=== PATIENT | male | born 1935 | race Caucasian/White ===

== ENCOUNTER 2020-12-16 14:50 | Outpatient (REF) | payer MEDICARE, SELFPAY ==
[2020-12-16 15:32] LABS: Anion Gap 13 (12-20); Blood Urea Nitrogen 32 mg/dL (9-16); Calcium 9.3 mg/dL (8.4-10.2); Carbon Dioxide 26 mmol/L (22-29); Chloride 103 mmol/L (96-108); Estimated Glomerular Filt Rate 48; Glucose Random 99 mg/dL (60-115); Potassium 5.1 mmol/L (3.3-5.1); Sodium 137 mmol/L (135-145)
== END 2020-12-16 14:51 | disposition home or self-care (01) ==
LOC: HO.LNP 14:50
PROVIDERS: Visit Provider Internal Medicine
DX: I50.20 Unspecified systolic (congestive) heart failure (principal)
CPT/HCPCS: 80048

== ENCOUNTER 2022-03-02 15:46 | Inpatient (IN) | payer MEDICARE, SELFPAY ==
--- NOTE | ~2022-03-02 | CT_ITS ---
EXAMINATION: CT ABDOMEN AND PELVIS WITHOUT CONTRAST CLINICAL INFORMATION: Previous psoas hematoma COMPARISON: Chest CT 03/02/2022. TECHNIQUE: Multidetector volumetric imaging was performed from the lung bases through the pubic symphysis. Sagittal and coronal reformatted images were obtained on the technologist workstation. This CT examination was performed using dose optimization techniques as appropriate, variously including the following: *Automated exposure control *Adjustment of mA and/or kV according to patient size (this includes techniques or standardized protocols for targeted exams where dose is matched to indication/reason for exam; i.e. extremities or head) *Use of iterative reconstruction technique FINDINGS: The lack of intravenous contrast limits evaluation of the solid visceral organs including the liver, spleen, pancreas, and kidneys. LUNG BASES: Small to moderate right pleural effusion is decreased from prior study. Trace left pleural effusion is similar perhaps slightly increased. Cardiomegaly. Trace pericardial fluid. Partially imaged pacer wires. Bibasilar atelectasis. Dense three-vessel coronary artery calcifications. LIVER, GALLBLADDER, AND BILIARY TREE: Subtly nodular hepatic contour suggests cirrhosis. No focal liver lesion seen. Gallbladder collapsed. No biliary ductal dilatation. PANCREAS: As fluid and fat stranding surrounding the pancreas most notable in the region of the pancreatic head. Acute interstitial pancreatitis can give this appearance. SPLEEN: Splenomegaly measuring 18.3 cm anterior to posterior by 14.2 cm craniocaudal. ADRENAL GLANDS: Normal; no adrenal mass. KIDNEYS AND URETERS: Atrophic kidneys bilaterally. No calculi or hydronephrosis. GASTROINTESTINAL TRACT: Stomach and small bowel are nondilated. Normal appendix. Scattered colonic diverticulosis. No evidence of colitis or diverticulitis. There is fluid and fat stranding surrounding the mid to distal duodenum. ABDOMINAL WALL: Small fat-containing umbilical hernia. Right greater than left bilateral fat-containing inguinal hernias. LYMPH NODES: Normal caliber abdominal aorta. Numerous prominent to mildly enlarged intraperitoneal lymph nodes are present. Left external iliac lymph node measures 2.9 x 1.7 cm. Left greater than right inguinal lymph nodes are present as well. 5 x 6.3 cm transaxial by 10 cm craniocaudal fluid collection in the right psoas musculature. This is simple fluid density, perhaps chronic hematoma. VASCULAR: Normal caliber abdominal aorta. Varices. BLADDER: Bladder is collapsed with a Ayoub catheter in place. PELVIC VISCERA: 6 x 6.2 cm prostatomegaly. OSSEOUS STRUCTURES: No acute or suspicious osseous abnormalities. Small volume ascites with fluid along both paracolic gutters and in the central mesentery. Anasarca. CT/CT abdomen pelvis wo IV con IMPRESSION: 5 x 6.3 x 10 cm craniocaudal simple fluid density collection in the right psoas muscle. This could represent a chronic hematoma. Small to moderate right pleural effusion is decreased from the prior chest CT 03/02/2022. Trace left pleural effusion is similar perhaps slightly increased. There is fluid and fat stranding adjacent the pancreas and duodenum. Pancreatitis can give this appearance. Duodenitis considered less likely. Nodular hepatic contour consistent with cirrhosis. Splenomegaly, varices, and anasarca consistent with portal hypertension. Nonspecific lymphadenopathy, possibly reactive.
--- NOTE | ~2022-03-02 | XR_ITS ---
EXAMINATION: XR CHEST CLINICAL INFORMATION: Altered mental status and shortness of breath COMPARISON: None TECHNIQUE: Frontal view upright portable of the chest was obtained. FINDINGS: There is mild cardiac enlargement. The lungs are hypoexpanded. A single lead left chest wall pacemaker is present. There is mild upper zone redistribution and some mild interstitial prominence which may represent congestion and mild interstitial edema. Tiny pleural effusions cannot be excluded. XR/XR chest 1V IMPRESSION: Mild cardiomegaly with question of mild CHF.
--- NOTE | ~2022-03-02 | CT_ITS ---
EXAMINATION: CT HEAD WITHOUT CONTRAST CLINICAL INFORMATION: Altered mental status COMPARISON: None TECHNIQUE: Contiguous axial imaging was performed from the skull base to vertex without intravenous administration of contrast. This CT examination was performed using dose optimization techniques as appropriate, variously including the following: *Automated exposure control *Adjustment of mA and/or kV according to patient size (this includes techniques or standardized protocols for targeted exams where dose is matched to indication/reason for exam; i.e. extremities or head) *Use of iterative reconstruction technique DLP: 625 mGy-cm FINDINGS: Images for this exam are under the accession number [id number] There is no evidence of acute intracranial hemorrhage or territorial infarction. No abnormal mass effect or midline shift is seen. [place] to white matter differentiation is well preserved. No extra-axial fluid collections are identified. No hydrocephalus. Proportional prominence of the ventricles and sulcal spaces is consistent with moderate volume loss. Patchy periventricular and deep white matter hypoattenuation is consistent with mild small vessel ischemic changes. Bilateral gangliocapsular lacunar infarcts. No acute osseous or soft tissue abnormality. The mastoid air cells and visualized portions of the paranasal sinuses are well aerated. CT/CT head/brain wo IV con IMPRESSION: No acute intracranial pathology.
--- NOTE | ~2022-03-02 | CT_ITS ---
EXAMINATION: CT ANGIOGRAM OF THE CHEST WITH AND WITHOUT CONTRAST (CT PULMONARY ANGIOGRAM FOR PE) CLINICAL INFORMATION: Reason for Exam hypoxia, + dimer ro pe COMPARISON: Chest radiograph 03/02/2022 TECHNIQUE: Prior to contrast administration, noncontrast localization images were obtained. Subsequently, multidetector volumetric imaging was performed from the thoracic inlet to below the diaphragms following the administration of 75 mL Omnipaque 350 intravenous contrast. No contrast reaction reported Sagittal, coronal, and MIP oblique sagittal reformatted images were obtained on the CT workstation, uploaded to PACS, and reviewed. This CT examination was performed using dose optimization techniques as appropriate, variously including the following: *Automated exposure control *Adjustment of mA and/or kV according to patient size (this includes techniques or standardized protocols for targeted exams where dose is matched to indication/reason for exam; i.e. extremities or head) *Use of iterative reconstruction technique Total exam dose-length product 625 mGy-cm FINDINGS: QUALITY OF STUDY/CONTRAST BOLUS: The bolus is less than optimal and there is significant motion artifact PULMONARY ARTERIES: No central or lower segmental pulmonary emboli. THORACIC AORTA: No aneurysm or dissection. LUNG: Mild interstitial prominence seen compatible with CHF and interstitial edema. No suspicious lung masses are seen. A calcified left upper lobe granuloma is present. PLEURA: There is a moderate right pleural effusion present which was mostly subpulmonic in appearance on the chest radiograph. No significant left effusion. MEDIASTINUM: The heart is mildly enlarged. No pericardial effusion. Mild coronary calcium is present. No hilar or mediastinal lymphadenopathy. No evidence of septal bowing or right heart strain. Left chest wall pacemaker with tip at the RV apex. CHEST WALL/AXILLA: No axillary or internal mammary lymphadenopathy. OSSEOUS STRUCTURES: Degenerative changes are present throughout the spine. UPPER ABDOMEN: Unremarkable. There is moderate reflux of contrast into the hepatic veins to suggest elevated right heart pressures. CT/CT angio chest PE protocol IMPRESSION: 1. No evidence of pulmonary emboli. 2. Cardiomegaly with interstitial edema and moderate right pleural effusion 3. Reflux into the hepatic veins suggests elevated right-sided heart pressures VTE: negative
--- NOTE | 2022-03-02 15:57 | ECG_ITS ---
Test Reason : weakness Blood Pressure : / mmHG Vent. Rate : 107 BPM Atrial Rate : 076 BPM P-R Int : 000 ms QRS Dur : 126 ms QT Int : 414 ms P-R-T Axes : 000 096 122 degrees QTc Int : 552 ms Poor data quality Atrial fibrillation Right bundle branch block T wave abnormality, consider lateral ischemia Abnormal ECG No previous ECGs available Referred By: Skyler Lindo Electronically Signed By:MELODY CRAWFORD MD
--- NOTE | 2022-03-02 15:58 | ED_ITS ---
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 According to report obtained from EMS symptoms have been going on for 1 day, patient is confused at baseline and only alert to person, was noted to be hypoxic when EMS arrived saturating 80% on room air, was placed on 4 L nasal cannula and O2 sat 95%. Patient does not use home oxygen. Reporting some shortness of breath and malaise. Unable to obtain accurate review of systems as patient is altered. To note patient is noted to be unkempt and arrives with Quarles catheter in place that appears to have dark, cloudy, foul-smelling urine. Related Data Allergies Allergy/AdvReac Type Severity Reaction Status Date / Time Unable to Assess Allergy Unverified 03/02/22 15:56 Review of Systems Review of Systems: Yes Unobtainable due to mental status PMFSH Past Medical History Attestation statement: The following information was validated with the patient. Source: old records reviewed and nursing notes reviewed Social History Social History Advance Directives: No Physical Exam ED Vital Signs: Vital Signs - 24 hr 03/02/22 16:14 03/02/22 17:56 03/02/22 18:54 Temperature 102.6 F H 101.5 F H 99.1 F Pulse Rate 69 60 60 Respiratory Rate 30 H 27 H 20 Blood Pressure 106/47 L 102/48 L 98/52 L Pulse Oximetry 96 96 95 Oxygen Delivery Method Nasal Cannula Nasal Cannula Nasal Cannula Oxygen Flow Rate 4 3 3 BMI result Body Mass Index 30.4 Patient noted to be febrile, tachycardic on my examination however for nursing patient was not noted to be tachycardic. On 4 L of NC --> 95% Appearance: Alert.? Oriented to person.? No acute distress.? Patient appears unkempt, smells like urine. Head: Normocephalic, atraumatic, no step-offs or deformities Eyes: Pupils equal, round and reactive to light.? Neck: Normal inspection.? Neck supple.? CVS: Rapid.? Pu rate normal rhythm likely sinus tachycardia.lses normal.? Respiratory: No respiratory distress.? Breath sounds diminished b/l.? Abdomen: Soft and nontender.? Skin: Skin warm and dry.? Normal skin color.? Normal skin turgor.?Warm skin to the touch : quarles cath in place. Extremities: 3+ b/l non pitting edema.? No calf ttp. Global weakness Neuro: Oriented only to person.? No motor deficit.? No sensory deficit. CN 2-12 intact. Intermittently following commands. Negative romberg Course Reevaluation(s) Reevaluation #1: CBC with normocytic anemia. No leukocytosis. Chemistry with elevated BUN and creatinine slightly higher than his baseline. BNP noted to be 297, no need for diuretics. Troponin noted to be critically elevated 150.9, EKG appears to have a right bundle-branch block however no previous EKGs to compare with, patient not complaining of chest pain or shortness of breath, will obtain a repeat troponin at 07:30, troponin could be elevated secondary to chronic kidney disease. Patient is noted to have a positive D-dimer, CTA ordered. Urine grossly infected will start ceftriaxone IV. Chest x-ray, CTA and CT of the head pending. Time: 17:32 Reevaluation #2: No signs of PE. Cardiomegaly with interstitial edema and moderate right pleural effusion. Reflux and hepatic veins which suggest right-sided heart pressure. VT negative. Head CT with no acute findings. Time: 19:20 Reevaluation #3: Patient will be admitted to the hospital for further intervention and treatment at this time. Comfortable with plan hospitalist accepts admission Time: 19:22 Medications Administered Discontinued Medications Generic Name Dose Route Start Last Admin Trade Name Freq PRN Reason Stop Dose Admin Acetaminophen 650 mg 03/02/22 16:20 03/02/22 16:46 Acetaminophen Supp 650 Mg Supp.Rect MO 03/02/22 16:21 650 mg ONCE ONE Administration Ceftriaxone Sodium 1 gm/ 50 mls @ 100 mls/hr 03/02/22 17:19 03/02/22 18:22 Sodium Chloride IV 03/02/22 17:48 Infused ONCE ONE Infusion Iohexol 100 ml 03/02/22 18:02 03/02/22 18:02 Iohexol 350 Mg/Ml 100 Ml Infus..Btl IV 03/02/22 18:03 75 ml ONCE ONE Administration Medical Decision Making [facility] Narrative Medical decision making narrative: 1615 86 year old male presents with AMS, hypoxia X 1 day, coming from SNF. Poor historian. PE diminished breath sounds bilaterally, global weakness, rapid regular rhythm likely sinus tachycardia. Abdomen soft nontender nondistended. Patient oriented to person however not place time or situation. Intermittently following commands. Difficult to obtain an NIH stroke scale as patient is altered. Plan- basic labs, urine, chest x-ray, head CT, blood cultures, lactic acid Sepsis protocol initiated as patient noted to be febrile, tachycardic. Suspecte d urosepsis. Will rule out other infections such as respiratory infections a, pneumonia, PE, ACS, CHF, electrolyte abnormalities secondary to mouth nutrition. Medical Records Medical records reviewed: Yes I reviewed the patient's medical records. Lab Data Lab results reviewed: Yes I reviewed the patient's lab results. Result diagrams: 03/02/22 16:39 03/02/22 16:39 Labs: Lab Results 03/02/22 03/02/22 03/02/22 Range/Units 16:39 16:39 16:39 WBC 7.7 (4.8-10.8) X10*3/uL RBC 3.94 L (4.60-5.80) X10*6/uL Hgb 11.8 L (14.0-18.0) g/dl Hct 38.6 L (42.0-52.0) % MCV 98.0 (80.0-98.0) fL MCH 29.9 (27.0-33.0) pg MCHC 30.6 L (31.0-36.0) g/dl RDW 15.4 (11.0-16.0) % Plt Count 105 L (160-400) X10*3/uL MPV 12.2 (9.4-12.4) fL Immature Gran % (Auto) 0.4 (0.0-0.4) % Neut % (Auto) 85.7 H (45-73) % Lymph % (Auto) 5.1 L (20-40) % [place] % (Auto) 8.5 (2-11) % Eos % (Auto) 0.0 (0-4) % Baso % (Auto) 0.3 (0-2) % Lymph # (Auto) 0.4 L (1.2-4.9) X10*3/uL [place] # (Auto) 0.7 (0.1-1.2) X10*3/uL Eos # (Auto) 0.0 (0.0-0.4) X10*3/uL Baso # (Auto) 0.0 (0.0-0.2) X10*3/uL Abs Immat Gran (auto) 0.03 (0.00-0.03) X10*3/uL Absolute Neuts (auto) 6.6 (2.0-8.3) x10*3/uL Absolute Nucleated RBC 0.000 (0.0-0.012) X10*3/uL Nucleated RBC % (auto) 0.0 (0.0-0.2) /100WBC D-Dimer High Sensitivty NG/ML Sodium 142 (135-145) mmol/L Potassium 5.1 (3.3-5.1) mmol/L Chloride 105 (96-108) mmol/L Carbon Dioxide 29 (22-29) mmol/L Anion Gap 13 (12-20) BUN 25 H (9-16) mg/dL Creatinine 1.62 H (0.5-1.4) mg/dL Estim Creat Clear Calc 36.4 Estimated GFR 41 Random Glucose 100 (60-115) mg/dL Lactic Acid (0.5-2.0) mmol/L Calcium 8.9 (8.4-10.2) mg/dL Magnesium 2.0 (1.6-2.6) mg/dL Total Bilirubin 1.1 H (0.0-1.0) mg/dL AST 15 (5-37) U/L ALT < 6 (0-40) U/L Alkaline Phosphatase 95 (39-117) U/L Troponin I High Sens 150.9 H* (<3.5-35.0) ng/L B-Natriuretic Peptide (<100) pg/mL Total Protein 7.0 (6.5-8.0) g/dL Albumin 3.6 (3.5-5.0) g/dL Urine Color Urine Appearance Urine pH (5.0-9.0) Ur Specific Startex (1.005-1.025) Urine Protein (Neg-Trace) mg/dL Urine Glucose (UA) (Negative) mg/dL Urine Ketones (Negative) mg/dL Urine Blood (Negative) Urine Nitrite (Negative) Ur Leukocyte Esterase (Negative) Urine RBC (0-2) /HPF Urine WBC (0-5) /HPF Urine WBC Clumps Ur Squamous Epith Cells (0-2) /HPF Urine Bacteria (None Seen) Hyaline Casts (0-2) /LPF Granular Casts COVID-19 (MILEY) (Negative) COVID-19 Clin Com 03/02/22 03/02/22 03/02/22 Range/Units 16:39 16:39 16:39 WBC (4.8-10.8) X10*3/uL RBC (4.60-5.80) X10*6/uL Hgb (14.0-18.0) g/dl Hct (42.0-52.0) % MCV (80.0-98.0) fL MCH (27.0-33.0) pg MCHC (31.0-36.0) g/dl RDW (11.0-16.0) % Plt Count (160-400) X10*3/uL MPV (9.4-12.4) fL Immature Gran % (Auto) (0.0-0.4) % Neut % (Auto) (45-73) % Lymph % (Auto) (20-40) % [place] % (Auto) (2-11) % Eos % (Auto) (0-4) % Baso % (Auto) (0-2) % Lymph # (Auto) (1.2-4.9) X10*3/uL [place] # (Auto) (0.1-1.2) X10*3/uL Eos # (Auto) (0.0-0.4) X10*3/uL Baso # (Auto) (0.0-0.2) X10*3/uL Abs Immat Gran (auto) (0.00-0.03) X10*3/uL Absolute Neuts (auto) (2.0-8.3) x10*3/uL Absolute Nucleated RBC (0.0-0.012) X10*3/uL Nucleated RBC % (auto) (0.0-0.2) /100WBC D-Dimer High Sensitivty NG/ML Sodium (135-145) mmol/L Potassium (3.3-5.1) mmol/L Chloride (96-108) mmol/L Carbon Dioxide (22-29) mmol/L Anion Gap (12-20) BUN (9-16) mg/dL Creatinine (0.5-1.4) mg/dL Estim Creat Clear Calc Estimated GFR Random Glucose (60-115) mg/dL Lactic Acid 1.0 (0.5-2.0) mmol/L Calcium (8.4-10.2) mg/dL Magnesium (1.6-2.6) mg/dL Total Bilirubin (0.0-1.0) mg/dL AST (5-37) U/L ALT (0-40) U/L Alkaline Phosphatase (39-117) U/L Troponin I High Sens (<3.5-35.0) ng/L B-Natriuretic Peptide 297 H (<100) pg/mL Total Protein (6.5-8.0) g/dL Albumin (3.5-5.0) g/dL Urine Color Urine Appearance Urine pH (5.0-9.0) Ur Specific Startex (1.005-1.025) Urine Protein (Neg-Trace) mg/dL Urine Glucose (UA) (Negative) mg/dL Urine Ketones (Negative) mg/dL Urine Blood (Negative) Urine Nitrite (Negative) Ur Leukocyte Esterase (Negative) Urine RBC (0-2) /HPF Urine WBC (0-5) /HPF Urine WBC Clumps Ur Squamous Epith Cells (0-2) /HPF Urine Bacteria (None Seen) Hyaline Casts (0-2) /LPF Granular Casts COVID-19 (MILEY) Negative (Negative) COVID-19 Clin Com See Note 03/02/22 03/02/22 Range/Units 16:42 16:43 WBC (4.8-10.8) X10*3/uL RBC (4.60-5.80) X10*6/uL Hgb (14.0-18.0) g/dl Hct (42.0-52.0) % MCV (80.0-98.0) fL MCH (27.0-33.0) pg MCHC (31.0-36.0) g/dl RDW (11.0-16.0) % Plt Count (160-400) X10*3/uL MPV (9.4-12.4) fL Immature Gran % (Auto) (0.0-0.4) % Neut % (Auto) (45-73) % Lymph % (Auto) (20-40) % [place] % (Auto) (2-11) % Eos % (Auto) (0-4) % Baso % (Auto) (0-2) % Lymph # (Auto) (1.2-4.9) X10*3/uL [place] # (Auto) (0.1-1.2) X10*3/uL Eos # (Auto) (0.0-0.4) X10*3/uL Baso # (Auto) (0.0-0.2) X10*3/uL Abs Immat Gran (auto) (0.00-0.03) X10*3/uL Absolute Neuts (auto) (2.0-8.3) x10*3/uL Absolute Nucleated RBC (0.0-0.012) X10*3/uL Nucleated RBC % (auto) (0.0-0.2) /100WBC D-Dimer High Sensitivty 335 NG/ML Sodium (135-145) mmol/L Potassium (3.3-5.1) mmol/L Chloride (96-108) mmol/L Carbon Dioxide (22-29) mmol/L Anion Gap (12-20) BUN (9-16) mg/dL Creatinine (0.5-1.4) mg/dL Estim Creat Clear Calc Estimated GFR Random Glucose (60-115) mg/dL Lactic Acid (0.5-2.0) mmol/L Calcium (8.4-10.2) mg/dL Magnesium (1.6-2.6) mg/dL Total Bilirubin (0.0-1.0) mg/dL AST (5-37) U/L ALT (0-40) U/L Alkaline Phosphatase (39-117) U/L Troponin I High Sens (<3.5-35.0) ng/L B-Natriuretic Peptide (<100) pg/mL Total Protein (6.5-8.0) g/dL Albumin (3.5-5.0) g/dL Urine Color Dark Yellow Urine Appearance Turbid Urine pH 7.0 (5.0-9.0) Ur Specific Startex 1.020 (1.005-1.025) Urine Protein 300 (3+) H (Neg-Trace) mg/dL Urine Glucose (UA) Negative (Negative) mg/dL Urine Ketones Trace (Negative) mg/dL Urine Blood Large (3+) H (Negative) Urine Nitrite Negative (Negative) Ur Leukocyte Esterase Large (3+) H (Negative) Urine RBC >20 H (0-2) /HPF Urine WBC >50 H (0-5) /HPF Urine WBC Clumps Present Ur Squamous Epith Cells 0-2 (0-2) /HPF Urine Bacteria 4+ (None Seen) Hyaline Casts 3-5 (0-2) /LPF Granular Casts Present COVID-19 (MILEY) (Negative) COVID-19 Clin Com Critical Care Time Critical Care Time Critical Care Time: No Discharge Plan Discharge Clinical Impression: UTI (urinary tract infection), Altered mental status, Pleural effusion, Fever Patient Disposition: Admitted As Inpatient
[2022-03-02 15:59] VITALS: BP 118/60; PULSE 64; O2SAT 95; BMI 30.4
[2022-03-02 16:14] VITALS: BP 106/47; PULSE 69; RESP 30; TEMP 39.2; O2SAT 96
--- NOTE | 2022-03-02 16:20 | PC.NURSE ---
MLP notified of pts current vitals. BP 106/47 MAP 66 HR 69 Rectal temp 102.6F. O2 sat 96% on 4L nc.
--- NOTE | 2022-03-02 16:30 | PC.NURSE ---
Fluids not ordered pending lab results as pt has a hx of CHF per provider.
[2022-03-02] MEDS: Acetaminophen Supp 650 MG SUPP.RECT PR (16:46)
[2022-03-02 16:58] LABS: Appearance Urine Turbid; Color Urine Dark Yellow; Glucose Urine UA Negative (Negative); Leukocyte Esterase Urine Large (3+) (Negative); Nitrite Urine Negative (Negative); UMIC TRIGGER UACC YES; Urine Blood Large (3+) (Negative); Urine Ketones Trace mg/dL (Negative); Urine Protein 300 (3+) mg/dL (Neg-Trace)
[2022-03-02 17:00] LABS: MANUAL DIFF FLAG NO
[2022-03-02 17:01] LABS: Basophils Percent Auto 0.3 % (0-2); Hematocrit 38.6 % (42.0-52.0); Hemoglobin 11.8 g/dl (14.0-18.0); Imm Gran Abs Auto 0.03 X10*3/uL (0.00-0.03); Imm Gran Pct Auto 0.4 % (0.0-0.4); Lymphocytes Absolute Auto 0.4 X10*3/uL (1.2-4.9); Lymphocytes Percent Auto 5.1 % (20-40); Mean Corpuscular HGB Conc 30.6 g/dl (31.0-36.0); Mean Corpuscular Hemoglobin 29.9 pg (27.0-33.0); Mean Platelet Volume 12.2 fL (9.4-12.4); Monocytes Absolute Auto 0.7 X10*3/uL (0.1-1.2); Monocytes Percent Auto 8.5 % (2-11); Neutrophils Absolute Auto 6.6 x10*3/uL (2.0-8.3); Neutrophils Percent Auto 85.7 % (45-73); Platelet Count 105 X10*3/uL (160-400); Red Blood Count 3.94 X10*6/uL (4.60-5.80); Red Cell Distribution Width 15.4 % (11.0-16.0); White Blood Count 7.7 X10*3/uL (4.8-10.8)
--- NOTE | 2022-03-02 17:07 | PC.NURSE ---
iv inserted, labs drawn, covid swab obtained, monitor car operator applied, urine obtained, pt arrived with a chronic quarles cath, pt medicated per order, this nurse noted blood AK when giving tylenol, will notify provider.
[2022-03-02 17:14] LABS: D Dimer High Sensitivity 335 NG/ML
[2022-03-02 17:17] LABS: Bacteria Urine 4+ (None Seen); Granular Casts Urine Present; RBC Urine >20 /HPF (0-2); Squamous Epithelial Cell Urine 0-2 /HPF (0-2); UACC Culture Trigger YES; WBC Clumps Urine Present; WBC Urine >50 /HPF (0-5)
--- NOTE | 2022-03-02 17:21 | ECG_ITS ---
Test Reason : AMS Blood Pressure : / mmHG Vent. Rate : 064 BPM Atrial Rate : 000 BPM P-R Int : 000 ms QRS Dur : 142 ms QT Int : 428 ms P-R-T Axes : 000 111 145 degrees QTc Int : 441 ms Atrial fibrillation with frequent ventricular-paced complexes Right bundle branch block Left posterior fascicular block Bifascicular block T wave abnormality, consider lateral ischemia Abnormal ECG When compared with ECG of 02-MAR-2022 16:28, Electronic ventricular pacemaker is new Referred By: Skyler Lindo Electronically Signed By:MELODY CRAWFORD MD
[2022-03-02 17:24] LABS: B Type Natriuretic Peptide 297 pg/mL (<100)
[2022-03-02 17:25] LABS: Alanine Aminotransferase < 6 U/L (0-40); Albumin Level 3.6 g/dL (3.5-5.0); Alkaline Phosphatase 95 U/L (39-117); Anion Gap 13 (12-20); Aspartate Amino Transferase 15 U/L (5-37); Bilirubin Total 1.1 mg/dL (0.0-1.0); Blood Urea Nitrogen 25 mg/dL (9-16); COVID-19 Test Negative (Negative); Calcium 8.9 mg/dL (8.4-10.2); Carbon Dioxide 29 mmol/L (22-29); Chloride 105 mmol/L (96-108); Creatinine Clr Calc Pharmacy 36.4; Estimated Glomerular Filt Rate 41; Glucose Random 100 mg/dL (60-115); IDNOW Serial# 16C4AD1C; Potassium 5.1 mmol/L (3.3-5.1); Sodium 142 mmol/L (135-145)
[2022-03-02 17:30] LABS: Troponin-I High Sensitivity 150.9 ng/L (<3.5-35.0)
[2022-03-02] MEDS: cefTRIAXone sodium 1 GM in 0.9 % Sodium Chloride 50 ML IV (17:43)
[2022-03-02 17:56] VITALS: BP 102/48; PULSE 60; RESP 27; TEMP 38.6; O2SAT 96
[2022-03-02] MEDS: iohexoL 350 MG/ML 100 ML INFUS..BTL IV (18:02)
--- OUTSIDE RECORDS SUMMARY | 2022-03-02 18:17 | XMS_ITS | Continuity of Care Document ---
:1935 Author Organization [facility] Address [address] [place] [address]- Care Team Providers Name Role Phone Nicola Hager MD Primary Care Physician Encounter [facility] [place] Date(s): 11/06/19 - 12/12/19 [facility] [address] [place] [address]- [facility] Attending Physician: Jeff Marley MD Admitting Physician: Jeff Marley MD Allergies, Adverse Reactions, Alerts No Known Medication Allergies Substance Reaction Severity Status Other Environmental Allergy pollen Acti ve Immunizations Given and Recorded Vaccine Date Status Refusal Reason tetanus-diphtheria toxoids (Td)1 05/08/19 Given influenza virus vaccine, inactivated2 04/07/17 Given influenza virus vaccine, inactivated 06/08/16 Given influenza virus vaccine, inactivated 01/13/15 Given influenza virus vaccine, inactivated 02/11/13 Given influenza virus vaccine, inactivated3 12/09/11 Given influenza virus vaccine, inactivated4 12/28/10 Given influenza virus vaccine, inactivated5 01/04/10 Given pneumococcal 13-valent vaccine6 12/10/14 Given Zoster Vaccine Live 09/02/11 Given Tet/diphth/pertussis, acel (oldterm)7 05/06/09 Given Pneumococcal Vaccine (oldterm)8 05/06/09 Given Influenza Inactive (IM) (oldterm)9 04/22/09 Given 1Result Comment: [facility] [place] 2] [id number] Comment: [04/07/2017] [facility] [id number] 3Admin Note: VIS Admin Note: vis [id number] Note: VIS [id number] Comment: [12/10/2014] vis given to [id number] Note: information paper given and waiver [id number] Note: information paper [id number] Note: H1N1 Medications Advair Diskus 500 mcg-50 mcg inhalation powder 1, puffs, Inhalation, Daily, # 30 each, Refills 5, Tot. Refills 5, Maintenance, 03/23/18 11:47:25 EST, Inhaler, Route to Pharmacy Electronically, [id number], [id number] Start Date: 03/23/18 Status: OrderedAerochamber w/Mask (Large) See Instructions, # 1 each, Refills 0, Tot. Refills 0, Maintenance, use with MDI for asthma flares, 11/12/19 12:31:00 EDT, Supply, 177.8, cm, 11/12/19 10:17:00 EDT, Height Start Date: 11/12/19 Status: Orderedalbuterol CFC free 90 mcg/inh inhalation aerosol 2, puffs, Inhalation, Every 4 hours, PRN, # 1 each, Refills 11, Tot. Refills 11, Maintenance, 04/02/18 11:42:36, Inhaler, Route to Pharmacy Electronically, [id number], [id number] Start Date: 04/02/18 Stop Date: 03/28/19 Status: Orderedaspirin 81 mg oral tablet 1 tablet = 81 mg, By Mouth, Daily, # 30 tablet, 0 Refills, Maintenance, 09/07/16 9:41:59, Tablet Start Date: 09/07/16 Status: Orderedcarvedilol 6.25 mg oral tablet 6.25 mg, 1, tablet, By Mouth, 2 times a day, # 180 tablet, Refills 1, Tot. Refills 1, Maintenance, 10/18/19 14:48:00 EDT, Route to Pharmacy Electronically, [id number], 177.8, cm, 05/08/19 9:20:00 EST, Height Start Date: 10/18/19 Status: OrderedCompression Stockings See Instructions, # 1 pair, Maintenance, surgical, knee length 30-40 mm Hg, 11/18/15 21:24:44, Compound Start Date: 11/18/15 Status: Ordereddocusate sodium 100 mg oral capsule 100 mg, 1, capsule, By Mouth, Daily, PRN, # 30 capsule, Refills 3, Tot. Refills 3, Maintenance, for constipation, 04/16/18 13:14:21 EST, Route to Pharmacy Electronically, [id number], [id number] Start Date: 04/16/18 Stop Date: 08/14/18 Status: OrderedDuoNeb 3 mg-0.5 mg/3 ml inhalation solution 3 mL, Neb, Once, 3ml administered via neb per verbal orders. lot # [id number] exp 07/26, # 3 mL, 0 Refills, Soft Stop, 04/28/17 12:14:31, 3 mL Neb Once,Instr:3ml administered via neb per verbal orders. ; lot # [id number] 07/26 Start Date: 04/28/17 Status: OrderedFreestyle Lite Lancets See Instructions, # 200 each, Refills 5, Tot. Refills 5, Maintenance, qid for Type 2 Diabetes Mellitus ICD10: E11.9, 03/23/18 11:45:26 EST, Compound Start Date: 03/23/18 Stop Date: 04/22/18 Status: OrderedFreestyle Lite Test Strips See Instructions, # 100 each, Refills 11, Tot. Refills 11, Maintenance, qid for Type 2 Diabetes Mellitus ICD10: E11.9, 05/09/19 13:52:00 EST, Compound, 177.8, cm, 05/08/19 9:20:00 EST, Height Start Date: 05/09/19 Stop Date: 05/03/20 Status: Orderedfurosemide 20 mg oral tablet See Instructions, # 30 tablet, Refills 6 Tot. Refills 6, TAKE ONE TABLET BY MOUTH EVERY DAY NEEDED FOR EDEMA, [id number] Start Date: 12/11/18 Status: OrderedGlucophage 1000 mg oral tablet 1 tablet = 1,000 mg, By Mouth, Daily, # 90 tablet, 1 Refills, Maintenance, 08/27/19 8:15:00 EDT, Tablet, [id number], 177.8, cm, 05/08/19 9:20:00 EST, Height Start Date: 08/27/19 Status: OrderedLasix 20 mg oral tablet 20 mg, 1, tablet, By Mouth, Daily, PRN, # 30 tablet, Refills 0, Tot. Refills 0, Maintenance, edema, 11/12/18 14:26:04 EDT, Route to Pharmacy Electronically, [id number], [id number] Start Date: 11/12/18 Stop Date: 12/12/18 Status: Orderedlisinopril 40 mg oral tablet 1 tablet = 40 mg, By Mouth, Daily, # 90 tablet, 1 Refills, Maintenance, 08/27/19 8:03:00 EDT, Tablet, [id number], 177.8, cm, 05/08/19 9:20:00 EST, Height Start Date: 08/27/19 Status: Orderedpravastatin 20 mg oral tablet 20 mg, 1, tablet, By Mouth, Daily, # 90 tablet, Refills 1, Tot. Refills 1, Maintenance, 08/27/19 8:15:00 EDT, Route to Pharmacy Electronically, [id number], 177.8, cm, 05/08/19 9:20:00 EST, Height Start Date: 08/27/19 Status: Orderedsertraline 50 mg oral tablet 1 tablet = 50 mg, By Mouth, Daily, # 90 tablet, 1 Refills, Soft Stop, 11/04/19 14:38:00 EDT, [id number], 177.8, cm, 10/30/19 15:35:00 EDT, Height Start Date: 11/04/19 Status: Orderedtamsulosin 0.4 mg oral capsule 0.4 mg, 1, capsule, By Mouth, Daily, # 90 capsule, Refills 1, Tot. Refills 1, Maintenance, 08/27/19 8:01:00 EDT, Route to Pharmacy Electronically, [id number], 177.8, cm, 05/08/19 9:20:00 EST, Height Start Date: 08/27/19 Status: OrderedXarelto 20 mg oral tablet 1 tablet, By Mouth, Daily in PM, # 90 tablet, 1 Refills, Soft Stop, 08/27/19 8:07:00 EDT, [id number], 177.8, cm, 05/08/19 9:20:00 EST, Height Start Date: 08/27/19 Status: Ordered Problem List Condition Effective Dates Status Health Status Informant MOLST form completed Advanced care 03/31/16 Active planning/counseling discussion(Confirmed)1 BENIGN ESSENTIAL Active HYPERTENSION(Confirmed) BPH (benign prostatic Active hyperplasia)(Confirmed) ATRIAL FIBRILLATION(Confirmed) 08/28/09 Active Chronic heart failure(Confirmed) Active Coronary heart disease(Confirmed) Active Dementia(Confirmed) Active History of pacemaker(Confirmed) Active Mild cognitive impairment with memory Active loss(Confirmed) ASTHMA(Confirmed) Active Morbid obesity(Confirmed) Active Noncompliance with medication Active regimen(Confirmed) Sleep apnea(Confirmed) Active Peripheral vascular disease(Confirmed) Active Prediabetes(Confirmed) Active Pure Hypercholesterolemia(Confirmed) 11/03/10 Active Depression, major, recurrent, Active moderate(Confirmed) Urinary incontinence(Confirmed) 06/07/10 Active 1At Leslee Nelson Social History Social History Type Response Smoking Status Former smoker entered on: 05/03/13 Sex
--- OUTSIDE RECORDS SUMMARY | 2022-03-02 18:17 | XMS_ITS | Continuity of Care Document ---
:1935 Author Organization [facility] Address [address] [place] [address]- Care Team Providers Name Role Phone Oly Card Primary Care Physician Encounter [facility] Date(s): 08/10/20 - 08/19/[address] [address] Discharge Disposition: Discharged to Hospice-Home (routine care Attending Physician: Zulma Westfall MD Admitting Physician: Qiana Lopez DO Referring Physician: Not on Staff, Referring MD Allergies, Adverse Reactions, Alerts No Known Medication Allergies Substance Reaction Severity Status Other Environmental Allergy pollen Acti ve Immunizations Given and Recorded Vaccine Date Status Refusal Reason influenza virus vaccine, inactivated1 01/28/20 Given influenza virus vaccine, inactivated2 04/07/17 Given influenza virus vaccine, inactivated 06/08/16 Given influenza virus vaccine, inactivated 01/13/15 Given influenza virus vaccine, inactivated 02/11/13 Given influenza virus vaccine, inactivated3 12/09/11 Given influenza virus vaccine, inactivated4 12/28/10 Given influenza virus vaccine, inactivated5 01/04/10 Given tetanus-diphtheria toxoids (Td)6 05/08/19 Given pneumococcal 13-valent vaccine7 12/10/14 Given Zoster Vaccine Live 09/02/11 Given Tet/diphth/pertussis, acel (oldterm)8 05/06/09 Given Pneumococcal Vaccine (oldterm)9 05/06/09 Given Influenza Inactive (IM) (oldterm)10 04/22/09 Given 1Result Comment: [facility]-[id number] Comment: [04/07/2017] [facility] [place] [phone] Admin Note: VIS Admin Note: vis [id number] Note: VIS [id number] Comment: [facility] [id number] Comment: [12/10/2014] vis given to awoowwx7Berep Note: information paper given and waiver yixsqj1Eullf Note: information paper [id number] Note: H1N1 Medications Advair Diskus 500 mcg-50 mcg inhalation powder 1, puffs, Inhalation, Daily, # 30 each, Refills 5, Tot. Refills 5, Maintenance, 03/23/18 11:47:25 EST, Inhaler, Route to Pharmacy Electronically, [id number], [facility] Start Date: 03/23/18 Status: Orderedalbuterol CFC free 90 mcg/inh inhalation aerosol 2, puffs, Inhalation, Every 4 hours, PRN, # 1 each, Refills 11, Tot. Refills 11, Maintenance, 04/02/18 11:42:36, Inhaler, Route to Pharmacy Electronically, [id number], [facility] Start Date: 04/02/18 Stop Date: 03/28/19 Status: Orderedaspirin 81 mg oral tablet 1 tablet = 81 mg, By Mouth, Daily, # 30 tablet, 0 Refills, Maintenance, 09/07/16 9:41:59, Tablet Start Date: 09/07/16 Status: Orderedcarvedilol 6.25 mg oral tablet 6.25 mg, 1, tablet, By Mouth, 2 times a day, # 180 tablet, Refills 0, Tot. Refills 0, Maintenance, 04/19/20 8:28:00 EST, Route to Pharmacy Electronically, [facility], 178, cm, 01/23/20 10:29:00 EDT, Height, 134, kg, 12/10/19 13:55:00 ED... Start Date: 04/19/20 Status: Orderedcarvedilol 6.25 mg oral tablet 6.25 mg, Tablet, By Mouth, 08/18/20 21:00:00 EDT Start Date: 08/18/20 Stop Date: 08/18/20 Status: Completedcarvedilol 6.25 mg oral tablet 6.25 mg, Tablet, By Mouth, 08/19/20 9:00:00 EDT Start Date: 08/19/20 Stop Date: 08/19/20 Status: CompletedCBC, BMP CBC, BMP, See Instructions, # 1 Unknown, Refills 0, Tot. Refills 0, Maintenance, In one week (08/26),08/14/20 11:19:00 EDT, Supply Start Date: 08/14/20 Status: Orderedfurosemide 40 mg oral tablet 40 mg, 1, tablet, By Mouth, Daily, # 30 tablet, Refills 2, Tot. Refills 2, Maintenance, 05/10/20 15:33:00 EST, Route to Pharmacy Electronically, [facility], 178, cm, 01/23/20 10:29:00 EDT, Height, 134, kg, 12/10/19 13:55:00 EDT, Dry Weight Start Date: 05/10/20 Stop Date: 08/08/20 Status: OrderedGlucophage 1000 mg oral tablet 1 tablet = 1,000 mg, By Mouth, Daily, # 90 tablet, 1 Refills, Maintenance, 08/27/19 8:15:00 EDT, Tablet, [facility], 177.8, cm, 05/08/19 9:20:00 EST, Height Start Date: 08/27/19 Status: Orderedpravastatin 20 mg oral tablet 20 mg, 1, tablet, By Mouth, Daily, # 90 tablet, Refills 1, Tot. Refills 1, Maintenance, 02/26/20 10:00:00 EST, Route to Pharmacy Electronically, [facility], 178, cm, 01/23/20 10:29:00 EDT, Height, 134, kg, 12/10/19 13:55:00 EDT, Dry Weight Start Date: 02/26/20 Status: OrderedRolling walker Rolling walker, See Instructions, # 1 each, Refills 0, Tot. Refills 0, Maintenance, ICD R26.81 - unstable gait, 08/14/20 11:50:00 EDT, Supply Start Date: 08/14/20 Status: Orderedsertraline 50 mg oral tablet 1.5 tablet = 75 mg, By Mouth, Daily, # 45 tablet, 0 Refills, Maintenance, 08/19/20 9:57:00 EDT, Tablet, [facility] 3, Partial fill upon patient request if the prescription is for a scheduleII opioid drug., 178, cm, 01/23/20 10:29:00 EDT,... Start Date: 08/19/20 Status: Orderedsimethicone 80 mg oral tablet, chewable 80 mg, 1, tablet, Chew, 3 times a day, # 90 tablet, Refills 0, Tot. Refills 0, Acute 09/14/20 10:45:00 EDT, 08/14/20 10:44:00 EDT, Route to Pharmacy Electronically, [facility], [facility] 3, Partial fill upon patient request if the prescription is for... Start Date: 08/14/20 Stop Date: 09/14/20 Status: Orderedtamsulosin 0.4 mg oral capsule 0.4 mg, 1, capsule, By Mouth, Daily, # 90 capsule, Refills 1, Tot. Refills 1, Maintenance, 03/29/20 21:39:00 EST, Route to Pharmacy Electronically, [facility], 178, cm, 01/23/20 10:29:00 EDT, Height, 134, kg, 12/10/19 13:55:00 EDT, Dry... Start Date: 03/29/20 Status: OrderedXarelto 20 mg oral tablet 1 tablet, By Mouth, Daily in PM, # 90 tablet, 1 Refills, Soft Stop, 12/19/19 9:30:00 EDT, [facility], 178, cm, 12/10/19 13:55:00 EDT, Height, 134, kg, 12/10/19 13:55:00 EDT, Dry Weight Start Date: 12/19/19 Status: Ordered Problem List Condition Effective Dates [...] Urinary incontinence(Confirmed) 06/07/10 Active 1At [facility] Results Orders for Microbiology Reports Name Date Blood Culture 08/10/20 Blood Culture #2 08/10/20 Urine Culture 08/10/20 Microbiology Reports TEST:Urine Culture STATUS:Auth (Verified) BODY SITE: SOURCE:URINE COLLECTED DATE/TIME:08/10/20 4:15 PMUrine Culture SPECIMEN DESCRIPTION : URINE CLEAN CATCH/MIDSTREAM SPECIAL REQUESTS : NONE CULTURE : Mixed bacterial cam[place], indicative of urogenital contamination. REPORT STATUS : FINAL 08/11/2020TEST:Blood Culture, Second Order STATUS:Auth (Verified) BODY SITE: SOURCE:Blood COLLECTED DATE/TIME:08/10/20 4:15 PMBlood Culture, Second Order SPECIMEN DESCRIPTION : BLOOD SPECIAL REQUESTS : NONE CULTURE : NO GROWTH 5 DAYS. REPORT STATUS : FINAL 08/15/2020TEST:Blood Culture STATUS:Auth (Verified) BODY SITE: SOURCE:Blood COLLECTED DATE/TIME:08/10/20 3:55 PMBlood Culture SPECIMEN DESCRIPTION : BLOOD R AC SPECIAL REQUESTS : NONE CULTURE : NO GROWTH 5 DAYS. REPORT STATUS : FINAL 1Radiology Reports Exam Date Time Procedure Performing Provider Status 08/10/20 5:11 PM Chest Portable July King; Auth (Camila ified) Notes:(Chest Portable) Reason For Exam: Shortness of BreathRESULT: Chest Portable Chest Portable HX OF PRESENT ILLNESS: BLE edema, diarrhea; Reason: Shortness of Breath; Clinical Question(s): Pleural Effusion / Pleural Effusion COMPARISON: 12/10/2019 FINDINGS: LINES AND TUBES: Single lead left subclavian pacer wire is intact. LUNGS AND PLEURA: The central pulmonary vasculature is prominent and indistinct. No pleural effusion. No pneumothorax. HEART, MEDIASTINUM AND FREYA: Moderate prominence of the cardiac silhouette. Normal mediastinal and hilar contour. BONES AND SOFT TISSUES: No acute abnormality. IMPRESSION: Pulmonary vascular congestion/mild CHF. WSN: [id number] Ordering Physician: Devin Campos Dictated By: Ashok Connell MD Dictated Date/Time: 08/10/20 5:13 pm Reviewed By: Ashok Connell MD Signed By: Ashok Connell MD Signed Date/Time: 08/10/20 5:13 pm Transcribed By: ARTURO Transcribed Date/Time: 08/10/20 5:12 pm Vital Signs Most recent to oldest 1 2 3 [Reference Range]: Oxygen Saturation [94-100 %] 99 % 100 % 91 % (08/19/20 8:13 AM) (08/18/20 7:00 PM) *L* (08/18/20 12:00 P M) Pulse Rate [55-90 bpm] 60 bpm 60 bpm 78 bpm (08/19/20 8:59 AM) (08/19/20 8:13 AM) (08/18/20 8:2 8 PM) Blood Pressure [90-138/55-84 128/67 mm Hg 126/67 mm Hg 138 /72 mm Hg mm Hg] (08/19/20 8:59 AM) (08/19/20 8:13 AM) (08/18/20 8:2 8 PM) Respiratory Rate [16-30 17 br/min 18 br/min 18 br/mi n br/min] (08/19/20 8:13 AM) (08/18/20 7:00 PM) (08/18/20 12: 00 PM) Temperature [96.8-100.4 DegF] 98.1 DegF 97.5 DegF 97 .5 DegF (08/19/20 8:13 AM) (08/18/20 7:00 PM) (08/18/20 12: 00 PM) Liters per Minute 2 L/min 2 L/min 2 L/min (08/17/20 8:56 AM) (08/17/20 4:00 AM) (08/17/20 12: 00 AM) Mode of Delivery (Oxygen) Room air Room air Room a ir (08/19/20 8:13 AM) (08/18/20 7:00 PM) (08/18/20 12: 00 PM) Blood pressure sites Arm, right Arm, right Arm, right (08/19/20 8:13 AM) (08/18/20 8:00 AM) (08/18/20 3:0 0 AM) Temperature Route Oral Oral Axillary (08/19/20 8:13 AM) (08/18/20 7:00 PM) (08/18/20 12: 00 PM) Social History Social History Type Response Smoking Status Former smoker entered on: 05/03/13 Sex
--- OUTSIDE RECORDS SUMMARY | 2022-03-02 18:17 | XMS_ITS | Continuity of Care Document ---
:1935 Author Organization [facility] Address [address] [place] [address]- Care Team Providers Name Role Phone Not on Staff, PCP Primary Care Physician Unavailable Encounter [facility] Date(s): 05/08/20 - 06/07/20 [facility] [address], [place] [address] Attending Physician: Mele Rodriges Admitting Physician: Mele Rodriges Referring Physician: [id number] Allergies, Adverse Reactions, Alerts No Known Medication [...] Inactive (IM) (oldterm)10 04/22/09 Given 1Result Comment: [facility]-[id number] Comment: [04/07/2017] [facility] [phone] Admin Note: VIS Admin Note: vis [id number] Note: VIS [id number] Comment: [facility] [id number] Comment: [12/10/2014] vis given to yvnlgro7Nhbvj Note: information paper given and waiver [id number] Note: information paper [id number] Note: H1N1 Medications Advair Diskus 500 mcg-50 mcg inhalation powder 1, puffs, Inhalation, Daily, # 30 each, Refills 5, Tot. Refills 5, Maintenance, 03/23/18 11:47:25 EST, Inhaler, Route to Pharmacy Electronically, [id number], [facility] Start Date: 03/23/18 Status: OrderedAerochamber [...] 04/02/18 11:42:36, Inhaler, Route to Pharmacy Electronically, [id number], [facility] Start Date: 04/02/18 Stop Date: [...] 04/19/20 8:28:00 EST, Route to Pharmacy Electronically, [facility], 178, cm, 01/23/20 10:29:00 EDT, Height, 134, kg, 12/10/19 13:55:00 ED... Start Date: 04/19/20 Status: OrderedCompression Stockings See Instructions, # 1 pair, Maintenance, surgical, knee length 30-40 mm Hg, 11/18/15 21:24:44, Compound Start Date: 11/18/15 Status: Ordereddocusate sodium 100 mg oral capsule 100 mg, 1, capsule, By Mouth, Daily, PRN, # 30 capsule, Refills 3, Tot. Refills 3, Maintenance, for constipation, 04/16/18 13:14:21 EST, Route to Pharmacy Electronically, [id number], [facility] Start Date: 04/16/18 Stop Date: 08/14/18 Status: OrderedDuoNeb 3 mg-0.5 mg/3 ml inhalation solution 3 mL, Neb, Once, 3ml administered via neb per verbal orders. lot # [id number] 07/26, # 3 mL, 0 Refills, Soft Stop, 04/28/17 12:14:31, 3 mL Neb Once,Instr:3ml administered via neb per verbal orders. ; lot # [id number] 07/26 Start Date: 04/28/17 Status: OrderedFreestyle Lite [...] [facility] Start Date: 12/11/18 Status: Orderedfurosemide 40 mg oral tablet 40 mg, 1, tablet, By Mouth, Daily, # 30 tablet, Refills 2, Tot. Refills 2, Maintenance, 05/10/20 15:33:00 EST, Route to Pharmacy Electronically, [facility], 178, cm, 01/23/20 10:29:00 EDT, Height, 134, kg, 12/10/19 13:55:00 EDT, Dry Weight Start Date: 05/10/20 Stop Date: 08/08/20 Status: OrderedGlucophage 1000 mg oral tablet 1 tablet = 1,000 mg, By Mouth, Daily, # 90 tablet, 1 Refills, Maintenance, 08/27/19 8:15:00 EDT, Tablet, [facility], 177.8, cm, 05/08/19 9:20:00 EST, Height Start Date: 08/27/19 Status: OrderedLasix 20 mg oral tablet 20 mg, 1, tablet, By Mouth, Daily, # 3 tablet, Refills 0, Tot. Refills 0, Maintenance, 01/27/20 9:02:00 EDT, Do Not Route Start Date: 01/27/20 Stop Date: 01/30/20 Status: OrderedLasix 20 mg oral tablet 20 mg, 1, tablet, By Mouth, Daily, PRN, # 30 tablet, Refills 0, Tot. Refills 0, Maintenance, edema, 11/12/18 14:26:04 EDT, Route to Pharmacy Electronically, [id number], [facility] Start Date: 11/12/18 Stop Date: 12/12/18 Status: Orderedlisinopril 40 mg oral tablet 1 tablet = 40 mg, By Mouth, Daily, # 90 tablet, 0 Refills, Maintenance, 01/15/20 16:25:00 EDT, Tablet, [facility], 178, cm, 12/10/19 13:55:00 EDT, Height, 134, kg, 12/10/19 13:55:00 EDT, Dry Weight Start Date: 01/15/20 Status: Orderedpravastatin 20 mg oral tablet 20 mg, 1, tablet, By Mouth, Daily, # 90 tablet, Refills 1, Tot. Refills 1, Maintenance, 02/26/20 10:00:00 EST, Route to Pharmacy Electronically, [facility], 178, cm, 01/23/20 10:29:00 EDT, Height, 134, kg, 12/10/19 13:55:00 EDT, Dry Weight Start Date: 02/26/20 Status: Orderedsertraline 50 mg oral tablet 1 tablet = 50 mg, By Mouth, Daily, # 90 tablet, 1 Refills, Soft Stop, 05/10/20 15:33:00 EST, [facility], 178, cm, 01/23/20 10:29:00 EDT, Height, 134, kg, 12/10/19 13:55:00 EDT, Dry Weight Start Date: 05/10/20 Status: Orderedtamsulosin 0.4 mg oral capsule 0.4 mg, 1, capsule, By Mouth, Daily, # 90 capsule, Refills 1, Tot. Refills 1, Maintenance, 03/29/20 21:39:00 EST, Route to Pharmacy Electronically, [facility], 178, cm, 01/23/20 10:29:00 EDT, Height, 134, kg, 12/10/19 13:55:00 EDT, Dry... Start Date: 03/29/20 Status: OrderedXarelto 20 mg oral tablet 1 tablet, By Mouth, Daily in PM, # 90 tablet, 1 Refills, Soft Stop, 12/19/19 9:30:00 EDT, [facility], 178, cm, 12/10/19 13:55:00 EDT, [...]
--- OUTSIDE RECORDS SUMMARY | 2022-03-02 18:17 | XMS_ITS | Continuity of Care Document ---
:1935 Author Organization [facility] Address [address] [place] [address]- Care Team Providers Name Role Phone Nicola Hager MD Primary Care Physician Encounter [facility] Date(s): 11/04/19 - 12/04/[address] [address]- [facility] Allergies, Adverse Reactions, Alerts No Known Medication [...] Inactive (IM) (oldterm)9 04/22/09 Given 1Result Comment: [facility] [id number] Comment: [04/07/2017] [facility] [id number] 3Admin Note: VIS Admin Note: vis [id number] Note: VIS [id number] Comment: [12/10/2014] vis given to nawpojy1Dculx Note: information paper given and waiver [id number] Note: information paper [id number] Note: H1N1 Medications Advair Diskus 500 mcg-50 mcg inhalation powder 1, puffs, Inhalation, Daily, # 30 each, Refills 5, Tot. Refills 5, Maintenance, 03/23/18 11:47:25 EST, Inhaler, Route to Pharmacy Electronically, [id number], [facility] Start Date: 03/23/18 Status: OrderedAerochamber [...] 04/02/18 11:42:36, Inhaler, Route to Pharmacy Electronically, [id number], [facility] Start Date: 04/02/18 Stop Date: [...] 04/16/18 13:14:21 EST, Route to Pharmacy Electronically, [id number], [facility] Start Date: 04/16/18 Stop Date: 08/14/18 Status: OrderedDuoNeb 3 mg-0.5 mg/3 ml inhalation solution 3 mL, Neb, Once, 3ml administered via neb per verbal orders. lot # [id number] exp 07/26, # 3 mL, 0 Refills, Soft Stop, 04/28/17 12:14:31, 3 mL Neb Once,Instr:3ml administered via neb per verbal orders. ; lot # [id number] 07/26 Start Date: 04/28/17 Status: OrderedFreestyle Lite [...] 11/12/18 14:26:04 EDT, Route to Pharmacy Electronically, [id number], [facility] Start Date: 11/12/18 Stop Date: 12/12/18 Status: Orderedlisinopril 40 mg oral tablet 1 tablet = 40 mg, By Mouth, Daily, # 90 tablet, 1 Refills, Maintenance, 08/27/19 8:03:00 EDT, Tablet, [facility], 177.8, cm, 05/08/19 9:20:00 EST, Height Start Date: 08/27/19 Status: Orderedpravastatin 20 mg oral tablet 20 mg, 1, tablet, By Mouth, Daily, # 90 tablet, Refills 1, Tot. Refills 1, Maintenance, 08/27/19 8:15:00 EDT, Route to Pharmacy Electronically, [facility], 177.8, cm, 05/08/19 9:20:00 EST, Height Start Date: 08/27/19 Status: Orderedsertraline 50 mg oral tablet 1 tablet = 50 mg, By Mouth, Daily, # 90 tablet, 1 Refills, Soft Stop, 11/04/19 14:38:00 EDT, [facility], 177.8, cm, 10/30/19 15:35:00 EDT, Height Start Date: 11/04/19 Status: Orderedtamsulosin 0.4 mg oral capsule 0.4 mg, 1, capsule, By Mouth, Daily, # 90 capsule, Refills 1, Tot. Refills 1, Maintenance, 08/27/19 8:01:00 EDT, Route to Pharmacy Electronically, [facility], 177.8, cm, 05/08/19 9:20:00 EST, [...]
--- OUTSIDE RECORDS SUMMARY | 2022-03-02 18:17 | XMS_ITS | Continuity of Care Document ---
:1935 Author Organization [facility] Address [address] [place] [address]- Care Team Providers Name Role Phone Madan BOYER, Nicola Castillo Primary Care Physician Encounter [facility] [place] Date(s): 12/10/19 - 12/10/[id number] [place] [address] Discharge Disposition: A-D/C Home Attending Physician: Lalita Montalvo MD Admitting Physician: Lalita Montalvo MD Referring Physician: Not on Staff, Referring MD [...] Inactive (IM) (oldterm)9 04/22/09 Given 1Result Comment: [facility] [id number] Comment: [04/07/2017] [facility] [id number] 3Admin Note: VIS Admin Note: vis [id number] Note: VIS [id number] Comment: [12/10/2014] vis given to jvcdbdp9Woxhv Note: information paper given and waiver bsawcq5Fieui Note: information paper gntue6Vsvue Note: H1N1 Medications Advair Diskus 500 mcg-50 mcg inhalation powder 1, puffs, Inhalation, Daily, # 30 each, Refills 5, Tot. Refills 5, Maintenance, 03/23/18 11:47:25 EST, Inhaler, Route to Pharmacy Electronically, [id number], [facility] Start Date: 03/23/18 Status: OrderedAerochamber [...] 04/02/18 11:42:36, Inhaler, Route to Pharmacy Electronically, [id number], [facility] Start Date: 04/02/18 Stop Date: [...] 10/18/19 14:48:00 EDT, Route to Pharmacy Electronically, [facility], 177.8, cm, 05/08/19 9:20:00 EST, [...] 04/16/18 13:14:21 EST, Route to Pharmacy Electronically, [id number], [facility] Start Date: 04/16/18 Stop Date: 08/14/18 Status: OrderedDuoNeb 3 mg-0.5 mg/3 ml inhalation solution 3 mL, Neb, Once, 3ml administered via neb per verbal orders. lot # [id number] 07/26, # 3 mL, 0 Refills, Soft Stop, 04/28/17 12:14:31, 3 mL Neb Once,Instr:3ml administered via neb per verbal orders. ; lot # [id number] 07/26 Start Date: 04/28/17 Status: OrderedFreestyle Lite [...] 11/12/18 14:26:04 EDT, Route to Pharmacy Electronically, [id number], [facility] Start Date: 11/12/18 Stop Date: 12/12/18 Status: Orderedlisinopril 40 mg oral tablet 1 tablet = 40 mg, By Mouth, Daily, # 90 tablet, 1 Refills, Maintenance, 08/27/19 8:03:00 EDT, Tablet, [facility], 177.8, cm, 05/08/19 9:20:00 EST, Height Start Date: 08/27/19 Status: Orderedpravastatin 20 mg oral tablet 20 mg, 1, tablet, By Mouth, Daily, # 90 tablet, Refills 1, Tot. Refills 1, Maintenance, 08/27/19 8:15:00 EDT, Route to Pharmacy Electronically, [facility], 177.8, cm, 05/08/19 9:20:00 EST, Height Start Date: 08/27/19 Status: Orderedsertraline 50 mg oral tablet 1 tablet = 50 mg, By Mouth, Daily, # 90 tablet, 1 Refills, Soft Stop, 11/04/19 14:38:00 EDT, [facility], 177.8, cm, 10/30/19 15:35:00 EDT, Height Start Date: 11/04/19 Status: Orderedtamsulosin 0.4 mg oral capsule 0.4 mg, 1, capsule, By Mouth, Daily, # 90 capsule, Refills 1, Tot. Refills 1, Maintenance, 08/27/19 8:01:00 EDT, Route to Pharmacy Electronically, [facility], 177.8, cm, 05/08/19 9:20:00 [...] incontinence(Confirmed) 06/07/10 Active 1At [facility] Results Radiology Reports Exam Date Time Procedure Performing Provider Status 12/10/19 1:21 PM Chest 2 Views Frontal and Lat Kathleen Hill; Au th (Verified) Notes:(Chest 2 Views Frontal and Lat) Reason For Exam: Wheezing, difficulty breathing with exertion, occasional cough, no fever, lower leg swelling X3-4 monthsRESULT: Chest 2 Views Frontal and Lat Chest 2 Views Frontal and Lat Hx of Present Illness: lower leg swelling per pt has not changed in the last 3-4 months reports increased FIDEL with exerton lower fine rales bilateral lung bases occasional cough no fever; Reason: Wheezing, difficulty breathing with exertion, occasional cough, no fever, lower leg swelling X3-4 months; Clinical Question(s): CHF COMPARISON: 05/08/2019. FINDINGS: LINES AND TUBES: Single lead left subclavian pacer wire is intact. LUNGS AND PLEURA: Low lung volumes with mild basilar atelectasis. Central vascular markings are slightly prominent accentuated by low lung volumes. There is faint interstitial opacity in the lower perihilar lung holliday, cannot exclude very mild pulmonary edema. No pleural effusion. No pneumothorax. HEART, MEDIASTINUM AND FREYA: Mild prominence of the cardiac silhouette. Normal mediastinal and hilar contour. BONES AND SOFT TISSUES: No acute abnormality. IMPRESSION: Cardiac enlargement with faint perihilar interstitial opacity suggestive of pulmonary edema. No consolidation or volume loss. WSN: [id number] Ordering Physician: Lalita Montalvo Dictated By: Ashok Atwood MD Dictated Date/Time: 12/10/19 1:29 pm Reviewed By: Ashok Atwood MD Signed By: Ashok Atwood MD Signed Date/Time: 12/10/19 1:29 pm Transcribed By: ARTURO Transcribed Date/Time: 12/10/19 1:23 pm Vital Signs Most recent to oldest [Reference Range]: 1 2 Height 178 cm 178 cm (12/10/19 1:00 PM) (12/10/19 11:48 AM) Weight 134 kg 134 kg (12/10/19 1:00 PM) (12/10/19 11:48 AM) Oxygen Saturation [94-100 %] 98 % 98 % (12/10/19 1:00 PM) (12/10/19 11:48 AM) Pulse Rate [55-90 bpm] 44 bpm 60 bpm *L* (12/10/19 11:48 AM) (12/10/19 1:00 PM) Body Mass Index [18.5-24.99] 42.29 *>HHI* (12/10/19 1:00 PM) Blood Pressure [90-138/55-84 mm Hg] 171/92 mm Hg 134/ 80 mm Hg *H* (12/10/19 11:48 AM) (12/10/19 1:00 PM) Respiratory Rate [16-30 br/min] 26 br/min (12/10/19 11:48 AM) Temperature [96.8-100.4 DegF] 97.9 DegF (12/10/19 11:48 AM) Mode of Delivery (Oxygen) Room air (12/10/19 11:48 AM) Blood pressure sites Arm, right Arm, right (12/10/19 1:00 PM) (12/10/19 11:48 AM) Temperature Route Oral (12/10/19 11:48 AM) Dry Weight 134 kg 134 kg (12/10/19 1:00 PM) (12/10/19 11:48 AM) Dry Weight Obtained Via Patient/family stated (12/10/19 11:48 AM) Social History Social History Type Response Smoking Status Former smoker entered on: 05/03/13 Sex
--- OUTSIDE RECORDS SUMMARY | 2022-03-02 18:17 | XMS_ITS | Continuity of Care Document ---
:1935 Author Organization [facility] Address [address] [place] [address]- Care Team Providers Name Role Phone Nicola Hager MD Primary Care Physician Encounter [facility] Date(s): 05/08/19 - 05/15/19 [facility] [address] [place] [address]- [facility] Encounter Diagnosis Prediabetes (Discharge Diagnosis) - 05/08/19 ATRIAL FIBRILLATION (Discharge Diagnosis) - 05/08/19 Depression, major, recurrent, moderate (Discharge Diagnosis) - 05/08/19 Morbid obesity (Discharge Diagnosis) - 05/08/19 BENIGN ESSENTIAL HYPERTENSION (Discharge Diagnosis) - 05/08/19 BPH (benign prostatic hyperplasia) (Discharge Diagnosis) - 05/08/19 Chronic heart failure (Discharge Diagnosis) - 05/08/19 History of pacemaker (Discharge Diagnosis) - 05/08/19 Pure Hypercholesterolemia (Discharge Diagnosis) - 05/08/19 Mild cognitive impairment with memory loss (Discharge Diagnosis) - 05/08/19 Peripheral vascular disease (Discharge Diagnosis) - 05/08/19 Sleep apnea (Discharge Diagnosis) - 05/08/19 Dyspnea (Discharge Diagnosis) - 05/08/19 Attending Physician: Nicola Hager MD Allergies, Adverse Reactions, Alerts No Known [...] Inactive (IM) (oldterm)9 04/22/09 Given 1Result Comment: [facility] [id number] Comment: [04/07/2017] [facility] [place] [id number] 3Admin Note: VIS Admin Note: vis [id number] Note: VIS [id number] Comment: [12/10/2014] vis given to [email or web address] Note: information paper given and waiver [id number] Note: information paper [id number] Note: H1N1 Medications Advair Diskus 500 mcg-50 mcg inhalation powder 1, puffs, Inhalation, Daily, # 30 each, Refills 5, Tot. Refills 5, Maintenance, 03/23/18 11:47:25 EST, Inhaler, Route to Pharmacy Electronically, [id number], [id number] Start Date: 03/23/18 Status: Orderedalbuterol CFC free 90 mcg/inh inhalation aerosol 2, puffs, Inhalation, Every 4 hours, PRN, # 1 each, Refills 11, Tot. Refills 11, Maintenance, 04/02/18 11:42:36, Inhaler, Route to Pharmacy Electronically, [id number], [facility] Start Date: 04/02/18 Stop Date: 03/28/19 Status: Orderedaspirin 81 mg oral tablet 1 tablet = 81 mg, By Mouth, Daily, # 30 tablet, 0 Refills, Maintenance, 09/07/16 9:41:59, Tablet Start Date: 09/07/16 Status: Orderedcarvedilol 6.25 mg oral tablet 6.25 mg, 1, tablet, By Mouth, 2 times a day, # 180 tablet, Refills 1, Tot. Refills 1, Maintenance, 04/05/19 16:52:00 EST, Route to Pharmacy Electronically, [id number], 177.8, cm, 02/07/19 9:37:00 EDT, Height Start Date: 04/05/19 Stop Date: 10/02/19 Status: OrderedCompression Stockings See Instructions, # 1 pair, Maintenance, surgical, knee length 30-40 mm Hg, 11/18/15 21:24:44, Compound Start Date: 11/18/15 Status: Ordereddocusate sodium 100 mg oral capsule 100 mg, 1, capsule, By Mouth, Daily, PRN, # 30 capsule, Refills 3, Tot. Refills 3, Maintenance, for constipation, 04/16/18 13:14:21 EST, Route to Pharmacy Electronically, [id number], [facility] Start Date: 04/16/18 Stop Date: 08/14/18 Status: OrderedDuoNeb 3 mg-0.5 mg/3 ml inhalation solution 3 mL, Neb, Once, 3ml administered via neb per verbal orders. lot # [id number] 07/26, # 3 mL, 0 Refills, Soft Stop, 04/28/17 12:14:31, 3 mL Neb Once,Instr:3ml administered via neb per verbal orders. ; lot # [id number] 07/26 Start Date: 04/28/17 Status: OrderedFreestyle Lite [...] EVERY DAY NEEDED FOR EDEMA, [id number] Start Date: 12/11/18 Status: OrderedGlucophage 1000 mg oral tablet 1 tablet = 1,000 mg, By Mouth, Daily, # 90 tablet, 1 Refills, Maintenance, 09/07/18 11:43:49 EDT, Tablet Start Date: 09/07/18 Status: OrderedLasix 20 mg oral tablet 20 mg, 1, tablet, By Mouth, Daily, PRN, # 30 tablet, Refills 0, Tot. Refills 0, Maintenance, edema, 11/12/18 14:26:04 EDT, Route to Pharmacy Electronically, [id number], [id number] Start Date: 11/12/18 Stop Date: 12/12/18 Status: Orderedlisinopril 40 mg oral tablet 1 tablet = 40 mg, By Mouth, Daily, # 90 tablet, 1 Refills, Maintenance, 04/05/19 16:53:00 EST, Tablet, [id number], 177.8, cm, 02/07/19 9:37:00 EDT, Height Start Date: 04/05/19 Status: Orderedpravastatin 20 mg oral tablet 20 mg, 1, tablet, By Mouth, Daily, # 90 tablet, Refills 1, Tot. Refills 1, Maintenance, 03/08/19 10:11:20 EST, Route to Pharmacy Electronically, [id number], [id number] Start Date: 03/08/19 Status: Orderedsertraline 50 mg oral tablet 1 tablet = 50 mg, By Mouth, Daily, # 90 tablet, 1 Refills, Soft Stop, 05/09/19 15:51:00 EST, [facility], 177.8, cm, 05/08/19 9:20:00 EST, Height Start Date: 05/09/19 Status: Orderedtamsulosin 0.4 mg oral capsule 0.4 mg, 1, capsule, By Mouth, Daily, # 90 capsule, Refills 1, Tot. Refills 1, Maintenance, 03/15/19 16:59:50 EST, Route to Pharmacy Electronically, [id number], [facility], 177.8, cm, 02/07/19 9:37:19 EDT, Height Start Date: 03/15/19 Status: OrderedXarelto 20 mg oral tablet 1 tablet, By Mouth, Daily in PM, # 90 tablet, Refills 1 Tot. Refills 1, [id number] Start Date: 03/11/19 Status: Ordered Problem List Condition Effective Dates Status Health Status Informant MOLST form completed Advanced care 03/31/16 Active planning/counseling discussion(Confirmed)1 BENIGN ESSENTIAL Active HYPERTENSION(Confirmed) BPH (benign prostatic Active hyperplasia)(Confirmed) ATRIAL FIBRILLATION(Confirmed) 08/28/09 Active Chronic heart failure(Confirmed) Active Coronary heart disease(Confirmed) Active History of pacemaker(Confirmed) Active Mild cognitive impairment with memory Active loss(Confirmed) ASTHMA(Confirmed) Active Morbid obesity(Confirmed) Active Noncompliance with medication Active regimen(Confirmed) Sleep apnea(Confirmed) Active Peripheral vascular disease(Confirmed) Active Prediabetes(Confirmed) Active Pure Hypercholesterolemia(Confirmed) 11/03/10 Active Depression, major, recurrent, Active moderate(Confirmed) Urinary incontinence(Confirmed) 06/07/10 Active 1At [facility] Diagnosis Diagnosis Type Effective Health Clinical Informant Dates Status Service Prediabetes Discharge 05/08/19 Diagnosis ATRIAL FIBRILLATION Discharge 05/08/19 Diagnosis Depression, major, Discharge 05/08/19 recurrent, moderate Diagnosis Morbid obesity Discharge 05/08/19 Diagnosis BENIGN ESSENTIAL Discharge 05/08/19 HYPERTENSION Diagnosis BPH (benign prostatic Discharge 05/08/19 hyperplasia) Diagnosis Chronic heart failure Discharge 05/08/19 Diagnosis History of pacemaker Discharge 05/08/19 Diagnosis Pure Hypercholesterolemia Discharge 05/08/19 Diagnosis Mild cognitive impairment Discharge 05/08/19 with memory loss Diagnosis Peripheral vascular Discharge 05/08/19 disease Diagnosis Sleep apnea Discharge 05/08/19 Diagnosis Dyspnea Discharge 05/08/19 Diagnosis Vital Signs Most recent to oldest [Reference Range]: 1 2 Height 177.8 cm 177.8 cm (05/08/19 9:20 AM) (05/08/19 9:16 AM) Weight 124 kg (05/08/19 9:20 AM) Oxygen Saturation [94-100 %] 97 % 92 % (05/08/19 9:20 AM) *L* (05/08/19 9:16 AM) Pulse Rate [55-90 bpm] 86 bpm (05/08/19 9:16 AM) Body Mass Index [18.5-24.99] 39.22 *>HHI* (05/08/19 9:20 AM) Blood Pressure [90-138/55-84 mm Hg] 122/74 mm Hg (05/08/19 9:16 AM) Blood pressure sites Arm, right (05/08/19 9:16 AM) Temperature Route Axillary (05/08/19 9:20 AM) Weight Obtained Via Standing scale (05/08/19 9:16 AM) Social History Social History Type Response Smoking Status Former smoker entered on: 05/03/13 Sex
--- OUTSIDE RECORDS SUMMARY | 2022-03-02 18:17 | XMS_ITS | Continuity of Care Document ---
:1935 Author Organization [facility] Address [address] [place] [address]- Care Team Providers Name Role Phone Justin Hinojosa MD Primary Care Physician Encounter [facility] Date(s): 11/22/21 - 11/22/[address] [address]- Discharge Disposition: A-D/C Home Attending Physician: Jose R Galvan MD Admitting Physician: Jose R Galvan MD Referring Physician: Not on Staff, Referring MD Allergies, Adverse Reactions, Alerts Substance Reaction Severity Status vancomycin Active Other Environmental Allergy pollen Acti ve Immunizations Given and Recorded Vaccine Date Status Refusal Reason SARS-CoV-2 (COVID-19) Ad26 vaccine 02/26/21 Recorded influenza virus vaccine, inactivated1 01/28/20 Given influenza [...] Inactive (IM) (oldterm)10 04/22/09 Given 1Result Comment: [facility]-[id number] Comment: [04/07/2017] [facility] [id number] Admin Note: VIS Admin Note: vis [id number] Note: VIS [id number] Comment: [facility] [id number] Comment: [12/10/2014] vis given to [id number] Note: information paper given and waiver [id number] Note: information paper [id number] Note: H1N1 Medications acetaminophen 325 mg oral tablet 650 mg, 2, tablet, By Mouth, Every 6 hours, PRN, Refills 0, Maintenance, as needed for fever/ pain, 03/03/21 16:25:00 EST, Partial fill upon patient request if the prescription is for a schedule II opioid drug. Start Date: 03/03/21 Status: Orderedcarvedilol 3.125 mg oral tablet 3.125 mg, 1, tablet, By Mouth, 2 times a day, Maintenance, 09/20/21 17:48:00 EDT, Partial fill upon patient request if the prescription is for a schedule II opioid drug. Start Date: 09/20/21 Status: OrderedDulcolax 10 mg rectal suppository 1 supp = 10 mg, Rectally, Daily, PRN as needed for constipation, Maintenance, 09/20/21 17:50:00 EDT,Suppository, Partial fill upon patient request if the prescription is for a schedule II opioid drug. Start Date: 09/20/21 Status: Orderedescitalopram 10 mg oral tablet 1 tablet = 10 mg, By Mouth, Daily, Maintenance, 09/20/21 17:31:00 EDT, Tablet, Partial fill upon patient request if the prescription is for a schedule II opioid drug. Start Date: 09/20/21 Status: Orderedfolic acid 1 mg oral tablet 1 mg, 1, tablet, By Mouth, Daily, Maintenance, 09/20/21 17:48:00 EDT, Partial fill upon patient request if the prescription is for a schedule II opioid drug. Start Date: 09/20/21 Status: Orderedmagnesium oxide 400 mg oral tablet 1 tablet = 400 mg, By Mouth, Daily, Maintenance, 09/20/21 17:43:00 EDT, Tablet, Partial fill upon patient request if the prescription is for a schedule II opioid drug. Start Date: 09/20/21 Status: Orderedmiconazole 2% topical cream 1 application, Topically, 2 times a day, Maintenance, 09/20/21 17:36:00 EDT, Cream, Partial fill upon patient request if the prescription is for a schedule II opioid drug. Start Date: 09/20/21 Status: OrderedMilk of Magnesia 8% oral suspension 30 mL = 2.4 Gm, By Mouth, Daily, PRN for constipation, Maintenance, 09/20/21 17:49:00 EDT, Suspension, Partial fill upon patient request if the prescription is for a schedule II opioid drug. Start Date: 09/20/21 Status: OrderedMiraLax oral powder for reconstitution = 17 Gm, By Mouth, Daily, PRN Constipation, dissolve in water before taking, Maintenance, 09/20/21 17:35:00 EDT, REC Powder, Partial fill upon patient request if the prescription is for a schedule II opioid drug. Start Date: 09/20/21 Status: Orderedmirtazapine 7.5 mg oral tablet 1 tablet = 7.5 mg, By Mouth, Daily at bedtime, Maintenance, 09/20/21 17:39:00 EDT, Partial fill uponpatient request if the prescription is for a schedule II opioid drug. Start Date: 09/20/21 Status: OrderedMultivitamin With Minerals 1 tablet, By Mouth, Daily, Maintenance, 09/20/21 17:38:00 EDT, Partial fill upon patient request if the prescription is for a schedule II opioid drug. Start Date: 09/20/21 Status: Orderedpravastatin 10 mg oral tablet 1 tablet = 10 mg, By Mouth, Daily at bedtime, Maintenance, 09/20/21 17:37:00 EDT, Tablet, Partial fill upon patient request if the prescription is for a schedule II opioid drug. Start Date: 09/20/21 Status: Orderedtamsulosin 0.4 mg oral capsule 0.4 mg, 1, capsule, By Mouth, Daily, # 90 capsule, Refills 1, Tot. Refills 1, Maintenance, 03/29/20 21:39:00 EST, Route to Pharmacy Electronically, [id number], 178, cm, 01/23/20 10:29:00 EDT, Height, 134, kg, 12/10/19 13:55:00 EDT, Dry... Start Date: 03/29/20 Status: Orderedthiamine 100 mg oral tablet 100 mg, 1, tablet, By Mouth, Daily, Maintenance, 03/03/21 16:44:00 EST, Partial fill upon patient request if the prescription is for a schedule II opioid drug. Start Date: 03/03/21 Status: Ordered Problem List Condition Effective Dates Status Health Status Informant MOLST form completed Advanced care 03/31/16 Active planning/counseling discussion(Confirmed)1 BENIGN ESSENTIAL Active HYPERTENSION(Confirmed) BPH (benign prostatic Active hyperplasia)(Confirmed) Hematuria(Confirmed) Active ATRIAL FIBRILLATION(Confirmed) 08/28/09 Active Chronic heart failure(Confirmed) Active Coronary heart disease(Confirmed) Active Dementia(Confirmed) Active History of pacemaker(Confirmed) Active Mild cognitive impairment with memory Active loss(Confirmed) ASTHMA(Confirmed) Active Morbid obesity(Confirmed) Active Noncompliance with medication Active regimen(Confirmed) Obese class I(Confirmed) Active Sleep apnea(Confirmed) Active Peripheral vascular disease(Confirmed) Active Prediabetes(Confirmed) Active Pure Hypercholesterolemia(Confirmed) 11/03/10 Active Depression, major, recurrent, Active moderate(Confirmed) Urinary incontinence(Confirmed) 06/07/10 Active 1At [facility] Vital Signs Most recent to oldest [Reference Range]: 1 2 Oxygen Saturation [94-100 %] 99 % 99 % (11/22/21 11:08 PM) (11/22/21 8:02 PM) Pulse Rate [55-90 bpm] 63 bpm 60 bpm (11/22/21 11:08 PM) (11/22/21 8:02 PM) Blood Pressure [90-138/55-84 mm Hg] 137/69 mm Hg 134/ 71 mm Hg (11/22/21 11:08 PM) (11/22/21 8:02 PM) Respiratory Rate [16-30 br/min] 18 br/min 18 br/mi n (11/22/21 11:08 PM) (11/22/21 8:02 PM) Temperature [96.8-100.4 DegF] 97.6 DegF (11/22/21 8:02 PM) Mode of Delivery (Oxygen) Room air Room air (11/22/21 11:08 PM) (11/22/21 8:02 PM) Blood pressure sites Arm, left Arm, left (11/22/21 11:08 PM) (11/22/21 8:02 PM) Temperature Route Oral (11/22/21 8:02 PM) Social History Social History Type Response Smoking Status Former smoker entered on: 05/03/13 Sex
--- OUTSIDE RECORDS SUMMARY | 2022-03-02 18:17 | XMS_ITS | Continuity of Care Document ---
:1935 Author Organization [facility] Address [address] [place] [id number]- Care Team Providers Name Role Phone Oly Card Primary Care Physician Encounter [facility] Date(s): 08/14/20 - 09/13/[address] [address] Attending Physician: Not on Staff, Attending MD Admitting Physician: Not on Staff, Admitting MD Referring Physician: Not on Staff, Referring [...] Inactive (IM) (oldterm)10 04/22/09 Given 1Result Comment: [facility]-[id number] Comment: [04/07/2017] [facility] [phone] Admin Note: VIS Admin Note: vis [id number] Note: VIS [id number] Comment: [facility] [id number] Comment: [12/10/2014] vis given to [email or web address] Note: information paper given and waiver [id number] Note: information paper [id number] Note: H1N1 Medications Advair Diskus 500 mcg-50 mcg inhalation powder 1, puffs, Inhalation, Daily, # 30 each, Refills 5, Tot. Refills 5, Maintenance, 03/23/18 11:47:25 EST, Inhaler, Route to Pharmacy Electronically, [id number], [id number] Start Date: 03/23/18 Status: Orderedalbuterol CFC free 90 mcg/inh inhalation aerosol 2, puffs, Inhalation, Every 4 hours, PRN, # 1 each, Refills 11, Tot. Refills 11, Maintenance, 04/02/18 11:42:36, Inhaler, Route to Pharmacy Electronically, [id number], [id number] Start Date: 04/02/18 Stop Date: [...] EST, Route to Pharmacy Electronically, [facility], 178, cm, 01/23/20 10:29:00 EDT, Height, 134, kg, 12/10/19 13:55:00 ED... Start Date: 04/19/20 Status: OrderedCBC, BMP CBC, BMP, See Instructions, # 1 Unknown, Refills 0, Tot. Refills 0, Maintenance, In one week (08/26),08/14/20 11:19:00 EDT, Supply Start Date: 08/14/20 Status: Orderedfurosemide 40 mg oral tablet 40 mg, 1, tablet, By Mouth, Daily, # 30 tablet, Refills 2, Tot. Refills 2, Maintenance, 05/10/20 15:33:00 EST, Route to Pharmacy Electronically, [facility], 178, cm, 01/23/20 10:29:00 EDT, Height, 134, kg, 12/10/19 13:55:00 EDT, Dry Weight Start Date: 05/10/20 Stop Date: 08/08/20 Status: OrderedGlucophage 1000 mg oral tablet 1 tablet = 1,000 mg, By Mouth, Daily, # 90 tablet, 1 Refills, Maintenance, 08/27/19 8:15:00 EDT, Tablet, [facility], 177.8, cm, 05/08/19 9:20:00 EST, Height Start Date: 08/27/19 Status: Orderedpravastatin 20 mg oral tablet 20 mg, 1, tablet, By Mouth, Daily, # 90 tablet, Refills 1, Tot. Refills 1, Maintenance, 02/26/20 10:00:00 EST, Route to Pharmacy Electronically, [facility], 178, cm, 01/23/20 10:29:00 EDT, Height, 134, kg, 12/10/19 13:55:00 EDT, Dry Weight Start Date: 02/26/20 Status: OrderedAnuel gillette, See Instructions, # 1 each, Refills 0, Tot. Refills 0, Maintenance, ICD R26.81 - unstable gait, 08/14/20 11:50:00 EDT, Supply Start Date: 08/14/20 Status: Orderedsertraline 50 mg oral tablet 1.5 tablet = 75 mg, By Mouth, Daily, # 45 tablet, 0 Refills, Maintenance, 08/19/20 9:57:00 EDT, Tablet, [facility], Partial fill upon patient request if the prescription is for a scheduleII opioid drug., 178, cm, 01/23/20 10:29:00 EDT,... Start Date: 08/19/20 Status: Orderedsimethicone 80 mg oral tablet, chewable 80 mg, 1, tablet, Chew, 3 times a day, # 90 tablet, Refills 0, Tot. Refills 0, Acute 09/14/20 10:45:00 EDT, 08/14/20 10:44:00 EDT, Route to Pharmacy Electronically, [facility], Partial fill upon patient request if the prescription is for... Start Date: 08/14/20 Stop Date: 09/14/20 Status: Orderedtamsulosin 0.4 mg oral capsule 0.4 mg, 1, capsule, By Mouth, Daily, # 90 capsule, Refills 1, Tot. Refills 1, Maintenance, 03/29/20 21:39:00 EST, Route to Pharmacy Electronically, [facility], 178, cm, 01/23/20 10:29:00 EDT, Height, 134, kg, 12/10/19 13:55:00 EDT, Dry... Start Date: 03/29/20 Status: OrderedXarelto 20 mg oral tablet 1 tablet, By Mouth, Daily in PM, # 90 tablet, 1 Refills, Soft Stop, 12/19/19 9:30:00 EDT, [facility], 178, cm, 12/10/19 13:55:00 EDT, [...]
--- OUTSIDE RECORDS SUMMARY | 2022-03-02 18:17 | XMS_ITS | Continuity of Care Document ---
:1935 Author Organization [facility] Address [address] [place] [address]- Care Team Providers Name Role Phone Ashish BOYER, Justin Primary Care Physician Encounter [facility] Date(s): 09/20/21 - 09/23/[address] [address]- Encounter Diagnosis Hematuria (Final) - 09/20/21 Psoas abscess, right (Final) - 09/20/21 Dementia (Final) - 09/20/[address] (Final) - 09/20/21 Discharge Disposition: A-Transfer SNF Attending Physician: Eliza Figueredo MD Admitting Physician: Akira Michael MD Referring Physician: Not on Staff, Referring [...] (oldterm)9 05/06/09 Given Influenza Inactive (IM) (oldterm)10 1/13/10 Given 1Result Comment: [id number] Comment: [04/07/2017] [facility] [phone] Admin Note: VIS Admin Note: vis [id number] Note: VIS [id number] Comment: [facility] [id number] Comment: [12/10/2014] vis given to [id number] Note: information paper given and waiver [id number] Note: information paper [id number] Note: H1N1 Medications acetaminophen 325 mg oral tablet 650 mg, 2, tablet, By Mouth, Every 6 hours, PRN, Refills 0, Maintenance, as needed for fever/ pain, 03/03/21 16:25:00 EST, Partial fill upon patient request if the prescription is for a schedule II opioid drug. Start Date: 03/03/21 Status: OrderedAugmentin 875 mg-125 mg oral tablet 1 tablet, By Mouth, 2 times a day, for 4 days, # 8 tablet, 0 Refills, Acute 09/27/21 14:38:00 EDT, 09/23/21 14:38:00 EDT, Partial fill upon patient request if the prescription is for a schedule II opioid drug. Start Date: 09/23/21 Stop Date: 09/27/21 Status: Orderedcarvedilol 3.125 mg oral tablet 3.125 mg, 1, tablet, By Mouth, 2 times a day, Maintenance, 09/20/21 17:48:00 EDT, Partial fill upon patient request if the prescription is for a schedule II opioid drug. Start Date: 09/20/21 Status: Orderedcarvedilol 3.125 mg oral tablet 3.125 mg, Tablet, By Mouth, 09/23/21 9:00:00 EDT Start Date: 09/23/21 Stop Date: 09/23/21 Status: CompletedDulcolax 10 mg rectal suppository 1 supp = [...] EST, Route to Pharmacy Electronically, [facility], 178, cm, 01/23/20 10:29:00 EDT, [...] Results Orders for Microbiology Reports Name Date Urine Culture (URINE CULTURE) 09/20/21 Microbiology Reports TEST:Urine Culture STATUS:Auth (Verified) BODY SITE: SOURCE:URINE COLLECTED DATE/TIME:09/20/21 2:40 PMUrine Culture SPECIMEN DESCRIPTION : URINE SPECIAL REQUESTS : NONE CULTURE : >100,000 COL/ML KLEBSIELLA OXYTOCA This isolate was identified using Maldi-TOF system These AST results were performed on the Shmoopcan ID and AST system REPORT STATUS : FINAL 09/22/2021 ORGANISM >100,000 COL/ML KLEBSIELLA OXYTOCA This isolate was identified using Maldi-TOF system METHOD MIN. INHIB. CONC. (MCG/ML) AMPICILLIN RESISTANT AMPICILLIN/SULBACTAM INTERMEDIATE AMOXICILLIN/CLAVULAN SUSCEPTIBLE CEFAZOLIN RESISTANT CEFEPIME SUSCEPTIBLE CEFTRIAXONE SUSCEPTIBLE CIPROFLOXACIN RESISTANT ERTAPENEM SUSCEPTIBLE GENTAMICIN SUSCEPTIBLE LEVOFLOXACIN RESISTANT MEROPENEM SUSCEPTIBLE NITROFURANTOIN SUSCEPTIBLE PIPERACILLIN/TAZOBAC SUSCEPTIBLE TRIMETH/SULFAMETHOX RESISTANT TETRACYCLINE RESISTANT Vital Signs Most recent to oldest 1 2 3 [Reference Range]: Height 178 cm 178 cm 178 cm (09/23/21 1:43 PM) (09/23/21 5:20 AM) (09/22/21 8:3 1 PM) Weight 104.8 kg (09/20/21 8:15 PM) Oxygen Saturation [94-100 %] 97 % 98 % 98 % (09/23/21 1:43 PM) (09/23/21 5:20 AM) (09/22/21 8:3 1 PM) Pulse Rate [55-90 bpm] 60 bpm 68 bpm 63 bpm (09/23/21 1:43 PM) (09/23/21 9:59 AM) (09/23/21 5:2 0 AM) Body Mass Index [18.5-24.99] 33.08 *>HHI* (09/20/21 8:15 PM) Blood Pressure [90-138/55-84 mm 102/60 mm Hg 124/63 mm Hg 119/87 mm Hg Hg] (09/23/21 1:43 PM) (09/23/21 9:59 AM) (09/23/21 5:2 0 AM) Respiratory Rate [16-30 br/min] 16 br/min 20 br/min 18 br/min (09/23/21 1:43 PM) (09/23/21 5:20 AM) (09/22/21 8:3 1 PM) Temperature [96.8-100.4 DegF] 98.0 DegF 97.2 DegF 98 .3 DegF (09/23/21 1:43 PM) (09/23/21 5:20 AM) (09/22/21 8:3 1 PM) Mode of Delivery (Oxygen) Room air Room air Room a ir (09/23/21 1:43 PM) (09/23/21 5:20 AM) (09/22/21 8:3 1 PM) Blood pressure sites Arm, right Arm, left Arm, right (09/23/21 1:43 PM) (09/23/21 5:20 AM) (09/22/21 8:3 1 PM) Temperature Route Oral Oral Oral (09/23/21 1:43 PM) (09/23/21 5:20 AM) (09/22/21 8:3 1 PM) Weight Obtained Via Bed scale (09/20/21 8:15 PM) Social History Social History Type Response Smoking Status Former smoker entered on: 05/03/13 Sex
--- OUTSIDE RECORDS SUMMARY | 2022-03-02 18:17 | XMS_ITS | Continuity of Care Document ---
:1935 Author Organization [facility] Address [address] [place] [address]- Care Team Providers Name Role Phone Madan BOYER, Nicola Castillo Primary Care Physician [facility]20 [facility] [address] [place], [place] [address] Allergies, Adverse Reactions, Alerts No Known Medication [...] (IM) (oldterm)10 04/22/09 Given 1Result Comment: [facility]-[id number] Comment: [04/07/2017] [facility] [phone] Admin Note: VIS Admin Note: vis [id number] Note: VIS [id number] Comment: [facility] [id number] Comment: [12/10/2014] vis given to [id number] Note: information paper given and waiver [id number] Note: information paper [id number] Note: H1N1 Medications Advair Diskus 500 mcg-50 mcg inhalation powder 1, puffs, Inhalation, Daily, # 30 each, Refills 5, Tot. Refills 5, Maintenance, 03/23/18 11:47:25 EST, Inhaler, Route to Pharmacy Electronically, [id number], [facility] Start Date: [...] 04/02/18 11:42:36, Inhaler, Route to Pharmacy Electronically, [id number], [facility] Start Date: [...] 04/16/18 13:14:21 EST, Route to Pharmacy Electronically, [id number], [facility] Start Date: 04/16/18 Stop Date: 08/14/18 Status: OrderedDuoNeb 3 mg-0.5 mg/3 ml inhalation solution 3 mL, Neb, Once, 3ml administered via neb per verbal orders. lot # [id number] exp 07/26, # 3 mL, 0 Refills, Soft Stop, 04/28/17 12:14:31, 3 mL Neb Once,Instr:3ml administered via neb per verbal orders. ; lot # [id number] 07/26 Start Date: 04/28/17 Status: OrderedFreestyle Lite [...] 40 mg, 1, tablet, By Mouth, Daily, BMP 1 week, # 30 tablet, Refills 1, Tot. Refills 1, Maintenance, 01/31/20 16:26:00 EDT, Print Requisition, 178, cm, 01/23/20 10:29:00 EDT, Height, 134, kg, 12/10/19 13:55:00 EDT, Dry Weight Start Date: 01/31/20 Stop Date: 03/31/20 Status: OrderedGlucophage 1000 mg oral tablet 1 tablet = 1,000 mg, By Mouth, Daily, # 90 tablet, 1 Refills, Maintenance, 08/27/19 8:15:00 EDT, Tablet, [facility], 177.8, cm, 05/08/19 9:20:00 EST, [...] 11/12/18 14:26:04 EDT, Route to Pharmacy Electronically, [id number], [facility] Start Date: 11/12/18 Stop Date: 12/12/18 Status: Orderedlisinopril 40 mg oral tablet 1 tablet = 40 mg, By Mouth, Daily, # 90 tablet, 0 Refills, Maintenance, 01/15/20 16:25:00 EDT, Tablet, [facility], 178, cm, 12/10/19 13:55:00 EDT, Height, 134, kg, 12/10/19 13:55:00 EDT, Dry Weight Start Date: 01/15/20 Status: Orderedpravastatin 20 mg oral tablet 20 mg, 1, tablet, By Mouth, Daily, # 90 tablet, Refills 1, Tot. Refills 1, Maintenance, 08/27/19 8:15:00 EDT, Route to Pharmacy Electronically, [facility], 177.8, cm, 05/08/19 9:20:00 EST, Height Start Date: 08/27/19 Status: Orderedsertraline 50 mg oral tablet 1 tablet = 50 mg, By Mouth, Daily, # 90 tablet, 1 Refills, Soft Stop, 11/04/19 14:38:00 EDT, [facility], 177.8, cm, 10/30/19 15:35:00 EDT, Height Start Date: 11/04/19 Status: Orderedtamsulosin 0.4 mg oral capsule 0.4 mg, 1, capsule, By Mouth, Daily, # 90 capsule, Refills 1, Tot. Refills 1, Maintenance, 08/27/19 8:01:00 EDT, Route to Pharmacy Electronically, [facility], 177.8, cm, 05/08/19 9:20:00 EST, Height Start Date: 08/27/19 Status: OrderedXarelto 20 mg oral tablet 1 tablet, By Mouth, Daily in PM, # 90 tablet, 1 Refills, Soft Stop, 12/19/19 9:30:00 EDT, [facility], 178, cm, 12/10/19 13:55:00 EDT, [...]
--- OUTSIDE RECORDS SUMMARY | 2022-03-02 18:17 | XMS_ITS | Continuity of Care Document ---
:1935 Author Organization [facility] Address [address] [place] [address]- Care Team Providers Name Role Phone Madan BOYER, Nicola Castillo Primary Care Physician [facility] - [facility]/27/20 [facility] [address] [place], [place] [address] Allergies, Adverse Reactions, Alerts No Known Medication [...] Inactive (IM) (oldterm)10 04/22/09 Given 1Result Comment: [facility]-[id number] Comment: [04/07/2017] [facility] [phone] Admin Note: VIS Admin Note: vis [id number] Note: VIS [id number] Comment: [facility] [id number] Comment: [12/10/2014] vis given to [id number] Note: information paper given and waiver [id number] Note: information paper [id number] Note: H1N1 Medications Advair Diskus 500 mcg-50 mcg inhalation powder 1, puffs, Inhalation, Daily, # 30 each, Refills 5, Tot. Refills 5, Maintenance, 03/23/18 11:47:25 EST, Inhaler, Route to Pharmacy Electronically, [id number], [facility] Start Date: [...] 04/02/18 11:42:36, Inhaler, Route to Pharmacy Electronically, [id number], [facility] Start Date: [...] 04/16/18 13:14:21 EST, Route to Pharmacy Electronically, [id number], [facility] Start Date: 04/16/18 Stop Date: 08/14/18 Status: OrderedDuoNeb 3 mg-0.5 mg/3 ml inhalation solution 3 mL, Neb, Once, 3ml administered via neb per verbal orders. lot # [id number] exp 07/26, # 3 mL, 0 Refills, Soft Stop, 04/28/17 12:14:31, 3 mL Neb Once,Instr:3ml administered via neb per verbal orders. ; lot # [id number] 07/26 Start Date: 04/28/17 Status: OrderedFreestyle Lite [...] Maintenance, 08/27/19 8:15:00 EDT, Tablet, [facility], 177.8, cm, 05/08/19 9:20:00 EST, [...] 11/12/18 14:26:04 EDT, Route to Pharmacy Electronically, [id number], [facility] Start Date: 11/12/18 Stop Date: 12/12/18 Status: Orderedlisinopril 40 mg oral tablet 1 tablet = 40 mg, By Mouth, Daily, # 90 tablet, 0 Refills, Maintenance, 01/15/20 16:25:00 EDT, Tablet, [facility], 178, cm, 12/10/19 13:55:00 EDT, Height, 134, kg, 12/10/19 13:55:00 EDT, Dry Weight Start Date: 01/15/20 Status: Orderedpravastatin 20 mg oral tablet 20 mg, 1, tablet, By Mouth, Daily, # 90 tablet, Refills 1, Tot. Refills 1, Maintenance, 02/26/20 10:00:00 EST, Route to Pharmacy Electronically, [facility], 178, cm, 01/23/20 10:29:00 EDT, Height, 134, kg, 12/10/19 13:55:00 EDT, Dry Weight Start Date: 02/26/20 Status: Orderedsertraline 50 mg oral tablet 1 tablet = 50 mg, By Mouth, Daily, # 90 tablet, 1 Refills, Soft Stop, 11/04/19 14:38:00 EDT, [facility], 177.8, cm, 10/30/19 15:35:00 EDT, Height Start Date: 11/04/19 Status: Orderedtamsulosin 0.4 mg oral capsule 0.4 mg, 1, capsule, By Mouth, Daily, # 90 capsule, Refills 1, Tot. Refills 1, Maintenance, 08/27/19 8:01:00 EDT, Route to Pharmacy Electronically, [facility], 177.8, cm, 05/08/19 9:20:00 EST, Height Start Date: 08/27/19 Status: OrderedXarelto 20 mg oral tablet 1 tablet, By Mouth, Daily in PM, # 90 tablet, 1 Refills, Soft Stop, 12/19/19 9:30:00 EDT, [facility], 178, cm, 12/10/19 13:55:00 EDT, [...]
--- OUTSIDE RECORDS SUMMARY | 2022-03-02 18:17 | XMS_ITS | Continuity of Care Document ---
:1935 Author Organization [facility] Address [address] [place] [address]- Care Team Providers Name Role Phone Nicola Hager MD Primary Care Physician [facility]20 - 02/04/[address] [facility] [address] [place] [address]- [facility] Attending Physician: Not on Staff, Attending MD Referring Physician: Nicola Hager MD Allergies, Adverse Reactions, [...] Inactive (IM) (oldterm)10 04/22/09 Given 1Result Comment: [facility]-[id number] Comment: [04/07/2017] [facility] [phone] Admin Note: VIS Admin Note: vis [id number] Note: VIS [id number] Comment: [facility] [id number] Comment: [12/10/2014] vis given to [id number] Note: information paper given and waiver [id number] Note: information paper [id number] Note: H1N1 Medications Advair Diskus 500 mcg-50 mcg inhalation powder 1, puffs, Inhalation, Daily, # 30 each, Refills 5, Tot. Refills 5, Maintenance, 03/23/18 11:47:25 EST, Inhaler, Route to Pharmacy Electronically, [id number], [facility] Start Date: 03/23/18 Status: OrderedAerochamber [...] 04/02/18 11:42:36, Inhaler, Route to Pharmacy Electronically, [id number], [facility] Start Date: 04/02/18 Stop Date: [...] EDT, Route to Pharmacy Electronically, [facility], 177.8, cm, 05/08/19 9:20:00 EST, [...] 04/16/18 13:14:21 EST, Route to Pharmacy Electronically, [id number], [facility] Start Date: 04/16/18 Stop Date: 08/14/18 Status: OrderedDuoNeb 3 mg-0.5 mg/3 ml inhalation solution 3 mL, Neb, Once, 3ml administered via neb per verbal orders. lot # [id number] 07/26, # 3 mL, 0 Refills, Soft Stop, 04/28/17 12:14:31, 3 mL Neb Once,Instr:3ml administered via neb per verbal orders. ; lot # [id number] 07/26 Start Date: 04/28/17 Status: OrderedFreestyle Lite [...] EVERY DAY NEEDED FOR EDEMA, [facility] Start Date: 12/11/18 Status: Orderedfurosemide [...] Maintenance, 08/27/19 8:15:00 EDT, Tablet, [facility], 177.8, cm, 05/08/19 9:20:00 EST, [...] 11/12/18 14:26:04 EDT, Route to Pharmacy Electronically, [id number], [facility] Start Date: 11/12/18 Stop Date: 12/12/18 Status: Orderedlisinopril 40 mg oral tablet 1 tablet = 40 mg, By Mouth, Daily, # 90 tablet, 0 Refills, Maintenance, 01/15/20 16:25:00 EDT, Tablet, [facility], 178, cm, 12/10/19 13:55:00 EDT, Height, 134, kg, 12/10/19 13:55:00 EDT, Dry Weight Start Date: 01/15/20 Status: Orderedpravastatin 20 mg oral tablet 20 mg, 1, tablet, By Mouth, Daily, # 90 tablet, Refills 1, Tot. Refills 1, Maintenance, 08/27/19 8:15:00 EDT, Route to Pharmacy Electronically, [facility], 177.8, cm, 05/08/19 9:20:00 EST, Height Start Date: 08/27/19 Status: Orderedsertraline 50 mg oral tablet 1 tablet = 50 mg, By Mouth, Daily, # 90 tablet, 1 Refills, Soft Stop, 11/04/19 14:38:00 EDT, [facility], 177.8, cm, 10/30/19 15:35:00 EDT, Height Start Date: 11/04/19 Status: Orderedtamsulosin 0.4 mg oral capsule 0.4 mg, 1, capsule, By Mouth, Daily, # 90 capsule, Refills 1, Tot. Refills 1, Maintenance, 08/27/19 8:01:00 EDT, Route to Pharmacy Electronically, [facility], 177.8, cm, 05/08/19 9:20:00 EST, Height Start Date: 08/27/19 Status: OrderedXarelto 20 mg oral tablet 1 tablet, By Mouth, Daily in PM, # 90 tablet, 1 Refills, Soft Stop, 12/19/19 9:30:00 EDT, [facility], 178, cm, 12/10/19 13:55:00 EDT, [...]
--- OUTSIDE RECORDS SUMMARY | 2022-03-02 18:18 | XMS_ITS | Continuity of Care Document ---
:1935 Author Organization [facility] Address [address] [place] [address]- Care Team Providers Name Role Phone Not on Staff, PCP Primary Care Physician Unavailable [facility] Date[facility]s): 03/[facility]21 - 03/08/[address] [address] Discharge Disposition: A-D/C Home Attending Physician: Mattie Otero MD Admitting Physician: Angel Mccormick MD Referring Physician: Cheyanne Parker MD Allergies, Adverse Reactions, Alerts No Known [...] (oldterm)10 04/22/09 Given 1Result Comment: [facility]-[id number] Comment: [04/07/2017] [facility] [id number] Admin Note: VIS 7/2/124Admin Note: vis [id number] Note: VIS [id number] Comment: [facility] [id number] Comment: [12/10/2014] vis given to [id number] Note: information paper given and waiver [id number] Note: information paper [id number] Note: H1N1 Medications acetaminophen 325 mg oral tablet 650 mg, 2, tablet, By Mouth, Every 4 hours, PRN, Refills 0, Maintenance, as needed for fever/ pain, 03/03/21 16:25:00 EST, Partial fill upon patient request if the prescription is for a schedule II opioid drug. Start Date: 03/03/21 Status: OrderedAdvair Diskus 500 mcg-50 mcg inhalation powder 1, puffs, Inhalation, Daily, # 30 each, Refills 5, Tot. Refills 5, Maintenance, 03/23/18 11:47:25 EST, Inhaler, Route to Pharmacy Electronically, [id number], [facility] Start Date: 03/23/18 Status: Orderedammonium lactate 12% topical cream 1 application, Topically, Daily in AM, Maintenance, 03/03/21 16:27:00 EST, Cream, Partial fill upon patient request if the prescription is for a schedule II opioid drug. Start Date: 03/03/21 Status: Orderedaspirin 81 mg oral tablet 1 tablet = 81 mg, By Mouth, Daily, # 30 tablet, 0 Refills, Maintenance, 09/07/16 9:41:59, Tablet Start Date: 09/07/16 Status: Orderedbisacodyl 10 mg rectal suppository 1 supp = 10 mg, Rectally, Daily, PRN for constipation, Maintenance, 03/03/21 16:28:00 EST, Suppository, Partial fill upon patient request if the prescription is for a schedule II opioid drug. Start Date: 03/03/21 Status: Orderedcarvedilol 6.25 mg oral tablet 6.25 mg, Tablet, By Mouth, 03/08/21 9:00:00 EST Start Date: 03/08/21 Stop Date: 03/08/21 Status: Completedcarvedilol 6.25 mg oral tablet 6.25 mg, 1, tablet, By Mouth, Daily, Maintenance, 03/03/21 16:28:00 EST, Partial fill upon patient request if the prescription is for a schedule II opioid drug. Start Date: 03/03/21 Status: Orderedcarvedilol 6.25 mg oral tablet 6.25 mg, Tablet, By Mouth, 03/07/21 21:00:00 EST Start Date: 03/07/21 Stop Date: 03/07/21 Status: CompletedDakins 0.0125% Topical Solution apply to bilateral legs topically every day for cellulitis, 0 Refills, Maintenance, 03/03/21 16:29:00 EST, Partial fill upon patient request if the prescription is for a schedule II opioid drug. Start Date: 03/03/21 Status: OrderedGlucophage 1000 mg oral tablet 1 tablet = 1,000 mg, By Mouth, Daily, # 90 tablet, 1 Refills, Maintenance, 08/27/19 8:15:00 EDT, Tablet, [facility], 177.8, cm, 05/08/19 9:20:00 EST, Height Start Date: 08/27/19 Status: Orderedipratropium 500 mcg/2.5 mL inhalation solution 500 mcg, 2.5, mL, Neb, Daily, Maintenance, 03/03/21 16:32:00 EST Start Date: 03/03/21 Status: Orderedlactobacillus rhamnosus 1 tablets, By Mouth, Daily, Maintenance, 03/03/21 16:35:00 EST, Partial fill upon patient request ifthe prescription is for a schedule II opioid drug. Start Date: 03/03/21 Status: OrderedMilk of Magnesia 8% oral suspension 30 mL = 2.4 Gm, By Mouth, Daily at bedtime, PRN for constipation, Maintenance, 03/03/21 16:38:00 EST, Suspension, Partial fill upon patient request if the prescription is for a schedule II opioid drug. Start Date: 03/03/21 Status: Orderedpravastatin 20 mg oral tablet 20 mg, 1, tablet, By Mouth, Daily, # 90 tablet, Refills 1, Tot. Refills 1, Maintenance, 02/26/20 10:00:00 EST, Route to Pharmacy Electronically, [facility], 178, cm, 01/23/20 10:29:00 EDT, Height, 134, kg, 12/10/19 13:55:00 EDT, Dry Weight Start Date: 02/26/20 Status: OrderedRolling walker Rolling walker, See Instructions, # 1 each, Refills 0, Tot. Refills 0, Maintenance, ICD R26.81 - unstable gait, 08/14/20 11:50:00 EDT, Supply Start Date: 08/14/20 Status: Orderedsertraline 50 mg oral tablet 1 tablet = 50 mg, By Mouth, Daily, Maintenance, 03/03/21 16:43:00 EST, Tablet, Partial fill upon patient request if the prescription is for a schedule II opioid drug. Start Date: 03/03/21 Status: Orderedtamsulosin 0.4 mg oral capsule 0.4 mg, 1, capsule, By Mouth, Daily, # 90 capsule, Refills 1, Tot. Refills 1, Maintenance, 03/29/20 21:39:00 EST, Route to Pharmacy Electronically, [facility], 178, cm, 01/23/20 10:29:00 EDT, Height, 134, kg, 12/10/19 13:55:00 EDT, Dry... Start Date: 03/29/20 Status: Orderedthiamine 100 mg oral tablet 100 mg, 1, tablet, By Mouth, Daily, Maintenance, 03/03/21 16:44:00 EST, Partial fill upon patient request if the prescription is for a schedule II opioid drug. Start Date: 03/03/21 Status: OrderedVitamed Formula 1 tablets, By Mouth, Daily, Maintenance, 03/03/21 16:42:00 EST, Partial fill upon patient request ifthe prescription is for a schedule II opioid drug. Start Date: 03/03/21 Status: OrderedXarelto 20 mg oral tablet 1 tablet, By Mouth, Daily in PM, # 90 tablet, 1 Refills, Soft Stop, 12/19/19 9:30:00 EDT, [facility], 178, cm, 12/10/19 13:55:00 EDT, [...] moderate(Confirmed) Urinary incontinence(Confirmed) 06/07/10 Active 1At Leslee Deary Results Orders for Microbiology Reports Name Date Urine Culture (URINE CULTURE) 03/03/21 Urine Culture (URINE CULTURE) 03/03/21 Microbiology Reports TEST:Urine Culture STATUS:Auth (Verified) BODY SITE: SOURCE:URINE COLLECTED DATE/TIME:03/03/21 9:45 PMUrine Culture SPECIMEN DESCRIPTION : URINE SPECIAL REQUESTS : NONE CULTURE : NO GROWTH REPORT STATUS : FINAL 03/05/2021TEST:Urine Culture STATUS:Auth (Verified) BODY SITE: SOURCE:URINE COLLECTED DATE/TIME:03/03/21 4:13 PMUrine Culture SPECIMEN DESCRIPTION : URINE SPECIAL REQUESTS : NONE CULTURE : <10,000 COL/ML REPORT STATUS : FINAL 03/05/2021adiology Reports Exam Date Time Procedure Performing Provider Status 03/03/21 3:52 PM Chest Portable Hanna Jara; Auth (Verified) Notes:(Chest Portable) Reason For Exam: Shortness of BreathRESULT: Chest Portable AP upright portable chest dated March 03, 2021 at 1546 hours. Comparison films are from August 10, 2020. HISTORY: Shortness of breath. FINDINGS: The cardiac silhouette is at the upper limits of normal for size and has decreased from the prior study. 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 A single wire extends to overlie the left ventricle. No airspace infiltrate or pleural effusion is identified. There is a convex right thoracic scoliosis with some associated degenerative changes. IMPRESSION: Minimal cardiomegaly which is improved from the prior study. No evidence of acute pulmonary disease. Examination 28483. Thank you for allowing me to participate in the care of this patient. WSN: [id number] Ordering Physician: Gabriel Velázquez Dictated By: Bob Rene MD Dictated Date/Time: 03/03/21 3:54 pm Reviewed By: Bob Rene MD Signed By: Bob Rene MD Signed Date/Time: 03/03/21 3:54 pm Transcribed By: ARTURO Transcribed Date/Time: 03/03/21 3:52 pm Vital Signs Most recent to oldest 1 2 3 [Reference Range]: Height 178 cm 178 cm 178 cm (03/08/21 8:05 AM) (03/07/21 9:49 AM) (03/07/21 8:42 AM) Weight 109.7 kg (03/03/21 9:14 PM) Oxygen Saturation [94-100 %] 100 % 94 % 99 % (03/08/21 8:05 AM) (03/07/21 8:00 PM) (03/07/21 9:49 AM) Pulse Rate [55-90 bpm] 60 bpm 60 bpm 71 bpm (03/08/21 8:46 AM) (03/08/21 8:05 AM) (03/07/21 8:25 PM) Body Mass Index [18.5-24.99] 34.62 *>HHI* (03/03/21 9:14 PM) Blood Pressure [90-138/55-84 131/70 mm Hg 131/70 mm Hg 126 /73 mm Hg mm Hg] (03/08/21 8:46 AM) (03/08/21 8:05 AM) (03/07/21 8:25 PM) Respiratory Rate [16-30 18 br/min 17 br/min 17 br/mi n br/min] (03/08/21 8:05 AM) (03/07/21 8:00 PM) (03/07/21 9:49 AM) Temperature [96.8-100.4 97.5 DegF 97.7 DegF 97.4 Deg F DegF] (03/08/21 8:05 AM) (03/07/21 8:00 PM) (03/07/21 9:49 AM) Liters per Minute 2 L/min 2 L/min 2 L/min (03/05/21 7:00 PM) (03/05/21 8:00 AM) (03/05/21 4:00 AM) Mode of Delivery (Oxygen) Room air Room air Room a ir (03/08/21 8:05 AM) (03/07/21 8:00 PM) (03/07/21 9:49 AM) Blood pressure sites Arm, left Arm, right Arm, right (03/08/21 8:05 AM) (03/07/21 8:00 PM) (03/07/21 9:49 AM) Temperature Route Oral Oral Oral (03/08/21 8:05 AM) (03/07/21 8:00 PM) (03/07/21 9:49 AM) Dry Weight 109.7 kg (03/03/21 9:14 PM) Weight Obtained Via Bed scale (03/03/21 9:14 PM) Dry Weight Obtained Via Bed scale (03/03/21 9:14 PM) Social History Social History Type Response Smoking Status Former smoker entered on: 05/03/13 Sex
--- OUTSIDE RECORDS SUMMARY | 2022-03-02 18:18 | XMS_ITS | Continuity of Care Document ---
:1935 Author Organization [facility] Address [address] [place] [address]- Care Team Providers Name Role Phone Nicola Hager MD Primary Care Physician En[facility] Date(s): 12/10/19 - 01/09/20 [facility] [address] [place] [address] Attending Physician: Mele Rodriges Admitting Physician: AdmMele vickers Referring Physician: Admtr, Mark8 Allergies, Adverse Reactions, Alerts No Known Medication [...] Inactive (IM) (oldterm)9 04/22/09 Given 1Result Comment: [facility] [id number] Comment: [04/07/2017] [facility] [id number] 3Admin Note: VIS Admin Note: vis [id number] Note: VIS [id number] Comment: [12/10/2014] vis given to [id number] Note: information paper given and waiver [id number] Note: information paper [id number] Note: H1N1 Medications Advair Diskus 500 mcg-50 mcg inhalation powder 1, puffs, Inhalation, Daily, # 30 each, Refills 5, Tot. Refills 5, Maintenance, 03/23/18 11:47:25 EST, Inhaler, Route to Pharmacy Electronically, [id number], [facility] Start Date: [...] 04/02/18 11:42:36, Inhaler, Route to Pharmacy Electronically, [id number], [facility] Start Date: [...] 04/16/18 13:14:21 EST, Route to Pharmacy Electronically, [id number], [facility] Start Date: 04/16/18 Stop Date: 08/14/18 Status: OrderedDuoNeb 3 mg-0.5 mg/3 ml inhalation solution 3 mL, Neb, Once, 3ml administered via neb per verbal orders. lot # [id number] 07/26, # 3 mL, 0 Refills, Soft Stop, 04/28/17 12:14:31, 3 mL Neb Once,Instr:3ml administered via neb per verbal orders. ; lot # [id number] 07/26 Start Date: 04/28/17 Status: OrderedFreestyle Lite [...] 11/12/18 14:26:04 EDT, Route to Pharmacy Electronically, [id number], [facility] Start Date: 11/12/18 Stop Date: 12/12/18 Status: Orderedlisinopril 40 mg oral tablet 1 tablet = 40 mg, By Mouth, Daily, # 90 tablet, 1 Refills, Maintenance, 08/27/19 8:03:00 EDT, Tablet, [facility], 177.8, cm, 05/08/19 9:20:00 EST, Height Start Date: 08/27/19 Status: Orderedpravastatin 20 mg oral tablet 20 mg, 1, tablet, By Mouth, Daily, # 90 tablet, Refills 1, Tot. Refills 1, Maintenance, 08/27/19 8:15:00 EDT, Route to Pharmacy Electronically, [id number], 177.8, cm, 05/08/19 9:20:00 EST, [...] 08/27/19 8:01:00 EDT, Route to Pharmacy Electronically, [id number], 177.8, cm, 05/08/19 9:20:00 EST, Height Start Date: 08/27/19 Status: OrderedXarelto 20 mg oral tablet 1 tablet, By Mouth, Daily in PM, # 90 tablet, 1 Refills, Soft Stop, 12/19/19 9:30:00 EDT, [id number], 178, cm, 12/10/19 13:55:00 EDT, [...]
--- OUTSIDE RECORDS SUMMARY | 2022-03-02 18:18 | XMS_ITS | Continuity of Care Document ---
:1935 Author Organization [facility] Address [address] [place] [address]- Care Team Providers Name Role Phone Nicola Hager MD Primary Care Physician [facility]19 [facility] [address] [place] [address]- [facility] Attending Physician: Mele Rodriges Admitting Physician: Mele Rodriges Referring Physician: AdmtrMele Allergies, Adverse Reactions, Alerts No Known Medication [...] (IM) (oldterm)9 04/22/09 Given 1Result Comment: [facility] [id number] Comment: [04/07/2017] [facility] [id number] 3Admin Note: VIS Admin Note: vis [id number] Note: VIS [id number] Comment: [12/10/2014] vis given to [id number] Note: information paper given and waiver [id number] Note: information paper [id number] Note: H1N1 Medications Advair Diskus 500 mcg-50 mcg inhalation powder 1, puffs, Inhalation, Daily, # 30 each, Refills 5, Tot. Refills 5, Maintenance, 03/23/18 11:47:25 EST, Inhaler, Route to Pharmacy Electronically, [id number], [facility] Start Date: [...] 04/02/18 11:42:36, Inhaler, Route to Pharmacy Electronically, [id number], [facility] Start Date: [...] EDT, Route to Pharmacy Electronically, [facility], 177.8, cm, 05/08/19 9:20:00 EST, Height Start Date: 10/18/19 Status: OrderedCompression Stockings See Instructions, # 1 pair, Maintenance, surgical, knee length 30-40 mm Hg, 08/10/16 21:24:44, Compound Start Date: 11/18/15 Status: Ordereddocusate sodium 100 mg oral capsule 100 mg, 1, capsule, By Mouth, Daily, PRN, # 30 capsule, Refills 3, Tot. Refills 3, Maintenance, for constipation, 04/16/18 13:14:21 EST, Route to Pharmacy Electronically, [id number], [facility] Start Date: 04/16/18 Stop Date: 08/14/18 Status: OrderedDuoNeb 3 mg-0.5 mg/3 ml inhalation solution 3 mL, Neb, Once, 3ml administered via neb per verbal orders. lot # [id number] exp 07/26, # 3 mL, 0 Refills, Soft Stop, 04/28/17 12:14:31, 3 mL Neb Once,Instr:3ml administered via neb per verbal orders. ; lot # [id number] 07/26 Start Date: 04/28/17 Status: OrderedFreestyle Lite [...] 11/12/18 14:26:04 EDT, Route to Pharmacy Electronically, [id number], [facility] Start Date: 11/12/18 Stop Date: 12/12/18 Status: Orderedlisinopril 40 mg oral tablet 1 tablet = 40 mg, By Mouth, Daily, # 90 tablet, 1 Refills, Maintenance, 08/27/19 8:03:00 EDT, Tablet, [facility], 177.8, cm, 05/08/19 9:20:00 EST, Height Start Date: 08/27/19 Status: Orderedpravastatin 20 mg oral tablet 20 mg, 1, tablet, By Mouth, Daily, # 90 tablet, Refills 1, Tot. Refills 1, Maintenance, 08/27/19 8:15:00 EDT, Route to Pharmacy Electronically, [facility], 177.8, cm, 05/08/19 9:20:00 EST, [...] 08/27/19 8:01:00 EDT, Route to Pharmacy Electronically, [facility], 177.8, cm, 05/08/19 9:20:00 EST, [...] Most recent to oldest [Reference Range]: 1 Height 180.00 cm (09/19/12 8:11 AM) Weight 135 kg (09/19/12 8:11 AM) Body Mass Index [18.50-24.99] 41.67 *>HHI* (09/19/12 8:11 AM) Social History Social History Type Response Smoking Status Former smoker entered on: 05/03/13 Sex
--- OUTSIDE RECORDS SUMMARY | 2022-03-02 18:18 | XMS_ITS | Continuity of Care Document ---
:1935 Author Organization [facility] Address [address] [place] [address]- Care Team Providers Name Role Phone Madan BOYER, Nicola Castillo Primary Care Physician [facility]20 - [facility]12/20 [facility] [address] [place], [place] [address] Allergies, Adverse Reactions, Alerts No Known Medication [...] (IM) (oldterm)10 04/22/09 Given 1Result Comment: [facility]-[id number] Comment: [04/07/2017] [facility] [id number] Admin Note: VIS Admin Note: vis [id number] Note: VIS [id number] Comment: [facility] [id number] Comment: [12/10/2014] vis given to [id number] Note: information paper given and waiver [id number] Note: information paper [id number] Note: H1N1 Medications Advair Diskus 500 mcg-50 mcg inhalation powder 1, puffs, Inhalation, Daily, # 30 each, Refills 5, Tot. Refills 5, Maintenance, 03/23/18 11:47:25 EST, Inhaler, Route to Pharmacy Electronically, [id number], [facility] Start Date: [...] 04/02/18 11:42:36, Inhaler, Route to Pharmacy Electronically, [id number], [facility] Start Date: [...] 04/16/18 13:14:21 EST, Route to Pharmacy Electronically, [id number], [facility] Start Date: 04/16/18 Stop Date: 08/14/18 Status: OrderedDuoNeb 3 mg-0.5 mg/3 ml inhalation solution 3 mL, Neb, Once, 3ml administered via neb per verbal orders. lot # [id number] exp 07/26, # 3 mL, 0 Refills, Soft Stop, 04/28/17 12:14:31, 3 mL Neb Once,Instr:3ml administered via neb per verbal orders. ; lot # [id number] 07/26 Start Date: 04/28/17 Status: OrderedFreestyle Lite [...] Maintenance, 08/27/19 8:15:00 EDT, Tablet, [facility], 177.8, cm, 05/08/19 9:20:00 EST, [...] 11/12/18 14:26:04 EDT, Route to Pharmacy Electronically, [id number], [facility] Start Date: 11/12/18 Stop Date: 12/12/18 Status: Orderedlisinopril 40 mg oral tablet 1 tablet = 40 mg, By Mouth, Daily, # 90 tablet, 0 Refills, Maintenance, 01/15/20 16:25:00 EDT, Tablet, [facility], 178, cm, 12/10/19 13:55:00 EDT, Height, 134, kg, 12/10/19 13:55:00 EDT, Dry Weight Start Date: 01/15/20 Status: Orderedpravastatin 20 mg oral tablet 20 mg, 1, tablet, By Mouth, Daily, # 90 tablet, Refills 1, Tot. Refills 1, Maintenance, 02/26/20 10:00:00 EST, Route to Pharmacy Electronically, [facility], 178, cm, 01/23/20 10:29:00 EDT, Height, 134, kg, 12/10/19 13:55:00 EDT, Dry Weight Start Date: 02/26/20 Status: Orderedsertraline 50 mg oral tablet 1 tablet = 50 mg, By Mouth, Daily, # 90 tablet, 1 Refills, Soft Stop, 11/04/19 14:38:00 EDT, [facility], 177.8, cm, 10/30/19 15:35:00 EDT, Height Start Date: 11/04/19 Status: Orderedtamsulosin 0.4 mg oral capsule 0.4 mg, 1, capsule, By Mouth, Daily, # 90 capsule, Refills 1, Tot. Refills 1, Maintenance, 03/29/20 21:39:00 EST, Route to Pharmacy Electronically, [facility], 178, cm, 01/23/20 10:29:00 EDT, Height, 134, kg, 12/10/19 13:55:00 EDT, Dry... Start Date: 03/29/20 Status: OrderedXarelto 20 mg oral tablet 1 tablet, By Mouth, Daily in PM, # 90 tablet, 1 Refills, Soft Stop, 12/19/19 9:30:00 EDT, [facility], 178, cm, 12/10/19 13:55:00 EDT, [...]
--- OUTSIDE RECORDS SUMMARY | 2022-03-02 18:18 | XMS_ITS | Continuity of Care Document ---
:1935 Author Organization [facility] Address [address] [place] [address]- Care Team Providers Name Role Phone Madan BOYER, Nicola Castillo Primary Care Physician [facility]): 02[facility]20 - 03/27/20 [facility] [address] [place], [place] [address] Allergies, Adverse Reactions, Alerts No [...] Inactive (IM) (oldterm)10 04/22/09 Given 1Result Comment: [facility]-[id number] Comment: [04/07/2017] [facility] [phone] Admin Note: VIS Admin Note: vis [id number] Note: VIS [id number] Comment: [facility] [id number] Comment: [12/10/2014] vis given to [id number] Note: information paper given and waiver glercz7Cbywu Note: information paper [id number] Note: H1N1 Medications Advair Diskus 500 mcg-50 mcg inhalation powder 1, puffs, Inhalation, Daily, # 30 each, Refills 5, Tot. Refills 5, Maintenance, 03/23/18 11:47:25 EST, Inhaler, Route to Pharmacy Electronically, [id number], [facility] Start Date: [...] 04/02/18 11:42:36, Inhaler, Route to Pharmacy Electronically, [id number], [facility] Start Date: [...] 04/16/18 13:14:21 EST, Route to Pharmacy Electronically, [id number], [facility] Start Date: 04/16/18 Stop Date: 08/14/18 Status: OrderedDuoNeb 3 mg-0.5 mg/3 ml inhalation solution 3 mL, Neb, Once, 3ml administered via neb per verbal orders. lot # [id number] exp 07/26, # 3 mL, 0 Refills, Soft Stop, 04/28/17 12:14:31, 3 mL Neb Once,Instr:3ml administered via neb per verbal orders. ; lot # [id number] 07/26 Start Date: 04/28/17 Status: OrderedFreestyle Lite [...] Maintenance, 08/27/19 8:15:00 EDT, Tablet, [facility], 177.8, cm, 05/08/19 9:20:00 EST, [...] 11/12/18 14:26:04 EDT, Route to Pharmacy Electronically, [id number], [facility] Start Date: 11/12/18 Stop Date: 12/12/18 Status: Orderedlisinopril 40 mg oral tablet 1 tablet = 40 mg, By Mouth, Daily, # 90 tablet, 0 Refills, Maintenance, 01/15/20 16:25:00 EDT, Tablet, [facility], 178, cm, 12/10/19 13:55:00 EDT, Height, 134, kg, 12/10/19 13:55:00 EDT, Dry Weight Start Date: 01/15/20 Status: Orderedpravastatin 20 mg oral tablet 20 mg, 1, tablet, By Mouth, Daily, # 90 tablet, Refills 1, Tot. Refills 1, Maintenance, 02/26/20 10:00:00 EST, Route to Pharmacy Electronically, [facility], 178, cm, 01/23/20 10:29:00 EDT, Height, 134, kg, 12/10/19 13:55:00 EDT, Dry Weight Start Date: 02/26/20 Status: Orderedsertraline 50 mg oral tablet 1 tablet = 50 mg, By Mouth, Daily, # 90 tablet, 1 Refills, Soft Stop, 11/04/19 14:38:00 EDT, [facility], 177.8, cm, 10/30/19 15:35:00 EDT, Height Start Date: 11/04/19 Status: Orderedtamsulosin 0.4 mg oral capsule 0.4 mg, 1, capsule, By Mouth, Daily, # 90 capsule, Refills 1, Tot. Refills 1, Maintenance, 08/27/19 8:01:00 EDT, Route to Pharmacy Electronically, [facility], 177.8, cm, 05/08/19 9:20:00 EST, Height Start Date: 08/27/19 Status: OrderedXarelto 20 mg oral tablet 1 tablet, By Mouth, Daily in PM, # 90 tablet, 1 Refills, Soft Stop, 12/19/19 9:30:00 EDT, [facility], 178, cm, 12/10/19 13:55:00 EDT, [...]
--- OUTSIDE RECORDS SUMMARY | 2022-03-02 18:18 | XMS_ITS | Continuity of Care Document ---
:1935 Author Organization [facility] Address [address] [place] [address]- Care Team Providers Name Role Phone Madan BOYER, Nicola Castillo Primary Care Physician [facility]19 - 01/17/20 [facility] [address] [place] [address]- [facility] Allergies, Adverse Reactions, Alerts No [...] Inactive (IM) (oldterm)9 04/22/09 Given 1Result Comment: [facility] [id number] Comment: [04/07/2017] [facility] [id number] 3Admin Note: VIS Admin Note: vis [id number] Note: VIS [id number] Comment: [12/10/2014] vis given to alatjjo3Bvmqm Note: information paper given and waiver [id number] Note: information paper [id number] Note: H1N1 Medications Advair Diskus 500 mcg-50 mcg inhalation powder 1, puffs, Inhalation, Daily, # 30 each, Refills 5, Tot. Refills 5, Maintenance, 03/23/18 11:47:25 EST, Inhaler, Route to Pharmacy Electronically, [id number], [facility] Start Date: 03/23/18 Status: OrderedAerochamber [...] 04/02/18 11:42:36, Inhaler, Route to Pharmacy Electronically, [id number], [facility] Start Date: [...] EDT, Route to Pharmacy Electronically, [facility], 177.8, cm, 05/08/19 9:20:00 [...] 04/16/18 13:14:21 EST, Route to Pharmacy Electronically, [id number], [facility] Start Date: 04/16/18 Stop Date: 08/14/18 Status: OrderedDuoNeb 3 mg-0.5 mg/3 ml inhalation solution 3 mL, Neb, Once, 3ml administered via neb per verbal orders. lot # [id number] exp 07/26, # 3 mL, 0 Refills, Soft Stop, 04/28/17 12:14:31, 3 mL Neb Once,Instr:3ml administered via neb per verbal orders. ; lot # [id number] 07/26 Start Date: 04/28/17 Status: OrderedFreestyle Lite [...] 11/12/18 14:26:04 EDT, Route to Pharmacy Electronically, [id number], [facility] Start Date: 11/12/18 Stop Date: 12/12/18 Status: Orderedlisinopril 40 mg oral tablet 1 tablet = 40 mg, By Mouth, Daily, # 90 tablet, 0 Refills, Maintenance, 01/15/20 16:25:00 EDT, Tablet, [facility], 178, cm, 12/10/19 13:55:00 EDT, Height, 134, kg, 12/10/19 13:55:00 EDT, Dry Weight Start Date: 01/15/20 Status: Orderedpravastatin 20 mg oral tablet 20 mg, 1, tablet, By Mouth, Daily, # 90 tablet, Refills 1, Tot. Refills 1, Maintenance, 08/27/19 8:15:00 EDT, Route to Pharmacy Electronically, [facility], 177.8, cm, 05/08/19 9:20:00 [...] 08/27/19 8:01:00 EDT, Route to Pharmacy Electronically, [facility], 177.8, cm, 05/08/19 9:20:00 [...]
--- OUTSIDE RECORDS SUMMARY | 2022-03-02 18:18 | XMS_ITS | Continuity of Care Document ---
:1935 Author Organization [facility] Address [address] [place] [address]- Care Team Providers Name Role Phone Nicola Hager MD Primary Care Physician Encounter [facility] Date(s): 01/23/20 - 01/30/20 [facility] [address] [place] [address]- [facility] Encounter Diagnosis Muscular deconditioning (Discharge Diagnosis) - 01/23/20 Morbid obesity (Discharge Diagnosis) - 01/23/20 Chronic heart failure (Discharge Diagnosis) - 01/23/20 Attending Physician: Nicola Hager MD Allergies, Adverse [...] Inactive (IM) (oldterm)10 04/22/09 Given 1Result Comment: [facility]-[id number] Comment: [04/07/2017] [facility] [id number] Admin Note: VIS Admin Note: vis [id number] Note: VIS [id number] Comment: [facility] [id number] Comment: [12/10/2014] vis given to [id number] Note: information paper given and waiver [id number] Note: information paper [id number] Note: H1N1 Medications Advair Diskus 500 mcg-50 mcg inhalation powder 1, puffs, Inhalation, Daily, # 30 each, Refills 5, Tot. Refills 5, Maintenance, 03/23/18 11:47:25 EST, Inhaler, Route to Pharmacy Electronically, [id number], [facility] Start Date: [...] 04/02/18 11:42:36, Inhaler, Route to Pharmacy Electronically, [id number], [facility] Start Date: [...] 04/16/18 13:14:21 EST, Route to Pharmacy Electronically, [id number], [facility] Start Date: 04/16/18 Stop Date: 08/14/18 Status: OrderedDuoNeb 3 mg-0.5 mg/3 ml inhalation solution 3 mL, Neb, Once, 3ml administered via neb per verbal orders. lot # [id number] 07/26, # 3 mL, 0 Refills, Soft Stop, 04/28/17 12:14:31, 3 mL Neb Once,Instr:3ml administered via neb per verbal orders. ; lot # [id number] 07/26 Start Date: 04/28/17 Status: OrderedFreestyle Lite [...] NEEDED FOR EDEMA, [facility] Start Date: 12/11/18 Status: OrderedGlucophage 1000 mg oral tablet 1 tablet = 1,000 mg, By Mouth, Daily, # 90 tablet, 1 Refills, Maintenance, 08/27/19 8:15:00 EDT, Tablet, [facility], 177.8, cm, 05/08/19 9:20:00 EST, [...] 11/12/18 14:26:04 EDT, Route to Pharmacy Electronically, [id number], [facility] Start Date: 11/12/18 Stop Date: 12/12/18 Status: Orderedlisinopril 40 mg oral tablet 1 tablet = 40 mg, By Mouth, Daily, # 90 tablet, 0 Refills, Maintenance, 01/15/20 16:25:00 EDT, Tablet, [facility], 178, cm, 12/10/19 13:55:00 EDT, Height, 134, kg, 12/10/19 13:55:00 EDT, Dry Weight Start Date: 01/15/20 Status: Orderedpravastatin 20 mg oral tablet 20 mg, 1, tablet, By Mouth, Daily, # 90 tablet, Refills 1, Tot. Refills 1, Maintenance, 08/27/19 8:15:00 EDT, Route to Pharmacy Electronically, [facility], 177.8, cm, 05/08/19 9:20:00 EST, [...] 08/27/19 8:01:00 EDT, Route to Pharmacy Electronically, [facility], 177.8, cm, 05/08/19 9:20:00 EST, Height Start Date: 08/27/19 Status: OrderedXarelto 20 mg oral tablet 1 tablet, By Mouth, Daily in PM, # 90 tablet, 1 Refills, Soft Stop, 12/19/19 9:30:00 EDT, [facility], 178, cm, 12/10/19 13:55:00 EDT, [...] 1At [facility] Diagnosis Diagnosis Type Effective Dates Health Clinical Infor mant Status Service Muscular Discharge 01/23/20 deconditioning Diagnosis Morbid obesity Discharge 01/23/20 Diagnosis Chronic heart Discharge 01/23/20 failure Diagnosis Vital Signs Most recent to oldest [Reference Range]: 1 Height 178 cm (01/23/20 10:29 AM) Weight 135 kg (01/23/20 10:29 AM) Pulse Rate [55-90 bpm] 60 bpm (01/23/20 10:29 AM) Body Mass Index [18.5-24.99] 42.61 *>HHI* (01/23/20 10:29 AM) Blood Pressure [90-138/55-84 mm Hg] 155/83 mm Hg *H* (01/23/20 10:29 AM) Blood pressure sites Arm, left (01/23/20 10:29 AM) Weight Obtained Via Patient/family stated (01/23/20 10:29 AM) Social History Social History Type Response Smoking Status Former smoker entered on: 05/03/13 Sex
--- OUTSIDE RECORDS SUMMARY | 2022-03-02 18:18 | XMS_ITS | Continuity of Care Document ---
:1935 Author Organization [facility] Address [address] [place] [address]- Care Team Providers Name Role Phone Nicola Hager MD Primary Care Physician Encounter [facility] Date(s): 10/18/19 - 11/17/19 [facility] [address] [place] [address]- [facility] Allergies, Adverse Reactions, Alerts No Known Medication [...] Inactive (IM) (oldterm)9 04/22/09 Given 1Result Comment: [facility] [id number] Comment: [04/07/2017] [facility] [id number] 3Admin Note: VIS Admin Note: vis [id number] Note: VIS VYMCQ7Zmhlfz Comment: [12/10/2014] vis given to [id number] Note: information paper given and waiver [id number] Note: information paper [id number] Note: H1N1 Medications Advair Diskus 500 mcg-50 mcg inhalation powder 1, puffs, Inhalation, Daily, # 30 each, Refills 5, Tot. Refills 5, Maintenance, 03/23/18 11:47:25 EST, Inhaler, Route to Pharmacy Electronically, [id number], [facility] Start Date: 03/23/18 Status: OrderedAerochamber [...] 04/02/18 11:42:36, Inhaler, Route to Pharmacy Electronically, [id number], [facility] Start Date: 04/02/18 Stop Date: [...] 10/18/19 14:48:00 EDT, Route to Pharmacy Electronically, [facility], 177.8, cm, 05/08/19 9:20:00 EST, [...] 04/16/18 13:14:21 EST, Route to Pharmacy Electronically, [id number], [facility] Start Date: 04/16/18 Stop Date: 08/14/18 Status: OrderedDuoNeb 3 mg-0.5 mg/3 ml inhalation solution 3 mL, Neb, Once, 3ml administered via neb per verbal orders. lot # [id number] exp 07/26, # 3 mL, 0 Refills, Soft Stop, 04/28/17 12:14:31, 3 mL Neb Once,Instr:3ml administered via neb per verbal orders. ; lot # [id number] 07/26 Start Date: 04/28/17 Status: OrderedFreestyle Lite [...] 11/12/18 14:26:04 EDT, Route to Pharmacy Electronically, [id number], [facility] Start Date: 11/12/18 Stop Date: 12/12/18 Status: Orderedlisinopril 40 mg oral tablet 1 tablet = 40 mg, By Mouth, Daily, # 90 tablet, 1 Refills, Maintenance, 08/27/19 8:03:00 EDT, Tablet, [facility], 177.8, cm, 05/08/19 9:20:00 EST, Height Start Date: 08/27/19 Status: Orderedpravastatin 20 mg oral tablet 20 mg, 1, tablet, By Mouth, Daily, # 90 tablet, Refills 1, Tot. Refills 1, Maintenance, 08/27/19 8:15:00 EDT, Route to Pharmacy Electronically, [facility], 177.8, cm, 05/08/19 9:20:00 EST, Height Start Date: 08/27/19 Status: Orderedsertraline 50 mg oral tablet 1 tablet = 50 mg, By Mouth, Daily, # 90 tablet, 1 Refills, Soft Stop, 11/04/19 14:38:00 EDT, [facility], 177.8, cm, 10/30/19 15:35:00 EDT, Height Start Date: 11/04/19 Status: Orderedtamsulosin 0.4 mg oral capsule 0.4 mg, 1, capsule, By Mouth, Daily, # 90 capsule, Refills 1, Tot. Refills 1, Maintenance, 08/27/19 8:01:00 EDT, Route to Pharmacy Electronically, [facility], 177.8, cm, 05/08/19 9:20:00 EST, Height Start Date: 08/27/19 Status: OrderedXarelto 20 mg oral tablet 1 tablet, By Mouth, Daily in PM, # 90 tablet, 1 Refills, Soft Stop, 08/27/19 8:07:00 EDT, [facility], 177.8, cm, 05/08/19 9:20:00 [...]
--- OUTSIDE RECORDS SUMMARY | 2022-03-02 18:18 | XMS_ITS | Continuity of Care Document ---
:1935 Author Organization [facility] Address [address] [place] [address]- Care Team Providers Name Role Phone Nicola Hager MD Primary Care Physician Encounter [facility] Date(s): 11/12/19 - 11/19/19 [facility] [address] [place] [address]- [facility] Encounter Diagnosis Peripheral vascular disease (Discharge Diagnosis) - 11/12/19 Morbid obesity (Discharge Diagnosis) - 11/12/19 ATRIAL FIBRILLATION (Discharge Diagnosis) - 11/12/19 BENIGN ESSENTIAL HYPERTENSION (Discharge Diagnosis) - 11/12/19 ASTHMA (Discharge Diagnosis) - 11/12/19 Prediabetes (Discharge Diagnosis) - 11/12/19 Sleep apnea (Discharge Diagnosis) - 11/12/19 Dementia (Discharge Diagnosis) - 11/12/19 Leg wound, right (Discharge Diagnosis) - 11/12/19 Attending Physician: Nicola Hager MD Allergies, Adverse [...] Inactive (IM) (oldterm)9 04/22/09 Given 1Result Comment: [facility] [id number] Comment: [04/07/2017] [facility] [id number] 3Admin Note: VIS Admin Note: vis [id number] Note: VIS [id number] Comment: [12/10/2014] vis given to [id number] Note: information paper given and waiver [id number] Note: information paper [id number] Note: H1N1 Medications Advair Diskus 500 mcg-50 mcg inhalation powder 1, puffs, Inhalation, Daily, # 30 each, Refills 5, Tot. Refills 5, Maintenance, 03/23/18 11:47:25 EST, Inhaler, Route to Pharmacy Electronically, [id number], [id number] Start Date: [...] 04/02/18 11:42:36, Inhaler, Route to Pharmacy Electronically, [id number], [id number] Start Date: [...] EDT, Route to Pharmacy Electronically, [id number], 177.8, cm, 05/08/19 9:20:00 EST, [...] 04/16/18 13:14:21 EST, Route to Pharmacy Electronically, [id number], [id number] Start Date: 04/16/18 Stop Date: 08/14/18 Status: OrderedDuoNeb 3 mg-0.5 mg/3 ml inhalation solution 3 mL, Neb, Once, 3ml administered via neb per verbal orders. lot # [id number] 07/26, # 3 mL, 0 Refills, Soft Stop, 04/28/17 12:14:31, 3 mL Neb Once,Instr:3ml administered via neb per verbal orders. ; lot # [id number] 07/26 Start Date: 04/28/17 Status: OrderedFreestyle Lite [...] BY MOUTH EVERY DAY NEEDED FOR EDEMA, [id number] Start Date: 12/11/18 Status: OrderedGlucophage 1000 mg oral tablet 1 tablet = 1,000 mg, By Mouth, Daily, # 90 tablet, 1 Refills, Maintenance, 08/27/19 8:15:00 EDT, Tablet, [id number], 177.8, cm, 05/08/19 9:20:00 EST, Height Start Date: 08/27/19 Status: OrderedLasix 20 mg oral tablet 20 mg, 1, tablet, By Mouth, Daily, PRN, # 30 tablet, Refills 0, Tot. Refills 0, Maintenance, edema, 11/12/18 14:26:04 EDT, Route to Pharmacy Electronically, [id number], [id number] Start Date: 11/12/18 Stop Date: 12/12/18 Status: Orderedlisinopril 40 mg oral tablet 1 tablet = 40 mg, By Mouth, Daily, # 90 tablet, 1 Refills, Maintenance, 08/27/19 8:03:00 EDT, Tablet, [id number], 177.8, cm, 05/08/19 9:20:00 EST, Height Start Date: 08/27/19 Status: Orderedpravastatin 20 mg oral tablet 20 mg, 1, tablet, By Mouth, Daily, # 90 tablet, Refills 1, Tot. Refills 1, Maintenance, 08/27/19 8:15:00 EDT, Route to Pharmacy Electronically, [id number], 177.8, cm, 05/08/19 9:20:00 EST, Height Start Date: 08/27/19 Status: Orderedsertraline 50 mg oral tablet 1 tablet = 50 mg, By Mouth, Daily, # 90 tablet, 1 Refills, Soft Stop, 11/04/19 14:38:00 EDT, [id number], 177.8, cm, 10/30/19 15:35:00 EDT, Height Start Date: 11/04/19 Status: Orderedtamsulosin 0.4 mg oral capsule 0.4 mg, 1, capsule, By Mouth, Daily, # 90 capsule, Refills 1, Tot. Refills 1, Maintenance, 08/27/19 8:01:00 EDT, Route to Pharmacy Electronically, [id number], 177.8, cm, 05/08/19 9:20:00 EST, Height Start Date: 08/27/19 Status: OrderedXarelto 20 mg oral tablet 1 tablet, By Mouth, Daily in PM, # 90 tablet, 1 Refills, Soft Stop, 08/27/19 8:07:00 EDT, [id number], 177.8, cm, 05/08/19 9:20:00 EST, [...] Dates Health Clinical Infor mant Status Service Morbid obesity Discharge 11/12/19 Diagnosis Peripheral vascular Discharge 11/12/19 disease Diagnosis ATRIAL FIBRILLATION Discharge 11/12/19 Diagnosis BENIGN ESSENTIAL Discharge 11/12/19 HYPERTENSION Diagnosis ASTHMA Discharge 11/12/19 Diagnosis Prediabetes Discharge 11/12/19 Diagnosis Sleep apnea Discharge 11/12/19 Diagnosis Dementia Discharge 11/12/19 Diagnosis Leg wound, right Discharge 11/12/19 Diagnosis Vital Signs Most recent to oldest [Reference Range]: 1 Height 177.8 cm (11/12/19 10:17 AM) Pulse Rate [55-90 bpm] 60 bpm (11/12/19 10:17 AM) Blood Pressure [90-138/55-84 mm Hg] 134/75 mm Hg (11/12/19 10:17 AM) Social History Social History Type Response Smoking Status Former smoker entered on: 05/03/13 Sex
[2022-03-02 18:54] VITALS: BP 98/52; PULSE 60; RESP 20; TEMP 37.3; O2SAT 95
[2022-03-02] MEDS: 0.9 % Sodium Chloride 500 ML IV (19:33)
--- NOTE | 2022-03-02 19:35 | PHA.MEDREC ---
Pharmacy Consult ? Medication Reconciliation Pharmacy has completed the medication reconciliation.
[2022-03-02 20:25] LABS: Troponin-I High Sensitivity 188.8 ng/L (<3.5-35.0)
[2022-03-02 20:37] VITALS: BP 105/53; PULSE 60; RESP 22; TEMP 36.6; O2SAT 96
[2022-03-02 21:49] VITALS: BP 112/53; PULSE 60; RESP 18; TEMP 36.7; O2SAT 98
--- NOTE | 2022-03-02 22:55 | PM.IMHP ---
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 Patient currently completely lab done did, response to painful stimuli but otherwise unable to provide history. History is obtained from EMR and ED PA. According to the report obtained from EMS, the symptoms have been going on for 1 day, patient baseline is confused and only alert to person. AMS reported hypoxia of 80% on room air. He was placed on 4 L nasal cannula with O2 improving to 95%. Currently patient is 99% on 4 L of oxygen. Unable to review of system. On arrival his vitals are significant for temp of 102.6 degrees, respiratory rate of 30, blood pressure 106/47, 96% on 4 L of oxygen Labs are significant for WBC count 7.7, hemoglobin of 11.8, medical 38.6, creatinine of 1.6 to with a previous 1 of 1.41 in December of 2020, cyst troponin of 150 increased to 188, BNP of 297, UA positive for leukocyte Estrace chest CTA shows no evidence of PE, cardiomegaly with interstitial edema and moderate right pleural effusion, Head CT negative Review of Systems Review of Systems: Yes Unobtainable due to mental condition and Unobtainable due to mental status [facility] Medical History (Updated 03/03/22 @ 06:04 by George Valle MD) Anxiety BPH (benign prostatic hyperplasia) CAD (coronary artery disease) CHF (congestive heart failure) CKD (chronic kidney disease) COPD (chronic obstructive pulmonary disease) Hypertension Major depression Obstructive uropathy Pertinent family history: Unable to obtain Surgical History (Updated 03/03/22 @ 05:54 by George Valle MD) S/P placement of cardiac pacemaker Social History Household Members: Caregiver Housing: [facility] Unable to assess alcohol history related to: Unknown Patient Tobacco Use Status: Tobacco use Unknown Use of substances other than those prescribed or required for medical reasons: Unknown Have you been hit, kicked, punched, or otherwise hurt by someone within the past year? If so, by whom?: No Do you feel safe in your current relationship?: No Is there a partner from a previous relationship who is making you feel unsafe now?: No Are you made to feel afraid or neglected: No Advance Directives: No Do you have thoughts of harming others: None Do you have a plan to hurt others: No Plan Recently lost weight without trying: No Eating poorly because of decreased appetite: No Nutrition Risks: No Nutritional Risk Poor oral hygiene: No Meds Allergies Allergy/AdvReac Type Severity Reaction Status Date / Time Unable to Assess Allergy Unverified 03/02/22 15:56 Active Medications: Current Medications Pharmacy Consult (Consult Rx Perform Med Rec) 1 each MISCELLANE ONCE PRN PRN Reason: Consult order Home Medications Medication Instructions Recorded Confirmed Last Taken Type carvedilol 3.125 mg tablet 1 tab PO BID 03/02/22 03/02/22 Unknown History escitalopram oxalate 10 mg tablet 1 tab PO DAILY 03/02/22 03/02/22 Unknown History folic acid 1 mg tablet 1 tab PO DAILY 03/02/22 03/02/22 Unknown History furosemide 20 mg tablet 1 tab PO DAILY 03/02/22 03/02/22 Unknown History magnesium oxide 400 mg PO BID 03/02/22 03/02/22 Unknown History multivitamin 1 tab PO DAILY 03/02/22 03/02/22 Unknown History ondansetron HCl 4 mg tablet 1 tab PO Q8H PRN Nausea 03/02/22 03/02/22 Unknown History polyethylene glycol 3350 17 gram 17 g PO DAILY PRN Constipation 03/02/22 03/02/22 Unknown History oral powder packet pravastatin 10 mg tablet 1 tab PO BEDTIME 03/02/22 03/02/22 Unknown History tamsulosin 0.4 mg capsule 1 cap PO BEDTIME 03/02/22 03/02/22 Unknown History thiamine HCl (vitamin B1) 100 mg 100 mg PO DAILY 03/02/22 03/02/22 Unknown History tablet Physical Exam Vital Signs and Narrative: Vital Signs: Last Vital Signs Temp 98.1 F 03/02/22 21:49 Pulse 60 03/02/22 21:49 Resp 18 03/02/22 21:49 BP 112/53 L 03/02/22 21:49 Pulse Ox 98 03/02/22 21:49 O2 Del Method 03/02/22 21:49 O2 Flow Rate 3 03/02/22 21:49 BMI result Body Mass Index 30.4 Const: Other: Obtunded, arousable to painful stimuli General: no acute distress Eyes: General: appearance normal, both eyes and all related structures Resp: Effort & Inspection: normal respiratory effort Cardio: Rate: regular rate Rhythm: regular rhythm GI: Palpation (GI): Soft to palpation Auscultation: normal bowel sounds Skin: General skin exam: no rashes or lesions noted Neuro: Cognition (Neuro): normal cognition Extrem: General: Yes normal to inspection and Yes no pedal edema Results Labs CBC and Chem 7: 03/02/22 16:39 03/02/22 16:39 Labs: Laboratory Results - last 24 hr 03/02/22 03/02/22 03/02/22 16:39 16:39 16:39 MCV 98.0 MCH 29.9 MCHC 30.6 L RDW 15.4 Plt Count 105 L MPV 12.2 Immature Gran % (Auto) 0.4 Neut % (Auto) 85.7 H Lymph % (Auto) 5.1 L [place] % (Auto) 8.5 Eos % (Auto) 0.0 Baso % (Auto) 0.3 Lymph # (Auto) 0.4 L [place] # (Auto) 0.7 Eos # (Auto) 0.0 Baso # (Auto) 0.0 Abs Immat Gran (auto) 0.03 Absolute Neuts (auto) 6.6 Absolute Nucleated RBC 0.000 Nucleated RBC % (auto) 0.0 D-Dimer High Sensitivty Anion Gap 13 Estim Creat Clear Calc 36.4 Estimated GFR 41 Random Glucose 100 Lactic Acid Calcium 8.9 Magnesium 2.0 Total Bilirubin 1.1 H AST 15 ALT < 6 Alkaline Phosphatase 95 Troponin I High Sens 150.9 H* B-Natriuretic Peptide Total Protein 7.0 Albumin 3.6 Urine Color Urine Appearance Urine pH Ur Specific [place] Urine Protein Urine Glucose (UA) Urine Ketones Urine Blood Urine Nitrite Ur Leukocyte Esterase Urine RBC Urine WBC Urine WBC Clumps Ur Squamous Epith Cells Urine Bacteria Hyaline Casts Granular Casts COVID-19 ([facility]LEY) COVID-19 Clin Com 03/02/22 03/02/22 03/02/22 16:39 16:39 16:39 MCV MCH MCHC RDW Plt Count MPV Immature Gran % (Auto) Neut % (Auto) Lymph % (Auto) [place] % (Auto) Eos % (Auto) Baso % (Auto) Lymph # (Auto) [place] # (Auto) Eos # (Auto) Baso # (Auto) Abs Immat Gran (auto) Absolute Neuts (auto) Absolute Nucleated RBC Nucleated RBC % (auto) D-Dimer High Sensitivty Anion Gap Estim Creat Clear Calc Estimated GFR Random Glucose Lactic Acid 1.0 Calcium Magnesium Total Bilirubin AST ALT Alkaline Phosphatase Troponin I High Sens B-Natriuretic Peptide 297 H Total Protein Albumin Urine Color Urine Appearance Urine pH Ur Specific [place] Urine Protein Urine Glucose (UA) Urine Ketones Urine Blood Urine Nitrite Ur Leukocyte Esterase Urine RBC Urine WBC Urine WBC Clumps Ur Squamous Epith Cells Urine Bacteria Hyaline Casts Granular Casts COVID-19 ([facility]LEY) Negative COVID-19 Clin Com See Note 03/02/22 03/02/22 03/02/22 16:42 16:43 19:59 MCV MCH MCHC RDW Plt Count MPV Immature Gran % (Auto) Neut % (Auto) Lymph % (Auto) [place] % (Auto) Eos % (Auto) Baso % (Auto) Lymph # (Auto) [place] # (Auto) Eos # (Auto) Baso # (Auto) Abs Immat Gran (auto) Absolute Neuts (auto) Absolute Nucleated RBC Nucleated RBC % (auto) D-Dimer High Sensitivty 335 Anion Gap Estim Creat Clear Calc Estimated GFR Random Glucose Lactic Acid Calcium Magnesium Total Bilirubin AST ALT Alkaline Phosphatase Troponin I High Sens 188.8 H* B-Natriuretic Peptide Total Protein Albumin Urine Color Dark Yellow Urine Appearance Turbid Urine pH 7.0 Ur Specific [place] 1.020 Urine Protein 300 (3+) H Urine Glucose (UA) Negative Urine Ketones Trace Urine Blood Large (3+) H Urine Nitrite Negative Ur Leukocyte Esterase Large (3+) H Urine RBC >20 H Urine WBC >50 H Urine WBC Clumps Present Ur Squamous Epith Cells 0-2 Urine Bacteria 4+ Hyaline Casts 3-5 Granular Casts Present COVID-19 ([facility]LEY) COVID-19 Clin Com Imaging Radiologist's Impressions: Impressions Chest X-Ray 03/02/22 17:20 IMPRESSION: Mild cardiomegaly with question of mild CHF. Chest CTA 03/02/22 17:35 IMPRESSION: 1. No evidence of pulmonary emboli. 2. Cardiomegaly with interstitial edema and moderate right pleural effusion 3. Reflux into the hepatic veins suggests elevated right-sided heart pressures VTE: negative Head CT 03/02/22 17:35 IMPRESSION: No acute intracranial pathology. Assessment and Plan (1) Encephalopathy: Status: Acute (2) Acute respiratory failure with hypoxia: Status: Acute (3) Acute exacerbation of CHF (congestive heart failure): Qualifiers: Heart failure type: unspecified Qualified Code(s): I50.9 - Heart failure, unspecified Status: Acute (4) UTI (urinary tract infection): Qualifiers: Urinary tract infection type: acute cystitis Hematuria presence: without hematuria Qualified Code(s): N30.00 - Acute cystitis without hematuria Status: Acute (5) Pleural effusion: Status: Acute (6) Fever: Qualifiers: Fever type: due to other condition Qualified Code(s): R50.81 - Fever presenting with conditions classified elsewhere Status: Acute Plan 86-year-old male with past medical history as mentioned above presents from long term with altered mental status and hypoxia # encephalopathy - likely toxic metabolic encephalopathy secondary to hypoxia, as well as acute infection - patient on oxygen for hypoxic respiratory failure as well as IV antibiotics - baseline mentation confused, oriented to self - monitor mentation # acute hypoxic respiratory failure - likely secondaryTo CHF exacerbation - unable to assess for COPD exacerbation as patient is obtunded - will obtain ABG - continue O2 as necessary, as titrating oxygen supplement for an O2 level of 88-94 % given his underlying COPD # acute CHF exacerbation - has evidence of pleural effusion, pulmonary edema, as well as BNP elevation - her Lasix at baseline - will treat with Lasix IV - will obtain echocardiogram, strict I&O, daily weight, low-sodium diet - cardiology consulted # acute UTI - positive UA - febrile - will treat with IV antibiotics - follow cultures # febrile -secondary to acute infection as above - no leukocytosis, lactic acid normal - Tylenol p.r.n. # hypertension - BP initially soft on admission, but now normotensive - will resume carvedilol # CKD stage 3b - appears to be at baseline - follow BMP # BPH - continue tamsulosin DVT prophylaxis: Heparin subQ Given patient's requirement for IV antibiotics, as well as oxygen, as well as encephalopathy patient required minimum 2 night inpatient hospital stay for further management and monitoring Quality Stroke Does the patient have a stroke diagnosis?: No VTE Prior VTE?: No VTE Risk Level:: Medical - moderate - high VTE Device Contraindication: Treatment Not Indicated VTE Drug Contraindication: N/A - Med Ordered
[2022-03-02] MEDS: Heparin Sodium,Porcine 5,000 UNIT/ML VIAL 5000 UNIT SUBCUT (23:52)
[2022-03-03] VITALS (12 sets, daily range): BP systolic 115–134; BP diastolic 59–83; PULSE 60–101; RESP 16–20; TEMP 36–36.9; O2SAT 86–100; BMI 41.0
[2022-03-03 05:50] LABS: MANUAL DIFF FLAG NO
[2022-03-03 05:58] LABS: Basophils Percent Auto 0.5 % (0-2); Eosinophils Percent Auto 0.2 % (0-4); Hematocrit 35.4 % (42.0-52.0); Hemoglobin 10.5 g/dl (14.0-18.0); Imm Gran Abs Auto 0.02 X10*3/uL (0.00-0.03); Imm Gran Pct Auto 0.5 % (0.0-0.4); Lymphocytes Absolute Auto 0.6 X10*3/uL (1.2-4.9); Lymphocytes Percent Auto 15.3 % (20-40); Mean Corpuscular HGB Conc 29.7 g/dl (31.0-36.0); Mean Corpuscular Hemoglobin 29.8 pg (27.0-33.0); Mean Corpuscular Volume 100.6 fL (80.0-98.0); Mean Platelet Volume 12.2 fL (9.4-12.4); Monocytes Absolute Auto 0.6 X10*3/uL (0.1-1.2); Monocytes Percent Auto 14.4 % (2-11); Neutrophils Absolute Auto 2.9 x10*3/uL (2.0-8.3); Neutrophils Percent Auto 69.1 % (45-73); Red Blood Count 3.52 X10*6/uL (4.60-5.80); Red Cell Distribution Width 15.7 % (11.0-16.0); White Blood Count 4.2 X10*3/uL (4.8-10.8)
[2022-03-03 06:00] LABS: Platelet Count 78 X10*3/uL (160-400)
[2022-03-03 06:15] LABS: Anion Gap 14 (12-20); Blood Urea Nitrogen 26 mg/dL (9-16); Calcium 8.2 mg/dL (8.4-10.2); Carbon Dioxide 25 mmol/L (22-29); Chloride 109 mmol/L (96-108); Creatinine Clr Calc Pharmacy 49.8; Estimated Glomerular Filt Rate 49; Glucose Random 76 mg/dL (60-115); Potassium 4.8 mmol/L (3.3-5.1); Sodium 143 mmol/L (135-145)
[2022-03-03 06:50] LABS: ABG Base Excess 7.3 mmol/L; ABG HCO3 35 mmol/L (22-26); ABG pCO2 65 mmHg (32-45); ABG pH 7.33 (7.35-7.45); ABG pO2 82 mmHg (83-108)
--- NOTE | 2022-03-03 07:11 | PC.NURSE ---
Critical ABG results was received from RT, critical results relayed to Dr. Valle at 1990.
[2022-03-03] MEDS: Albuterol Sulfate (0.083%) 2.5 MG/3 ML VIAL.NEB INHALE ×4 (08:34→18:45)
[2022-03-03] MEDS: Furosemide 40 MG/4 ML VIAL IVPUSH ×2 (09:42→17:49)
--- NOTE | 2022-03-03 09:44 | MHC.CM.PN ---
PT HERE FROM [facility], MESSAGE SENT VIA [employer] TO DETERMINE IF PT IS LTC OR STR, AND REQUEST A HCP. AWAITING RESPONSE
[2022-03-03] MEDS: Heparin Sodium,Porcine 5,000 UNIT/ML VIAL 5000 UNIT SUBCUT ×2 (09:56→22:27)
--- NOTE | 2022-03-03 12:36 | HO.PM.IMPN ---
Subjective Subjective Date of Service: 03/03/22 Review of Systems Follow up CHF doing ok, still sob laying in bed Physical Exam Vital Signs: Vital Signs: Last Vital Signs Temp 97.2 F 03/03/22 11:19 Pulse 60 03/03/22 11:19 Resp 16 03/03/22 11:19 BP 132/70 03/03/22 11:19 Pulse Ox 95 03/03/22 07:13 O2 Del Method 03/03/22 07:13 O2 Flow Rate 1 03/03/22 07:13 BMI result Body Mass Index 41.0 Appearing in no acute distress lung sounds are clear to auscultation heart regular rate rhythm, clear S1, S2 positive bowel sounds, abdomen is soft, nontender neuro patient is alert x3, no focal deficits Objective Data Active Medications Acetaminophen (Acetaminophen 325 Mg Tablet) 650 mg PO Q6H PRN PRN Reason: Pain, Mild (Pain Scale 1-3) Albuterol Sulfate (Albuterol Sulfate (0.083%) 2.5 Mg/3 Ml Vial.Neb) 2.5 mg INHALE RQ4H WHILE AWAKE [facility] Last Admin: 03/03/22 11:16 Dose: 2.5 mg Documented By: PRUDENCE Albuterol Sulfate (Albuterol Sulfate (0.083%) 2.5 Mg/3 Ml Vial.Neb) 2.5 mg INHALE Q4H PRN PRN Reason: sob Last Admin: 03/03/22 08:34 Dose: 2.5 mg Documented By: PRUDENCE Furosemide (Furosemide 40 Mg/4 Ml Vial) 40 mg IVPUSH BID@0900,1800 [facility]; Protocol Last Admin: 03/03/22 09:42 Dose: 40 mg Documented By: DEBBIE Heparin Sodium (Porcine) (Heparin Sodium,Porcine 5,000 Unit/Ml Vial) 5,000 unit SUBCUT Q12H [facility] Last Admin: 03/03/22 09:56 Dose: 5,000 unit Documented By: DEBBIE Ceftriaxone Sodium 1 gm/ (Sodium Chloride) 50 mls @ 100 mls/hr IV Q24H [facility] Ondansetron HCl (Ondansetron Hcl 4 Mg/2 Ml Vial) 4 mg IVPUSH Q8H PRN PRN Reason: Nausea and Vomiting Pharmacy Consult (Consult Rx Perform Med Rec) 1 each MISCELLANE ONCE PRN PRN Reason: Consult order Labs CBC & Chem 7: 03/03/22 05:11 03/03/22 05:11 Labs: Laboratory Results - last 24 hr 03/02/22 03/02/22 03/02/22 16:39 16:39 16:39 MCV 98.0 MCH 29.9 MCHC 30.6 L RDW 15.4 Plt Count 105 L MPV 12.2 Immature Gran % (Auto) 0.4 Neut % (Auto) 85.7 H Lymph % (Auto) 5.1 L [place] % (Auto) 8.5 Eos % (Auto) 0.0 Baso % (Auto) 0.3 Lymph # (Auto) 0.4 L [place] # (Auto) 0.7 Eos # (Auto) 0.0 Baso # (Auto) 0.0 Abs Immat Gran (auto) 0.03 Absolute Neuts (auto) 6.6 Absolute Nucleated RBC 0.000 Nucleated RBC % (auto) 0.0 D-Dimer High Sensitivty O2 Saturation ABG pH at Pt Temp ABG pCO2 at Pt Temp ABG pO2 at Pt Temp ABG HCO3 ABG Base Excess (Actual) Anion Gap 13 Estim Creat Clear Calc 36.4 Estimated GFR 41 Random Glucose 100 Lactic Acid Calcium 8.9 Magnesium 2.0 Total Bilirubin 1.1 H AST 15 ALT < 6 Alkaline Phosphatase 95 Troponin I High Sens 150.9 H* B-Natriuretic Peptide Total Protein 7.0 Albumin 3.6 Urine Color Urine Appearance Urine pH Ur Specific Malcolm Urine Protein Urine Glucose (UA) Urine Ketones Urine Blood Urine Nitrite Ur Leukocyte Esterase Urine RBC Urine WBC Urine WBC Clumps Ur Squamous Epith Cells Urine Bacteria Hyaline Casts Granular Casts COVID-19 (MILEY) COVID-19 Clin Com 03/02/22 03/02/22 03/02/22 16:39 16:39 16:39 MCV MCH MCHC RDW Plt Count MPV Immature Gran % (Auto) Neut % (Auto) Lymph % (Auto) [place] % (Auto) Eos % (Auto) Baso % (Auto) Lymph # (Auto) [place] # (Auto) Eos # (Auto) Baso # (Auto) Abs Immat Gran (auto) Absolute Neuts (auto) Absolute Nucleated RBC Nucleated RBC % (auto) D-Dimer High Sensitivty O2 Saturation ABG pH at Pt Temp ABG pCO2 at Pt Temp ABG pO2 at Pt Temp ABG HCO3 ABG Base Excess (Actual) Anion Gap Estim Creat Clear Calc Estimated GFR Random Glucose Lactic Acid 1.0 Calcium Magnesium Total Bilirubin AST ALT Alkaline Phosphatase Troponin I High Sens B-Natriuretic Peptide 297 H Total Protein Albumin Urine Color Urine Appearance Urine pH Ur Specific Malcolm Urine Protein Urine Glucose (UA) Urine Ketones Urine Blood Urine Nitrite Ur Leukocyte Esterase Urine RBC Urine WBC Urine WBC Clumps Ur Squamous Epith Cells Urine Bacteria Hyaline Casts Granular Casts COVID-19 (MILEY) Negative COVID-19 Clin Com See Note 03/02/22 03/02/22 03/02/22 16:42 16:43 19:59 MCV MCH MCHC RDW Plt Count MPV Immature Gran % (Auto) Neut % (Auto) Lymph % (Auto) [place] % (Auto) Eos % (Auto) Baso % (Auto) Lymph # (Auto) [place] # (Auto) Eos # (Auto) Baso # (Auto) Abs Immat Gran (auto) Absolute Neuts (auto) Absolute Nucleated RBC Nucleated RBC % (auto) D-Dimer High Sensitivty 335 O2 Saturation ABG pH at Pt Temp ABG pCO2 at Pt Temp ABG pO2 at Pt Temp ABG HCO3 ABG Base Excess (Actual) Anion Gap Estim Creat Clear Calc Estimated GFR Random Glucose Lactic Acid Calcium Magnesium Total Bilirubin AST ALT Alkaline Phosphatase Troponin I High Sens 188.8 H* B-Natriuretic Peptide Total Protein Albumin Urine Color Dark Yellow Urine Appearance Turbid Urine pH 7.0 Ur Specific Malcolm 1.020 Urine Protein 300 (3+) H Urine Glucose (UA) Negative Urine Ketones Trace Urine Blood Large (3+) H Urine Nitrite Negative Ur Leukocyte Esterase Large (3+) H Urine RBC >20 H Urine WBC >50 H Urine WBC Clumps Present Ur Squamous Epith Cells 0-2 Urine Bacteria 4+ Hyaline Casts 3-5 Granular Casts Present COVID-19 (MILEY) COVID-19 Clin Com 03/03/22 03/03/22 03/03/22 05:11 05:11 06:39 MCV 100.6 H MCH 29.8 MCHC 29.7 L RDW 15.7 Plt Count 78 L D MPV 12.2 Immature Gran % (Auto) 0.5 H Neut % (Auto) 69.1 Lymph % (Auto) 15.3 L [place] % (Auto) 14.4 H Eos % (Auto) 0.2 Baso % (Auto) 0.5 Lymph # (Auto) 0.6 L [place] # (Auto) 0.6 Eos # (Auto) 0.0 Baso # (Auto) 0.0 Abs Immat Gran (auto) 0.02 Absolute Neuts (auto) 2.9 Absolute Nucleated RBC 0.000 Nucleated RBC % (auto) 0.0 D-Dimer High Sensitivty O2 Saturation 94.0 ABG pH at Pt Temp 7.33 L ABG pCO2 at Pt Temp 65 H* ABG pO2 at Pt Temp 82 L ABG HCO3 35 H ABG Base Excess (Actual) 7.3 Anion Gap 14 Estim Creat Clear Calc 49.8 Estimated GFR 49 Random Glucose 76 Lactic Acid Calcium 8.2 L D Magnesium Total Bilirubin AST ALT Alkaline Phosphatase Troponin I High Sens B-Natriuretic Peptide Total Protein Albumin Urine Color Urine Appearance Urine pH Ur Specific Malcolm Urine Protein Urine Glucose (UA) Urine Ketones Urine Blood Urine Nitrite Ur Leukocyte Esterase Urine RBC Urine WBC Urine WBC Clumps Ur Squamous Epith Cells Urine Bacteria Hyaline Casts Granular Casts COVID-19 (MILEY) COVID-19 Clin Com Microbiology Microbiology Results: Microbiology 03/02/22 18:24 Urine Culture - Preliminary Urine clean catch - Urine lindsey top Culture too young to evaluate. Assessment and Plan (1) CHF (congestive heart failure): Status: Acute Plan 86-year-old male with past medical history as mentioned above presents from shelter with altered mental status and hypoxia Encephalopathy likely toxic metabolic encephalopathy secondary to hypoxia, as well as acute infection patient on oxygen for hypoxic respiratory failure as well as IV antibiotics baseline mentation confused, oriented to self monitor mentation Acute hypoxic respiratory failure likely secondary to CHF exacerbation still with rales ABG 7.33/65/82/35 treated with bipap with good effect continue O2 as necessary, O2 level of 88-94 % given his underlying COPD monitor intake and output closely Acute CHF exacerbation has evidence of pleural effusion, pulmonary edema, as well as BNP elevation Lasix IV BID echo pending cardiology consult Elevated troponin 150.9/188.8 secondary to CHF EKG afib Acute UTI positive UA febrile Rocephin follow cultures Hypertension BP initially soft on admission, but now normotensive will resume carvedilol CKD stage 3b appears to be at baseline follow BMP BPH continue tamsulosin DVT prophylaxis:? Heparin subQ Attending Dr. Dunn continued hospitalization for tx of CHF requiring IV diuretics Quality Stroke Does the patient have a stroke diagnosis?: No VTE Prior VTE?: No VTE Risk Level:: Medical - moderate - high VTE Device Contraindication: Treatment Not Indicated VTE Drug Contraindication: N/A - Med Ordered
--- NOTE | 2022-03-03 14:07 | MHC.CM.PN ---
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
[2022-03-03 15:02] LABS: ABG Refer to POC result
[2022-03-03] MEDS: cefTRIAXone sodium 1 GM in 0.9 % Sodium Chloride 50 ML IV (17:58)
[2022-03-03] MEDS: Acetaminophen 325 MG TABLET 650 MG PO (21:07)
[2022-03-04] VITALS (8 sets, daily range): BP systolic 120–144; BP diastolic 64–74; PULSE 60–81; RESP 17–20; TEMP 36.1–36.4; O2SAT 92–98
[2022-03-04 06:12] LABS: B Type Natriuretic Peptide 106 pg/mL (<100)
[2022-03-04 06:13] LABS: Anion Gap 14 (12-20); Blood Urea Nitrogen 30 mg/dL (9-16); Calcium 8.4 mg/dL (8.4-10.2); Carbon Dioxide 26 mmol/L (22-29); Chloride 105 mmol/L (96-108); Creatinine Clr Calc Pharmacy 42.7; Estimated Glomerular Filt Rate 41; Glucose Random 99 mg/dL (60-115); Potassium 4.2 mmol/L (3.3-5.1); Sodium 141 mmol/L (135-145)
--- NOTE | 2022-03-04 07:00 | CA_ITS ---
Transthoracic Echocardiogram Patient (Last, First, Middle): Asad Boogie, Gender: Male Date of : 1935 Age: 86 Procedure Date: 03/04/2022 Procedure Type: Transthoracic Echocardiogram Location: S3E Height: 172.72 cm Weight: 122.02 kg BSA: 2.32 m2 Heart Rate: bpm BP: 121 / 64 mmHg Kitchen Runner: SB Referring MD: George Valle MD Symptoms: chf Study Quality: Adequate w contrast ECG Rhythm: Atrial Fibrillation Conclusions: - The left ventricular systolic function is low normal. The visually estimated ejection fraction is between 50-55%. - Possible apical akinesis but not well visualized. - There is moderately decreased right ventricular systolic function. - Severe biatrial enlargement. - There is moderate calcification of the aortic valve. - There is mild mitral annular calcification. - Mild pulmonary hypertension is present. Findings Procedure Information Contrast agent, definity, is being given per protocol without apparent complications. Left Ventricle Normal left ventricular cavity size. There is normal left ventricular wall thickness. The left ventricular systolic function is low normal. The visually estimated ejection fraction is between 50-55%. Regional wall motion abnormalities can not be excluded due to suboptimal endocardial definition. There is paradoxical septal motion consistent with a right ventricular pacemaker. Diastolic function is indeterminate on the basis of available data. Possible apical akinesis but not well visualized. Right Ventricle Moderately increased right ventricular cavity size. There is moderately decreased right ventricular systolic function. There is a pacemaker wire seen in the right ventricle. Atria Severe biatrial enlargement. Aortic Valve There is moderate calcification of the aortic valve. There is no aortic valve stenosis. There is no aortic valve regurgitation. Mitral Valve There is mild mitral annular calcification. There is no mitral valve regurgitation. There is no mitral valve stenosis. Pulmonic Valve The pulmonic valve is likely normal. Tricuspid Valve There is mild tricuspid valve regurgitation. Mild pulmonary hypertension is present. Great Vessels The asc aorta is normal in size. Venous The inferior vena cava was not well visualized. Pericardium/Pleural There is no evidence of pericardial effusion. Prior Study Comparison No prior study available for comparison. Measurements 2D Linear Measurements IVSd: 1.05 0.6-0.9/0.6-1.0 cm LVIDd: 5.02 3.9-5.3/4.2-5.9 cm LVIDd Index: 2.16 2.4-3.2/2.2-3.1 cm/m2 LVIDs: 3.91 2.0-3.6 cm LVPWd: 0.76 0.7-1.1 cm LA Diam: 5.10 2.7-3.8/3.0-4.0 cm LAIDs Index: 2.20 1.5-2.3 cm/m2 LV Mass: 200.37 67-162/88-224 g LV Mass Index: 86.37 43-95/49-115 g/m2 LVOT Diam: 2.40 3.0+(-)1.3 cm 2D Systolic Function EF 4C: 54.10 >55% EF 2C: 64.70 >55% EF BiP: 60.80 >55% Mitral Valve MV Pk E: 0.89 E'Lateral: 11.60 E/E' Lat: 7.60 Aortic Valve AoV Pk Alek: 1.55 AoV Mn Alek: 1.18 AoV VTI: 0.34 AoV Pk Grad: 10.00 Aov Mn Grad: 6.00 YOSVANY Cont.VTI: 2.01 LVOT LVOT Pk Alek: 0.59 LVOT Mn Alek: 0.47 LVOT VTI: 0.15 LVOT Pk Grad: 1.00 LVOT Mn Grad: 1.00 LVOT Diam: 2.40 LVOT Area: 4.52 Diastolic Function MV Pk E: 0.89 E' Laterial: 11.60 E/E' Lat: 7.60 Right Ventricle TAPSE (mm): 11.30 TVS' Alek: 7.00 Tricuspid Valve TR Pk Alek: 3.11 TR Pk Grad: 39.00 RA Press: 3.00 RVSP: 42.00 Great Vessels Aorta Sinus of Valsalva: 3.30 2.0-3.5 cm Ao Asc: 3.90 2.1-3.4 cm Pulmonary Valve PV Pk Alek: 0.96 Peak PV Grad: 4.00 Updated in Other Vendor System with Status of Final Deandre Rod MD electronically signed on 03/05/2022 12:09:46 PM with status of Final
[2022-03-04] MEDS: Albuterol Sulfate (0.083%) 2.5 MG/3 ML VIAL.NEB INHALE ×3 (08:05→18:43)
[2022-03-04] MEDS: Escitalopram Oxalate 10 MG TABLET PO (08:57)
--- NOTE | 2022-03-04 11:19 | PM.CNCAR ---
History of Present Illness History of Present Illness Date of Service: 03/04/22 Chief complaint: CHF, UTI Narrative: This is a cardiology consultation regarding possible congestive heart failure. Patient listed to have multiple medical comorbidities including COPD, CHF, CKD, diabetes, anxiety and depression pacemaker among others. It seems that when he came in patient was not really responding to anything not able to give much history. Apparently patient is confused and alert only to person. He was also hypoxic. Subsequently had testing had shown evidence of interstitial edema and pleural effusion. Then treated as congestive heart failure. Patient states he feels fine. He states he does not really have any symptoms like chest pain or shortness of breath or anything else. When I questioned him about cardiac issues, he states he does not have any cardiac problems. However, CAD/CHF pacemaker mentioned in history. Hence not clear if patient is reliable at all. Review of Systems Review of Systems: Yes all other systems are reviewed and are negative Constitutional: Constitutional: Reports as per HPI Eyes: Eyes: Reports as per HPI ENT: Reports as per HPI Cardiovascular: Cardiovascular: Reports as per HPI, Denies acrocyanosis, Denies cool extremities, Denies chest pain, Denies leg edema, Denies lightheadedness, Denies palpitations and Denies dyspnea Respiratory: Respiratory: Reports as per HPI, Reports no additional respiratory complaints and Denies dyspnea Gastrointestinal: Gastrointestinal: Reports as per HPI and Reports no additional gastrointestinal complaints Genitourinary: Genitourinary: Reports no additional male genitourinary complaints and Reports as per HPI Musculoskeletal: Musculoskeletal: Reports no additional musculoskeletal complaints and Reports as per HPI Integumentary/Breasts: Skin/Breast: Reports system reviewed and no additional complaints, except as docu Neurologic: Reports system reviewed and no additional complaints, except as documented and Reports as per HPI Psychiatric: Psychiatric: Reports no additional psychiatric complaints and Reports as per HPI Endocrine: Endocrine: Reports no additional endocrine complaints, Reports as per HPI and Denies palpitations Hematologic/Lymphatic: Hematologic/Lymphatic: Reports no additional hematologic/lymphatic complaints and Reports as per HPI Allergic/Immunologic: Allergic/Immunologic: Reports no additional allergic/immunologic complaints and Reports as per HPI [facility] Past Medical History Medical History (Updated 03/04/22 @ 11:29 by Deandre Rod MD) Anxiety BPH (benign prostatic hyperplasia) CAD (coronary artery disease) CHF (congestive heart failure) CKD (chronic kidney disease) COPD (chronic obstructive pulmonary disease) Hypertension Major depression Obstructive uropathy Family History Family History (Updated 03/04/22 @ 11:21 by Deandre Rod MD) Father Melanoma Mother Heart disease Surgical History Surgical History (Updated 03/03/22 @ 05:54 by George Valle MD) S/P placement of cardiac pacemaker Social History Social History Household Members: Caregiver Housing: Half-Way Unable to assess alcohol history related to: Unknown Patient Tobacco Use Status: Tobacco use Unknown Use of substances other than those prescribed or required for medical reasons: Unknown Currently Displaying Signs/Symptoms of Drug Intoxication Withdrawal: No Have you been hit, kicked, punched, or otherwise hurt by someone within the past year? If so, by whom?: No Do you feel safe in your current relationship?: No Is there a partner from a previous relationship who is making you feel unsafe now?: No Are you made to feel afraid or neglected: No Advance Directives: No Do you have thoughts of harming others: None Do you have a plan to hurt others: No Plan Recently lost weight without trying: No Eating poorly because of decreased appetite: No Nutrition Risks: No Nutritional Risk Poor oral hygiene: No service: No Current occupational status: retired [employer] Allergies Allergy/AdvReac Type Severity Reaction Status Date / Time Unable to Assess Allergy Unverified 03/02/22 15:56 Active Medications: Current Medications Acetaminophen (Acetaminophen 325 Mg Tablet) 650 mg PO Q6H PRN PRN Reason: Pain, Mild (Pain Scale 1-3) Last Admin: 03/03/22 21:07 Dose: 650 mg Albuterol Sulfate (Albuterol Sulfate (0.083%) 2.5 Mg/3 Ml Vial.Neb) 2.5 mg INHALE RQ4H WHILE AWAKE [facility] Last Admin: 03/04/22 08:05 Dose: 2.5 mg Albuterol Sulfate (Albuterol Sulfate (0.083%) 2.5 Mg/3 Ml Vial.Neb) 2.5 mg INHALE Q4H PRN PRN Reason: sob Last Admin: 03/03/22 08:34 Dose: 2.5 mg Escitalopram Oxalate (Escitalopram Oxalate 10 Mg Tablet) 10 mg PO DAILY [facility] Last Admin: 03/04/22 08:57 Dose: 10 mg Furosemide (Furosemide 40 Mg/4 Ml Vial) 40 mg IVPUSH BID@0900,1800 [facility]; Protocol Last Admin: 03/03/22 17:49 Dose: 40 mg Heparin Sodium (Porcine) (Heparin Sodium,Porcine 5,000 Unit/Ml Vial) 5,000 unit SUBCUT Q12H [facility] Last Admin: 03/03/22 22:27 Dose: 5,000 unit Ceftriaxone Sodium 1 gm/ (Sodium Chloride) 50 mls @ 100 mls/hr IV Q24H [facility] Last Infusion: 03/03/22 18:28 Dose: Infused Nystatin (Nystatin Powder 15 Gm Bottle) 1 appl TOPICAL BID [facility]; Protocol Ondansetron HCl (Ondansetron Hcl 4 Mg/2 Ml Vial) 4 mg IVPUSH Q8H PRN PRN Reason: Nausea and Vomiting Pharmacy Consult (Consult Rx Perform Med Rec) 1 each MISCELLANE ONCE PRN PRN Reason: Consult order Pravastatin Sodium (Pravastatin Sodium 10 Mg Tablet) 10 mg PO BEDTIME [facility] Tamsulosin HCl (Tamsulosin Hcl 0.4 Mg Capsule) 0.4 mg PO BEDTIME [facility] Home Medications Medication Instructions Recorded Confirmed Last Taken Type carvedilol 3.125 mg tablet 1 tab PO BID 03/02/22 03/02/22 Unknown History escitalopram oxalate 10 mg tablet 1 tab PO DAILY 03/02/22 03/02/22 Unknown History folic acid 1 mg tablet 1 tab PO DAILY 03/02/22 03/02/22 Unknown History furosemide 20 mg tablet 1 tab PO DAILY 03/02/22 03/02/22 Unknown History magnesium oxide 400 mg PO BID 03/02/22 03/02/22 Unknown History multivitamin 1 tab PO DAILY 03/02/22 03/02/22 Unknown History ondansetron HCl 4 mg tablet 1 tab PO Q8H PRN Nausea 03/02/22 03/02/22 Unknown History polyethylene glycol 3350 17 gram 17 g PO DAILY PRN Constipation 03/02/22 03/02/22 Unknown History oral powder packet pravastatin 10 mg tablet 1 tab PO BEDTIME 03/02/22 03/02/22 Unknown History tamsulosin 0.4 mg capsule 1 cap PO BEDTIME 03/02/22 03/02/22 Unknown History thiamine HCl (vitamin B1) 100 mg 100 mg PO DAILY 03/02/22 03/02/22 Unknown History tablet Physical Exam Vital Signs: Vital Signs: Last Vital Signs Temp 97.5 F 03/04/22 07:42 Pulse 81 03/04/22 08:07 Resp 18 03/04/22 08:07 BP 131/67 03/04/22 07:42 Pulse Ox 98 03/04/22 07:42 O2 Del Method 03/04/22 07:42 O2 Flow Rate 2.0 03/04/22 07:42 BMI result Body Mass Index 41.0 Const: General: comfortable and no acute distress Orientation/consciousness: patient oriented x3 HEENT: Other: Unremarkable Head: Yes normal to inspection Neck: Neck: Yes normal visual inspection Chest: Chest palpation & inspection: normal inspection of the chest Resp: Other: Few inspiratory crackles bilaterally. Cardio: Palpation: normal PMI Heart sounds: S1 normal heart sound present, S2 normal heart sound present, no gallops, no murmurs and no rubs GI: Palpation (GI): Soft to palpation Back/Spine/Pelvis: Other: unremarkable Skin: General skin exam: no rashes or lesions noted Neuro: General: patient oriented x3 Extrem: Other: 2+ edema, chronic changes in both lower extremities General: Yes normal to inspection Psych: Mental Status: mental status grossly normal Objective Labs and Meds Result diagrams: 03/03/22 05:11 03/04/22 05:00 Lab results: Laboratory Results - last 24 hr 03/04/22 03/04/22 05:00 05:00 Sodium 141 Potassium 4.2 Chloride 105 Carbon Dioxide 26 Anion Gap 14 BUN 30 H Creatinine 1.61 H Estim Creat Clear Calc 42.7 Estimated GFR 41 Random Glucose 99 Calcium 8.4 B-Natriuretic Peptide 106 H ECG Interpretation: EKG with baseline artifact. Underlying atrial fibrillation right bundle-branch block and nonspecific ST-T changes. One hundred seven/Min. Assessment and Plan (1) Acute exacerbation of CHF (congestive heart failure): Qualifiers: Heart failure type: unspecified Qualified Code(s): I50.9 - Heart failure, unspecified Status: Acute CT chest findings suggestive of congestive heart failure. Empiric IV diuretics. Obtain echocardiogram. (2) Atrial fibrillation: Status: Acute Unclear if this is a chronic issue acute issue. Not mentioned in admission documentation. Will need to find out from retirement. (3) Acute respiratory failure with hypoxia: Status: Acute Possibly some combination of COPD/CHF. From cardiac, empiric diuretics. (4) Elevated troponin: Status: Acute Probably related to demand. However, at his age, he likely has underlying coronary disease as well. Likely not a candidate for any further workup at this time. (5) Encephalopathy: Status: Acute Could be from underlying medical issues but we do not have a baseline. However, today's he seems to be answering questions. Plan Discussed with Laura Guidry. Procedures Date of Service Date of Service: 03/04/22
--- NOTE | 2022-03-04 11:42 | P.PNIM_ITS ---
Subjective Subjective Date of Service: 03/04/22 Interval History: seen and examined this morning follow up for CHF vague historian, denies chest pain, SOB Review of Systems Review of Systems: Yes all other systems are reviewed and are negative Constitutional Constitutional: Denies chills and Denies fever(s) Cardiovascular Cardiovascular: Denies chest pain, Denies palpitations and Denies dyspnea Respiratory Respiratory: Denies cough and Denies dyspnea Gastrointestinal Gastrointestinal: Denies abdominal pain Endocrine Endocrine: Denies palpitations Physical Exam Vital Signs: Vital Signs: Last Vital Signs Temp 97.5 F 03/04/22 07:42 Pulse 64 03/04/22 11:36 Resp 18 03/04/22 11:36 BP 131/67 03/04/22 07:42 Pulse Ox 98 03/04/22 07:42 O2 Del Method 03/04/22 07:42 O2 Flow Rate 2.0 03/04/22 07:42 BMI result Body Mass Index 41.0 Const: General: cooperative, comfortable, no acute distress, awake and Physically active Nutritional Appearance: obese Resp: Other: left basilar crackles, otherwise clear Effort & Inspection: normal respiratory effort and able to speak in complete sentences Cardio: Rate: regular rate Heart sounds: S1 normal heart sound present and S2 normal heart sound present GI: Palpation (GI): Soft to palpation and nontender Neuro: Other: grossly nonfocal Extrem: Other: moving all 4 extremities chronic skin changes b/l lower extremities Objective Data Active Medications Acetaminophen (Acetaminophen 325 Mg Tablet) 650 mg PO Q6H PRN PRN Reason: Pain, Mild (Pain Scale 1-3) Last Admin: 03/03/22 21:07 Dose: 650 mg Documented By: RC Albuterol Sulfate (Albuterol Sulfate (0.083%) 2.5 Mg/3 Ml Vial.Neb) 2.5 mg INHALE RQ4H WHILE AWAKE [facility] Last Admin: 03/04/22 11:34 Dose: 2.5 mg Documented By: PRUDENCE Albuterol Sulfate (Albuterol Sulfate (0.083%) 2.5 Mg/3 Ml Vial.Neb) 2.5 mg INHALE Q4H PRN PRN Reason: sob Last Admin: 03/03/22 08:34 Dose: 2.5 mg Documented By: PRUDENCE Escitalopram Oxalate (Escitalopram Oxalate 10 Mg Tablet) 10 mg PO DAILY [facility] Last Admin: 03/04/22 08:57 Dose: 10 mg Documented By: INES Furosemide (Furosemide 40 Mg/4 Ml Vial) 20 mg IVPUSH BID@0900,1800 [facility]; Protocol Heparin Sodium (Porcine) (Heparin Sodium,Porcine 5,000 Unit/Ml Vial) 5,000 unit SUBCUT Q12H [facility] Last Admin: 03/03/22 22:27 Dose: 5,000 unit Documented By: RC Ceftriaxone Sodium 1 gm/ (Sodium Chloride) 50 mls @ 100 mls/hr IV Q24H [facility] Last Infusion: 03/03/22 18:28 Dose: 0 mls/hr Documented By: DEBBIE Nystatin (Nystatin Powder 15 Gm Bottle) 1 appl TOPICAL BID [facility]; Protocol Ondansetron HCl (Ondansetron Hcl 4 Mg/2 Ml Vial) 4 mg IVPUSH Q8H PRN PRN Reason: Nausea and Vomiting Pharmacy Consult (Consult Rx Perform Med Rec) 1 each MISCELLANE ONCE PRN PRN Reason: Consult order Pravastatin Sodium (Pravastatin Sodium 10 Mg Tablet) 10 mg PO BEDTIME [facility] Tamsulosin HCl (Tamsulosin Hcl 0.4 Mg Capsule) 0.4 mg PO BEDTIME [facility] Labs CBC & Chem 7: 03/03/22 05:11 03/04/22 05:00 Labs: Laboratory Results - last 24 hr 03/04/22 03/04/22 05:00 05:00 Anion Gap 14 Estim Creat Clear Calc 42.7 Estimated GFR 41 Random Glucose 99 Calcium 8.4 B-Natriuretic Peptide 106 H Microbiology Microbiology Results: Microbiology 03/02/22 18:24 Urine Culture - Final Urine clean catch - Urine lindsey top 03/02/22 16:39 Blood Culture - Preliminary Blood - Venous No growth after 24 hours. 03/02/22 16:39 Blood Culture - Preliminary Blood - Venous No growth after 24 hours. Assessment and Plan (1) Atrial fibrillation: Status: Acute (2) Acute respiratory failure with hypoxia: Status: Acute (3) Acute exacerbation of CHF (congestive heart failure): Status: Acute Plan 86-year-old male with past medical history as mentioned above presents from senior care with altered mental status and hypoxia Encephalopathy. seems to be at baseline likely toxic metabolic encephalopathy secondary to hypoxia, as well as acute infection patient on oxygen for hypoxic respiratory failure as well as IV antibiotics baseline mentation confused, oriented to self monitor mentation Acute hypoxic respiratory failure likely secondary to CHF exacerbation ABG 7.33/65/82/35 treated with bipap with good effect continue O2 as necessary, O2 level of 88-94 % given his underlying COPD monitor intake and output closely Acute CHF exacerbation BNP trending down Lasix IV BID, dose decreased for increasing SCr echo pending cardiology following Atrial fibrillation, unclear chronicity seen on EKG, pt doesn't know if he has h/o afib HR controlled will like rajat AC Elevated troponin 150.9/188.8 likely r/t demand, but can't rule out underlying CAD. no further workup at this time per cardiology Acute UTI positive UA, urine culture growing >100,000 CFU mixed [place] given fever on admission will complete course of abx continue IV Rocephin Blood cultures negative x 24 hours Hypertension BP initially soft on admission, but now normotensive will resume carvedilol CKD3 creatinine up to 1.6 today, similar on admission follow BMP BPH continue tamsulosin Thrombocytopenia likely chronic follow CBC DVT prophylaxis:? Heparin subQ Attending Dr. Dunn continued hospitalization for tx of CHF requiring IV diuretics Quality Stroke Does the patient have a stroke diagnosis?: No VTE Prior VTE?: No VTE Risk Level:: Medical - moderate - high VTE Device Contraindication: Treatment Not Indicated VTE Drug Contraindication: N/A - Med Ordered
[2022-03-04] MEDS: Heparin Sodium,Porcine 5,000 UNIT/ML VIAL 5000 UNIT SUBCUT ×2 (11:48→22:35)
--- NOTE | 2022-03-04 13:12 | MHC.CM.PN ---
PER MD ROUNDS, NOT MEDICALLY CLEARED FOR DC (IV DIURETICS)CM TO CONTINUE TO FOLLOW, PLAN TO RETURN TO [facility].
--- NOTE | 2022-03-04 13:22 | P.CDIC_ITS ---
CDI Concurrent Query Documentation Clarification: PHYSICIAN'S DOCUMENTATION REQUEST Date of Query: 03/04/22 1322 Patient Name: Asad Boogie Admit Date: 03/02/22 Dear Doctor, A review of the medical record indicates additional documentation may be needed. Please review below and update the documentation accordingly. Clinical Indicators: Is there a diagnosis that correlates with the findings below: Risk Factors/Clinical Indicators/Treatments POA/RESOLVED/TREAT/RULE OUT Per provider note on 03/03: still with rales ABG 7.33/65/82/35 treated with bipap with good effect continue O2 as necessary,? O2 level of 88-94% given his underlying COPD Per cardiology consult on 03/04: Acute RF with hypoxia Possibly some combination of COPD/CHF Other indicators: -Patient requiring supplemental O2 -Vitals: RR on 03/02: 30 -Patient receiving nebulizer treatments Clarify which of the following accurately represents the patient's respiratory status: * COPD exacerbation * Other (please specify) * Unable to determine Use of terms such as suspected, likely, concern for, or probable (associated with a specific diagnosis that is being evaluated, monitored, or treated as if it exists) are acceptable and can be coded in the inpatient setting, when documented at the time of discharge. Thank you, Diana Riddle MS, RN, CCRN Extension: [phone] Please use your independent medical judgment in providing your response. THIS QUERY IS PART OF THE PERMANENT MEDICAL RECORD Provider Response: Other Other Diagnosis: no acute copd exacerbation
[2022-03-04] MEDS: Nystatin Powder 15 GM BOTTLE 1 APPL TOPICAL ×2 (14:19→22:35)
[2022-03-04] MEDS: cefTRIAXone sodium 1 GM in 0.9 % Sodium Chloride 50 ML IV (17:06)
[2022-03-04] MEDS: carvediloL 3.125 MG TABLET PO (20:38)
[2022-03-04] MEDS: Pravastatin Sodium 10 MG TABLET PO (20:38)
[2022-03-04] MEDS: Tamsulosin HCL 0.4 MG CAPSULE PO (20:39)
[2022-03-05] VITALS (11 sets, daily range): BP systolic 112–138; BP diastolic 54–73; PULSE 58–75; RESP 16–20; TEMP 36.1–36.4; O2SAT 86–99
[2022-03-05 06:27] LABS: Anion Gap 14 (12-20); Blood Urea Nitrogen 27 mg/dL (9-16); Calcium 8.5 mg/dL (8.4-10.2); Carbon Dioxide 29 mmol/L (22-29); Chloride 103 mmol/L (96-108); Creatinine Clr Calc Pharmacy 49.1; Estimated Glomerular Filt Rate 48; Glucose Random 104 mg/dL (60-115); Potassium 4.6 mmol/L (3.3-5.1); Sodium 141 mmol/L (135-145)
[2022-03-05 06:29] LABS: Hematocrit 34.3 % (42.0-52.0); Hemoglobin 10.3 g/dl (14.0-18.0); Mean Corpuscular Hemoglobin 29.8 pg (27.0-33.0); Mean Corpuscular Volume 99.1 fL (80.0-98.0); Mean Platelet Volume 12.8 fL (9.4-12.4); Red Blood Count 3.46 X10*6/uL (4.60-5.80); Red Cell Distribution Width 15.2 % (11.0-16.0); White Blood Count 4.5 X10*3/uL (4.8-10.8)
[2022-03-05 06:30] LABS: Platelet Count 86 X10*3/uL (160-400)
[2022-03-05] MEDS: Albuterol Sulfate (0.083%) 2.5 MG/3 ML VIAL.NEB INHALE ×4 (07:34→19:18)
[2022-03-05] MEDS: carvediloL 3.125 MG TABLET PO ×2 (09:26→20:12)
[2022-03-05] MEDS: Escitalopram Oxalate 10 MG TABLET PO (09:26)
[2022-03-05] MEDS: Nystatin Powder 15 GM BOTTLE 1 APPL TOPICAL ×2 (09:34→20:18)
--- NOTE | 2022-03-05 10:31 | HO.PM.IMPN ---
Subjective Subjective Date of Service: 03/05/22 Interval History: seen and examined this morning follow up for CHF vague historian, denies chest pain, SOB Review of Systems Review of Systems: Yes all other systems are reviewed and are negative Constitutional Constitutional: Denies chills and Denies fever(s) Cardiovascular Cardiovascular: Denies chest pain, Denies palpitations and Denies dyspnea Respiratory Respiratory: Denies cough and Denies dyspnea Gastrointestinal Gastrointestinal: Denies abdominal pain Endocrine Endocrine: Denies palpitations Physical Exam Vital Signs: Vital Signs: Last Vital Signs Temp 97.1 F 03/05/22 07:43 Pulse 60 03/05/22 07:43 Resp 16 03/05/22 07:43 BP 119/73 03/05/22 07:43 Pulse Ox 98 03/05/22 07:43 O2 Del Method 03/05/22 07:43 O2 Flow Rate 2.0 03/05/22 07:43 BMI result Body Mass Index 41.0 Appearing in no acute distress neck is supple no lymphadenopathy, no JVD noted lung sounds are clear to auscultation heart regular rate rhythm, clear S1, S2 positive bowel sounds, abdomen is soft, nontender neuro patient is alert x3, no focal deficits Objective Data Active Medications Acetaminophen (Acetaminophen 325 Mg Tablet) 650 mg PO Q6H PRN PRN Reason: Pain, Mild (Pain Scale 1-3) Last Admin: 03/03/22 21:07 Dose: 650 mg Documented By: RC Albuterol Sulfate (Albuterol Sulfate (0.083%) 2.5 Mg/3 Ml Vial.Neb) 2.5 mg INHALE RQ4H WHILE AWAKE [facility] Last Admin: 03/05/22 07:34 Dose: 2.5 mg Documented By: PRUDENCE Albuterol Sulfate (Albuterol Sulfate (0.083%) 2.5 Mg/3 Ml Vial.Neb) 2.5 mg INHALE Q4H PRN PRN Reason: sob Last Admin: 03/03/22 08:34 Dose: 2.5 mg Documented By: PRUDENCE Carvedilol (Carvedilol 3.125 Mg Tablet) 3.125 mg PO BID [facility]; Protocol Last Admin: 03/05/22 09:26 Dose: 3.125 mg Documented By: ULICES Escitalopram Oxalate (Escitalopram Oxalate 10 Mg Tablet) 10 mg PO DAILY [facility] Last Admin: 03/05/22 09:26 Dose: 10 mg Documented By: ULICES Furosemide (Furosemide 40 Mg/4 Ml Vial) 20 mg IVPUSH BID@0900,1800 [facility]; Protocol Heparin Sodium (Porcine) (Heparin Sodium,Porcine 5,000 Unit/Ml Vial) 5,000 unit SUBCUT Q12H [facility] Last Admin: 03/04/22 22:35 Dose: 5,000 unit Documented By: RACHEL Ceftriaxone Sodium 1 gm/ (Sodium Chloride) 50 mls @ 100 mls/hr IV Q24H [facility] Last Infusion: 03/04/22 17:46 Dose: 0 mls/hr Documented By: INES Nystatin (Nystatin Powder 15 Gm Bottle) 1 appl TOPICAL BID [facility]; Protocol Last Admin: 03/05/22 09:34 Dose: 1 appl Documented By: ULICES Ondansetron HCl (Ondansetron Hcl 4 Mg/2 Ml Vial) 4 mg IVPUSH Q8H PRN PRN Reason: Nausea and Vomiting Pharmacy Consult (Consult Rx Perform Med Rec) 1 each MISCELLANE ONCE PRN PRN Reason: Consult order Pravastatin Sodium (Pravastatin Sodium 10 Mg Tablet) 10 mg PO BEDTIME [facility] Last Admin: 03/04/22 20:38 Dose: 10 mg Documented By: RACHEL Tamsulosin HCl (Tamsulosin Hcl 0.4 Mg Capsule) 0.4 mg PO BEDTIME [facility] Last Admin: 03/04/22 20:39 Dose: 0.4 mg Documented By: RACHEL Labs CBC & Chem 7: 03/05/22 05:27 03/05/22 05:27 Labs: Laboratory Results - last 24 hr 03/05/22 03/05/22 05:27 05:27 MCV 99.1 H MCH 29.8 MCHC 30.0 L RDW 15.2 Plt Count 86 L MPV 12.8 H Absolute Nucleated RBC 0.000 Nucleated RBC % (auto) 0.0 Anion Gap 14 Estim Creat Clear Calc 49.1 Estimated GFR 48 Random Glucose 104 Calcium 8.5 Microbiology Microbiology Results: Microbiology 03/02/22 16:39 Blood Culture - Preliminary Blood - Venous No growth after 48 hours. 03/02/22 16:39 Blood Culture - Preliminary Blood - Venous No growth after 48 hours. 03/02/22 18:24 Urine Culture - Final Urine clean catch - Urine lindsey top Assessment and Plan (1) Atrial fibrillation: Status: Acute (2) Acute respiratory failure with hypoxia: Status: Acute (3) Acute exacerbation of CHF (congestive heart failure): Status: Acute Plan 86-year-old male with past medical history as mentioned above presents from residential with altered mental status and hypoxia Encephalopathy. seems to be at baseline likely toxic metabolic encephalopathy secondary to hypoxia, as well as acute infection patient on oxygen for hypoxic respiratory failure as well as IV antibiotics baseline mentation confused, oriented to self monitor mentation Acute hypoxic respiratory failure likely secondary to CHF exacerbation ABG 7.33/65/82/35 treated with bipap with good effect continue O2 as necessary, O2 level of 88-94 % given his underlying COPD Acute CHF exacerbation BNP trending down Lasix IV BID, dose decreased for increasing SCr echo pending cardiology following Atrial fibrillation, unclear chronicity seen on EKG, pt doesn't know if he has h/o afib HR controlled will like rajat AC Elevated troponin 150.9/188.8 likely r/t demand, but can't rule out underlying CAD. no further workup at this time per cardiology Acute UTI positive UA, urine culture growing >100,000 CFU mixed [place] given fever on admission will complete course of abx continue IV Rocephin Blood cultures negative x 24 hours Hypertension BP initially soft on admission, but now normotensive will resume carvedilol CKD3 creatinine up to 1.6 today, similar on admission follow BMP BPH continue tamsulosin Thrombocytopenia likely chronic follow CBC DVT prophylaxis:? Heparin subQ Attending Dr. Dunn DISPO PT eval pending continued hospitalization for tx of CHF requiring IV diuretics Quality Stroke Does the patient have a stroke diagnosis?: No VTE Prior VTE?: No VTE Risk Level:: Medical - moderate - high VTE Device Contraindication: Treatment Not Indicated VTE Drug Contraindication: N/A - Med Ordered
[2022-03-05] MEDS: Heparin Sodium,Porcine 5,000 UNIT/ML VIAL 5000 UNIT SUBCUT ×2 (11:35→22:41)
[2022-03-05] MEDS: cefTRIAXone sodium 1 GM in 0.9 % Sodium Chloride 50 ML IV (17:42)
[2022-03-05] MEDS: Tamsulosin HCL 0.4 MG CAPSULE PO (20:12)
[2022-03-05] MEDS: Pravastatin Sodium 10 MG TABLET PO (20:12)
[2022-03-06] VITALS (11 sets, daily range): BP systolic 125–164; BP diastolic 62–74; PULSE 59–66; RESP 16–20; TEMP 36.1–36.3; O2SAT 92–99
[2022-03-06] MEDS: carvediloL 3.125 MG TABLET PO ×2 (07:35→19:26)
[2022-03-06] MEDS: Escitalopram Oxalate 10 MG TABLET PO (07:35)
[2022-03-06] MEDS: Nystatin Powder 15 GM BOTTLE 1 APPL TOPICAL ×2 (07:44→20:01)
[2022-03-06] MEDS: Albuterol Sulfate (0.083%) 2.5 MG/3 ML VIAL.NEB INHALE ×4 (08:14→19:22)
--- NOTE | 2022-03-06 10:37 | HO.PM.IMPN ---
Subjective Subjective Date of Service: 03/07/22 Interval History: follow up for CHF vague historian, denies chest pain, SOB Review of Systems Review of Systems: Yes all other systems are reviewed and are negative Constitutional Constitutional: Denies chills and Denies fever(s) Cardiovascular Cardiovascular: Denies chest pain, Denies palpitations and Denies dyspnea Respiratory Respiratory: Denies cough and Denies dyspnea Gastrointestinal Gastrointestinal: Denies abdominal pain Endocrine Endocrine: Denies palpitations Physical Exam Vital Signs: Vital Signs: Last Vital Signs Temp 97.2 F 03/06/22 07:21 Pulse 66 03/06/22 08:14 Resp 20 03/06/22 08:14 BP 126/65 03/06/22 07:21 Pulse Ox 98 03/06/22 07:21 O2 Del Method 03/06/22 07:21 O2 Flow Rate 2 03/06/22 03:03 BMI result Body Mass Index 41.0 Appearing in no acute distress lung sounds are clear to auscultation heart regular rate rhythm, clear S1, S2 positive bowel sounds, abdomen is soft, nontender neuro patient is alert x3, no focal deficits Objective Data Active Medications Acetaminophen (Acetaminophen 325 Mg Tablet) 650 mg PO Q6H PRN PRN Reason: Pain, Mild (Pain Scale 1-3) Last Admin: 03/03/22 21:07 Dose: 650 mg Documented By: RC Albuterol Sulfate (Albuterol Sulfate (0.083%) 2.5 Mg/3 Ml Vial.Neb) 2.5 mg INHALE RQ4H WHILE AWAKE [facility] Last Admin: 03/06/22 08:14 Dose: 2.5 mg Documented By: PRUDENCE Albuterol Sulfate (Albuterol Sulfate (0.083%) 2.5 Mg/3 Ml Vial.Neb) 2.5 mg INHALE Q4H PRN PRN Reason: sob Last Admin: 03/03/22 08:34 Dose: 2.5 mg Documented By: PRUDENCE Carvedilol (Carvedilol 3.125 Mg Tablet) 3.125 mg PO BID [facility]; Protocol Last Admin: 03/06/22 07:35 Dose: 3.125 mg Documented By: VINITA Escitalopram Oxalate (Escitalopram Oxalate 10 Mg Tablet) 10 mg PO DAILY [facility] Last Admin: 03/06/22 07:35 Dose: 10 mg Documented By: VINITA Furosemide (Furosemide 40 Mg/4 Ml Vial) 20 mg IVPUSH BID@0900,1800 [facility]; Protocol Heparin Sodium (Porcine) (Heparin Sodium,Porcine 5,000 Unit/Ml Vial) 5,000 unit SUBCUT Q12H [facility] Last Admin: 03/05/22 22:41 Dose: 5,000 unit Documented By: RACHEL Ceftriaxone Sodium 1 gm/ (Sodium Chloride) 50 mls @ 100 mls/hr IV Q24H [facility] Last Infusion: 03/05/22 18:20 Dose: 0 mls/hr Documented By: VINITA Nystatin (Nystatin Powder 15 Gm Bottle) 1 appl TOPICAL BID [facility]; Protocol Last Admin: 03/06/22 07:44 Dose: 1 appl Documented By: VINITA Ondansetron HCl (Ondansetron Hcl 4 Mg/2 Ml Vial) 4 mg IVPUSH Q8H PRN PRN Reason: Nausea and Vomiting Pharmacy Consult (Consult Rx Perform Med Rec) 1 each MISCELLANE ONCE PRN PRN Reason: Consult order Pravastatin Sodium (Pravastatin Sodium 10 Mg Tablet) 10 mg PO BEDTIME [facility] Last Admin: 03/05/22 20:12 Dose: 10 mg Documented By: RACHEL Tamsulosin HCl (Tamsulosin Hcl 0.4 Mg Capsule) 0.4 mg PO BEDTIME [facility] Last Admin: 03/05/22 20:12 Dose: 0.4 mg Documented By: RACHEL Labs CBC & Chem 7: 03/05/22 05:27 03/05/22 05:27 Assessment and Plan (1) Atrial fibrillation: Status: Acute (2) Acute respiratory failure with hypoxia: Status: Acute (3) Acute exacerbation of CHF (congestive heart failure): Status: Acute Plan 86-year-old male with past medical history as mentioned above presents from senior care with altered mental status and hypoxia Encephalopathy. seems to be at baseline likely toxic metabolic encephalopathy secondary to hypoxia, as well as acute infection patient on oxygen for hypoxic respiratory failure as well as IV antibiotics baseline mentation confused, oriented to self monitor mentation Acute hypoxic respiratory failure likely secondary to CHF exacerbation ABG 7.33/65/82/35 treated with bipap with good effect continue O2 as necessary, O2 level of 88-94 % given his underlying COPD Acute heart failure with preserved ejection fraction BNP trending down Lasix transitioned to oral echo EF 50-55% with possible apical akinesis, severe biatrial enlargement and mild pulmonary hypertension cardiology following Atrial fibrillation, unclear chronicity seen on EKG, pt doesn't know if he has h/o afib HR controlled Discussed with cardiology, 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 no further workup at this time per cardiology Acute UTI positive UA, urine culture growing >100,000 CFU mixed [place] given fever on admission will complete course of abx continue IV Rocephin Blood cultures negative x 24 hours Hypertension BP initially soft on admission, but now normotensive will resume carvedilol CKD3 creatinine up to 1.6 today, similar on admission follow BMP BPH continue tamsulosin Thrombocytopenia likely chronic follow CBC DVT prophylaxis:? Heparin subQ Attending Dr. Dunn DISPO Plan for dc back to LTC with PT continued hospitalization for tx of CHF requiring IV diuretics Quality Stroke Does the patient have a stroke diagnosis?: No VTE Prior VTE?: No VTE Risk Level:: Medical - moderate - high VTE Device Contraindication: Treatment Not Indicated VTE Drug Contraindication: N/A - Med Ordered
--- NOTE | 2022-03-06 10:54 | PM.PNCARD ---
Subjective Subjective Date of Service: 03/06/22 Interval history: He states he feels okay. No clear complaints from cardiac. Review of Systems Review of Systems Yes all other systems are reviewed and are negative Constitutional: Reports as per HPI Eyes: Reports as per HPI Reports as per HPI Cardiovascular: Reports as per HPI, Denies acrocyanosis, Denies cool extremities, Denies chest pain, Denies leg edema, Denies lightheadedness, Denies palpitations and Denies dyspnea Respiratory: Reports as per HPI, Reports no additional respiratory complaints and Denies dyspnea Gastrointestinal: Reports as per HPI and Reports no additional gastrointestinal complaints Genitourinary: Reports no additional male genitourinary complaints and Reports as per HPI Musculoskeletal: Reports no additional musculoskeletal complaints and Reports as per HPI Skin/Breast: Reports system reviewed and no additional complaints, except as docu Reports system reviewed and no additional complaints, except as documented and Reports as per HPI Psychiatric: Reports no additional psychiatric complaints and Reports as per HPI Endocrine: Reports no additional endocrine complaints, Reports as per HPI and Denies palpitations Hematologic/Lymphatic: Reports no additional hematologic/lymphatic complaints and Reports as per HPI Allergic/Immunologic: Reports no additional allergic/immunologic complaints and Reports as per HPI Physical Exam Vital Signs: Last Vital Signs Temp 97.2 F 03/06/22 07:21 Pulse 66 03/06/22 08:14 Resp 20 03/06/22 08:14 BP 126/65 03/06/22 07:21 Pulse Ox 98 03/06/22 07:21 O2 Del Method 03/06/22 07:21 O2 Flow Rate 2 03/06/22 03:03 BMI result Body Mass Index 41.0 Const General: comfortable and no acute distress Orientation/consciousness: patient oriented x3 HEENT Other: Unremarkable Head: Yes normal to inspection Neck Neck: Yes normal visual inspection Chest Chest palpation & inspection: normal inspection of the chest Resp Other: Few inspiratory crackles bilaterally. Cardio Palpation: normal PMI Heart sounds: S1 normal heart sound present, S2 normal heart sound present, no gallops, no murmurs and no rubs GI Palpation (GI): Soft to palpation Back/Spine/Pelvis Other: unremarkable Skin General skin exam: no rashes or lesions noted Neuro General: patient oriented x3 Extrem Other: 1+ edema, chronic changes in both lower extremities General: Yes normal to inspection Psych Mental Status: mental status grossly normal Objective Labs and Meds Result diagrams: 03/05/22 05:27 03/05/22 05:27 Imaging Radiologist's impression: Impressions Abdomen/Pelvis CT 03/05/22 12:49 IMPRESSION: 5 x 6.3 x 10 cm craniocaudal simple fluid density collection in the right psoas muscle. This could represent a chronic hematoma. Small to moderate right pleural effusion is decreased from the prior chest CT 03/02/2022. Trace left pleural effusion is similar perhaps slightly increased. There is fluid and fat stranding adjacent the pancreas and duodenum. Pancreatitis can give this appearance. Duodenitis considered less likely. Nodular hepatic contour consistent with cirrhosis. Splenomegaly, varices, and anasarca consistent with portal hypertension. Nonspecific lymphadenopathy, possibly reactive. Progress Note: A&P Assessment and plan (1) Acute exacerbation of CHF (congestive heart failure): Status: Acute Assessment and Plan: CT chest findings suggestive of congestive heart failure. Was on IV diuretics. Can change to p.o.. (2) Atrial fibrillation: Status: Acute Assessment and Plan: This seems to be a chronic issue. Mentioned in care home documentation. It appears that he was on anticoagulation but then after developing psoas muscle hematoma it was stopped a few months back. Not clear if this is really a true contraindication or not. Otherwise, there is also mention of cirrhosis, splenomegaly and varices and portal hypertension on abdominal CT. It still reflects the large psoas hematoma. It seems he may not be a suitable anticoagulation candidate. (3) Acute respiratory failure with hypoxia: Status: Acute Assessment and Plan: Possibly some combination of COPD/CHF. From cardiac, empiric diuretics. (4) Elevated troponin: Status: Acute Assessment and Plan: Probably related to demand. However, at his age, he likely has underlying coronary disease as well. Based on age, mental status, comorbidities, not suitable for any workup. Plan Discussed with Verna Shirley. Time Spent With Patient Time: Total time spent is greater than 50% in coordination of care (as documented) at patient's floor/unit and/or counseling patient: 35 minutes. Progress Note: Quality Stroke Does the patient have a stroke diagnosis?: No Procedures Date of Service Date of Service: 03/06/22
[2022-03-06] MEDS: Heparin Sodium,Porcine 5,000 UNIT/ML VIAL 5000 UNIT SUBCUT (11:03)
[2022-03-06] MEDS: Tamsulosin HCL 0.4 MG CAPSULE PO (19:26)
[2022-03-06] MEDS: Pravastatin Sodium 10 MG TABLET PO (19:26)
[2022-03-06] MEDS: cefTRIAXone sodium 1 GM in 0.9 % Sodium Chloride 50 ML IV (19:58)
[2022-03-07] MEDS: Heparin Sodium,Porcine 5,000 UNIT/ML VIAL 5000 UNIT SUBCUT ×2 (00:34→10:29)
[2022-03-07 02:56] VITALS: BP 129/65; PULSE 60; RESP 18; TEMP 36.6; O2SAT 93
[2022-03-07] MEDS: Albuterol Sulfate (0.083%) 2.5 MG/3 ML VIAL.NEB INHALE ×2 (07:55→11:35)
[2022-03-07 07:56] VITALS: PULSE 60; RESP 18; O2SAT 94
[2022-03-07 07:58] VITALS: BP 131/82; PULSE 62; RESP 18; TEMP 36.1; O2SAT 92
[2022-03-07] MEDS: Nystatin Powder 15 GM BOTTLE 1 APPL TOPICAL (08:19)
[2022-03-07] MEDS: Furosemide 40 MG TABLET PO (08:19)
[2022-03-07] MEDS: carvediloL 3.125 MG TABLET PO (08:19)
[2022-03-07] MEDS: Escitalopram Oxalate 10 MG TABLET PO (08:19)
[2022-03-07 08:20] VITALS: TEMP 36.3
[2022-03-07 10:58] LABS: COVID-19 Test Negative (Negative); IDNOW Serial# 16C4AD1C
[2022-03-07 11:33] VITALS: PULSE 62; RESP 18; O2SAT 93
--- NOTE | 2022-03-07 13:06 | PM.DS ---
DS: Providers Provider Date of Service: 03/07/22 Date of admission: 03/02/22 22:53 Primary care physician: Unknown Physician Consults: 03/04/22 07:33 Consult to Cardiology Routine Consulting Provider: Deandre Rod Reason for consultation: chf, ?new afib, elevated trop Has provider been notified: No Attending physician on discharge: Santosh Arshad Discharging clinician: Verna Shirley DS: Diagnosis Discharge Diagnosis (1) Atrial fibrillation: Status: Acute (2) Acute respiratory failure with hypoxia: Status: Acute (3) Acute exacerbation of CHF (congestive heart failure): Status: Acute DS: Summary Hospital Course Hospital Course: History and physical as per admitting provider 86-year-old male past medical history of COPD, CHF, CKD, obstructive uropathy, diabetes, depression, anxiety, 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 Patient currently completely lab done did, response to painful stimuli but otherwise unable to provide history.? History is obtained from EMR and ED PA.? According to the report obtained from EMS, the symptoms have been going on for 1 day, patient baseline is confused and only alert to person.? AMS reported hypoxia of 80% on room air.? He was placed on 4 L nasal cannula with O2 improving to 95%.? Currently patient is 99% on 4 L of oxygen. Unable to review of system. On arrival his vitals are significant for temp of 102.6 degrees, respiratory rate of 30, blood pressure 106/47, 96% on 4 L of oxygen Labs are significant for WBC count 7.7, hemoglobin of 11.8, medical 38.6, creatinine of 1.6 to with a previous 1 of 1.41 in December of 2020, cyst troponin of 150 increased to 188, BNP of 297, UA positive for leukocyte Estrace chest CTA shows no evidence of PE, cardiomegaly with interstitial edema and moderate right pleural effusion, Head CT negative . Encephalopathy. seems to be at baseline likely toxic metabolic encephalopathy secondary to hypoxia, as well as acute infection patient on oxygen for hypoxic respiratory failure as well as IV antibiotics baseline mentation confused, oriented to self Acute hypoxic respiratory failure likely secondary to CHF exacerbation ABG 7.33/65/82/35 treated with bipap with good effect O2 level of 88-94 % ok given his underlying COPD Acute heart failure with preserved ejection fraction BNP trended down Lasix transitioned to oral echo EF? 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 no further workup at this time per cardiology Acute UTI positive UA, urine culture growing >100,000 CFU mixed [place] given fever on admission will complete course of abx treated with IV Rocephin, completed therapy Negative blood cultures Hypertension BP initially soft on admission normotensive resume carvedilol CKD3 creatinine up to 1.6 today, similar on admission follow BMP BPH continue tamsulosin Thrombocytopenia likely chronic Time Spent with Patient Time attestation: Total time spent providing and/or coordinating discharge services: Discharge coordination time: Greater than 30 minutes Quality: Safe Use of Opioids Does Pt have an Active Cancer Diagnosis on the Problem List?: No Quality: Stroke Does the patient have a stroke diagnosis?: No Physical Exam Vital Signs: Vital Signs: Last Vital Signs Temp 97.4 F 03/07/22 08:20 Pulse 62 03/07/22 11:33 Resp 18 03/07/22 11:33 BP 131/82 03/07/22 07:58 Pulse Ox 92 03/07/22 07:58 O2 Del Method 03/07/22 07:58 O2 Flow Rate 2 03/06/22 20:00 BMI result Body Mass Index 41.0 Appearing in no acute distress head is normocephalic atraumatic eyes pupils are PERRLA sclera is anicteric mouth throat mucous membranes are intact and moist neck is supple no lymphadenopathy, no JVD noted lung sounds are clear to auscultation heart regular rate rhythm, clear S1, S2 positive bowel sounds, abdomen is soft, nontender neuro patient is alert x3, no focal deficits DS: Data Data Completed and Pending Labs on day of discharge: Laboratory Results - last 24 hr 03/07/22 10:30 COVID-19 ([facility]) Negative COVID-19 Clin Com See Note Preliminary micro results at discharge 03/02/22 16:39 Blood Culture - Preliminary Blood - Venous No growth after 48 hours. 03/02/22 16:39 Blood Culture - Preliminary Blood - Venous No growth after 48 hours. Discharge Plan Discharge Anticipated Discharge Date/Time: 03/07/22 12:37 Patient Disposition: Xfer LTC Discharge Diagnosis: Encephalopathy Acute hypoxic respiratory failure Acute heart failure with preserved ejection fraction Atrial fibrillation Referrals: [facility] [Outside] - 1 Day (return to [facility] for LTC) Discharge Medications: Continued multivitamin Tablet 1 tab PO DAILY polyethylene glycol 3350 17 gram Powder In Packet 17 g PO DAILY PRN (Reason: Constipation) ondansetron HCl 4 mg tablet 1 tab PO Q8H PRN (Reason: Nausea) thiamine HCl (vitamin B1) 100 mg Tablet 100 mg PO DAILY carvedilol 3.125 mg tablet 1 tab PO BID pravastatin 10 mg tablet 1 tab PO BEDTIME tamsulosin 0.4 mg capsule 1 cap PO BEDTIME folic acid 1 mg tablet 1 tab PO DAILY furosemide 20 mg tablet 1 tab PO DAILY escitalopram oxalate 10 mg tablet 1 tab PO DAILY magnesium oxide 400 mg magnesium Tablet 400 mg PO BID Discharge Orders: Discharge Order (Routine); Ordered 03/07/22 Ordered By: Verna Shriley Diet: Advance to usual diet Activity on Discharge: As tolerated Stand Alone Forms: Patient Portal Discharge page Care Plan Goals: complete resolution of symptoms Health Concerns: Encephalopathy Acute hypoxic respiratory failure Acute heart failure with preserved ejection fraction Atrial fibrillation Plan of Treatment: Follow-up with primary care provider as needed Take all medications as prescribed Assessment: see discharge summary
--- NOTE | 2022-03-07 13:08 | MHC.CM.PN ---
Addendum entered by Desi Dean 03/07/22 13:48: REACHED [facility] AND INFORMED HIM OF TRANSFER BACK TO [facility]. Addendum entered by Desi Daen 03/07/22 13:26: UNABLE TO REACH [facility] TO INFORM OF TRANSFER, WILL CONTINUE TO TRY. Original Note: DP: PT MEDICALLY CLEARED FOR DC BACK TO LTC AT [facility]. RN AWARE. DBV UPDATED. PT BOOKED FOR 12:30 PM VIA BLS TRANSPORT WITH [facility].
== END 2022-03-07 13:00 | DRG 291 ==
LOC: HO.ED 18:21 → HO.EDOVER 22:57 → HO.S3 23:23
PROVIDERS: Physician Assistant; Physician Assistant Medical; Admitting Provider Internal Medicine; Emergency Provider Student in an Organized Health Care Education/Training Program; Visit Provider Nurse Practitioner Acute Care
DX: I13.0 Hypertensive heart and chronic kidney disease with heart failure and stage 1 through stage 4 chronic kidney disease, or unspecified chronic kidney disease (principal); G92.8 Other toxic encephalopathy; I50.31 Acute diastolic (congestive) heart failure; N13.8 Other obstructive and reflux uropathy; N39.0 Urinary tract infection, site not specified; I24.8 Other forms of acute ischemic heart disease; I48.20 Chronic atrial fibrillation, unspecified; D63.1 Anemia in chronic kidney disease; D64.9 Anemia, unspecified; J44.9 Chronic obstructive pulmonary disease, unspecified; I25.10 Atherosclerotic heart disease of native coronary artery without angina pectoris; I45.10 Unspecified right bundle-branch block; I27.20 Pulmonary hypertension, unspecified; M79.81 Nontraumatic hematoma of soft tissue; D69.6 Thrombocytopenia, unspecified; N18.32 Chronic kidney disease, stage 3b; N40.1 Benign prostatic hyperplasia with lower urinary tract symptoms; F32.9 Major depressive disorder, single episode, unspecified; Z20.822 Contact with and (suspected) exposure to COVID-19; Z95.0 Presence of cardiac pacemaker; Z79.899 Other long term (current) drug therapy
CPT/HCPCS: 36415; 36600; 70450; 71045; 71275; 74176; 80048; 80053; 81001; 81003; 82803; 83605; 83735; 83880; 84484; 85025; 85027; 85379; 87040; 87086; 87635; 93005; 93306; 94640; 97162; 99285; J0696; J1940; Q9957; Q9967

== ENCOUNTER 2022-03-30 09:56 | Emergency (ER) | payer MEDICARE, SELFPAY ==
[2022-03-30 10:26] VITALS: BP 113/58; BP 148/72; PULSE 60; PULSE 64; RESP 20; TEMP 36.8; O2SAT 94; BMI 38.8
--- NOTE | 2022-03-30 10:32 | PC.NURSE ---
pt alert answering questions-hx dementia, vss, pt denies pain at this time, + penile/scrotal edema, ble wounds dressings intact, pt awaitng provider, will continue to monitor
--- NOTE | 2022-03-30 10:34 | ED_ITS ---
HPI - Male Genitourinary General Chief complaint: Urogenital-Male Stated complaint: From SNF, F/C issue per EMS Time Seen by Provider: 03/30/22 10:34 Source: patient, EMS and RN notes reviewed Mode of arrival: EMS Limitations: no limitations History of Present Illness HPI Narrative: 86 yo male with history of COPD, CHF, CKD III, BPH w/ obstructive uropathy with chronic Quarles, DM, depression/anxiety, HTN, afib not on anticoagulation due to chronic psoas hematoma and liver cirrhosis, hx UTI presents [facility] the ER from [facility] for evaluation after he pulled his Quarles catheter out twice. He developed significant penile edema with inability to replace the catheter so he was sent to the ER for urology evaluation. Patient reports that he did not pull the catheter out, that he when he was using the bathroom he accidentally stepped on the bag and when he stood up the catheter was pulled out. He had bleeding and afterward and was slightly painful. He states he has been able to urinate 2 times since the catheter has been removed. MD Complaint: genital injury Duration: progressively worsening Location: penis Severity: moderate Quality: aching Relieving factors: other (ice) Exacerbating factors: palpation Context: trauma and indwelling catheter Associated symptoms: Reports denies other symptoms Related Data Home Medications Medication Instructions Recorded Confirmed carvedilol 3.125 mg tablet 1 tab PO BID 03/02/22 03/02/22 escitalopram oxalate 10 mg tablet 1 tab PO DAILY 03/02/22 03/02/22 folic acid 1 mg tablet 1 tab PO DAILY 03/02/22 03/02/22 furosemide 20 mg tablet 1 tab PO DAILY 03/02/22 03/02/22 magnesium oxide 400 mg PO BID 03/02/22 03/02/22 multivitamin 1 tab PO DAILY 03/02/22 03/02/22 ondansetron HCl 4 mg tablet 1 tab PO Q8H PRN Nausea 03/02/22 03/02/22 polyethylene glycol 3350 17 gram 17 g PO DAILY PRN Constipation 03/02/22 03/02/22 oral powder packet pravastatin 10 mg tablet 1 tab PO BEDTIME 03/02/22 03/02/22 tamsulosin 0.4 mg capsule 1 cap PO BEDTIME 03/02/22 03/02/22 thiamine HCl (vitamin B1) 100 mg 100 mg PO DAILY 03/02/22 03/02/22 tablet Previous Rx's Medication Instructions Recorded cefdinir 300 mg capsule 300 mg PO Q12H #20 caps 03/30/22 Allergies Allergy/AdvReac Type Severity Reaction Status Date / Time No Known Allergies Allergy Verified 03/30/22 10:25 Review of Systems Review of Systems: Constitutional: No Fever, No Chills Cardiovascular: No Chest Pain, No SOB Respiratory: No Cough, No Sputum Gastrointestinal: No Nausea, No Vomiting, No Diarrhea, No abdominal Pain, No Hematochezia, No Melena Genitourinary: No Dysuria, No Urinary Frequency, + Hematuria, +Penile swelling, +scrotal swelling, No penile discharge Musculoskeletal: No joint pain, No Myalgias Skin: No Skin Lesions, No rash Neuro: No Weakness, No Numbness, No Dizziness, No Headache Heme/Lymph: No Bruising, No Lymphadenopathy PMFSH Past Medical History Medical History (Updated 03/30/22 @ 12:53 by MARGA Tinoco) Anxiety Atrial fibrillation BPH (benign prostatic hyperplasia) CAD (coronary artery disease) CHF (congestive heart failure) CKD (chronic kidney disease) COPD (chronic obstructive pulmonary disease) Dementia Diabetes Hypertension Major depression Obstructive uropathy Surgical History S/P placement of cardiac pacemaker Family History Family History (Updated 03/04/22 @ 11:21 by Deandre Rod MD) Father Melanoma Mother Heart disease Social History Social History Household Members: Caregiver Housing: [facility] Unable to assess alcohol history related to: Unknown Alcohol intake: never Patient Tobacco Use Status: Tobacco use Unknown Smoked in Last 30 Days: No Use of substances other than those prescribed or required for medical reasons: No Advance Directives: Yes Advance Directives on File: Yes Advance Directives Date on File: 03/08/22 service: No Current occupational status: retired Physical Exam Vital Signs: Vital Signs: Last Vital Signs Temp 98.2 F 03/30/22 11:32 Pulse 66 03/30/22 11:32 Resp 18 03/30/22 11:32 BP 113/57 L 03/30/22 11:32 Pulse Ox 93 03/30/22 11:32 O2 Del Method 03/30/22 11:32 BMI result Body Mass Index 38.8 Appearance: Alert. Oriented X3. No acute distress. Eyes: Pupils equal, round and reactive to light. ENT: Pharynx normal. Neck: Normal inspection. Neck supple. CVS: Normal heart rate and rhythm. Pulses normal. Respiratory: No respiratory distress. Breath sounds normal. Abdomen: Obese, Soft and nontender. +BS x4 : significant penile swelling, unable to visuable meatus, scant amount of roseanne red blood expressed. +bilateral scrotal swelling, nontender testicles. Skin: Skin warm and dry. Normal skin color. Normal skin turgor. No rashes. Extremities: No lower extremity edema. Neuro: awake and alert, oriented, nonfocal, normal speech and cognition Course Course Course Narrative: 86 yo male with chronic Quarles 2/2 BPH presenting with penile swelling after pulling out his Quarles x2 with balloon intact. Unable to pass catheter, Urology has been consulted. Reevaluation(s) Reevaluation #1: urology successfully placed Quarles. urine appeared infected so culture was sent. will start on 3rd gen cephalosporin given chronic quarles. stable for d/c back to [facility]. Consultations Consultation #1: Dr. Shah Urology Medical Decision Making Lab Data Labs: Lab Results 03/30/22 Range/Units 12:39 Urine Color Dark Yellow Urine Appearance Turbid Urine pH 5.5 (5.0-9.0) Ur Specific [place] 1.015 (1.005-1.025) Urine Protein 30 (1+) H (Neg-Trace) mg/dL Urine Glucose (UA) Negative (Negative) mg/dL Urine Ketones Negative (Negative) mg/dL Urine Blood Moderate (2+) H (Negative) Urine Nitrite Positive H (Negative) Ur Leukocyte Esterase Large (3+) H (Negative) Urine RBC 0-2 (0-2) /HPF Urine WBC >50 H (0-5) /HPF Ur Squamous Epith Cells 0-2 (0-2) /HPF Urine Bacteria 4+ (None Seen) Hyaline Casts 0-2 (0-2) /LPF Discharge Plan Discharge Clinical Impression: Urinary tract infection, Penile trauma Patient Disposition: Xfer SNF Transfer Details: [facility] Instructions: Catheter-associated Urinary Tract Infection (ED) Additional Instructions: The urology specialist placed a new catheter in your bladder. DO NOT PULL IT OUT Take the prescribed antibiotic as directed, complete the entire course and do not miss any doses. Recommend following up with your primary care doctor and urologist. If you develop new or worsening symptoms call 911 or come back to the ER for fur ther evaluation. Prescriptions: New cefdinir 300 mg capsule 300 mg PO Q12H Qty: 20 0RF No Action multivitamin Tablet 1 tab PO DAILY polyethylene glycol 3350 17 gram Powder In Packet 17 g PO DAILY PRN (Reason: Constipation) ondansetron HCl 4 mg tablet 1 tab PO Q8H PRN (Reason: Nausea) thiamine HCl (vitamin B1) 100 mg Tablet 100 mg PO DAILY carvedilol 3.125 mg tablet 1 tab PO BID pravastatin 10 mg tablet 1 tab PO BEDTIME tamsulosin 0.4 mg capsule 1 cap PO BEDTIME folic acid 1 mg tablet 1 tab PO DAILY furosemide 20 mg tablet 1 tab PO DAILY escitalopram oxalate 10 mg tablet 1 tab PO DAILY magnesium oxide 400 mg magnesium Tablet 400 mg PO BID Referrals: [facility] [Provider Group]
--- NOTE | 2022-03-30 11:10 | PC.NURSE ---
urologist to come see patient at noon
[2022-03-30 11:32] VITALS: BP 113/57; PULSE 66; RESP 18; TEMP 36.8; O2SAT 93
--- NOTE | 2022-03-30 12:41 | PC.NURSE ---
dr brown and midlevel came to evaluate patient and placed cath, they requested a urine sample to be obtained as it was cloudy looking upon placement, this nurse told ed provider and collected urine as requested.
[2022-03-30 12:47] LABS: Appearance Urine Turbid; Color Urine Dark Yellow; Glucose Urine UA Negative (Negative); Leukocyte Esterase Urine Large (3+) (Negative); Nitrite Urine Positive (Negative); PH 5.5 (5.0-9.0); Specific Gravity - Urine 1.015 (1.005-1.025); UMIC TRIGGER UACC YES; Urine Blood Moderate (2+) (Negative); Urine Ketones Negative (Negative); Urine Protein 30 (1+) mg/dL (Neg-Trace)
[2022-03-30 12:58] LABS: Bacteria Urine 4+ (None Seen); Hyaline Casts Urine 0-2 /LPF (0-2); RBC Urine 0-2 /HPF (0-2); Squamous Epithelial Cell Urine 0-2 /HPF (0-2); UACC Culture Trigger YES; WBC Urine >50 /HPF (0-5)
--- NOTE | 2022-03-30 13:19 | P.CNUR_ITS ---
History of Present Illness Consult details Consult date: 03/30/22 Reason for consult: other (difficult quarles insertion; patient with a history of retention and chronic Quarles) Narrative: Asad is a 86 yo male with history of COPD, CHF, CKD III, BPH w/ obstructive uropathy with chronic Quarles, DM, depression/anxiety, HTN, afib not on anticoagulation due to chronic psoas hematoma and liver cirrhosis, hx UTI presents to the ER from [facility] for evaluation after he pulled his Quarles catheter out twice.? He developed significant penile edema with inability to replace the catheter so he was sent to the ER for urology evaluation.? Patient reports that he did not pull the catheter out, that he when he was using the bathroom he accidentally stepped on the bag and when he stood up the catheter was pulled out.? He had bleeding and afterward and was slightly painful.? He states he has been able to urinate 2 times since the catheter has been removed. Urolgoy consult was placed due to edematous penis and scrotum with difficult insertion of quarles. Sixteen [place] Quarles catheter placed at bedside utilizing clean technique an Uro box. Upon insertion urine was noted to be cloudy likely UTI at time of insertion. Will obtain urine culture. Patient denies fever, chills, and or flank pain. Patient reports that he had been doing okay until his Quarles accidentally got pulled out while he was trying to use the bathroom. Review of Systems Constitutional: Constitutional: Reports as per HPI Eyes: Eyes: Reports no additional eye complaints ENT: Reports system reviewed and no additional complaints, except as documented Cardiovascular: Cardiovascular: Reports no additional cardiovascular complaints Respiratory: Respiratory: Reports no additional respiratory complaints Gastrointestinal: Gastrointestinal: Reports no additional gastrointestinal complaints Genitourinary: Genitourinary: Reports no additional male genitourinary complaints Musculoskeletal: Musculoskeletal: Reports no additional musculoskeletal complaints [facility] Past Medical History Medical History (Updated 03/30/22 @ 13:41 by JENNIFER Worley) Anxiety Atrial fibrillation BPH (benign prostatic hyperplasia) CAD (coronary artery disease) CHF (congestive heart failure) CKD (chronic kidney disease) COPD (chronic obstructive pulmonary disease) Dementia Diabetes Hypertension Major depression Obstructive uropathy Retention of urine Family History Family History Father Melanoma Mother Heart disease Surgical History Surgical History S/P placement of cardiac pacemaker Social History Social History Household Members: Caregiver Housing: [facility] Unable to assess alcohol history related to: Unknown Alcohol intake: never Patient Tobacco Use Status: Tobacco use Unknown Smoked in Last 30 Days: No Use of substances other than those prescribed or required for medical reasons: No Advance Directives: Yes Advance Directives on File: Yes Advance Directives Date on File: 03/08/22 service: No Current occupational status: retired [employer] Allergies Allergy/AdvReac Type Severity Reaction Status Date / Time No Known Allergies Allergy Verified 03/30/22 13:36 Home Medications Medication Instructions Recorded Confirmed Last Taken Type carvedilol 3.125 mg tablet 1 tab PO BID 03/02/22 03/02/22 Unknown History escitalopram oxalate 10 mg tablet 1 tab PO DAILY 03/02/22 03/02/22 Unknown History folic acid 1 mg tablet 1 tab PO DAILY 03/02/22 03/02/22 Unknown History furosemide 20 mg tablet 1 tab PO DAILY 03/02/22 03/02/22 Unknown History magnesium oxide 400 mg PO BID 03/02/22 03/02/22 Unknown History multivitamin 1 tab PO DAILY 03/02/22 03/02/22 Unknown History ondansetron HCl 4 mg tablet 1 tab PO Q8H PRN Nausea 03/02/22 03/02/22 Unknown History polyethylene glycol 3350 17 gram 17 g PO DAILY PRN Constipation 03/02/22 03/02/22 Unknown History oral powder packet pravastatin 10 mg tablet 1 tab PO BEDTIME 03/02/22 03/02/22 Unknown History tamsulosin 0.4 mg capsule 1 cap PO BEDTIME 03/02/22 03/02/22 Unknown History thiamine HCl (vitamin B1) 100 mg 100 mg PO DAILY 03/02/22 03/02/22 Unknown History tablet Physical Exam Vital Signs: Vital Signs: Last Vital Signs Temp 98.2 F 03/30/22 11:32 Pulse 66 03/30/22 11:32 Resp 18 03/30/22 11:32 BP 113/57 L 03/30/22 11:32 Pulse Ox 93 03/30/22 11:32 O2 Del Method 03/30/22 11:32 BMI result Body Mass Index 38.8 Const: General: cooperative, comfortable, no acute distress, well developed, alert and awake Nutritional Appearance: overweight Orientation/consciousness: patient oriented x3 HEENT: Head: Yes normal to inspection, Yes normocephalic and Yes atraumatic Eyes: General: appearance normal, both eyes and all related structures Neck: Neck: Yes normal visual inspection and Yes trachea midline Chest: Chest palpation & inspection: normal inspection of the chest Resp: Effort & Inspection: normal respiratory effort and able to speak in complete sentences GI: Inspection: Yes Abdominal panniculus present : General: Yes no CVA tenderness Penis: uncircumcised, edematous and Localized penile swelling present Scrotum: edematous and scrotal swelling Back/Spine/Pelvis: Back: no CVA tenderness Skin: Other: irritation to bilateral groins Neuro: General: patient oriented x3 Psych: Mental Status: mental status grossly normal Speech and movement: Normal speech and movement present and Clear speech present Affect: normal affect Attitude: cooperative Thought process: Normal thought process present Thought content: Normal thought content present Insight: Fair insight present (Psych) Judgement: Fair judgement present (Psych) Results Labs Labs: Abnormal lab results 03/30/22 Range/Units 12:39 Urine Protein 30 (1+) H (Neg-Trace) mg/dL Urine Blood Moderate (2+) H (Negative) Urine Nitrite Positive H (Negative) Ur Leukocyte Esterase Large (3+) H (Negative) Urine WBC >50 H (0-5) /HPF Urine 03/30/22 Range/Units 12:39 Urine Color Dark Yellow Urine Appearance Turbid Urine pH 5.5 (5.0-9.0) Ur Specific [place] 1.015 (1.005-1.025) Urine Protein 30 (1+) H (Neg-Trace) mg/dL Urine Glucose (UA) Negative (Negative) mg/dL All other labs normal. Assessment and Plan (1) Retention of urine: Status: Acute (2) Penile trauma: Status: Acute Time Spent With Patient Time: Total time managing care of this patient today ____ minutes. Procedures Date of Service Date of Service: 03/30/22 Catheter Insertion (Urinary) Date of insertion: 03/30/22 Time of insertion: 12:30 Replacement of catheter present on admission: Yes (however not present ) Reason for placing: Other (patient with chronic quarles related to BPH and urinary retention ) Estimated amount of urine (mLs): 400 Antiseptic solution prep: Povidone-Iodine Catheter type/location: Urethral Size ([place]): 16 Catheter balloon size (mL): 10 Results: successfully catheterized-immediate flow Procedure performed: without complications Comment: Difficult Quarles insertion placed at bedside 16 [place] see HPI
--- NOTE | 2022-03-30 14:24 | PC.NURSE ---
report was given to [facility]
[2022-03-30 14:28] VITALS: BP 131/71; PULSE 60; RESP 20; TEMP 36.4; O2SAT 93
[2022-03-30 16:00] VITALS: BP 117/55; PULSE 71; RESP 16; TEMP 36.3; O2SAT 97
== END 2022-03-30 16:55 | disposition skilled nursing facility (03) ==
PROVIDERS: Physician Assistant; Emergency Provider Student in an Organized Health Care Education/Training Program
DX: T83.511A Infection and inflammatory reaction due to indwelling urethral catheter, initial encounter (principal); N39.0 Urinary tract infection, site not specified; B96.89 Other specified bacterial agents as the cause of diseases classified elsewhere; Y73.8 Miscellaneous gastroenterology and urology devices associated with adverse incidents, not elsewhere classified; Y92.091 Bathroom in other non-institutional residence as the place of occurrence of the external cause; S39.94XA Unspecified injury of external genitals, initial encounter; X58.XXXA Exposure to other specified factors, initial encounter; R33.9 Retention of urine, unspecified; Z46.6 Encounter for fitting and adjustment of urinary device; E11.22 Type 2 diabetes mellitus with diabetic chronic kidney disease; I13.0 Hypertensive heart and chronic kidney disease with heart failure and stage 1 through stage 4 chronic kidney disease, or unspecified chronic kidney disease; N18.30 Chronic kidney disease, stage 3 unspecified; I50.9 Heart failure, unspecified; N40.0 Benign prostatic hyperplasia without lower urinary tract symptoms; I48.91 Unspecified atrial fibrillation; Z79.02 Long term (current) use of antithrombotics/antiplatelets; Z79.899 Other long term (current) drug therapy
CPT/HCPCS: 51702; 51798; 81001; 87086; 87088; 87186; 99283; 99284

== ENCOUNTER 2022-04-02 14:33 | Inpatient (IN) | payer MEDICARE, SELFPAY ==
[2022-04-02 14:42] VITALS: BP 130/70; BP 138/64; PULSE 66; PULSE 80; RESP 20; TEMP 37.1; O2SAT 94; BMI 43.0
[2022-04-02 15:05] VITALS: BP 124/46; PULSE 62; RESP 18; TEMP 36.8; O2SAT 92
--- NOTE | 2022-04-02 15:14 | ED.MALEGU ---
HPI - Male Genitourinary General Chief complaint: Urogenital-Male Stated complaint: SWOLLEN SCROTUM,HEMATURIA Time Seen by Provider: 04/02/22 15:13 Source: patient and EMS Mode of arrival: EMS Limitations: no limitations History of Present Illness HPI Narrative: Patient is an 86 year old assigned male at with a history of COPD, CHF, CKD III, BPH w/ obstructive uropathy + chronic Quarles catheter, DM, depression, anxiety, HTN, afib not on anticoagulation due to chronic psoas hematoma + liver cirrhosis, and current UTI presenting to the emergency department today for evaluation of blood in his catheter and scrotal swelling. Patient states that 3 days ago he was here and had his catheter replaced. Patient states that he is continuing to have pain and bleeding into his catheter bag. Patient states that he knows his swelling would get better if he could prop his scrotum up but no one at [facility] is helping with that and he does not want to go back there. Patient denies any dizziness, lightheadedness, abdominal pain, nausea, vomiting, fever, chills, blurry vision, double vision, loss of vision, chest pain, difficulty breathing, shortness of breath, back pain, night sweats, syncope or a near syncopal episode, recent trauma or falls, bowel incontinence, bowel retention, bladder retention, or any other complaints at this time. MD Complaint: testicle swelling Onset (ago): day(s) Location: penis, right testicle and left testicle Severity: mild Severity scale (1-10): 4 Relieving factors: none Exacerbating factors: none Associated symptoms: Reports denies other symptoms Related Data Home Medications Medication Instructions Recorded Confirmed carvedilol 3.125 mg tablet 1 tab PO BID 03/02/22 03/02/22 escitalopram oxalate 10 mg tablet 1 tab PO DAILY 03/02/22 03/02/22 folic acid 1 mg tablet 1 tab PO DAILY 03/02/22 03/02/22 furosemide 20 mg tablet 1 tab PO DAILY 03/02/22 03/02/22 magnesium oxide 400 mg PO BID 03/02/22 03/02/22 multivitamin 1 tab PO DAILY 03/02/22 03/02/22 ondansetron HCl 4 mg tablet 1 tab PO Q8H PRN Nausea 03/02/22 03/02/22 polyethylene glycol 3350 17 gram 17 g PO DAILY PRN Constipation 03/02/22 03/02/22 oral powder packet pravastatin 10 mg tablet 1 tab PO BEDTIME 03/02/22 03/02/22 tamsulosin 0.4 mg capsule 1 cap PO BEDTIME 03/02/22 03/02/22 thiamine HCl (vitamin B1) 100 mg 100 mg PO DAILY 03/02/22 03/02/22 tablet Previous Rx's Medication Instructions Recorded cefdinir 300 mg capsule 300 mg PO Q12H #20 caps 03/30/22 Allergies Allergy/AdvReac Type Severity Reaction Status Date / Time No Known Allergies Allergy Verified 03/30/22 13:36 Review of Systems Constitutional: Constitutional: Reports no additional constitutional complaints, Denies chills, Denies fever(s) and Denies night sweats Eyes: Eyes: Reports no additional eye complaints, Denies blurry vision, Denies change in vision, Denies diplopia, Denies eye discharge, Denies loss of vision and Denies eye pain ENT: Denies dizziness Cardiovascular: Cardiovascular: Reports no additional cardiovascular complaints, Denies chest pain, Denies lightheadedness, Denies Loss of Consciousness and Denies dyspnea Respiratory: Respiratory: Reports no additional respiratory complaints and Denies dyspnea Gastrointestinal: Gastrointestinal: Reports no additional gastrointestinal complaints, Denies abdominal pain, Denies melena, Denies hematochezia, Denies change in bowel habits and Denies change in stool character Genitourinary: Genitourinary: Reports no additional male genitourinary complaints, Reports hematuria and Reports scrotal swelling Musculoskeletal: Musculoskeletal: Reports no additional musculoskeletal complaints, Denies numbness and Denies tingling Neurologic: Denies dizziness, Denies loss of vision, Denies numbness and Denies tingling Psychiatric: Psychiatric: Reports no additional psychiatric complaints Endocrine: Endocrine: Reports no additional endocrine complaints Hematologic/Lymphatic: Hematologic/Lymphatic: Reports no additional hematologic/lymphatic complaints Allergic/Immunologic: Allergic/Immunologic: Reports no additional allergic/immunologic complaints PMFSH Past Medical History Attestation statement: The following information was validated with the patient. Source: old records reviewed, nursing notes reviewed and other (SNF records reviewed) Medical History Anxiety Atrial fibrillation BPH (benign prostatic hyperplasia) CAD (coronary artery disease) CHF (congestive heart failure) CKD (chronic kidney disease) COPD (chronic obstructive pulmonary disease) Dementia Diabetes Hypertension Major depression Obstructive uropathy Retention of urine Surgical History S/P placement of cardiac pacemaker Family History Family History Father Melanoma Mother Heart disease Social History Social History Household Members: Caregiver Housing: Snf Unable to assess alcohol history related to: Unknown Alcohol intake: never Patient Tobacco Use Status: Tobacco use Unknown Advance Directives: Yes Advance Directives on File: Yes Advance Directives Date on File: 03/08/22 service: No Current occupational status: retired Physical Exam Vital Signs: Vital Signs: Last Vital Signs Temp 98.3 F 04/02/22 15:05 Pulse 62 04/02/22 15:05 Resp 18 04/02/22 15:05 BP 124/46 L 04/02/22 15:05 Pulse Ox 92 04/02/22 15:05 O2 Del Method 04/02/22 15:05 BMI result Body Mass Index 43.0 Const: General: cooperative, no acute distress, alert and awake Nutritional Appearance: well nourished Orientation/consciousness: patient oriented x3 Limitations: no limitations HEENT: Head: Yes normal to inspection and Yes atraumatic Ears: hearing grossly normal bilaterally and external ears normal General nose exam: Normal external nose present, no nasal discharge noted and no epistaxis Face and sinus: Yes normal facial exam, No abrasion and No laceration Mouth: Normal oral and palatal mucosa present, no drooling and no muffled voice Eyes: General: appearance normal, both eyes and all related structures Periorbital: periorbital findings normal Eyelids: Yes eyelids normal Conjunctivae: conjunctivae normal Pupils: Equal, round and reactive pupils present EOM: EOMs intact bilaterally Neck: Neck: Yes normal visual inspection, Yes full ROM and Yes no lymphadenopathy Chest: Chest palpation & inspection: normal inspection of the chest Resp: Effort & Inspection: normal respiratory effort and able to speak in complete sentences Auscultation: clear to auscultation bilaterally Cardio: Rate: regular rate Rhythm: regular rhythm GI: Inspection: Yes normal to inspection : Other: Neuro: General: patient oriented x3 and moves all extremities Cranial nerves: Yes Equal, round and reactive pupils present Cognition (Neuro): normal cognition Motor exam (neuro): 5/5 motor strength present throughout Sensory Exam: Normal double simultaneous stimulation for sensation Coordination: [id number] test normal Extrem: General: Yes normal to inspection, Yes full ROM and Yes capillary refill normal Psych: Appearance: grossly normal Mental Status: mental status grossly normal Affect: normal affect Attitude: cooperative Thought process: Normal thought process present Thought content: Normal thought content present Insight: Good insight present (Psych) Medical Decision Making Medical Decision Making MDM Narrative: Patient is an 86 year old assigned male at with a history of COPD, CHF, CKD III, BPH w/ obstructive uropathy + chronic Quarles catheter, DM, depression, anxiety, HTN, afib not on anticoagulation due to chronic psoas hematoma + liver cirrhosis, and current UTI presenting to the emergency department today with continued scrotal / penile swelling and blood in his quarles catheter. Patient's physical exam showed blood in his quarles catheter and scrotal swelling. Patient's quarles catheter was flushed until clear, no clots dislodged. I spoke to the urologist who placed the catheter in this patient 3 days ago and he stated the patient should continue on the antibiotics previously given, elevate the scrotum, and follow up out patient. When discussing this with the patient, he adamantly stated he did not want to go back to [facility] and he'd rather stay here for the potential of being placed elsewhere. Patient placed in physician observation. Diet, medications, PT eval, and case management eval ordered. Differential Diagnosis Differential Diagnoses: The differential diagnosis associated with the presentation includes dependent scrotal edema, blood in quarles catheter Consult Healthcare Provider Management of the patient was discussed with: Insurance Claims Specialist (spoke to the urologist who recommended discharge with continued antibiotic use, out patient follow up, and elevation of the scrotum) Independent Historian Clinical information obtained from an independent historian. History obtained from or confirmed by: EMS External Record Review External record reviewed: Other (SNF records) Discharge Plan Discharge Clinical Impression: Chronic indwelling Quarles catheter Patient Disposition: Still a Patient Instructions: Quarles Catheter Placement and Care (ED) Additional Instructions: DO NOT REMOVE THE CATHETER. CONTINUE ABX PRESCRIBED. Follow up with your primary care provider. Return to the emergency department immediately if your symptoms worsen or if you develop any dizziness, shortness of breath, difficulty breathing, chest pain, blurry vision, loss of vision, nausea, vomiting, abdominal pain, fever, chills, back pain, or any other complaints. Prescriptions: No Action multivitamin Tablet 1 tab PO DAILY polyethylene glycol 3350 17 gram Powder In Packet 17 g PO DAILY PRN (Reason: Constipation) ondansetron HCl 4 mg tablet 1 tab PO Q8H PRN (Reason: Nausea) thiamine HCl (vitamin B1) 100 mg Tablet 100 mg PO DAILY carvedilol 3.125 mg tablet 1 tab PO BID pravastatin 10 mg tablet 1 tab PO BEDTIME tamsulosin 0.4 mg capsule 1 cap PO BEDTIME folic acid 1 mg tablet 1 tab PO DAILY furosemide 20 mg tablet 1 tab PO DAILY escitalopram oxalate 10 mg tablet 1 tab PO DAILY magnesium oxide 400 mg magnesium Tablet 400 mg PO BID cefdinir 300 mg capsule 300 mg PO Q12H Qty: 20 0RF Ref[place]: [facility] [place]] (Call to establish and follow up with a primary care provider. If you already have a primary care provider, please follow up with them. ) [facility] [place] Group] (Call to establish and follow up with a primary care provider. If you already have a primary care provider, please follow up with them. ) [facility] [place] Group] (Call to establish and follow up with a primary care provider. If you already have a primary care provider, please follow up with them. ) [facility] [Provider Group] (Follow up with urology.) Print Language: Malawian
--- NOTE | 2022-04-02 15:48 | PC.NURSE ---
bladder was irrigated with approx 50cc of urine, could not pull back and no clots seen. once cath was irrigated the blood in the tubing was clear.
[2022-04-02 17:11] LABS: COVID-19 Test Negative (Negative); IDNOW Serial# 55D5AD1C
--- NOTE | 2022-04-02 17:26 | PHA.MEDREC ---
Pharmacy Consult ? Medication Reconciliation Pharmacy has completed the medication reconciliation. Contacted [facility] ([phone]) to have them fax medication list because it was not passed off from ambulance when patient arrived. Med rec completed off of facility list.
[2022-04-02] MEDS: carvediloL 3.125 MG TABLET PO (21:23)
[2022-04-02] MEDS: Tamsulosin HCL 0.4 MG CAPSULE PO (21:23)
[2022-04-02] MEDS: Pravastatin Sodium 10 MG TABLET PO (21:24)
[2022-04-02] MEDS: Magnesium Oxide 400 MG TABLET PO (21:24)
--- NOTE | 2022-04-02 21:32 | PC.NURSE ---
Pt aox3. Breaths are even and unlabored. O2 sat 88% RA. Pt placed on 3L nc with o2 improvement to 95%. Pt in no apparent distress and resting comfortably. Quarles catheter in place and draining. 600cc of dark red urine emptied from quarles collection bag. Bilateral leg edema noted with pedal pulses.
[2022-04-03] VITALS (7 sets, daily range): BP systolic 121–134; BP diastolic 46–73; PULSE 61–85; RESP 14–30; TEMP 36.5–37.3; O2SAT 94–98
--- NOTE | 2022-04-03 00:49 | MHC.EDTECH ---
pt transferred into hospital bed. resting comfortably at this time.
--- NOTE | 2022-04-03 02:32 | PC.NURSE ---
Pt medicated with Tylenol as pt reports pain 12/18. O2 sat 96% with 2L NC. 200cc of red bloody urine noted on urine collection bag. Ayoub cath draining appropriately. No apparent distress noted
--- NOTE | 2022-04-03 05:34 | PC.NURSE ---
Pt is resting at the bedside in no apparent distress. Breaths are even and unlabored with equal chest rises. Pt is on 3L nc. Red colored urine noted in urine collection bag. Ayoub cath continues to drain properly with no issues or concerns.
[2022-04-03] MEDS: Folic Acid 1 MG TABLET PO (08:56)
[2022-04-03] MEDS: Thiamine HCL 100 MG TABLET PO (08:56)
[2022-04-03] MEDS: Multivitamin TABLET 1 TAB PO (08:56)
[2022-04-03] MEDS: carvediloL 3.125 MG TABLET PO ×2 (08:57→20:15)
[2022-04-03] MEDS: Magnesium Oxide 400 MG TABLET PO ×2 (08:57→20:15)
[2022-04-03] MEDS: Escitalopram Oxalate 10 MG TABLET PO (08:57)
--- NOTE | 2022-04-03 10:31 | MHC.CM.ED ---
Received case management consult overnight stating patient doesn't want to return to [facility]. 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 T/W left a voicemail for patient's son/HCP, Mario to call CM to discuss patient returning to [facility]. Return referral made in [facility]. Continue to monitor for d/c needs.
--- NOTE | 2022-04-03 12:19 | PC.NURSE ---
SCROTUM AND PENIS REMAIN SWOLLEN, FLYNN CATH STILL PATENT, CATH BAG EMPTIED OF 500ML DARK URINE. BILATERAL LE WOUNDS REDRESSED WITH ABD PAD FOR DRAINAGE
--- NOTE | 2022-04-03 16:44 | ECG_ITS ---
Test Reason : GENERAL MEDICAL Blood Pressure : / mmHG Vent. Rate : 070 BPM Atrial Rate : 000 BPM P-R Int : 000 ms QRS Dur : 142 ms QT Int : 404 ms P-R-T Axes : 000 062 060 degrees QTc Int : 436 ms Atrial fibrillation with occasional ventricular-paced complexes and with premature ventricular or aberrantly conducted complexes Right bundle branch block Precordial T wave inversions present Abnormal ECG When compared with ECG of 02-MAR-2022 17:40, Vent. rate has increased BY 6 BPM Referred By: Dana Morton Electronically Signed By:Rock Palmer
[2022-04-03 18:58] LABS: Alanine Aminotransferase 7 U/L (0-40); Albumin Level 3.4 g/dL (3.5-5.0); Alkaline Phosphatase 112 U/L (39-117); Anion Gap 11 (12-20); Aspartate Amino Transferase 15 U/L (5-37); Bilirubin Total 0.7 mg/dL (0.0-1.0); Blood Urea Nitrogen 31 mg/dL (9-16); Calcium 8.9 mg/dL (8.4-10.2); Carbon Dioxide 31 mmol/L (22-29); Chloride 104 mmol/L (96-108); Creatinine Clr Calc Pharmacy 48.4; Estimated Glomerular Filt Rate 43; Glucose Random 152 mg/dL (60-115); Sodium 141 mmol/L (135-145); Total Protein 6.7 g/dL (6.5-8.0)
[2022-04-03 19:03] LABS: B Type Natriuretic Peptide 357 pg/mL (<100)
[2022-04-03 19:04] LABS: Troponin-I High Sensitivity 7.2 ng/L (<3.5-35.0)
[2022-04-03 19:07] LABS: Eosinophils Absolute Auto 0.1 X10*3/uL (0.0-0.4); Mean Corpuscular Volume 97.6 fL (80.0-98.0); PLT CLUMP 1; SCAN SMEAR FLAG 1
[2022-04-03 19:09] LABS: Basophils Percent Auto 0.2 % (0-2); Imm Gran Abs Auto 0.08 X10*3/uL (0.00-0.03); Imm Gran Pct Auto 0.6 % (0.0-0.4); Lymphocytes Absolute Auto 1.2 X10*3/uL (1.2-4.9); Lymphocytes Percent Auto 9.1 % (20-40); Mean Corpuscular HGB Conc 30.6 g/dl (31.0-36.0); Mean Corpuscular Hemoglobin 29.8 pg (27.0-33.0); Mean Platelet Volume 11.3 fL (9.4-12.4); Monocytes Percent Auto 7.6 % (2-11); Neutrophils Absolute Auto 10.3 x10*3/uL (2.0-8.3); Neutrophils Percent Auto 81.5 % (45-73); Red Blood Count 3.69 X10*6/uL (4.60-5.80); Red Cell Distribution Width 15.2 % (11.0-16.0)
[2022-04-03 19:22] LABS: MANUAL DIFF FLAG NO; Platelet Count 129 X10*3/uL (160-400); White Blood Count 12.6 X10*3/uL (4.8-10.8)
[2022-04-03] MEDS: Pravastatin Sodium 10 MG TABLET PO (20:15)
[2022-04-03] MEDS: Tamsulosin HCL 0.4 MG CAPSULE PO (20:15)
[2022-04-03 22:06] LABS: Influenza A PCR NEGATIVE (Negative); Influenza B PCR NEGATIVE (Negative); Resp Syncy Virus RNA Qual PCR NEGATIVE (Negative); SARS COV2 PCR INHOUSE NEGATIVE (Negative)
--- NOTE | 2022-04-03 22:35 | PM.IMHP ---
History of Present Illness Date of Service: 04/03/22 Chief Complaint: cough, hypoxia This is an 86-year-old male with past medical history of COPD, CHF, CKD stage 3, BPH with obstructive uropathy and chronic Ayoub catheter, diabetes, depression, anxiety, hypertension, AFib not on anticoagulation due to chronic psoas hematoma, liver cirrhosis and currently being treated for UTI presented to the hospital on 1224 for evaluation of blood in the catheter and scrotal swelling. Patient was boarding in the ED under physician observation for placement as he did not want to go back to [facility] where he currently resides but while boarding in the ED he was noted to have increased shortness of breath, increased oxygen requirement from his baseline, as well as lower extremity edema. On my evaluation patient is very hard of hearing, difficult to get much history from him, but reports that he has chronic cough that has worsened, he is complaining of shortness of breath on exertion, reports sputum production. Denies any chest pain, no abdominal pain nausea or vomiting, no diarrhea constipation, has chronic Ayoub catheter in. Reports that his legs always look like this Vitals from 04/03 show respiratory rate of 30 otherwise stable Labs are significant for WBC count of 12.6, hemoglobin of 11, medical 36.00, creatinine of 0.55 with a baseline of 1.4, BUN of 31, BNP of 357 Chest x-ray shows trace right pleural effusion Review of Systems Review of Systems: Yes all other systems are reviewed and are negative [facility] Medical History Anxiety Atrial fibrillation BPH (benign prostatic hyperplasia) CAD (coronary artery disease) CHF (congestive heart failure) CKD (chronic kidney disease) COPD (chronic obstructive pulmonary disease) Dementia Diabetes Hypertension Major depression Obstructive uropathy Retention of urine Family History Father Melanoma Mother Heart disease Surgical History S/P placement of cardiac pacemaker Social History Household Members: Caregiver Housing: [facility] Unable to assess alcohol history related to: Unknown Alcohol intake: unknown Patient Tobacco Use Status: Tobacco use Unknown Smoked in Last 30 Days: No Advance Directives: Yes Advance Directives on File: Yes Advance Directives Date on File: 03/08/22 service: No Current occupational status: retired Meds Allergies Allergy/AdvReac Type Severity Reaction Status Date / Time No Known Allergies Allergy Verified 03/30/22 13:36 Active Medications: Current Medications Acetaminophen (Acetaminophen 325 Mg Tablet) 650 mg PO Q6H PRN PRN Reason: Pain, Mild (Pain Scale 1-3) Albuterol/Ipratropium (Albuterol/Iprat 2.5/0.5mg 3 Ml Ampul.Neb) 3 ml INHALE Q4H PRN PRN Reason: Shortness of Breath/Wheezing Albuterol/Ipratropium (Albuterol/Iprat 2.5/0.5mg 3 Ml Ampul.Neb) 3 ml INHALE RQ4H WHILE AWAKE EVELINA Bisacodyl (Bisacodyl 10 Mg Supp.Rect) 10 mg [place] DAILY PRN PRN Reason: Constipation Carvedilol (Carvedilol 3.125 Mg Tablet) 3.125 mg PO BID [facility]; Protocol Last Admin: 04/03/22 20:15 Dose: 3.125 mg Cefuroxime Axetil (Cefuroxime Axetil 250 Mg Tablet) 250 mg PO Q12H [facility]EL[facility] Last Admin: 04/03/22 20:15 Dose: 250 mg Docusate Sodium (Docusate Sodium 100 Mg Capsule) 100 mg PO DAILY PRN PRN Reason: Constipation Escitalopram Oxalate (Escitalopram Oxalate 10 Mg Tablet) 10 mg PO DAILY [facility] Last Admin: 04/03/22 08:57 Dose: 10 mg Folic Acid (Folic Acid 1 Mg Tablet) 1 mg PO DAILY [facility] Last Admin: 04/03/22 08:56 Dose: 1 mg Furosemide (Furosemide 40 Mg/4 Ml Vial) 40 mg IVPUSH DAILY [facility]; Protocol Heparin Sodium (Porcine) (Heparin Sodium,Porcine 5,000 Unit/Ml Vial) 5,000 unit SUBCUT Q12H [facility] Magnesium Hydroxide (Milk Of Magnesia 30 Ml Oral.Susp) 30 ml PO DAILY PRN PRN Reason: Constipation Last Admin: 04/03/22 14:56 Dose: 30 ml Magnesium Oxide (Magnesium Oxide 400 Mg Tablet) 400 mg PO BID [facility] Last Admin: 04/03/22 20:15 Dose: 400 mg Methylprednisolone Sodium Succinate (Methylprednisolone Sod Succ 40 Mg/Ml Vial) 40 mg IVPUSH Q12H [facility] Multivitamins/Vitamin C (Multivitamin Tablet) 1 tab PO DAILY [facility] Last Admin: 04/03/22 08:56 Dose: 1 tab Ondansetron HCl (Ondansetron Hcl 4 Mg/2 Ml Vial) 4 mg IVPUSH Q8H PRN PRN Reason: Nausea and Vomiting Pharmacy Consult (Consult Rx Perform Med Rec) 1 each MISCELLANE ONCE PRN PRN Reason: patient is PT / CM Polyethylene Glycol (Polyethylene Glycol 3350 17 Gm Powd.Pack) 17 gm PO DAILY PRN PRN Reason: Constipation Pravastatin Sodium (Pravastatin Sodium 10 Mg Tablet) 10 mg PO BEDTIME [facility] Last Admin: 04/03/22 20:15 Dose: 10 mg Sodium Biphosphate/Sodium Phosphate (Sodium Phosphate,[place]-Dibasic 133 Ml Enema) 133 ml [place] DAILY PRN PRN Reason: Constipation Sodium Chloride (0.9 % Sodium Chloride Flush 3 Ml Syringe) 3 ml IVFLUSH QSHIFT [facility] Tamsulosin HCl (Tamsulosin Hcl 0.4 Mg Capsule) 0.4 mg PO BEDTIME [facility] Last Admin: 04/03/22 20:15 Dose: 0.4 mg Thiamine HCl (Thiamine Hcl 100 Mg Tablet) 100 mg PO DAILY [facility] Last Admin: 04/03/22 08:56 Dose: 100 mg Home Medications Medication Instructions Recorded Confirmed Last Taken Type carvedilol 3.125 mg tablet 3.125 mg PO BID 03/02/22 04/02/22 04/02/22 History escitalopram oxalate 10 mg tablet 10 mg PO DAILY 03/02/22 04/02/22 04/02/22 History folic acid 1 mg tablet 1 mg PO DAILY 03/02/22 04/02/22 04/02/22 History magnesium oxide 400 mg PO BID 03/02/22 04/02/22 04/02/22 History multivitamin 1 tab PO DAILY 03/02/22 04/02/22 04/02/22 History polyethylene glycol 3350 17 gram 17 g PO DAILY PRN Constipation 03/02/22 04/02/22 Unknown History oral powder packet pravastatin 10 mg tablet 10 mg PO BEDTIME 03/02/22 04/02/22 04/01/22 History tamsulosin 0.4 mg capsule 0.4 mg PO BEDTIME 03/02/22 04/02/22 04/01/22 History thiamine HCl (vitamin B1) 100 mg 100 mg PO DAILY 03/02/22 04/02/22 04/02/22 History tablet acetaminophen 325 mg tablet 650 mg PO Q6H PRN Fever Or Pain 04/02/22 04/02/22 Unknown History bisacodyl 10 mg rectal suppository 10 mg HI DAILY PRN Constipation 04/02/22 04/02/22 Unknown History furosemide 20 mg tablet (Lasix) 20 mg PO DAILY 04/02/22 04/02/22 04/02/22 History magnesium hydroxide 400 mg/5 mL 30 ml PO DAILY PRN Constipation 04/02/22 04/02/22 Unknown History oral suspension (Milk of Magnesia) sodium phosphates 19 gram-7 118 ml HI DAILY PRN Constipation 04/02/22 04/02/22 Unknown History gram/118 mL enema (Fleet Enema) Physical Exam Vital Signs and Narrative: Vital Signs: Last Vital Signs Temp 99.1 F 04/03/22 21:45 Pulse 68 04/03/22 21:45 Resp 28 H 04/03/22 21:45 BP 121/46 L 04/03/22 21:45 Pulse Ox 96 04/03/22 21:45 O2 Del Method 04/03/22 21:45 O2 Flow Rate 4 04/03/22 21:45 BMI result Body Mass Index 43.0 Const: Other: Patient is very hard of hearing but directable, answers questions appropriately General: cooperative and no acute distress Orientation/consciousness: patient oriented x3 Eyes: General: appearance normal, both eyes and all related structures Resp: Other: Diminished breath sounds bilaterally Effort & Inspection: normal respiratory effort Cardio: Rate: regular rate Rhythm: regular rhythm GI: Palpation (GI): Soft to palpation Auscultation: normal bowel sounds : Other: Scrotal edema Skin: Other: Has skin changes of chronic venous stasis of lower extremities, 2+ pitting edema bilaterally General skin exam: no rashes or lesions noted Neuro: General: patient oriented x3 Extrem: General: Yes normal to inspection and Yes no pedal edema Results Labs CBC and Chem 7: 04/03/22 18:36 04/04/22 05:51 Labs: Laboratory Results - last 24 hr 04/03/22 04/03/22 04/03/22 18:36 18:36 18:36 MCV 97.6 MCH 29.8 MCHC 30.6 L RDW 15.2 Plt Count 129 L D MPV 11.3 Immature Gran % (Auto) 0.6 H Neut % (Auto) 81.5 H Lymph % (Auto) 9.1 L [place] % (Auto) 7.6 Eos % (Auto) 1.0 Baso % (Auto) 0.2 Lymph # (Auto) 1.2 [place] # (Auto) 1.0 Eos # (Auto) 0.1 Baso # (Auto) 0.0 Abs Immat Gran (auto) 0.08 H Absolute Neuts (auto) 10.3 H Absolute Nucleated RBC 0.000 Nucleated RBC % (auto) 0.0 Anion Gap 11 L Estim Creat Clear Calc 48.4 Estimated GFR 43 Random Glucose 152 H Calcium 8.9 Total Bilirubin 0.7 AST 15 ALT 7 Alkaline Phosphatase 112 Troponin I High Sens B-Natriuretic Peptide 357 H Total Protein 6.7 Albumin 3.4 L Influenza Type A (PCR) Influenza Type B (PCR) RSV RNA Qual (PCR) SARS-CoV-2 RNA (RT-PCR) 04/03/22 04/03/22 18:36 21:25 MCV MCH MCHC RDW Plt Count MPV Immature Gran % (Auto) Neut % (Auto) Lymph % (Auto) [place] % (Auto) Eos % (Auto) Baso % (Auto) Lymph # (Auto) [place] # (Auto) Eos # (Auto) Baso # (Auto) Abs Immat Gran (auto) Absolute Neuts (auto) Absolute Nucleated RBC Nucleated RBC % (auto) Anion Gap Estim Creat Clear Calc Estimated GFR Random Glucose Calcium Total Bilirubin AST ALT Alkaline Phosphatase Troponin I High Sens 7.2 D B-Natriuretic Peptide Total Protein Albumin Influenza Type A (PCR) NEGATIVE Influenza Type B (PCR) NEGATIVE RSV RNA Qual (PCR) NEGATIVE SARS-CoV-2 RNA (RT-PCR) NEGATIVE Imaging Radiologist's Impressions: Impressions Chest X-Ray 04/03/22 17:20 IMPRESSION: * Trace right pleural effusion. * Moderately enlarged cardiac silhouette similar to prior. Assessment and Plan (1) Chronic indwelling Ayoub catheter: Status: Acute (2) COPD with acute exacerbation: Status: Acute (3) Acute exacerbation of CHF (congestive heart failure): Status: Acute (4) UTI (urinary tract infection): Status: Acute Plan This is an 86-year-old male with past medical history of chronic indwelling Ayoub catheter, COPD, CHF with ejection fraction of 50-55% on recent echo presents to the hospital with complaints of swelling in the scrotum, was initially under physician observation in the ED but noted to be short of breath, and have increased oxygen requirement # is a acute exacerbation of CHF - has trace pleural effusion on chest x-ray, has lower extremity edema as well as elevated BNP from his baseline - will treat with Lasix - strict I&O, daily weight, low-sodium diet - cardiology consult for further recommendation - had echo done in February shows ejection fraction of 50-55%- will hold off on repeating echo # COPD exacerbation - has increased oxygen requirement, increased cough and sputum production patient - will will treat with Solu-Medrol treat with Solu-Medrol, DuoNeb p.r.n. as well as scheduled - monitor respiratory status # UTI - likely contaminant as he has a Ayoub catheter in place chronically - patient started on p.o. antibiotics in the ED, will continue # chronic AFib - not on anticoagulation due to psoas hematoma - continue carvedilol DVT prophylaxis: Heparin subQ Given patient's acute CHF, as well as COPD exacerbation patient required minimum 2 night inpatient hospital stay for further management and monitoring Time Spent With Patient Time: Total time managing care of this patient today ____ minutes. Quality Stroke Does the patient have a stroke diagnosis?: No VTE Prior VTE?: No VTE Risk Level:: Medical - moderate - high VTE Device Contraindication: Treatment Not Indicated VTE Drug Contraindication: N/A - Med Ordered
--- NOTE | 2022-04-03 23:39 | MHC.EDTECH ---
PT soiled with urine. Pt given [employer]ic[employer].Moisture barrier cream applied to bottom. Pt bed linen changed. Pt changed into new hospital gown. Pt given warm blanket and call velez placed in reach
[2022-04-04] VITALS (9 sets, daily range): BP systolic 114–127; BP diastolic 58–71; PULSE 60–66; RESP 18–22; TEMP 36.1–36.7; O2SAT 94–97; BMI 38.5
[2022-04-04 06:18] LABS: Alanine Aminotransferase 7 U/L (0-40); Albumin Level 3.2 g/dL (3.5-5.0); Alkaline Phosphatase 100 U/L (39-117); Anion Gap 13 (12-20); Aspartate Amino Transferase 15 U/L (5-37); Bilirubin Total 0.6 mg/dL (0.0-1.0); Blood Urea Nitrogen 34 mg/dL (9-16); Calcium 8.4 mg/dL (8.4-10.2); Carbon Dioxide 29 mmol/L (22-29); Chloride 105 mmol/L (96-108); Creatinine Clr Calc Pharmacy 42.6; Estimated Glomerular Filt Rate 40; Glucose Random 181 mg/dL (60-115); Sodium 142 mmol/L (135-145); Total Protein 6.1 g/dL (6.5-8.0)
[2022-04-04] MEDS: methylPREDNISolone Sod Succ 40 MG/ML VIAL IVPUSH ×2 (07:04→21:49)
[2022-04-04] MEDS: Furosemide 40 MG/4 ML VIAL IVPUSH (07:24)
[2022-04-04] MEDS: carvediloL 3.125 MG TABLET PO ×2 (07:27→21:49)
[2022-04-04] MEDS: Escitalopram Oxalate 10 MG TABLET PO (07:27)
[2022-04-04] MEDS: Folic Acid 1 MG TABLET PO (07:27)
[2022-04-04] MEDS: Magnesium Oxide 400 MG TABLET PO ×2 (07:28→21:51)
[2022-04-04] MEDS: Thiamine HCL 100 MG TABLET PO (07:28)
[2022-04-04] MEDS: Multivitamin TABLET 1 TAB PO (07:28)
--- NOTE | 2022-04-04 07:30 | PC.NURSE ---
alert, quarles draining light yellow urine, no blood or clots visable, eating breakfast, medicated as ordered, c/o testicular discomfort from the swelling
[2022-04-04] MEDS: Albuterol/Iprat 2.5/0.5MG 3 ML AMPUL.NEB INHALE ×3 (07:46→19:25)
[2022-04-04] MEDS: Doxycycline Monohydrate 100 MG CAPSULE PO ×2 (10:58→21:49)
[2022-04-04] MEDS: Heparin Sodium,Porcine 5,000 UNIT/ML VIAL 5000 UNIT SUBCUT ×2 (10:59→21:50)
--- NOTE | 2022-04-04 11:18 | PM.CNCAR ---
History of Present Illness History of Present Illness Date of Service: 04/04/22 Requesting physician: Reyna Fuentes Chief complaint: COPD exacerbation,CHF Narrative: 86-year-old gentleman presented with shortness of breath. He has known history of congestive heart failure and COPD. Noticed to be in congestive heart failure and was started on IV diuretics. He is denying any chest discomfort. He is a poor historian. Appears he takes 20 mg Lasix at home. He had echocardiogram in February 2022 which showed EF of 50 55% with possible apical akinesis. Biatrial enlargement. Moderately elevated RV systolic pressures. [facility] Past Medical History Medical History Anxiety Atrial fibrillation BPH (benign prostatic hyperplasia) CAD (coronary artery disease) CHF (congestive heart failure) CKD (chronic kidney disease) COPD (chronic obstructive pulmonary disease) Dementia Diabetes Hypertension Major depression Obstructive uropathy Retention of urine Family History Family History Father Melanoma Mother Heart disease Surgical History Surgical History S/P placement of cardiac pacemaker Social History Social History Household Members: Caregiver Housing: [facility] Unable to assess alcohol history related to: Unknown Alcohol intake: unknown Patient Tobacco Use Status: Tobacco use Unknown Smoked in Last 30 Days: No Advance Directives: Yes Advance Directives on File: Yes Advance Directives Date on File: 03/08/22 service: No Current occupational status: retired [employer] Allergies Allergy/AdvReac Type Severity Reaction Status Date / Time No Known Allergies Allergy Verified 03/30/22 13:36 Active Medications: Current Medications Acetaminophen (Acetaminophen 325 Mg Tablet) 650 mg PO Q6H PRN PRN Reason: Pain, Mild (Pain Scale 1-3) Albuterol/Ipratropium (Albuterol/Iprat 2.5/0.5mg 3 Ml Ampul.Neb) 3 ml INHALE Q4H PRN PRN Reason: Shortness of Breath/Wheezing Albuterol/Ipratropium (Albuterol/Iprat 2.5/0.5mg 3 Ml Ampul.Neb) 3 ml INHALE RQ4H WHILE AWAKE [facility] Last Admin: 04/04/22 07:46 Dose: 3 ml Bisacodyl (Bisacodyl 10 Mg Supp.Rect) 10 mg [place] DAILY PRN PRN Reason: Constipation Carvedilol (Carvedilol 3.125 Mg Tablet) 3.125 mg PO BID [facility]; Protocol Last Admin: 04/04/22 07:27 Dose: 3.125 mg Cefuroxime Axetil (Cefuroxime Axetil 250 Mg Tablet) 250 mg PO Q12H [facility] Last Admin: 04/04/22 07:27 Dose: 250 mg Docusate Sodium (Docusate Sodium 100 Mg Capsule) 100 mg PO DAILY PRN PRN Reason: Constipation Doxycycline Monohydrate (Doxycycline Monohydrate 100 Mg Capsule) 100 mg PO Q12H [facility] Last Admin: 04/04/22 10:58 Dose: 100 mg Escitalopram Oxalate (Escitalopram Oxalate 10 Mg Tablet) 10 mg PO DAILY [facility] Last Admin: 04/04/22 07:27 Dose: 10 mg Folic Acid (Folic Acid 1 Mg Tablet) 1 mg PO DAILY [facility] Last Admin: 04/04/22 07:27 Dose: 1 mg Furosemide (Furosemide 40 Mg/4 Ml Vial) 40 mg IVPUSH DAILY [facility]; Protocol Last Admin: 04/04/22 07:24 Dose: 40 mg Heparin Sodium (Porcine) (Heparin Sodium,Porcine 5,000 Unit/Ml Vial) 5,000 unit SUBCUT Q12H [facility] Last Admin: 04/04/22 10:59 Dose: 5,000 unit Magnesium Hydroxide (Milk Of Magnesia 30 Ml Oral.Susp) 30 ml PO DAILY PRN PRN Reason: Constipation Last Admin: 04/03/22 14:56 Dose: 30 ml Magnesium Oxide (Magnesium Oxide 400 Mg Tablet) 400 mg PO BID [facility] Last Admin: 04/04/22 07:28 Dose: 400 mg Methylprednisolone Sodium Succinate (Methylprednisolone Sod Succ 40 Mg/Ml Vial) 40 mg IVPUSH Q12H [facility] Last Admin: 04/04/22 07:04 Dose: 40 mg Multivitamins/Vitamin C (Multivitamin Tablet) 1 tab PO DAILY [facility] Last Admin: 04/04/22 07:28 Dose: 1 tab Ondansetron HCl (Ondansetron Hcl 4 Mg/2 Ml Vial) 4 mg IVPUSH Q8H PRN PRN Reason: Nausea and Vomiting Pharmacy Consult (Consult Rx Perform Med Rec) 1 each MISCELLANE ONCE PRN PRN Reason: patient is PT / CM Polyethylene Glycol (Polyethylene Glycol 3350 17 Gm Powd.Pack) 17 gm PO DAILY PRN PRN Reason: Constipation Pravastatin Sodium (Pravastatin Sodium 10 Mg Tablet) 10 mg PO BEDTIME [facility] Last Admin: 04/03/22 20:15 Dose: 10 mg Sodium Biphosphate/Sodium Phosphate (Sodium Phosphate,[place]-Dibasic 133 Ml Enema) 133 ml [place] DAILY PRN PRN Reason: Constipation Sodium Chloride (0.9 % Sodium Chloride Flush 3 Ml Syringe) 3 ml IVFLUSH QSHIFT [facility] Last Admin: 04/04/22 07:05 Dose: 3 ml Tamsulosin HCl (Tamsulosin Hcl 0.4 Mg Capsule) 0.4 mg PO BEDTIME [facility] Last Admin: 04/03/22 20:15 Dose: 0.4 mg Thiamine HCl (Thiamine Hcl 100 Mg Tablet) 100 mg PO DAILY [facility] Last Admin: 04/04/22 07:28 Dose: 100 mg Home Medications Medication Instructions Recorded Confirmed Last Taken Type carvedilol 3.125 mg tablet 3.125 mg PO BID 03/02/22 04/02/22 04/02/22 History escitalopram oxalate 10 mg tablet 10 mg PO DAILY 03/02/22 04/02/22 04/02/22 History folic acid 1 mg tablet 1 mg PO DAILY 03/02/22 04/02/22 04/02/22 History magnesium oxide 400 mg PO BID 03/02/22 04/02/22 04/02/22 History multivitamin 1 tab PO DAILY 03/02/22 04/02/22 04/02/22 History polyethylene glycol 3350 17 gram 17 g PO DAILY PRN Constipation 03/02/22 04/02/22 Unknown History oral powder packet pravastatin 10 mg tablet 10 mg PO BEDTIME 03/02/22 04/02/22 04/01/22 History tamsulosin 0.4 mg capsule 0.4 mg PO BEDTIME 03/02/22 04/02/22 04/01/22 History thiamine HCl (vitamin B1) 100 mg 100 mg PO DAILY 03/02/22 04/02/22 04/02/22 History tablet acetaminophen 325 mg tablet 650 mg PO Q6H PRN Fever Or Pain 04/02/22 04/02/22 Unknown History bisacodyl 10 mg rectal suppository 10 mg [place] DAILY PRN Constipation 04/02/22 04/02/22 Unknown History furosemide 20 mg tablet (Lasix) 20 mg PO DAILY 04/02/22 04/02/22 04/02/22 History magnesium hydroxide 400 mg/5 mL 30 ml PO DAILY PRN Constipation 04/02/22 04/02/22 Unknown History oral suspension (Milk of Magnesia) sodium phosphates 19 gram-7 118 ml [place] DAILY PRN Constipation 04/02/22 04/02/22 Unknown History gram/118 mL enema (Fleet Enema) Physical Exam Vital Signs: Vital Signs: Last Vital Signs Temp 98.0 F 04/04/22 07:36 Pulse 66 04/04/22 08:56 Resp 21 H 04/04/22 07:47 BP 118/62 04/04/22 07:36 Pulse Ox 97 04/04/22 07:36 O2 Del Method 04/04/22 07:36 O2 Flow Rate 3 04/04/22 07:36 BMI result Body Mass Index 38.5 GENERAL APPEARANCE: in no acute distress, pleasant. NECK: no carotid bruit, tele jugular venous distention. SKIN: no suspicious lesions, warm and dry. HEART: no murmurs, regular rate and rhythm. LUNGS: Expiratory wheezes left lung base. ABDOMEN: soft, nontender. EXTREMITIES: Was not edema. PERIPHERAL PULSES: equal. NEUROLOGIC: No gross deficits, AAO X 3 Objective Labs and Meds Result diagrams: 04/03/22 18:36 04/04/22 05:51 Lab results: Laboratory Results - last 24 hr 04/03/22 04/03/22 04/03/22 18:36 18:36 18:36 WBC 12.6 H RBC 3.69 L Hgb 11.0 L Hct 36.0 L MCV 97.6 MCH 29.8 MCHC 30.6 L RDW 15.2 Plt Count 129 L D MPV 11.3 Immature Gran % (Auto) 0.6 H Neut % (Auto) 81.5 H Lymph % (Auto) 9.1 L [place] % (Auto) 7.6 Eos % (Auto) 1.0 Baso % (Auto) 0.2 Lymph # (Auto) 1.2 [place] # (Auto) 1.0 Eos # (Auto) 0.1 Baso # (Auto) 0.0 Abs Immat Gran (auto) 0.08 H Absolute Neuts (auto) 10.3 H Absolute Nucleated RBC 0.000 Nucleated RBC % (auto) 0.0 Sodium 141 Potassium 5.0 Chloride 104 Carbon Dioxide 31 H Anion Gap 11 L BUN 31 H Creatinine 1.55 H Estim Creat Clear Calc 48.4 Estimated GFR 43 Random Glucose 152 H Calcium 8.9 Total Bilirubin 0.7 AST 15 ALT 7 Alkaline Phosphatase 112 Troponin I High Sens B-Natriuretic Peptide 357 H Total Protein 6.7 Albumin 3.4 L Procalcitonin Influenza Type A (PCR) Influenza Type B (PCR) RSV RNA Qual (PCR) SARS-CoV-2 RNA (RT-PCR) 04/03/22 04/03/22 04/04/22 18:36 21:25 05:51 WBC RBC Hgb Hct MCV MCH MCHC RDW Plt Count MPV Immature Gran % (Auto) Neut % (Auto) Lymph % (Auto) [place] % (Auto) Eos % (Auto) Baso % (Auto) Lymph # (Auto) [place] # (Auto) Eos # (Auto) Baso # (Auto) Abs Immat Gran (auto) Absolute Neuts (auto) Absolute Nucleated RBC Nucleated RBC % (auto) Sodium 142 Potassium 5.0 Chloride 105 Carbon Dioxide 29 Anion Gap 13 BUN 34 H Creatinine 1.66 H Estim Creat Clear Calc 42.6 Estimated GFR 40 Random Glucose 181 H D Calcium 8.4 Total Bilirubin 0.6 AST 15 ALT 7 Alkaline Phosphatase 100 Troponin I High Sens 7.2 D B-Natriuretic Peptide Total Protein 6.1 L Albumin 3.2 L Procalcitonin Influenza Type A (PCR) NEGATIVE Influenza Type B (PCR) NEGATIVE RSV RNA Qual (PCR) NEGATIVE SARS-CoV-2 RNA (RT-PCR) NEGATIVE 04/04/22 08:00 WBC RBC Hgb Hct MCV MCH MCHC RDW Plt Count MPV Immature Gran % (Auto) Neut % (Auto) Lymph % (Auto) [place] % (Auto) Eos % (Auto) Baso % (Auto) Lymph # (Auto) [place] # (Auto) Eos # (Auto) Baso # (Auto) Abs Immat Gran (auto) Absolute Neuts (auto) Absolute Nucleated RBC Nucleated RBC % (auto) Sodium Potassium Chloride Carbon Dioxide Anion Gap BUN Creatinine Estim Creat Clear Calc Estimated GFR Random Glucose Calcium Total Bilirubin AST ALT Alkaline Phosphatase Troponin I High Sens B-Natriuretic Peptide Total Protein Albumin Procalcitonin 0.10 Influenza Type A (PCR) Influenza Type B (PCR) RSV RNA Qual (PCR) SARS-CoV-2 RNA (RT-PCR) Imaging Radiologist's impression: Impressions Chest X-Ray 04/03/22 17:20 IMPRESSION: * Trace right pleural effusion. * Moderately enlarged cardiac silhouette similar to prior. Assessment and Plan (1) Acute exacerbation of CHF (congestive heart failure): Status: Acute Plan [age] gentleman presenting with shortness of breath. Has history of heart failure and COPD. He has mild wheezes in the left lung. Clinically appears volume overloaded. I agree with IV diuretics. Blood pressure control is good. He is on p.o. antibiotics. If not in a negative balance tomorrow of more than 1 L then consider increase her Lasix to 40 mg twice a day. We will follow along with you. He does not need a repeat echocardiography as his echo was done a month ago. Thank you for allowing me to participate in the care of your patient. Please feel free to contact me if you have any questions. Time Spent With Patient Time: Total time managing care of this patient today ____ minutes. Procedures Date of Service Date of Service: 04/04/22
--- NOTE | 2022-04-04 12:11 | MHC.CM.PN ---
Patient originally was ER case management consult. 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 Patient ended up being admited d/t COPD exac. Patient has a history of dementia. Spoke with patient's son/HCP, Mario via telephone at [phone]. Mario confirms patient is a halfway care resident of [facility]. Patient will go through periods when he states he doesn't want to return to facility. Mario feels patient can safely return when medically stable via BLS. Ideally patient would like to return home. However, patient was placed in LTC because he was falling 2-3 times a week at home. Patient's home has been sold and is not available. Mario's home is 3 levels and would not be safe for patient. HCP verified to be on file. Patient received 1 J&J vaccine and 1 Pfizer booster. IMM explained and sent via certified mail. Continue to monitor for d/c needs.
--- NOTE | 2022-04-04 12:21 | HO.PM.IMPN ---
Subjective Subjective Date of Service: 04/04/22 Interval History: dyspnea improved cough with thick sputum no fever Review of Systems Review of Systems: Yes all other systems are reviewed and are negative Physical Exam Vital Signs: Vital Signs: Last Vital Signs Temp 98.0 F 04/04/22 07:36 Pulse 66 04/04/22 08:56 Resp 21 H 04/04/22 07:47 BP 118/62 04/04/22 07:36 Pulse Ox 97 04/04/22 07:36 O2 Del Method 04/04/22 07:36 O2 Flow Rate 3 04/04/22 07:36 BMI result Body Mass Index 38.5 Gen: slightly tachypneic HEENT: sclera anicteric, moist mucus membranes Neck: supple Lungs: diminished bilaterally Heart: irregular, no murmurs Abd: soft, non-tender, non-distended Ext: 1+ bilateral leg edema, venous stasis changes Skin: warm/well-perfused Neuro: alert and oriented x3, no focal findings Psych: appropriate affect Objective Data Active Medications Acetaminophen (Acetaminophen 325 Mg Tablet) 650 mg PO Q6H PRN PRN Reason: Pain, Mild (Pain Scale 1-3) Albuterol/Ipratropium (Albuterol/Iprat 2.5/0.5mg 3 Ml Ampul.Neb) 3 ml INHALE Q4H PRN PRN Reason: Shortness of Breath/Wheezing Albuterol/Ipratropium (Albuterol/Iprat 2.5/0.5mg 3 Ml Ampul.Neb) 3 ml INHALE RQ4H WHILE AWAKE [facility] Last Admin: 04/04/22 11:32 Dose: Not Given Documented By: PRUDENCE Non-Admin Reason: Patient Asleep Bisacodyl (Bisacodyl 10 Mg Supp.Rect) 10 mg [place] DAILY PRN PRN Reason: Constipation Carvedilol (Carvedilol 3.125 Mg Tablet) 3.125 mg PO BID [facility]; Protocol Last Admin: 04/04/22 07:27 Dose: 3.125 mg Documented By: KATERINE Cefuroxime Axetil (Cefuroxime Axetil 250 Mg Tablet) 250 mg PO Q12H [facility] Last Admin: 04/04/22 07:27 Dose: 250 mg Documented By: KATERINE Docusate Sodium (Docusate Sodium 100 Mg Capsule) 100 mg PO DAILY PRN PRN Reason: Constipation Doxycycline Monohydrate (Doxycycline Monohydrate 100 Mg Capsule) 100 mg PO Q12H [facility] Last Admin: 04/04/22 10:58 Dose: 100 mg Documented By: KATERINE Escitalopram Oxalate (Escitalopram Oxalate 10 Mg Tablet) 10 mg PO DAILY [facility] Last Admin: 04/04/22 07:27 Dose: 10 mg Documented By: KATERINE Folic Acid (Folic Acid 1 Mg Tablet) 1 mg PO DAILY [facility] Last Admin: 04/04/22 07:27 Dose: 1 mg Documented By: KATERINE Furosemide (Furosemide 40 Mg/4 Ml Vial) 40 mg IVPUSH DAILY [facility]; Protocol Last Admin: 04/04/22 07:24 Dose: 40 mg Documented By: KATERINE Heparin Sodium (Porcine) (Heparin Sodium,Porcine 5,000 Unit/Ml Vial) 5,000 unit SUBCUT Q12H [facility] Last Admin: 04/04/22 10:59 Dose: 5,000 unit Documented By: KATERINE Magnesium Hydroxide (Milk Of Magnesia 30 Ml Oral.Susp) 30 ml PO DAILY PRN PRN Reason: Constipation Last Admin: 04/03/22 14:56 Dose: 30 ml Documented By: AALIYAH Magnesium Oxide (Magnesium Oxide 400 Mg Tablet) 400 mg PO BID [facility] Last Admin: 04/04/22 07:28 Dose: 400 mg Documented By: KATERINE Methylprednisolone Sodium Succinate (Methylprednisolone Sod Succ 40 Mg/Ml Vial) 40 mg IVPUSH Q12H [facility] Last Admin: 04/04/22 07:04 Dose: 40 mg Documented By: KATERINE Multivitamins/Vitamin C (Multivitamin Tablet) 1 tab PO DAILY [facility] Last Admin: 04/04/22 07:28 Dose: 1 tab Documented By: KATERINE Ondansetron HCl (Ondansetron Hcl 4 Mg/2 Ml Vial) 4 mg IVPUSH Q8H PRN PRN Reason: Nausea and Vomiting Pharmacy Consult (Consult Rx Perform Med Rec) 1 each MISCELLANE ONCE PRN PRN Reason: patient is PT / CM Polyethylene Glycol (Polyethylene Glycol 3350 17 Gm Powd.Pack) 17 gm PO DAILY PRN PRN Reason: Constipation Pravastatin Sodium (Pravastatin Sodium 10 Mg Tablet) 10 mg PO BEDTIME [facility] Last Admin: 04/03/22 20:15 Dose: 10 mg Documented By: VICKI Sodium Biphosphate/Sodium Phosphate (Sodium Phosphate,[place]-Dibasic 133 Ml Enema) 133 ml [place] DAILY PRN PRN Reason: Constipation Sodium Chloride (0.9 % Sodium Chloride Flush 3 Ml Syringe) 3 ml IVFLUSH QSHIFT [facility] Last Admin: 04/04/22 07:05 Dose: 3 ml Documented By: KATERINE Tamsulosin HCl (Tamsulosin Hcl 0.4 Mg Capsule) 0.4 mg PO BEDTIME [facility] Last Admin: 04/03/22 20:15 Dose: 0.4 mg Documented By: VICKI Thiamine HCl (Thiamine Hcl 100 Mg Tablet) 100 mg PO DAILY [facility] Last Admin: 04/04/22 07:28 Dose: 100 mg Documented By: KATERINE Labs CBC & Chem 7: 04/03/22 18:36 04/04/22 05:51 Labs: Laboratory Results - last 24 hr 04/03/22 04/03/22 04/03/22 18:36 18:36 18:36 MCV 97.6 MCH 29.8 MCHC 30.6 L RDW 15.2 Plt Count 129 L D MPV 11.3 Immature Gran % (Auto) 0.6 H Neut % (Auto) 81.5 H Lymph % (Auto) 9.1 L [place] % (Auto) 7.6 Eos % (Auto) 1.0 Baso % (Auto) 0.2 Lymph # (Auto) 1.2 [place] # (Auto) 1.0 Eos # (Auto) 0.1 Baso # (Auto) 0.0 Abs Immat Gran (auto) 0.08 H Absolute Neuts (auto) 10.3 H Absolute Nucleated RBC 0.000 Nucleated RBC % (auto) 0.0 Anion Gap 11 L Estim Creat Clear Calc 48.4 Estimated GFR 43 Random Glucose 152 H Calcium 8.9 Total Bilirubin 0.7 AST 15 ALT 7 Alkaline Phosphatase 112 Troponin I High Sens B-Natriuretic Peptide 357 H Total Protein 6.7 Albumin 3.4 L Procalcitonin Influenza Type A (PCR) Influenza Type B (PCR) RSV RNA Qual (PCR) SARS-CoV-2 RNA (RT-PCR) 04/03/22 04/03/22 04/04/22 18:36 21:25 05:51 MCV MCH MCHC RDW Plt Count MPV Immature Gran % (Auto) Neut % (Auto) Lymph % (Auto) [place] % (Auto) Eos % (Auto) Baso % (Auto) Lymph # (Auto) [place] # (Auto) Eos # (Auto) Baso # (Auto) Abs Immat Gran (auto) Absolute Neuts (auto) Absolute Nucleated RBC Nucleated RBC % (auto) Anion Gap 13 Estim Creat Clear Calc 42.6 Estimated GFR 40 Random Glucose 181 H D Calcium 8.4 Total Bilirubin 0.6 AST 15 ALT 7 Alkaline Phosphatase 100 Troponin I High Sens 7.2 D B-Natriuretic Peptide Total Protein 6.1 L Albumin 3.2 L Procalcitonin Influenza Type A (PCR) NEGATIVE Influenza Type B (PCR) NEGATIVE RSV RNA Qual (PCR) NEGATIVE SARS-CoV-2 RNA (RT-PCR) NEGATIVE 04/04/22 08:00 MCV MCH MCHC RDW Plt Count MPV Immature Gran % (Auto) Neut % (Auto) Lymph % (Auto) [place] % (Auto) Eos % (Auto) Baso % (Auto) Lymph # (Auto) [place] # (Auto) Eos # (Auto) Baso # (Auto) Abs Immat Gran (auto) Absolute Neuts (auto) Absolute Nucleated RBC Nucleated RBC % (auto) Anion Gap Estim Creat Clear Calc Estimated GFR Random Glucose Calcium Total Bilirubin AST ALT Alkaline Phosphatase Troponin I High Sens B-Natriuretic Peptide Total Protein Albumin Procalcitonin 0.10 Influenza Type A (PCR) Influenza Type B (PCR) RSV RNA Qual (PCR) SARS-CoV-2 RNA (RT-PCR) Assessment and Plan (1) COPD with acute exacerbation: Status: Acute Plan d#2 86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 M 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 resident @ [facility] with chronic Ayoub, COPD, HFpEF presenting with scrotal swelling and became dyspneic and hypoxic while awaiting placement # acute/chronic HFpEF - IV furosemide diuresis, monitor I+O + lytes, Cardiology consult; negative 700 mL thus far # COPD exacerbation - IV steroids, nebs, doxycycline d#1 # acute hypoxic resp failure - wean O2 as norma # Klebsiella oxytoca UTI assoc with Ayoub - cefuroxime [cefdinir prescribed 03/30] # chronic AF - not on anticoagulation due to psoas hematoma - continue carvedilol # CKD stage 4 - avoid nephrotoxins, SCr close to baseline # hepatic cirrhosis - monitor for signs of decompensation # prostatism - tamsulosin # DM2 - correction-dose lispro, not on home meds # mood disorder - escitalopram # VTE ppx: UFH In my clinical judgment, the patient requires continued inpatient hospitalization for the following reasons: IV diuresis, hypoxia Time Spent With Patient Time: Total time managing care of this patient today __27__ minutes. Quality Stroke Does the patient have a stroke diagnosis?: No VTE Prior VTE?: No VTE Risk Level:: Medical - moderate - high VTE Device Contraindication: Treatment Not Indicated VTE Drug Contraindication: N/A - Med Ordered
[2022-04-04] MEDS: Insulin Lispro 100 UNIT/ML 3 ML VIAL SUBCUT ×2 (16:21→21:51)
[2022-04-04] MEDS: Tamsulosin HCL 0.4 MG CAPSULE PO (21:48)
[2022-04-04] MEDS: Pravastatin Sodium 10 MG TABLET PO (21:49)
[2022-04-05] VITALS (10 sets, daily range): BP systolic 136–163; BP diastolic 65–88; PULSE 60–70; RESP 14–18; TEMP 36.3–36.8; O2SAT 93–96
[2022-04-05 06:53] LABS: Hemoglobin 10.8 g/dl (14.0-18.0); Mean Corpuscular HGB Conc 30.9 g/dl (31.0-36.0); Mean Corpuscular Hemoglobin 30.1 pg (27.0-33.0); Mean Corpuscular Volume 97.5 fL (80.0-98.0); Mean Platelet Volume 11.5 fL (9.4-12.4); Platelet Count 147 X10*3/uL (160-400); Red Blood Count 3.59 X10*6/uL (4.60-5.80); Red Cell Distribution Width 14.9 % (11.0-16.0); White Blood Count 13.1 X10*3/uL (4.8-10.8)
[2022-04-05 07:18] LABS: B Type Natriuretic Peptide 265 pg/mL (<100)
[2022-04-05 07:30] LABS: Anion Gap 13 (12-20); Blood Urea Nitrogen 47 mg/dL (9-16); Calcium 8.9 mg/dL (8.4-10.2); Carbon Dioxide 31 mmol/L (22-29); Chloride 102 mmol/L (96-108); Creatinine Clr Calc Pharmacy 46.8; Estimated Glomerular Filt Rate 44; Glucose Random 186 mg/dL (60-115); Magnesium 2.3 mg/dL (1.6-2.6); Potassium 5.6 mmol/L (3.3-5.1); Sodium 140 mmol/L (135-145)
[2022-04-05 07:46] LABS: Glucose, Whole Blood 170 mg/dL (60-115)
[2022-04-05] MEDS: Albuterol/Iprat 2.5/0.5MG 3 ML AMPUL.NEB INHALE ×4 (07:58→21:03)
[2022-04-05] MEDS: Insulin Lispro 100 UNIT/ML 3 ML VIAL SUBCUT ×4 (08:04→21:29)
[2022-04-05] MEDS: Multivitamin TABLET 1 TAB PO (08:05)
[2022-04-05] MEDS: methylPREDNISolone Sod Succ 40 MG/ML VIAL IVPUSH ×2 (08:05→21:29)
[2022-04-05] MEDS: Doxycycline Monohydrate 100 MG CAPSULE PO ×2 (08:05→21:30)
[2022-04-05] MEDS: Thiamine HCL 100 MG TABLET PO (08:05)
[2022-04-05] MEDS: Furosemide 40 MG/4 ML VIAL IVPUSH (08:05)
[2022-04-05] MEDS: Folic Acid 1 MG TABLET PO (08:05)
[2022-04-05] MEDS: Magnesium Oxide 400 MG TABLET PO ×2 (08:05→21:30)
[2022-04-05] MEDS: Escitalopram Oxalate 10 MG TABLET PO (08:06)
[2022-04-05] MEDS: carvediloL 3.125 MG TABLET PO ×2 (08:06→21:30)
[2022-04-05 10:45] LABS: Glucose, Whole Blood 210 mg/dL (60-115)
[2022-04-05] MEDS: Heparin Sodium,Porcine 5,000 UNIT/ML VIAL 5000 UNIT SUBCUT ×2 (11:02→21:29)
--- NOTE | 2022-04-05 11:45 | PM.PNCARD ---
Subjective Subjective Date of Service: 04/05/22 <GUILLERMINA Christopher - Last Filed: 04/05/22 15:51> 04/05/22 <Martin Franco MD - Last Filed: 04/05/22 17:28> Principal diagnosis: CHF, COPD exacerbation <GUILLERMINA Christopher - Last Filed: 04/05/22 15:51> Interval history: Seen at 1000. Today he reports that he is improving but breathing not back to normal yet. Wearing O2 with 2 liters. Does not wear O2 at home. Congested cough at times. No orthopnea or pitting edema. Legs scaly. Denies chest pains, palpitation, dizziness. Got up to a standing position without assistance. Ayoub in place. Tele shows V paced rhythm. <GUILLERMINA Christopher - Last Filed: 04/05/22 15:51> Review of Systems Review of Systems as above <GUILLERMINA Christopher - Last Filed: 04/05/22 15:51> Yes all other systems are reviewed and are negative <GUILLERMINA Christopher - Last Filed: 04/05/22 15:51> Physical Exam Vital Signs: Last Vital Signs Temp 97.8 F 04/05/22 10:49 Pulse 70 04/05/22 10:49 Resp 14 04/05/22 10:49 BP 143/68 H 04/05/22 10:49 Pulse Ox 94 04/05/22 10:49 O2 Del Method 04/05/22 10:49 O2 Flow Rate 2 04/05/22 10:49 BMI result Body Mass Index 38.5 <GUILLERMINA Christopher - Last Filed: 04/05/22 15:51> Const General: cooperative, comfortable and no acute distress <GUILLERMINA Christopher - Last Filed: 04/05/22 15:51> Orientation/consciousness: patient oriented x3 <GUILLERMINA Christopher - Last Filed: 04/05/22 15:51> Neck Neck: Yes normal visual inspection and Yes no JVD <GUILLERMINA Christopher - Last Filed: 04/05/22 15:51> Resp Other: mild expiratory wheeze noted posteriorly, upper airway congestion noted with cough <Aundrea Rowe NP-C - Last Filed: 04/05/22 15:51> Effort & Inspection: normal respiratory effort <[facility] Row[facility] - Last Filed: 04/05/22 15:51> Auscultation: clear to auscultation bilaterally, no crackles, no rales and no rhonchi <Aundrea Soledad COSMETOLOGY PROFESSOR-C - Last Filed: 04/05/22 15:51> Cardio Jugular venous distension: no JVD <Aundrea Soledad [facility] - Last Filed: 04/05/22 15:51> Rate: regular rate <Aundrea Soledad [facility] - Last Filed: 04/05/22 15:51> Rhythm: regular rhythm <Aundrea Soledad [facility] - Last Filed: 04/05/22 15:51> Heart sounds: S1 normal heart sound present, S2 normal heart sound present, no gallops, no murmurs and no rubs <Aundrea Soledad [facility] - Last Filed: 04/05/22 15:51> GI Inspection: Yes normal to inspection <Aundrea Soledad [facility] - Last Filed: 04/05/22 15:51> Neuro General: patient oriented x3 <Aundrea Rowe [facility] - Last Filed: 04/05/22 15:51> Extrem Other: Thick scaly skin on lower leg - he reports from iodine poisoning <Aundrea Rowe [facility] - Last Filed: 04/05/22 15:51> Psych Appearance: grossly normal <Aundrea Rowe [facility] - Last Filed: 04/05/22 15:51> Mental Status: mental status grossly normal <Aundrea Soledad [facility] - Last Filed: 04/05/22 15:51> Speech and movement: Normal speech and movement present <Aundrea Rowe [facility] - Last Filed: 04/05/22 15:51> Objective Labs and Meds Result diagrams: : 04/05/22 06:07 04/05/22 06:07 <Aundrea Rowe COSMETOLOGY PROFESSOR-C - Last Filed: 04/05/22 15:51> Lab results: Laboratory Results - last 24 hr 04/04/22 04/04/22 04/05/22 15:58 21:00 06:07 WBC RBC Hgb Hct MCV MCH MCHC RDW Plt Count MPV Absolute Nucleated RBC Nucleated RBC % (auto) Sodium 140 Potassium 5.6 H Chloride 102 Carbon Dioxide 31 H Anion Gap 13 BUN 47 H Creatinine 1.51 H Estim Creat Clear Calc 46.8 Estimated GFR 44 POC Glucose 274 H 206 H Random Glucose 186 H Calcium 8.9 Magnesium 2.3 B-Natriuretic Peptide 04/05/22 04/05/22 04/05/22 06:07 06:07 07:34 WBC 13.1 H RBC 3.59 L Hgb 10.8 L Hct 35.0 L MCV 97.5 MCH 30.1 MCHC 30.9 L RDW 14.9 Plt Count 147 L MPV 11.5 Absolute Nucleated RBC 0.000 Nucleated RBC % (auto) 0.0 Sodium Potassium Chloride Carbon Dioxide Anion Gap BUN Creatinine Estim Creat Clear Calc Estimated GFR POC Glucose 170 H Random Glucose Calcium Magnesium B-Natriuretic Peptide 265 H 04/05/22 10:41 WBC RBC Hgb Hct MCV MCH MCHC RDW Plt Count MPV Absolute Nucleated RBC Nucleated RBC % (auto) Sodium Potassium Chloride Carbon Dioxide Anion Gap BUN Creatinine Estim Creat Clear Calc Estimated GFR POC Glucose 210 H Random Glucose Calcium Magnesium B-Natriuretic Peptide <GUILLERMINA Christopher - Last Filed: 04/05/22 15:51> Progress Note: A&P Assessment and plan (1) Acute exacerbation of CHF (congestive heart failure): Status: Acute <GUILLERMINA Christopher - Last Filed: 04/05/22 15:51> Assessment and Plan: Admit with increased shortness of breath. Treated for heart failure and COPD exacerbation. An echocardiogram had been done on 03/04/2022 showing EF 50-55%, severe biatrial enlargement, mild pulmonary hypertension. He is being diuresed with IV Lasix. Fluid balance -2300 cc since admission. He is still wearing oxygen supplement. He tells me his breathing is not yet at baseline. On exam he has noted fine expiratory wheezes. BNP 265 today, 357 on admit. Will continue with IV Lasix. Strict I&O monitoring. Close monitoring of electrolytes and kidney function. BMP and BNP in the a.m.. We will follow <GUILLERMINA Christopher - Last Filed: 04/05/22 15:51> Admit with increased shortness of breath. Treated for heart failure and COPD exacerbation. An echocardiogram had been done on 03/04/2022 showing EF 50-55%, severe biatrial enlargement, mild pulmonary hypertension. He is being diuresed with IV Lasix. Fluid balance -2300 cc since admission. He is still wearing oxygen supplement. He tells me his breathing is not yet at baseline. On exam he has noted fine expiratory wheezes. BNP 265 today, 357 on admit. Will continue with IV Lasix. Strict I&O monitoring. Close monitoring of electrolytes and kidney function. BMP and BNP in the a.m.. We will follow Patient seen and examined. Patient says he is improving but still not at baseline. Has been diuresing gently. Continue IV Lasix. Continue to manage blood pressure aggressively. Continue COPD management. Add spironolactone 12.5 mg to his regimen. Out of bed to chair. Continue to monitor intake and output chart as well as renal function electrolytes closely. Will continue to follow with you <Martin Franco MD - Last Filed: 04/05/22 17:28> (2) COPD with acute exacerbation: Status: Acute <GUILLERMINA Christopher - Last Filed: 04/05/22 15:51> Time Spent With Patient Time: Total time managing care of this patient today __22__ minutes. <GUILLERMINA Christopher - Last Filed: 04/05/22 15:51> Progress Note: Quality Stroke Does the patient have a stroke diagnosis?: No <GUILLERMINA Christopher - Last Filed: 04/05/22 15:51> Procedures Date of Service Date of Service: 04/05/22 <GUILLERMINA Christopher - Last Filed: 04/05/22 15:51>
--- NOTE | 2022-04-05 13:49 | P.PNIM_ITS ---
Subjective Subjective Date of Service: 04/05/22 Interval History: No acute events overnight. States breathing somewhat improved Review of Systems Denies chest pain Denies shortness of breath Denies nausea vomiting diarrhea Denies fever chills Physical Exam Vital Signs: Vital Signs: Last Vital Signs Temp 97.8 F 04/05/22 10:49 Pulse 64 04/05/22 11:58 Resp 16 04/05/22 11:58 BP 143/68 H 04/05/22 10:49 Pulse Ox 94 04/05/22 10:49 O2 Del Method 04/05/22 10:49 O2 Flow Rate 2 04/05/22 10:49 BMI result Body Mass Index 38.5 Const: Other: Awake alert no acute distress Resp: Other: Clear to auscultation bilaterally no rales rhonchi or wheezes Cardio: Other: No S4; positive S1-S2; no S3 murmurs rubs or gallops Extrem: Other: No added edema bilateral Objective Data Active Medications Acetaminophen (Acetaminophen 325 Mg Tablet) 650 mg PO Q6H PRN PRN Reason: Pain, Mild (Pain Scale 1-3) Albuterol/Ipratropium (Albuterol/Iprat 2.5/0.5mg 3 Ml Ampul.Neb) 3 ml INHALE Q4H PRN PRN Reason: Shortness of Breath/Wheezing Albuterol/Ipratropium (Albuterol/Iprat 2.5/0.5mg 3 Ml Ampul.Neb) 3 ml INHALE RQ4H WHILE AWAKE [facility] Last Admin: 04/05/22 11:57 Dose: 3 ml Documented By: YAZAN Bisacodyl (Bisacodyl 10 Mg Supp.Rect) 10 mg [place] DAILY PRN PRN Reason: Constipation Carvedilol (Carvedilol 3.125 Mg Tablet) 3.125 mg PO BID [facility]; Protocol Last Admin: 04/05/22 08:06 Dose: 3.125 mg Documented By: DEBBIE Cefuroxime Axetil (Cefuroxime Axetil 250 Mg Tablet) 250 mg PO Q12H [facility] Last Admin: 04/05/22 08:05 Dose: 250 mg Documented By: DEBBIE Dextrose (Dextrose 50 % 25 Gm/50 Ml Syringe) 25 gm IVPUSH Q15M PRN; Protocol PRN Reason: per Hypoglycemia Standing Ord. Docusate Sodium (Docusate Sodium 100 Mg Capsule) 100 mg PO DAILY PRN PRN Reason: Constipation Doxycycline Monohydrate (Doxycycline Monohydrate 100 Mg Capsule) 100 mg PO Q12H [facility] Last Admin: 04/05/22 08:05 Dose: 100 mg Documented By: DEBBIE Escitalopram Oxalate (Escitalopram Oxalate 10 Mg Tablet) 10 mg PO DAILY [facility] Last Admin: 04/05/22 08:06 Dose: 10 mg Documented By: DEBBIE Folic Acid (Folic Acid 1 Mg Tablet) 1 mg PO DAILY [facility] Last Admin: 04/05/22 08:05 Dose: 1 mg Documented By: DEBBIE Furosemide (Furosemide 40 Mg/4 Ml Vial) 40 mg IVPUSH DAILY [facility]; Protocol Last Admin: 04/05/22 08:05 Dose: 40 mg Documented By: DEBBIE Glucose (Glucose Gel 15 Gm Gel..Gram.) 15 gm PO Q15M PRN; Protocol PRN Reason: per Hypoglycemia Standing Ord. Heparin Sodium (Porcine) (Heparin Sodium,Porcine 5,000 Unit/Ml Vial) 5,000 unit SUBCUT Q12H [facility] Last Admin: 04/05/22 11:02 Dose: 5,000 unit Documented By: EDBBIE Insulin Human Lispro (Insulin Lispro 100 Unit/Ml 3 Ml Vial) 0 unit SUBCUT QIDACHS [facility]; Protocol Last Admin: 04/05/22 11:03 Dose: 4 unit Documented By: DEBBIE Magnesium Hydroxide (Milk Of Magnesia 30 Ml Oral.Susp) 30 ml PO DAILY PRN PRN Reason: Constipation Last Admin: 04/03/22 14:56 Dose: 30 ml Documented By: AALIYAH Magnesium Oxide (Magnesium Oxide 400 Mg Tablet) 400 mg PO BID [facility] Last Admin: 04/05/22 08:05 Dose: 400 mg Documented By: DEBBIE Methylprednisolone Sodium Succinate (Methylprednisolone Sod Succ 40 Mg/Ml Vial) 40 mg IVPUSH Q12H [facility] Last Admin: 04/05/22 08:05 Dose: 40 mg Documented By: DEBBIE Multivitamins/Vitamin C (Multivitamin Tablet) 1 tab PO DAILY [facility] Last Admin: 04/05/22 08:05 Dose: 1 tab Documented By: DEBBIE Ondansetron HCl (Ondansetron Hcl 4 Mg/2 Ml Vial) 4 mg IVPUSH Q8H PRN PRN Reason: Nausea and Vomiting Pharmacy Consult (Consult Rx Perform Med Rec) 1 each MISCELLANE ONCE PRN PRN Reason: patient is PT / CM Polyethylene Glycol (Polyethylene Glycol 3350 17 Gm Powd.Pack) 17 gm PO DAILY PRN PRN Reason: Constipation Pravastatin Sodium (Pravastatin Sodium 10 Mg Tablet) 10 mg PO BEDTIME [facility] Last Admin: 04/04/22 21:49 Dose: 10 mg Documented By: AGUS Sodium Biphosphate/Sodium Phosphate (Sodium Phosphate,[place]-Dibasic 133 Ml Enema) 133 ml [place] DAILY PRN PRN Reason: Constipation Sodium Chloride (0.9 % Sodium Chloride Flush 3 Ml Syringe) 3 ml IVFLUSH QSHIFT [facility] Last Admin: 04/05/22 08:05 Dose: 3 ml Documented By: DEBBIE Tamsulosin HCl (Tamsulosin Hcl 0.4 Mg Capsule) 0.4 mg PO BEDTIME [facility] Last Admin: 04/04/22 21:48 Dose: 0.4 mg Documented By: AGUS Thiamine HCl (Thiamine Hcl 100 Mg Tablet) 100 mg PO DAILY [facility] Last Admin: 04/05/22 08:05 Dose: 100 mg Documented By: DEBBIE Labs CBC & Chem 7: 04/05/22 06:07 04/05/22 06:07 Labs: Laboratory Results - last 24 hr 04/04/22 04/04/22 04/05/22 15:58 21:00 06:07 MCV MCH MCHC RDW Plt Count MPV Absolute Nucleated RBC Nucleated RBC % (auto) Anion Gap 13 Estim Creat Clear Calc 46.8 Estimated GFR 44 POC Glucose 274 H 206 H Random Glucose 186 H Calcium 8.9 Magnesium 2.3 B-Natriuretic Peptide 04/05/22 04/05/22 04/05/22 06:07 06:07 07:34 MCV 97.5 MCH 30.1 MCHC 30.9 L RDW 14.9 Plt Count 147 L MPV 11.5 Absolute Nucleated RBC 0.000 Nucleated RBC % (auto) 0.0 Anion Gap Estim Creat Clear Calc Estimated GFR POC Glucose 170 H Random Glucose Calcium Magnesium B-Natriuretic Peptide 265 H 04/05/22 10:41 MCV MCH MCHC RDW Plt Count MPV Absolute Nucleated RBC Nucleated RBC % (auto) Anion Gap Estim Creat Clear Calc Estimated GFR POC Glucose 210 H Random Glucose Calcium Magnesium B-Natriuretic Peptide Assessment and Plan (1) Acute exacerbation of CHF (congestive heart failure): Status: Acute (2) COPD (chronic obstructive pulmonary disease): Status: Acute (3) UTI (urinary tract infection): Status: Acute Plan 8 HFpEF 6yo M LTC resident @ [facility] with chronic Ayoub, COPD, HFpEF presenting with scrotal swelling and became dyspneic and hypoxic while awaiting placement 1.Acute/chronic HFpEF - continue IV Lasix drip 24 hours re-evaluate -strict I&O -follow renals/divalents 2.COPD exacerbation - IV steroids, nebs, doxycycline d#1 -titrate O2 3.Klebsiella oxytoca UTI -complete 10 day course of Ceftin 4.Chronic AF rate control -rate control adequate -not on anticoagulation due to psoas hematoma - continue carvedilol 5.CKD stage 4 -follow renals/divalents - avoid nephrotoxins, SCr close to baseline 6. DM2 - correction-dose lispro, -titrate as indicated DNR DNI For IV diuresis to treat Requires ongoing hospitalization for IV diuresis to treat acute on chronic heart failure Time Spent With Patient Time: Total time managing care of this patient today ____ minutes. Quality Stroke Does the patient have a stroke diagnosis?: No VTE Prior VTE?: No VTE Risk Level:: Medical - moderate - high VTE Device Contraindication: Treatment Not Indicated VTE Drug Contraindication: N/A - Med Ordered
[2022-04-05 15:59] LABS: Glucose, Whole Blood 171 mg/dL (60-115)
[2022-04-05 19:30] LABS: Glucose, Whole Blood 204 mg/dL (60-115)
[2022-04-05] MEDS: Pravastatin Sodium 10 MG TABLET PO (21:30)
[2022-04-05] MEDS: Tamsulosin HCL 0.4 MG CAPSULE PO (21:30)
[2022-04-06] VITALS (7 sets, daily range): BP systolic 140–159; BP diastolic 74–90; PULSE 60–74; RESP 12–20; TEMP 36.1–37.1; O2SAT 92–96
[2022-04-06 06:34] LABS: MANUAL DIFF FLAG NO
[2022-04-06 06:39] LABS: Basophils Percent Auto 0.1 % (0-2); Hematocrit 34.5 % (42.0-52.0); Hemoglobin 10.7 g/dl (14.0-18.0); Imm Gran Abs Auto 0.09 X10*3/uL (0.00-0.03); Imm Gran Pct Auto 0.7 % (0.0-0.4); Lymphocytes Absolute Auto 0.8 X10*3/uL (1.2-4.9); Lymphocytes Percent Auto 6.9 % (20-40); Mean Corpuscular Volume 96.6 fL (80.0-98.0); Mean Platelet Volume 10.9 fL (9.4-12.4); Monocytes Absolute Auto 0.4 X10*3/uL (0.1-1.2); Monocytes Percent Auto 3.3 % (2-11); Neutrophils Absolute Auto 10.8 x10*3/uL (2.0-8.3); Platelet Count 149 X10*3/uL (160-400); Red Blood Count 3.57 X10*6/uL (4.60-5.80); Red Cell Distribution Width 14.8 % (11.0-16.0); White Blood Count 12.1 X10*3/uL (4.8-10.8)
[2022-04-06 07:00] LABS: B Type Natriuretic Peptide 346 pg/mL (<100)
[2022-04-06 07:12] LABS: Alanine Aminotransferase 8 U/L (0-40); Albumin Level 3.2 g/dL (3.5-5.0); Alkaline Phosphatase 96 U/L (39-117); Anion Gap 12 (12-20); Aspartate Amino Transferase 15 U/L (5-37); Bilirubin Total 0.3 mg/dL (0.0-1.0); Blood Urea Nitrogen 51 mg/dL (9-16); Carbon Dioxide 32 mmol/L (22-29); Chloride 102 mmol/L (96-108); Creatinine Clr Calc Pharmacy 48.4; Estimated Glomerular Filt Rate 46; Glucose Fasting 162 mg/dL (60-99); Sodium 141 mmol/L (135-145); Total Protein 6.1 g/dL (6.5-8.0)
[2022-04-06 07:36] LABS: Glucose, Whole Blood 150 mg/dL (60-115)
[2022-04-06] MEDS: Furosemide 40 MG/4 ML VIAL IVPUSH (07:51)
[2022-04-06] MEDS: methylPREDNISolone Sod Succ 40 MG/ML VIAL IVPUSH (07:51)
[2022-04-06] MEDS: Thiamine HCL 100 MG TABLET PO (07:51)
[2022-04-06] MEDS: Multivitamin TABLET 1 TAB PO (07:51)
[2022-04-06] MEDS: Escitalopram Oxalate 10 MG TABLET PO (07:51)
[2022-04-06] MEDS: carvediloL 3.125 MG TABLET PO (07:51)
[2022-04-06] MEDS: Doxycycline Monohydrate 100 MG CAPSULE PO (07:52)
[2022-04-06] MEDS: Folic Acid 1 MG TABLET PO (07:52)
[2022-04-06] MEDS: Magnesium Oxide 400 MG TABLET PO (07:52)
[2022-04-06] MEDS: Albuterol/Iprat 2.5/0.5MG 3 ML AMPUL.NEB INHALE ×2 (08:04→11:35)
--- NOTE | 2022-04-06 09:10 | P.CDIC_ITS ---
CDI Concurrent Query Documentation Clarification: PHYSICIAN'S DOCUMENTATION REQUEST Date of Query: 04/06/22 0910 Patient Name: Asad Boogie Admit Date: 04/03/22 Dear Doctor, A review of the medical record indicates additional documentation may be needed. Please review below and update the documentation accordingly. Clinical Indicators: Is there a diagnosis that correlates with these lab findings: Risk Factors/Clinical Indicators/Treatments LAB FINDINGS: 04/05 - potassium 5.6 H Based on the above, could you clarify in the Progress Notes the appropriate diagnosis, if significant, that supports the above abnormalities and additional evaluation, monitoring, and/or treatment rendered: * Hyperkalemia or other etiology of lab findings * Labs indicate a diagnosis of (please specify) * Other (please specify) * Unable to determine Use of terms such as suspected, likely, concern for, or probable (associated with a specific diagnosis that is being evaluated, monitored, or treated as if it exists) are acceptable and can be coded in the inpatient setting, when documented at the time of discharge. Thank you, Shana Guillen [facility], CDIS Extension: [phone] Please use your independent medical judgment in providing your response. THIS QUERY IS PART OF THE PERMANENT MEDICAL RECORD
[2022-04-06 11:04] LABS: Glucose, Whole Blood 281 mg/dL (60-115)
[2022-04-06] MEDS: Heparin Sodium,Porcine 5,000 UNIT/ML VIAL 5000 UNIT SUBCUT (11:07)
[2022-04-06] MEDS: Insulin Lispro 100 UNIT/ML 3 ML VIAL SUBCUT (11:07)
--- NOTE | 2022-04-06 12:54 | P.PNCA_ITS ---
Subjective Subjective Date of Service: 04/06/22 <GUILLERMINA Christopher - Last Filed: 04/06/22 13:03> 04/06/22 <Martin Franco MD - Last Filed: 04/06/22 16:09> Principal diagnosis: CHF, COPD exacerbation <GUILLERMINA Christopher - Last Filed: 04/06/22 13:03> Interval history: Seen at 1200. Today he reports breathing is still labored at times but tells me it always is. His primary complaint is that he is feeling weak from staying in bed. Was up in chair yesterday and tells me his legs were giving out. Wearing O 2 2 liters at present and says that he used O2 at the last rehab he was in also. He tells me he came from a rehab facility and does not have a home elswehere. No chest pains, palpitation, dizziness. Legs have scaly skin which he says is from iodine poisoning years ago. Tele V paced rhythm, rate 60s. <GUILLERMINA Christopher - Last Filed: 04/06/22 13:03> Review of Systems Review of Systems as above <GUILLERMINA Christopher - Last Filed: 04/06/22 13:03> Yes all other systems are reviewed and are negative <GUILLERMINA Christopher - Last Filed: 04/06/22 13:03> Physical Exam Vital Signs: Last Vital Signs Temp 97.5 F 04/06/22 11:02 Pulse 64 04/06/22 11:44 Resp 20 04/06/22 11:38 BP 143/78 H 04/06/22 11:02 Pulse Ox 96 04/06/22 11:02 O2 Del Method 04/06/22 11:02 O2 Flow Rate 2 04/06/22 11:02 BMI result Body Mass Index 38.5 <GUILLERMINA Christopher - Last Filed: 04/06/22 13:03> Const General: cooperative, comfortable and no acute distress <GUILLERMINA Christopher - Last Filed: 04/06/22 13:03> Orientation/consciousness: patient oriented x3 <GUILLERMINA Christopher - Last Filed: 04/06/22 13:03> Neck Neck: Yes normal visual inspection and Yes no JVD <Aundrearadhika Rowe NP - Last Filed: 04/06/22 13:03> Resp Other: No wheeze noted today. has rales noted in left base <Aundrea Rowe NP - Last Filed: 04/06/22 13:03> Effort & Inspection: normal respiratory effort <Aundrea BLANCA Rowe - Last Filed: 04/06/22 13:03> Auscultation: clear to auscultation bilaterally, crackles, no rales and no rhonchi <Aundrea Soledad [facility] - Last Filed: 04/06/22 13:03> Cardio Jugular venous distension: no JVD <Aundrea Soledad [facility] - Last Filed: 04/06/22 13:03> Rate: regular rate <Aundrea Soledad [facility] - Last Filed: 04/06/22 13:03> Rhythm: regular rhythm <Aundrea Soledad [facility] - Last Filed: 04/06/22 13:03> Heart sounds: S1 normal heart sound present, S2 normal heart sound present, no gallops, no murmurs and no rubs <Aundrea Soledad [employer]- - Last Filed: 04/06/22 13:03> GI Inspection: Yes normal to inspection <Aundrearadhika Rowe [facility] - Last Filed: 04/06/22 13:03> Neuro General: patient oriented x3 <Aundrea Rowe NP - Last Filed: 04/06/22 13:03> Extrem Other: Thick scaly skin on lower leg - he reports from iodine poisoning <Aundrearadhika Rowe [facility] - Last Filed: 04/06/22 13:03> Psych Appearance: grossly normal <Aundrea BLANCA Rowe - Last Filed: 04/06/22 13:03> Mental Status: mental status grossly normal <Aundrea Rowe [facility] - Last Filed: 04/06/22 13:03> Speech and movement: Normal speech and movement present <Aundrea Soledad [facility] - Last Filed: 04/06/22 13:03> Objective Labs and Meds Result diagrams: : 04/06/22 05:55 04/06/22 05:55 <GUILLERMINA Christopher - Last Filed: 04/06/22 13:03> Lab results: Laboratory Results - last 24 hr 04/05/22 04/05/22 04/06/22 15:10 19:01 05:55 WBC 12.1 H RBC 3.57 L Hgb 10.7 L Hct 34.5 L MCV 96.6 MCH 30.0 MCHC 31.0 RDW 14.8 Plt Count 149 L MPV 10.9 Immature Gran % (Auto) 0.7 H Neut % (Auto) 89.0 H Lymph % (Auto) 6.9 L [place] % (Auto) 3.3 Eos % (Auto) 0.0 Baso % (Auto) 0.1 Lymph # (Auto) 0.8 L [place] # (Auto) 0.4 Eos # (Auto) 0.0 Baso # (Auto) 0.0 Abs Immat Gran (auto) 0.09 H Absolute Neuts (auto) 10.8 H Absolute Nucleated RBC 0.000 Nucleated RBC % (auto) 0.0 Sodium Potassium Chloride Carbon Dioxide Anion Gap BUN Creatinine Estim Creat Clear Calc Estimated GFR POC Glucose 171 H 204 H Fasting Glucose Calcium Total Bilirubin AST ALT Alkaline Phosphatase B-Natriuretic Peptide Total Protein Albumin 04/06/22 04/06/22 04/06/22 05:55 05:55 07:29 WBC RBC Hgb Hct MCV MCH MCHC RDW Plt Count MPV Immature Gran % (Auto) Neut % (Auto) Lymph % (Auto) [place] % (Auto) Eos % (Auto) Baso % (Auto) Lymph # (Auto) [place] # (Auto) Eos # (Auto) Baso # (Auto) Abs Immat Gran (auto) Absolute Neuts (auto) Absolute Nucleated RBC Nucleated RBC % (auto) Sodium 141 Potassium 5.0 Chloride 102 Carbon Dioxide 32 H Anion Gap 12 BUN 51 H Creatinine 1.46 H Estim Creat Clear Calc 48.4 Estimated GFR 46 POC Glucose 150 H Fasting Glucose 162 H Calcium 9.0 Total Bilirubin 0.3 AST 15 ALT 8 Alkaline Phosphatase 96 B-Natriuretic Peptide 346 H Total Protein 6.1 L Albumin 3.2 L 04/06/22 10:59 WBC RBC Hgb Hct MCV MCH MCHC RDW Plt Count MPV Immature Gran % (Auto) Neut % (Auto) Lymph % (Auto) [place] % (Auto) Eos % (Auto) Baso % (Auto) Lymph # (Auto) [place] # (Auto) Eos # (Auto) Baso # (Auto) Abs Immat Gran (auto) Absolute Neuts (auto) Absolute Nucleated RBC Nucleated RBC % (auto) Sodium Potassium Chloride Carbon Dioxide Anion Gap BUN Creatinine Estim Creat Clear Calc Estimated GFR POC Glucose 281 H Fasting Glucose Calcium Total Bilirubin AST ALT Alkaline Phosphatase B-Natriuretic Peptide Total Protein Albumin <GUILLERMINA Christopher - Last Filed: 04/06/22 13:03> Progress Note: A&P Assessment and plan (1) Acute exacerbation of CHF (congestive heart failure): Status: Acute <GUILLERMINA Christopher - Last Filed: 04/06/22 13:03> Assessment and Plan: Admit with increased shortness of breath. Treated for heart failure and COPD exacerbation. An echocardiogram had been done on 03/04/2022 showing EF 50- 55%, severe biatrial enlargement, mild pulmonary hypertension. He is being diuresed with IV Lasix. Fluid balance 3.2 liter since admission. He is still wearing oxygen supplement. but tells me he was using O2 at rehab as well. He reports chronic sob for years of smoking . He is unclear if breathing is at baseline as he has not been moving around much. Will change lasix to po 40mg daily. His home dose had been 20mg daily. Ongoing management of COPD as directed by hospitalist. Increase activity as tolerated. Eval for home O2 if unable to wean to off with sat> 90%. He has his pacemaker followed by cardiology group in [place]. He can continue to follow with them after discharge. We will sign off. <GUILLERMINA Christopher - Last Filed: 04/06/22 13:03> Admit with increased shortness of breath. Treated for heart failure and COPD exacerbation. An echocardiogram had been done on 03/04/2022 showing EF 50- 55%, severe biatrial enlargement, mild pulmonary hypertension. He is being diuresed with IV Lasix. Fluid balance 3.2 liter since admission. He is still wearing oxygen supplement. but tells me he was using O2 at rehab as well. He reports chronic sob for years of smoking . He is unclear if breathing is at baseline as he has not been moving around much. Will change lasix to po 40mg daily. His home dose had been 20mg daily. Ongoing management of COPD as directed by hospitalist. Increase activity as tolerated. Eval for home O2 if unable to wean to off with sat> 90%. He has his pacemaker followed by cardiology group in [place]. He can continue to follow with them after discharge. We will sign off. Patient seen and examined. Case discussed with Aundrea Rowe. Patient seems to have diuresed well over the last few days with improving heart failure symptoms. Continues to have shortness of breath and oxygen requirement. Has both combination diastolic heart failure as well as COPD exacerbation. From now can switch to oral diuretics. Can follow-up with his own felt finisher in [place] for pacemaker as well as heart failure. May require oxygen on discharge. Will sign of the case. <Martin Franco MD - Last Filed: 04/06/22 16:09> (2) COPD with acute exacerbation: Status: Acute <GUILLERMINA Christopher - Last Filed: 04/06/22 13:03> Time Spent With Patient Time: Total time managing care of this patient today _22___ minutes. <GUILLERMINA Christopher - Last Filed: 04/06/22 13:03> Progress Note: Quality Stroke Does the patient have a stroke diagnosis?: No <GUILLERMINA Christopher - Last Filed: 04/06/22 13:03> Procedures Date of Service Date of Service: 04/06/22 <GUILLERMINA Christopher - Last Filed: 04/06/22 13:03>
--- NOTE | 2022-04-06 14:25 | P.DS_ITS ---
DS: Providers Provider Date of Service: 04/06/22 Date of admission: 04/03/22 21:52 Date of discharge: 04/06/22 Primary care physician: Chato Valencia MD Consults: 04/04/22 07:58 Consult to Cardiology Routine Consulting Provider: Rock Palmer Reason for consultation: adhf DS: Diagnosis Discharge Diagnosis (1) Acute exacerbation of CHF (congestive heart failure): Status: Acute (2) COPD with acute exacerbation: Status: Acute (3) UTI (urinary tract infection): Status: Acute DS: Summary Hospital Course Hospital Course: This is an 86-year-old male with past medical history of COPD, CHF, CKD stage 3, BPH with obstructive uropathy and chronic Ayoub catheter, diabetes, depression, anxiety, hypertension, AFib not on anticoagulation due to chronic psoas hematoma, liver cirrhosis and currently being treated for UTI presented to the hospital on 1224 for evaluation of blood in the catheter and scrotal swelling.? Patient was boarding in the ED under physician observation for placement as he did not want to go back to [facility] where he currently resides but while boarding in the ED he was noted to have increased shortness of breath, increased oxygen requirement from his baseline, as well as lower extremity edema. While under physician observation was noted to be increasingly short of breath with increased O2 requirement. Was given DuoNeb and Solu-Medrol with improvement. Admitted for COPD exacerbation and started on doxycycline. Ceftin was continued for up ongoing UTI. .. Micro grew out Klebsiella sensitive to same. He was also noted to have an elevated BNP and workup consistent with mild CHF exacerbation for which he was diarrhea diuresed CHF exacerbation for which she was diuresed with IV Lasix 40 q.12 a of CHF and will be discharged [place] t this point in time he is over the acute exacerbation [place] on 40 of mg of Lasix daily. He will complete a course of Ceftin for UTI and doxycycline for CHF exacerbation along with prednisone taper Time Spent with Patient Time attestation: Total time managing care of this patient today ____ minutes. Discharge coordination time: Greater than 30 minutes Quality: Safe Use of Opioids Does Pt have an Active Cancer Diagnosis on the Problem List?: No Quality: Stroke Does the patient have a stroke diagnosis?: No Physical Exam Vital Signs: Vital Signs: Last Vital Signs Temp 97.5 F 04/06/22 11:02 Pulse 64 04/06/22 11:44 Resp 20 04/06/22 11:38 BP 143/78 H 04/06/22 11:02 Pulse Ox 96 04/06/22 11:02 O2 Del Method 04/06/22 11:02 O2 Flow Rate 2 04/06/22 11:02 BMI result Body Mass Index 38.5 Const: Other: Awake alert no acute distress Resp: Other: Clear to auscultation bilaterally no rales rhonchi or wheezes Cardio: Other: No S4; positive S1-S2; no S3 murmurs rubs or gallops Extrem: Other: No added edema bilateral DS: Data Data Completed and Pending Labs on day of discharge: Laboratory Results - last 24 hr 04/05/22 04/05/22 04/06/22 15:10 19:01 05:55 WBC 12.1 H RBC 3.57 L Hgb 10.7 L Hct 34.5 L MCV 96.6 MCH 30.0 MCHC 31.0 RDW 14.8 Plt Count 149 L MPV 10.9 Immature Gran % (Auto) 0.7 H Neut % (Auto) 89.0 H Lymph % (Auto) 6.9 L [place] % (Auto) 3.3 Eos % (Auto) 0.0 Baso % (Auto) 0.1 Lymph # (Auto) 0.8 L [place] # (Auto) 0.4 Eos # (Auto) 0.0 Baso # (Auto) 0.0 Abs Immat Gran (auto) 0.09 H Absolute Neuts (auto) 10.8 H Absolute Nucleated RBC 0.000 Nucleated RBC % (auto) 0.0 Sodium Potassium Chloride Carbon Dioxide Anion Gap BUN Creatinine Estim Creat Clear Calc Estimated GFR POC Glucose 171 H 204 H Fasting Glucose Calcium Total Bilirubin AST ALT Alkaline Phosphatase B-Natriuretic Peptide Total Protein Albumin 04/06/22 04/06/22 04/06/22 05:55 05:55 07:29 WBC RBC Hgb Hct MCV MCH MCHC RDW Plt Count MPV Immature Gran % (Auto) Neut % (Auto) Lymph % (Auto) [place] % (Auto) Eos % (Auto) Baso % (Auto) Lymph # (Auto) [place] # (Auto) Eos # (Auto) Baso # (Auto) Abs Immat Gran (auto) Absolute Neuts (auto) Absolute Nucleated RBC Nucleated RBC % (auto) Sodium 141 Potassium 5.0 Chloride 102 Carbon Dioxide 32 H Anion Gap 12 BUN 51 H Creatinine 1.46 H Estim Creat Clear Calc 48.4 Estimated GFR 46 POC Glucose 150 H Fasting Glucose 162 H Calcium 9.0 Total Bilirubin 0.3 AST 15 ALT 8 Alkaline Phosphatase 96 B-Natriuretic Peptide 346 H Total Protein 6.1 L Albumin 3.2 L 04/06/22 10:59 WBC RBC Hgb Hct MCV MCH MCHC RDW Plt Count MPV Immature Gran % (Auto) Neut % (Auto) Lymph % (Auto) [place] % (Auto) Eos % (Auto) Baso % (Auto) Lymph # (Auto) [place] # (Auto) Eos # (Auto) Baso # (Auto) Abs Immat Gran (auto) Absolute Neuts (auto) Absolute Nucleated RBC Nucleated RBC % (auto) Sodium Potassium Chloride Carbon Dioxide Anion Gap BUN Creatinine Estim Creat Clear Calc Estimated GFR POC Glucose 281 H Fasting Glucose Calcium Total Bilirubin AST ALT Alkaline Phosphatase B-Natriuretic Peptide Total Protein Albumin Discharge Plan Discharge Patient Disposition: Xfer LTC Discharge Diagnosis: Acute exacerbation of CHF Referrals: [facility] [Provider Group] (Call to establish and follow up with a primary care provider. If you already have a primary care provider, please follow up with them. ) [facility] Primary [facility], [place] [Provider Group] (Call to establish and follow up with a primary care provider. If you already have a primary care provider, please follow up with them. ) [facility] Primary [facility],Marek [Provider Group] (Call to establish and follow up with a primary care provider. If you already have a primary care provider, please follow up with them. ) [facility] [Provider Group] (Follow up with urology.) [facility] [Outside] - 1 Week Chato Valencia MD [Primary Care Provider] - 1 Week Discharge Medications: New furosemide 40 mg Tablet 40 mg PO DAILY Qty: 30 0RF Protocol: Hold for SBP< HOLD for SBP < : 90 cefuroxime axetil 250 mg Tablet 250 mg PO Q12H Qty: 14 0RF ipratropium-albuterol 0.5 mg-3 mg(2.5 mg base)/3 mL Solution For Nebulization 3 ml inhalation RQ4H WHILE AWAKE Qty: 270 0RF doxycycline monohydrate 100 mg Capsule 100 mg PO Q12H Qty: 14 0RF prednisone 10 mg tablet See Rx Instructions .Route .COMPLEX Qty: 45 0RF Rx Instructions: 10 mg orally; 5 tabs p.o. daily x3 days; 4 tabs p.o. daily x3 days; 3 tabs daily x3 days; 2 tabs daily x3 days; 1 tab daily x3 days Continued acetaminophen 325 mg Tablet 650 mg PO Q6H PRN (Reason: Fever Or Pain) magnesium hydroxide [Milk of Magnesia] 400 mg/5 mL Suspension 30 ml PO DAILY PRN (Reason: Constipation) bisacodyl 10 mg Suppository 10 mg TN DAILY PRN (Reason: Constipation) Fleet Enema 19-7 gram/118 mL Enema 118 ml TN DAILY PRN (Reason: Constipation) multivitamin Tablet 1 tab PO DAILY polyethylene glycol 3350 17 gram Powder In Packet 17 g PO DAILY PRN (Reason: Constipation) thiamine HCl (vitamin B1) 100 mg Tablet 100 mg PO DAILY carvedilol 3.125 mg tablet 3.125 mg PO BID pravastatin 10 mg tablet 10 mg PO BEDTIME tamsulosin 0.4 mg capsule 0.4 mg PO BEDTIME folic acid 1 mg tablet 1 mg PO DAILY escitalopram oxalate 10 mg tablet 10 mg PO DAILY magnesium oxide 400 mg magnesium Tablet 400 mg PO BID Discontinued furosemide [Lasix] 20 mg Tablet 20 mg PO DAILY cefdinir 300 mg capsule 300 mg PO Q12H Qty: 20 0RF Discharge Orders: Discharge Order (Routine); Ordered 04/06/22 Ordered By: Reji Bauman Diet: Advance to usual diet Activity on Discharge: As tolerated Stand Alone Forms: Patient Portal Discharge page Print Language: Mongolian Care Plan Goals: Complete course of Ceftin as ordered along with doxycycline and prednisone taper Health Concerns: Titrate O2 to maintain sats greater than equal 92% Plan of Treatment: As outlined Assessment: See discharge summary Patient Instructions: Ayoub Catheter Placement and Care (ED)
--- NOTE | 2022-04-06 14:43 | MHC.CM.PN ---
Patient has been medically cleared for dc to SNF/LTC today. Patient will return to LTC at [facility] today at 4PM via [facility]. CM spoke with Patient's Son/Mario @ [phone], who is aware of and in agreement with the dc plan (patient has Dementia). Last IMM addressed on 04/04/2022.
[2022-04-06 15:13] LABS: COVID-19 Test Negative (Negative); IDNOW Serial# 16C4AD1C
[2022-04-06 16:16] LABS: Glucose, Whole Blood 197 mg/dL (60-115)
--- NOTE | 2022-04-22 09:07 | P.CDIR_ITS ---
Documented by User: Shana Guillen CCS, CDIS 04/22/22 09:10 Retrospective Query PHYSICIAN'S DOCUMENTATION REQUEST Date of Query: 04/22/22907 Patient Name: Asad Boogie Admit Date: 04/03/22 Dear Doctor, A review of the medical record indicates additional documentation may be needed. Please review below and update the documentation accordingly. Clinical Indicators: Is there a diagnosis that correlates with the lab findings below: Risk Factors/Clinical Indicators/Treatments LABS: 04/05 - potassium 5.6 H Based on the above, could you clarify in the Progress Notes the appropriate diagnosis, if significant, that supports the above abnormalities and additional evaluation, monitoring, and/or treatment rendered: * Hyperkalemia or other etiology of lab findings * Labs indicate a diagnosis of (please specify) * Other (please specify) * Unable to determine Use of terms such as suspected, likely, concern for, or probable (associated with a specific diagnosis that is being evaluated, monitored, or treated as if it exists) are acceptable and can be coded in the inpatient setting, when documented at the time of discharge. Thank you, Shana Guillen CCS, CDIS Extension: [phone] Please use your independent medical judgment in providing your response. THIS QUERY IS PART OF THE PERMANENT MEDICAL RECORD Documented by User: Reji Bauman DO 05/01/22 12:56 Retrospective Query Provider Response: Other (Labs indicated diagnosis of hyperkalemia)
== END 2022-04-06 16:35 | DRG 291 ==
LOC: HO.ED 04-03 19:58 → HO.EDOVER 04-03 22:13 → HO.IMC 04-04 13:12
PROVIDERS: Family Medicine; Nurse Practitioner Family; Physician Assistant Medical; Admitting Provider Internal Medicine; Emergency Provider Student in an Organized Health Care Education/Training Program; PCP Family Medicine; Visit Provider Hospitalist
DX: I13.0 Hypertensive heart and chronic kidney disease with heart failure and stage 1 through stage 4 chronic kidney disease, or unspecified chronic kidney disease (principal); I50.33 Acute on chronic diastolic (congestive) heart failure; J96.01 Acute respiratory failure with hypoxia; N13.8 Other obstructive and reflux uropathy; N18.4 Chronic kidney disease, stage 4 (severe); N39.0 Urinary tract infection, site not specified; I48.20 Chronic atrial fibrillation, unspecified; F41.9 Anxiety disorder, unspecified; F32.9 Major depressive disorder, single episode, unspecified; Z66 Do not resuscitate; N40.1 Benign prostatic hyperplasia with lower urinary tract symptoms; E87.5 Hyperkalemia; K74.60 Unspecified cirrhosis of liver; Z95.0 Presence of cardiac pacemaker; E11.22 Type 2 diabetes mellitus with diabetic chronic kidney disease; I25.10 Atherosclerotic heart disease of native coronary artery without angina pectoris; Z20.822 Contact with and (suspected) exposure to COVID-19; Z87.891 Personal history of nicotine dependence; Z79.899 Other long term (current) drug therapy
CPT/HCPCS: 0241U; 36415; 71045; 80048; 80053; 82947; 83735; 83880; 84145; 84484; 85025; 85027; 87635; 93005; 94640; 97161; 97530; 99285; J1940; J2920; J2930

== ENCOUNTER 2022-04-06 21:09 | Emergency (ER) | payer MEDICARE, SELFPAY ==
[2022-04-06 21:19] VITALS: BP 120/54; PULSE 90; RESP 15; TEMP 36.8; O2SAT 96
[2022-04-06 21:27] VITALS: BP 120/54; PULSE 60; PULSE 61; RESP 12; TEMP 36.8; O2SAT 95; BMI 27.2
[2022-04-06 21:34] LABS: Glucose, Whole Blood 136 mg/dL (60-115)
--- NOTE | 2022-04-06 21:38 | PC.NURSE ---
Pt presented to ER from [facility] by EMS. Staff reported pt has been refusing medications, attempting to leave the facility, taking off oxygen, and pulling on his catheter. Pt has hx of dementia w/ behavioral disturbances, COPD, A-Fib. Pt is currently A&O to person, place, and situation, slightly confused on timing. Pt was seen recently and diagnosed with a UTI. Pt has a quarles catheter present on admission. Output is red tinged with some clots. Pt stated he has been taking his medications, pt is aware that he has a UTI, pt is refusing to take his antibiotics. Labs have been ordered and Dr King is at the bedside. Plan at this time is to replace his quarles and send labs.
--- NOTE | 2022-04-06 21:48 | ED_ITS ---
HPI - Male Genitourinary General Chief complaint: Urogenital-Male Stated complaint: BEHAVIORAL, AMS, FROM SNF Time Seen by Provider: 04/06/22 21:37 Source: patient and EMS Mode of arrival: EMS Limitations: no limitations History of Present Illness HPI Narrative: This is a 86-year-old male with history of COPD, CHF, CKD, BPH with obstructive uropathy require chronic indwelling Ayoub catheter, DM, depression, HTN, AFib not in any anticoagulation, patient with recurrent UTI presented from care home for evaluation of behavior change, Patient recently was diagnosed with UTI and patient refused to take his antibiotic. Patient also is complaining of increased swelling of his genitalia. Patient is known to have history of dementia and patient is DNR/DNI. Patient is able to provide history in the ED patient is aware of the reason why he is in the ED. Patient declined fever, chills, CP, SOB, abdominal pain, nausea, vomiting, diarrhea. Related Data Home Medications Medication Instructions Recorded Confirmed carvedilol 3.125 mg tablet 3.125 mg PO BID 03/02/22 04/06/22 escitalopram oxalate 10 mg tablet 10 mg PO DAILY 03/02/22 04/06/22 folic acid 1 mg tablet 1 mg PO DAILY 03/02/22 04/06/22 magnesium oxide 400 mg PO BID 03/02/22 04/06/22 multivitamin 1 tab PO DAILY 03/02/22 04/06/22 polyethylene glycol 3350 17 gram 17 g PO DAILY PRN Constipation 03/02/22 04/06/22 oral powder packet pravastatin 10 mg tablet 10 mg PO BEDTIME 03/02/22 04/06/22 tamsulosin 0.4 mg capsule 0.4 mg PO BEDTIME 03/02/22 04/06/22 thiamine HCl (vitamin B1) 100 mg 100 mg PO DAILY 03/02/22 04/06/22 tablet acetaminophen 325 mg tablet 650 mg PO Q6H PRN Fever Or Pain 04/02/22 04/06/22 bisacodyl 10 mg rectal suppository 10 mg GA DAILY PRN Constipation 04/02/22 04/06/22 magnesium hydroxide 400 mg/5 mL 30 ml PO DAILY PRN Constipation 04/02/22 04/06/22 oral suspension (Milk of Magnesia) sodium phosphates 19 gram-7 118 ml GA DAILY PRN Constipation 04/02/22 04/06/22 gram/118 mL enema (Fleet Enema) Previous Rx's Medication Instructions Recorded cefuroxime axetil 250 mg tablet 250 mg PO Q12H #14 tabs 04/06/22 doxycycline monohydrate 100 mg 100 mg PO Q12H #14 caps 04/06/22 capsule furosemide 40 mg tablet 40 mg PO DAILY #30 tabs 04/06/22 ipratropium 0.5 mg-albuterol 3 mg 3 ml inhalation RQ4H WHILE AWAKE 04/06/22 (2.5 mg base)/3 mL nebulization #270 mL soln prednisone 10 mg tablet See Rx Instructions .Route 04/06/22 .COMPLEX #45 tabs Allergies Allergy/AdvReac Type Severity Reaction Status Date / Time No Known Allergies Allergy Verified 03/30/22 13:36 Review of Systems Review of Systems: All other systems are reviewed and are negative Constitutional: Reports as per HPI and Reports no additional constitutional complaints Eyes: Reports as per HPI and Reports no additional eye complaints Reports system reviewed and no additional complaints, except as documented Cardiovascular: Reports as per HPI and Reports no additional cardiovascular complaints Respiratory: Reports as per HPI and Reports no additional respiratory complaints Gastrointestinal: Reports as per HPI and Reports no additional gastrointestinal complaints Genitourinary: Reports no additional female genitourinary complaints Musculoskeletal: Reports no additional musculoskeletal complaints Skin/Breast: Reports system reviewed and no additional complaints, except as docu Psychiatric: Reports no additional psychiatric complaints Endocrine: Reports no additional endocrine complaints Hematologic/Lymphatic: Reports no additional hematologic/lymphatic complaints Allergic/Immunologic: Reports no additional allergic/immunologic complaints Reports system reviewed and no additional complaints, except as documented and Reports Abnormal speech present [facility] Past Medical History Medical History Anxiety Atrial fibrillation BPH (benign prostatic hyperplasia) CAD (coronary artery disease) CHF (congestive heart failure) CKD (chronic kidney disease) COPD (chronic obstructive pulmonary disease) Dementia Diabetes Hypertension Major depression Obstructive uropathy Retention of urine Surgical History S/P placement of cardiac pacemaker Family History Family History Father Melanoma Mother Heart disease Social History Social History Household Members: None Housing: [facility] Do you presently have visiting nurse or other home services: No Unable to assess alcohol history related to: Unknown Alcohol intake: never Patient Tobacco Use Status: Tobacco use Unknown Tobacco use type: Cigarette Smoked in Last 30 Days: No e-Cigarette/Vaping Use: Former Use Use of substances other than those prescribed or required for medical reasons: No Advance Directives: Yes Advance Directives on File: Yes Advance Directives Date on File: 03/08/22 service: No Current occupational status: retired Physical Exam Vital Signs: Vital Signs: Last Vital Signs Temp 98.3 F 04/06/22 23:31 Pulse 61 04/06/22 23:31 Resp 13 04/06/22 23:31 BP 135/66 04/06/22 23:31 Pulse Ox 94 04/06/22 23:31 O2 Del Method 04/06/22 23:31 O2 Flow Rate 4 04/06/22 21:19 Oxygen Flow Rate 4 04/06/22 21:27 BMI result Body Mass Index 27.2 Vital signs have been reviewed as appeared to be correct. Blood pressure normal. Heart rate normal. Respiration rate normal. Temperature normal. Oxygen saturation normal. Appearance: Alert. Oriented X3. No acute distress. Head: Normal external exam. Normocephalic. Atraumatic. No Sharp signs noted. No raccoon eyes noted Eyes: PERRLA. EOMI. Conjunctiva and sclera normal. Eyelids normal. ENT: TM's Normal. Pharynx normal. Uvula midline. Moist mucous membranes. No trismus noted. No drooling noted. No muffled voice noted. Neck: Normal inspection. Neck supple. FROM. No adenopathy. Thyroid Normal. No meningeal signs. No neck mass noted. CVS: Normal heart rate and rhythm. Heart sound normal. No murmurs noted. Pulses normal throughout. Respiratory: No respiratory distress. Painless inspiration. Breath sounds normal. No wheezes/rales/rhonchi noted. Chest nontender. No accessory muscle usage noted or decreased air movement noted. Abdomen: Soft and nontender. Bowel sounds normal in all 4 quadrants. No distention noted. No organomegaly noted. No visible injury noted. : Diffuse scrotal and penis swelling, no tenderness, no redness, hotness. Back: No CVA tenderness. Full range of motion noted. Skin: Skin warm and dry. Normal skin color. Normal skin turgor. No rashes/le sions/lacerations noted. Extremities: No lower extremity edema. Extremities exhibit normal range of motion. Extremities nontender. Neuro: Oriented X 3. Cranial nerve exam: II-XII are grossly intact No motor deficit. No sensory deficit. Reflexes normal. Course Course Course Narrative: 86-year-old male came in for evaluation of behavior change, patient was hospitalized and discharged today on Ceftin for UTI, patient with chronic indwelling Ayoub catheter with possible colonization culture grew Klebsiella which is sensitive to cephalosporins fell that Ceftin is on appropriate antibiotic for this infection, patient is not revealing sign of acute psychosis, patient stated that he had an argument with 1 of the nurses at the care home than send them to the hospital, my evaluation revealed no new acute medical condition, will arrange for transporting the patient back to the care home and continue with Ceftin. Ayoub catheter was changed today. Leukocytosis with mild left shift likely secondary to stress and UTI Medical Decision Making Differential Diagnosis Differential Diagnoses: The differential diagnosis associated with the presentation includes (Urosepsis/UTI/Ayoub catheter complicat ion/delirium/worsening of dementia.) Lab Data MDM Lab Attestation statement: I reviewed the patient's lab results. Result Diagrams: 04/06/22 21:50 04/06/22 21:50 Labs: Lab Results 04/06/22 04/06/22 04/06/22 Range/Units 21:31 21:50 21:50 WBC 20.1 H (4.8-10.8) X10*3/uL RBC 3.62 L (4.60-5.80) X10*6/uL Hgb 10.9 L (14.0-18.0) g/dl Hct 34.8 L (42.0-52.0) % MCV 96.1 (80.0-98.0) fL MCH 30.1 (27.0-33.0) pg MCHC 31.3 (31.0-36.0) g/dl RDW 14.6 (11.0-16.0) % Plt Count 158 L (160-400) X10*3/uL MPV 10.4 (9.4-12.4) fL Immature Gran % (Auto) 0.6 H (0.0-0.4) % Neut % (Auto) 86.8 H (45-73) % Lymph % (Auto) 4.6 L (20-40) % Delta % (Auto) 7.9 (2-11) % Eos % (Auto) 0.0 (0-4) % Baso % (Auto) 0.1 (0-2) % Lymph # (Auto) 0.9 L (1.2-4.9) X10*3/uL Delta # (Auto) 1.6 H (0.1-1.2) X10*3/uL Eos # (Auto) 0.0 (0.0-0.4) X10*3/uL Baso # (Auto) 0.0 (0.0-0.2) X10*3/uL Abs Immat Gran (auto) 0.13 H (0.00-0.03) X10*3/uL Absolute Neuts (auto) 17.4 H (2.0-8.3) x10*3/uL Absolute Nucleated RBC 0.000 (0.0-0.012) X10*3/uL Nucleated RBC % (auto) 0.0 (0.0-0.2) /100WBC Smear Tech's Comments VERIFIED Sodium 142 (135-145) mmol/L Potassium 4.7 (3.3-5.1) mmol/L Chloride 102 (96-108) mmol/L Carbon Dioxide 30 H (22-29) mmol/L Anion Gap 15 (12-20) BUN 59 H D (9-16) mg/dL Creatinine 1.53 H (0.5-1.4) mg/dL Estim Creat Clear Calc 38.7 Estimated GFR 43 POC Glucose 136 H (60-115) mg/dL Random Glucose 132 H (60-115) mg/dL Calcium 9.1 (8.4-10.2) mg/dL Total Bilirubin 0.4 (0.0-1.0) mg/dL AST 20 (5-37) U/L ALT 9 (0-40) U/L Alkaline Phosphatase 97 (39-117) U/L Total Protein 6.3 L (6.5-8.0) g/dL Albumin 3.4 L (3.5-5.0) g/dL Urine Color Urine Appearance Urine pH (5.0-9.0) Ur Specific [place] (1.005-1.025) Urine Protein (Neg-Trace) mg/dL Urine Glucose (UA) (Negative) mg/dL Urine Ketones (Negative) mg/dL Urine Blood (Negative) Urine Nitrite (Negative) Ur Leukocyte Esterase (Negative) Urine RBC (0-2) /HPF Urine WBC (0-5) /HPF Ur Squamous Epith Cells (0-2) /HPF Urine Bacteria (None Seen) Hyaline Casts (0-2) /LPF 04/06/22 Range/Units 23:19 WBC (4.8-10.8) X10*3/uL RBC (4.60-5.80) X10*6/uL Hgb (14.0-18.0) g/dl Hct (42.0-52.0) % MCV (80.0-98.0) fL MCH (27.0-33.0) pg MCHC (31.0-36.0) g/dl RDW (11.0-16.0) % Plt Count (160-400) X10*3/uL MPV (9.4-12.4) fL Immature Gran % (Auto) (0.0-0.4) % Neut % (Auto) (45-73) % Lymph % (Auto) (20-40) % Delta % (Auto) (2-11) % Eos % (Auto) (0-4) % Baso % (Auto) (0-2) % Lymph # (Auto) (1.2-4.9) X10*3/uL Delta # (Auto) (0.1-1.2) X10*3/uL Eos # (Auto) (0.0-0.4) X10*3/uL Baso # (Auto) (0.0-0.2) X10*3/uL Abs Immat Gran (auto) (0.00-0.03) X10*3/uL Absolute Neuts (auto) (2.0-8.3) x10*3/uL Absolute Nucleated RBC (0.0-0.012) X10*3/uL Nucleated RBC % (auto) (0.0-0.2) /100WBC Smear Tech's Comments Sodium (135-145) mmol/L Potassium (3.3-5.1) mmol/L Chloride (96-108) mmol/L Carbon Dioxide (22-29) mmol/L Anion Gap (12-20) BUN (9-16) mg/dL Creatinine (0.5-1.4) mg/dL Estim Creat Clear Calc Estimated GFR POC Glucose (60-115) mg/dL Random Glucose (60-115) mg/dL Calcium (8.4-10.2) mg/dL Total Bilirubin (0.0-1.0) mg/dL AST (5-37) U/L ALT (0-40) U/L Alkaline Phosphatase (39-117) U/L Total Protein (6.5-8.0) g/dL Albumin (3.5-5.0) g/dL Urine Color Industry A Urine Appearance Cloudy Urine pH 5.0 (5.0-9.0) Ur Specific [place] 1.015 (1.005-1.025) Urine Protein 30 (1+) H (Neg-Trace) mg/dL Urine Glucose (UA) Negative (Negative) mg/dL Urine Ketones Negative (Negative) mg/dL Urine Blood Large (3+) H (Negative) Urine Nitrite Negative (Negative) Ur Leukocyte Esterase Large (3+) H (Negative) Urine RBC >20 H (0-2) /HPF Urine WBC >50 H (0-5) /HPF Ur Squamous Epith Cells 0-2 (0-2) /HPF Urine Bacteria Trace (None Seen) Hyaline Casts 0-2 (0-2) /LPF Discharge Plan Discharge Clinical Impression: UTI (urinary tract infection), Leukocytosis Patient Disposition: Xfer [facility] Instructions: Urinary Tract Infection in Men (ED), Ayoub Catheter Placement and Care (ED) Prescriptions: No Action acetaminophen 325 mg Tablet 650 mg PO Q6H PRN (Reason: Fever Or Pain) magnesium hydroxide [Milk of Magnesia] 400 mg/5 mL Suspension 30 ml PO DAILY PRN (Reason: Constipation) bisacodyl 10 mg Suppository 10 mg GA DAILY PRN (Reason: Constipation) Fleet Enema 19-7 gram/118 mL Enema 118 ml GA DAILY PRN (Reason: Constipation) furosemide 40 mg Tablet 40 mg PO DAILY Qty: 30 0RF Protocol: Hold for SBP< HOLD for SBP < : 90 cefuroxime axetil 250 mg Tablet 250 mg PO Q12H Qty: 14 0RF ipratropium-albuterol 0.5 mg-3 mg(2.5 mg base)/3 mL Solution For Nebulization 3 ml inhalation RQ4H WHILE AWAKE Qty: 270 0RF doxycycline monohydrate 100 mg Capsule 100 mg PO Q12H Qty: 14 0RF prednisone 10 mg tablet See Rx Instructions .Route .COMPLEX Qty: 45 0RF Rx Instructions: 10 mg orally; 5 tabs p.o. daily x3 days; 4 tabs p.o. daily x3 days; 3 tabs daily x3 days; 2 tabs daily x3 days; 1 tab daily x3 days multivitamin Tablet 1 tab PO DAILY polyethylene glycol 3350 17 gram Powder In Packet 17 g PO DAILY PRN (Reason: Constipation) thiamine HCl (vitamin B1) 100 mg Tablet 100 mg PO DAILY carvedilol 3.125 mg tablet 3.125 mg PO BID pravastatin 10 mg tablet 10 mg PO BEDTIME tamsulosin 0.4 mg capsule 0.4 mg PO BEDTIME folic acid 1 mg tablet 1 mg PO DAILY escitalopram oxalate 10 mg tablet 10 mg PO DAILY magnesium oxide 400 mg magnesium Tablet 400 mg PO BID Referrals: Physician,Unknown J [Primary Care Provider] -
[2022-04-06 21:55] LABS: Basophils Percent Auto 0.1 % (0-2); Hematocrit 34.8 % (42.0-52.0); Hemoglobin 10.9 g/dl (14.0-18.0); Imm Gran Abs Auto 0.13 X10*3/uL (0.00-0.03); Imm Gran Pct Auto 0.6 % (0.0-0.4); Lymphocytes Absolute Auto 0.9 X10*3/uL (1.2-4.9); Lymphocytes Percent Auto 4.6 % (20-40); MANUAL DIFF FLAG SCAN; Mean Corpuscular HGB Conc 31.3 g/dl (31.0-36.0); Mean Corpuscular Hemoglobin 30.1 pg (27.0-33.0); Mean Corpuscular Volume 96.1 fL (80.0-98.0); Mean Platelet Volume 10.4 fL (9.4-12.4); Monocytes Absolute Auto 1.6 X10*3/uL (0.1-1.2); Monocytes Percent Auto 7.9 % (2-11); Neutrophils Absolute Auto 17.4 x10*3/uL (2.0-8.3); Neutrophils Percent Auto 86.8 % (45-73); Platelet Count 158 X10*3/uL (160-400); Red Blood Count 3.62 X10*6/uL (4.60-5.80); Red Cell Distribution Width 14.6 % (11.0-16.0); SCAN SMEAR FLAG 1; White Blood Count 20.1 X10*3/uL (4.8-10.8)
[2022-04-06 22:13] LABS: SLIDE REVIEW VERIFIED
[2022-04-06 22:25] LABS: Alanine Aminotransferase 9 U/L (0-40); Albumin Level 3.4 g/dL (3.5-5.0); Alkaline Phosphatase 97 U/L (39-117); Anion Gap 15 (12-20); Aspartate Amino Transferase 20 U/L (5-37); Bilirubin Total 0.4 mg/dL (0.0-1.0); Blood Urea Nitrogen 59 mg/dL (9-16); Calcium 9.1 mg/dL (8.4-10.2); Carbon Dioxide 30 mmol/L (22-29); Chloride 102 mmol/L (96-108); Creatinine Clr Calc Pharmacy 38.7; Estimated Glomerular Filt Rate 43; Glucose Random 132 mg/dL (60-115); Potassium 4.7 mmol/L (3.3-5.1); Sodium 142 mmol/L (135-145); Total Protein 6.3 g/dL (6.5-8.0)
--- NOTE | 2022-04-06 22:31 | PC.NURSE ---
Per Dr King, previous catheter was removed. There was turner/brown discharge and a foul odor when I removed the catheter. A new 18fr catheter was inserted without complications. Initial output was bloody, followed by dark yellow urine. Catheter was secured and urine is flowing. Urine to be collected and sent for urinalysis.
--- NOTE | 2022-04-06 22:57 | PC.NURSE ---
Med Rec completed
[2022-04-06 23:31] VITALS: BP 135/66; PULSE 61; RESP 13; TEMP 36.8; O2SAT 94
[2022-04-06 23:37] LABS: Appearance Urine Cloudy; Color Urine Orange; Glucose Urine UA Negative (Negative); Leukocyte Esterase Urine Large (3+) (Negative); Nitrite Urine Negative (Negative); Specific Gravity - Urine 1.015 (1.005-1.025); UMIC TRIGGER UACC YES; Urine Blood Large (3+) (Negative); Urine Ketones Negative (Negative); Urine Protein 30 (1+) mg/dL (Neg-Trace)
[2022-04-06 23:41] LABS: Bacteria Urine Trace (None Seen); Hyaline Casts Urine 0-2 /LPF (0-2); RBC Urine >20 /HPF (0-2); Squamous Epithelial Cell Urine 0-2 /HPF (0-2); UACC Culture Trigger YES; WBC Urine >50 /HPF (0-5)
--- NOTE | 2022-04-07 01:08 | PC.NURSE ---
Called and gave report to [facility]. Pt waiting transport at this time.
--- NOTE | 2022-04-07 02:27 | MHC.EDTECH ---
ED round at 0200 PT requested Ice and juice. I brought the patient Ice and Apple Juice- All set
[2022-04-07 02:30] VITALS: PULSE 74; TEMP 36.6; O2SAT 92
== END 2022-04-07 02:35 | disposition skilled nursing facility (03) ==
PROVIDERS: Emergency Provider Emergency Medicine
DX: N39.0 Urinary tract infection, site not specified (principal); F03.918 Unspecified dementia, unspecified severity, with other behavioral disturbance; D72.829 Elevated white blood cell count, unspecified; Z79.899 Other long term (current) drug therapy
CPT/HCPCS: 36415; 51702; 80053; 81001; 82947; 85025; 87086; 87088; 87186; 99284; 99285

== ENCOUNTER 2022-04-07 09:54 | Emergency (ER) | payer MEDICARE, SELFPAY ==
--- NOTE | 2022-04-07 10:04 | ED_ITS ---
HPI - General Adult General Chief complaint: General Medical Stated complaint: from SNF, Psych episode per EMS Time Seen by Provider: 04/07/22 10:01 Source: patient and EMS Mode of arrival: EMS Limitations: no limitations History of Present Illness HPI narrative: Patient is an 86 year old assigned male at with a history of chronic indwelling quarles catheter presenting to the emergency department today with increased aggression. [facility] staff states that the patient has becoming more verbally abusive and is continuing to have pain around the tip of his penis where the catheter sits. Staff states that they would like him to be evaluated by a mental health professional. Patient states that the catheter bothers the tip of his penis occasionally but it isn't that bad . Patient denies any diz ziness, lightheadedness, abdominal pain, nausea, vomiting, fever, chills, blurry vision, double vision, loss of vision, chest pain, difficulty breathing, shortness of breath, back pain, night sweats, syncope or a near syncopal episode, recent trauma or falls, bowel incontinence, bowel retention, or any other complaints at this time. Onset (ago): day(s) Relieving factors: none Exacerbating factors: none Associated symptoms: denies other symptoms Treatments prior to arrival: none Related Data Home Medications Medication Instructions Recorded Confirmed carvedilol 3.125 mg tablet 3.125 mg PO BID 03/02/22 04/07/22 escitalopram oxalate 10 mg tablet 10 mg PO DAILY 03/02/22 04/07/22 folic acid 1 mg tablet 1 mg PO DAILY 03/02/22 04/07/22 magnesium oxide 400 mg PO BID 03/02/22 04/07/22 multivitamin 1 tab PO DAILY 03/02/22 04/07/22 polyethylene glycol 3350 17 gram 17 g PO DAILY PRN Constipation 03/02/22 04/07/22 oral powder packet pravastatin 10 mg tablet 10 mg PO BEDTIME 03/02/22 04/07/22 tamsulosin 0.4 mg capsule 0.4 mg PO BEDTIME 03/02/22 04/07/22 thiamine HCl (vitamin B1) 100 mg 100 mg PO DAILY 03/02/22 04/07/22 tablet acetaminophen 325 mg tablet 650 mg PO Q6H PRN Fever Or Pain 04/02/22 04/07/22 Lactobacillus acidophilus 1 cap PO BID 04/07/22 04/07/22 (Acidophilus capsule) prednisone 10 mg tablet 10 mg PO DAILY 04/07/22 04/07/22 Previous Rx's Medication Instructions Recorded cefuroxime axetil 250 mg tablet 250 mg PO Q12H #14 tabs 04/06/22 doxycycline monohydrate 100 mg 100 mg PO Q12H #14 caps 04/06/22 capsule furosemide 40 mg tablet 40 mg PO DAILY #30 tabs 04/06/22 lidocaine HCl 2 % mucosal solution 1 appl topical BID PRN pain #100 mL 04/07/22 (Lidocaine Viscous) Allergies Allergy/AdvReac Type Severity Reaction Status Date / Time No Known Allergies Allergy Verified 03/30/22 13:36 Review of Systems Constitutional: Constitutional: Reports no additional constitutional complaints, Denies chills, Denies fever(s) and Denies night sweats Eyes: Eyes: Reports no additional eye complaints, Denies blurry vision, Denies change in vision, Denies diplopia, Denies eye discharge, Denies loss of vision and Denies eye pain ENT: Denies dizziness Cardiovascular: Cardiovascular: Reports no additional cardiovascular complaints, Denies chest pain, Denies lightheadedness, Denies Loss of Consciousness and Denies dyspnea Respiratory: Respiratory: Reports no additional respiratory complaints and Denies dyspnea Gastrointestinal: Gastrointestinal: Reports no additional gastrointestinal complaints, Denies abdominal pain, Denies melena, Denies hematochezia, Denies change in bowel habits and Denies change in stool character Genitourinary: Genitourinary: Reports no additional male genitourinary complaints, Denies hematuria, Denies oliguria, Denies difficulty urinating, Denies dysuria, Denies urinary frequency, Denies urinary hesitancy, Denies urinary incontinence and Denies urinary urgency Musculoskeletal: Musculoskeletal: Reports no additional musculoskeletal complaints, Denies numbness and Denies tingling Neurologic: Denies dizziness, Denies loss of vision, Denies numbness and Denies tingling Psychiatric: Psychiatric: Reports no additional psychiatric complaints Endocrine: Endocrine: Reports no additional endocrine complaints Hematologic/Lymphatic: Hematologic/Lymphatic: Reports no additional hematologic/lymphatic complaints Allergic/Immunologic: Allergic/Immunologic: Reports no additional allergic/immunologic complaints PMFSH Past Medical History Attestation statement: The following information was validated with the patient. Source: old records reviewed, nursing notes reviewed and other (SNF records) Medical History Anxiety Atrial fibrillation BPH (benign prostatic hyperplasia) CAD (coronary artery disease) CHF (congestive heart failure) CKD (chronic kidney disease) COPD (chronic obstructive pulmonary disease) COPD (chronic obstructive pulmonary disease) Dementia Diabetes Hypertension Major depression Obstructive uropathy Retention of urine Surgical History S/P placement of cardiac pacemaker Family History Family History Father Melanoma Mother Heart disease Social History Social History Household Members: None Housing: Care Home Do you presently have visiting nurse or other home services: No Unable to assess alcohol history related to: Unknown Alcohol intake: never Patient Tobacco Use Status: Tobacco use Unknown Tobacco use type: Cigarette e-Cigarette/Vaping Use: Former Use Advance Directives: Yes Advance Directives on File: Yes Advance Directives Date on File: 03/08/22 Healthcare Proxy: Yes (Mario Boogie, son) Guardian: No service: No Current occupational status: retired Physical Exam ED Vital Signs: Vital Signs - 24 hr 04/07/22 11:30 04/07/22 11:39 Temperature 97.4 F 97.8 F Pulse Rate 60 60 Respiratory Rate 14 14 Blood Pressure 120/62 120/62 Pulse Oximetry 93 93 Oxygen Delivery Method Room Air Room Air BMI result Body Mass Index 36.9 Const General: cooperative, no acute distress, alert and awake Nutritional Appearance: well nourished Orientation/consciousness: patient oriented x3 Limitations: no limitations HENMT Head: Yes normal to inspection and Yes atraumatic Ears: hearing grossly normal bilaterally and external ears normal General nose exam: Normal external nose present, no nasal discharge noted and no epistaxis Face and sinus: Yes normal facial exam, No abrasion and No laceration Mouth: Normal oral and palatal mucosa present, no drooling and no muffled voice Eyes General: appearance normal, both eyes and all related structures Periorbital: periorbital findings normal Eyelids: Yes eyelids normal Conjunctivae: conjunctivae normal Pupils: Equal, round and reactive pupils present EOM: EOMs intact bilaterally Neck Neck: Yes normal visual inspection, Yes full ROM and Yes no lymphadenopathy Chest Chest palpation & inspection: normal inspection of the chest Resp Effort & Inspection: normal respiratory effort and able to speak in complete sentences Auscultation: clear to auscultation bilaterally Cardio Rate: regular rate Rhythm: regular rhythm GI Inspection: Yes normal to inspection Palpation (GI): Soft to palpation, not firm, nontender, no guarding and not rigid Other: quarles catheter in place Neuro General: patient oriented x3 and moves all extremities Cranial nerves: Yes Equal, round and reactive pupils present Cognition (Neuro): normal cognition Motor exam (neuro): 5/5 motor strength present throughout Sensory Exam: Normal double simultaneous stimulation for sensation Coordination: [id number] test normal Extrem General: Yes normal to inspection, Yes full ROM and Yes capillary refill normal Psych Appearance: grossly normal Mental Status: mental status grossly normal Affect: normal affect Attitude: cooperative Thought process: Normal thought process present Thought content: Normal thought content present Insight: Good insight present (Psych) Medical Decision Making Medical Decision Making MDM Narrative: Patient is a 86 year old assigned male at with a history of a chronic quarles catheter presenting to the emergency department today with increased verbal aggression. Patient's physical exam was unremarkable. Patient was evaluated by the CARE team who did not recommend any psychiatric care and states that the patient is not currently experiencing any psychiatric issues. I explained my physical exam findings as well as all test results to the patient and the patient's SNF staff. I answered all questions asked by the patient and the patient's SNF staff. I stressed the importance of the patient taking his medication as prescribed. I stressed the importance of the patient following up with his primary care provider and his urologist. I stressed the importance of the patient returning to the emergency department immediately if his symptoms were to worsen or if he were to develop any dizziness, shortness of breath, difficulty breathing, chest pain, blurry vision, loss of vision, nausea, vomiting, abdominal pain, fever, chills, back pain, or any other complaints. Patient verbalized agreement and understanding with this treatment plan and discharge. Differential Diagnosis Differential Diagnoses: The differential diagnosis associated with the presentation includes penile pain, aggressive behavior Consult Healthcare Provider Management of the patient was discussed with: Behavioral Health Provider (states that the patient is not experiencing any psychiatric issues) Independent Historian Clinical information obtained from an independent historian. History obtained from or confirmed by: EMS and Other (SNF) External Record Review External record reviewed: Other (SNF records) Discharge Plan Discharge Clinical Impression: Aggressive behavior Patient Disposition: Xfer [facility] Transfer Details: Back to [facility] Additional Instructions: Follow up with your primary care provider and a urologist. Return to the emergency department immediately if your symptoms worsen or if you develop any dizziness, shortness of breath, difficulty breathing, chest pain, blurry vision, loss of vision, nausea, vomiting, abdominal pain, fever, chills, back pain, or any other complaints. Prescriptions: New lidocaine HCl [Lidocaine Viscous] 2 % solution 1 appl topical BID PRN (Reason: pain) Qty: 100 0RF Rx Instructions: apply to around the tip of the penis as needed for pain No Action acetaminophen 325 mg Tablet 650 mg PO Q6H PRN (Reason: Fever Or Pain) furosemide 40 mg Tablet 40 mg PO DAILY Qty: 30 0RF Protocol: Hold for SBP< HOLD for SBP < : 90 cefuroxime axetil 250 mg Tablet 250 mg PO Q12H Qty: 14 0RF Rx Instructions: X 7 DAYS, FINISH 04/13/22 doxycycline monohydrate 100 mg Capsule 100 mg PO Q12H Qty: 14 0RF Rx Instructions: X 7 DAYS, FINISH 04/13/22 Acidophilus Capsule 1 cap PO BID prednisone 10 mg tablet 10 mg PO DAILY Rx Instructions: X 3 DAYS, FINISHED 04/10/22 multivitamin Tablet 1 tab PO DAILY polyethylene glycol 3350 17 gram Powder In Packet 17 g PO DAILY PRN (Reason: Constipation) thiamine HCl (vitamin B1) 100 mg Tablet 100 mg PO DAILY carvedilol 3.125 mg tablet 3.125 mg PO BID pravastatin 10 mg tablet 10 mg PO BEDTIME tamsulosin 0.4 mg capsule 0.4 mg PO BEDTIME folic acid 1 mg tablet 1 mg PO DAILY escitalopram oxalate 10 mg tablet 10 mg PO DAILY magnesium oxide 400 mg magnesium Tablet 400 mg PO BID Discharge Date/Time: 04/07/22 14:45 Print Language: Georgian
--- NOTE | 2022-04-07 11:23 | PHA.MEDREC ---
Pharmacy Consult ? Medication Reconciliation Pharmacy has completed the medication reconciliation. Patient came from [facility] with medication list. Ashley Licona, LeiaD
[2022-04-07 11:30] VITALS: BP 120/62; PULSE 60; RESP 14; TEMP 36.3; O2SAT 93
[2022-04-07 11:39] VITALS: BP 120/62; PULSE 60; RESP 14; TEMP 36.6; O2SAT 93; BMI 36.9
--- NOTE | 2022-04-07 12:30 | MHC.CM.ED ---
Addendum entered by Sara Morocho 04/07/22 14:43: Per communication w/ED clinician: CARE team has cleared pt and deemed him able to return to LTC facility. They discussed pt with [facility] team and it was agreed that pt would return. Pt to return w/Lidocaine cream script for c/o scrotal pain. [facility] booked for 2:30. Jarret Martin notified by phone of pt's return to facility. Original Note: Received consult for assessment of needs: pt from [facility] and sent in to ED on a section with behaviors. Of note, pt is behavioral at baseline. Per ED clinician, pt does not require a medical workup since he is at baseline. Behavioral/psych to see pt then he should be able to return to [facility] via BLS. ED CM to follow.
--- NOTE | 2022-04-07 13:02 | PC.NURSE ---
[facility] at bedside . patient aware of plan of care .
--- NOTE | 2022-04-07 13:29 | MHC.CM.ED ---
Pt has been cleared by [facility] and will [facility]. [facility] to transport today at 2:30pm. [facility]BV and pt aware of d/c plan. Message left for pt's son Mario informing him of pt's return.
== END 2022-04-07 14:45 | disposition skilled nursing facility (03) ==
PROVIDERS: Emergency Provider Student in an Organized Health Care Education/Training Program
DX: F91.8 Other conduct disorders (principal); N39.0 Urinary tract infection, site not specified; B96.5 Pseudomonas (aeruginosa) (mallei) (pseudomallei) as the cause of diseases classified elsewhere; B96.89 Other specified bacterial agents as the cause of diseases classified elsewhere; E11.22 Type 2 diabetes mellitus with diabetic chronic kidney disease; I13.0 Hypertensive heart and chronic kidney disease with heart failure and stage 1 through stage 4 chronic kidney disease, or unspecified chronic kidney disease; N18.9 Chronic kidney disease, unspecified; I50.9 Heart failure, unspecified; Z96.0 Presence of urogenital implants
CPT/HCPCS: 99283

== ENCOUNTER 2022-10-31 15:03 | Emergency (ER) | payer MEDICARE, SELFPAY ==
[2022-10-31 15:08] VITALS: BP 96/52; PULSE 66; O2SAT 100
[2022-10-31 15:11] VITALS: BP 130/67; PULSE 60; RESP 19; TEMP 36.6; O2SAT 100; BMI 35.9
--- NOTE | 2022-10-31 16:38 | PC.NURSE ---
patient suprapubic catheter was removed and replaced by , patient had no signs of distress. urine output 200 ml
--- NOTE | 2022-10-31 16:48 | ED.MALEGU ---
HPI - Male Genitourinary General Chief complaint: Urogenital-Male Stated complaint: CATH ISSUE W/PAIN PER EMS Time Seen by Provider: 10/31/22 15:07 History of Present Illness HPI Narrative: Patient is an 87-year-old male presents today with having a clogged suprapubic Ayoub catheter. Patient has no other complaints. No chest pain or shortness breath no nausea no vomiting Related Data Home Medications Medication Instructions Recorded Confirmed carvedilol 3.125 mg tablet 3.125 mg PO BID 03/02/22 04/07/22 escitalopram oxalate 10 mg tablet 10 mg PO DAILY 03/02/22 04/07/22 folic acid 1 mg tablet 1 mg PO DAILY 03/02/22 04/07/22 magnesium oxide 400 mg PO BID 03/02/22 04/07/22 multivitamin 1 tab PO DAILY 03/02/22 04/07/22 polyethylene glycol 3350 17 gram 17 g PO DAILY PRN Constipation 03/02/22 04/07/22 oral powder packet pravastatin 10 mg tablet 10 mg PO BEDTIME 03/02/22 04/07/22 tamsulosin 0.4 mg capsule 0.4 mg PO BEDTIME 03/02/22 04/07/22 thiamine HCl (vitamin B1) 100 mg 100 mg PO DAILY 03/02/22 04/07/22 tablet acetaminophen 325 mg tablet 650 mg PO Q6H PRN Fever Or Pain 04/02/22 04/07/22 Lactobacillus acidophilus 1 cap PO BID 04/07/22 04/07/22 (Acidophilus capsule) prednisone 10 mg tablet 10 mg PO DAILY 04/07/22 04/07/22 Previous Rx's Medication Instructions Recorded cefuroxime axetil 250 mg tablet 250 mg PO Q12H #14 tabs 04/06/22 doxycycline monohydrate 100 mg 100 mg PO Q12H #14 caps 04/06/22 capsule furosemide 40 mg tablet 40 mg PO DAILY #30 tabs 04/06/22 lidocaine HCl 2 % mucosal solution 1 appl topical BID PRN pain #100 mL 04/07/22 (Lidocaine Viscous) Allergies Allergy/AdvReac Type Severity Reaction Status Date / Time No Known Allergies Allergy Verified 03/30/22 13:36 Review of Systems Review of Systems: No fevers and chills no chest pain PMFSH Past Medical History Attestation statement: The following information was validated with the patient. Medical History Anxiety Atrial fibrillation BPH (benign prostatic hyperplasia) CAD (coronary artery disease) CHF (congestive heart failure) CKD (chronic kidney disease) COPD (chronic obstructive pulmonary disease) COPD (chronic obstructive pulmonary disease) Dementia Diabetes Hypertension Major depression Obstructive uropathy Retention of urine Surgical History S/P placement of cardiac pacemaker Family History Family History Father Melanoma Mother Heart disease Social History Social History Household Members: None Housing: Alf Do you presently have visiting nurse or other home services: No Unable to assess alcohol history related to: Unknown Alcohol intake: never Patient Tobacco Use Status: Tobacco use Unknown Tobacco use type: Cigarette e-Cigarette/Vaping Use: Former Use Advance Directives: Yes Advance Directives on File: Yes Advance Directives Date on File: 03/08/22 service: No Current occupational status: retired Physical Exam Vital Signs: Vital Signs: Last Vital Signs Temp 98 F 10/31/22 15:11 Pulse 60 10/31/22 15:11 Resp 19 10/31/22 15:11 BP 130/67 10/31/22 15:11 Pulse Ox 100 10/31/22 15:11 O2 Del Method Room Air 10/31/22 15:11 BMI result Body Mass Index 35.9 Appearance: Alert. Oriented X3. No acute distress. Eyes: Pupils equal, round and reactive to light. ENT: Pharynx normal. Neck: Normal inspection. Neck supple. No lymph nodes noted. No crepitus CVS: Normal heart rate and rhythm. Pulses normal. Normal S1 and S2 Respiratory: No respiratory distress. Breath sounds normal. No Wheezing. No rales Abdomen: Soft and nontender. No rigidity. No distention. good BS x4 Skin: Skin warm and dry. Normal skin color. Normal skin turgor. Extremities: No lower extremity edema. Neurovascular intact to all extremities. No Lacerations. No Rash Neuro: Oriented X 3. No motor deficit. No sensory deficit. Moving all extermities. No slurred speech Medical Decision Making Medical Decision Making MDM Narrative: Patient's suprapubic Ayoub catheter was checked with a 20 Colombian suprapubic catheter. The area was cleaned with Betadine. Subsequently the old Ayoub was removed. A new 20 [place]ian Ayoub was tested subsequently inserted balloon was cuff to 10 cc. There is no complications. There was positive drainage into the Ayoub catheter. The catheter was then secured. No application. Discussed with senior living again. In stable condition. Differential Diagnosis Differential Diagnoses: The differential diagnosis associated with the presentation includes Suprapubic catheter replacement Consult Healthcare Provider Management of the patient was discussed with: Ball Points Inspector Patient's previous urology note was reviewed External Record Review External record reviewed: Inpatient record Previous urology record reviewed Chronic Conditions Atrial fibrillation Discharge Plan Discharge Clinical Impression: Retention of urine, Chronic indwelling Ayoub catheter Patient Disposition: Home, Self-Care Instructions: Ayoub Catheter Placement and Care (ED) Prescriptions: No Action acetaminophen 325 mg Tablet 650 mg PO Q6H PRN (Reason: Fever Or Pain) furosemide 40 mg Tablet 40 mg PO DAILY Qty: 30 0RF Protocol: Hold for SBP< HOLD for SBP < : 90 cefuroxime axetil 250 mg Tablet 250 mg PO Q12H Qty: 14 0RF Rx Instructions: X 7 DAYS, FINISH 04/13/22 doxycycline monohydrate 100 mg Capsule 100 mg PO Q12H Qty: 14 0RF Rx Instructions: X 7 DAYS, FINISH 04/13/22 Acidophilus Capsule 1 cap PO BID prednisone 10 mg tablet 10 mg PO DAILY Rx Instructions: X 3 DAYS, FINISHED 04/10/22 lidocaine HCl [Lidocaine Viscous] 2 % solution 1 appl topical BID PRN (Reason: pain) Qty: 100 0RF Rx Instructions: apply to around the tip of the penis as needed for pain multivitamin Tablet 1 tab PO DAILY polyethylene glycol 3350 17 gram Powder In Packet 17 g PO DAILY PRN (Reason: Constipation) thiamine HCl (vitamin B1) 100 mg Tablet 100 mg PO DAILY carvedilol 3.125 mg tablet 3.125 mg PO BID pravastatin 10 mg tablet 10 mg PO BEDTIME tamsulosin 0.4 mg capsule 0.4 mg PO BEDTIME folic acid 1 mg tablet 1 mg PO DAILY escitalopram oxalate 10 mg tablet 10 mg PO DAILY magnesium oxide 400 mg magnesium Tablet 400 mg PO BID Referrals: Physician,Unknown J [Primary Care Provider] -
[2022-10-31 16:52] VITALS: BP 147/70; PULSE 60; RESP 16; O2SAT 100
== END 2022-10-31 18:44 | disposition home or self-care (01) ==
PROVIDERS: Emergency Provider Emergency Medicine Emergency Medical Services
DX: R33.9 Retention of urine, unspecified (principal); T83.098A Other mechanical complication of other urinary catheter, initial encounter; Y73.8 Miscellaneous gastroenterology and urology devices associated with adverse incidents, not elsewhere classified; Y92.9 Unspecified place or not applicable; E11.22 Type 2 diabetes mellitus with diabetic chronic kidney disease; I13.0 Hypertensive heart and chronic kidney disease with heart failure and stage 1 through stage 4 chronic kidney disease, or unspecified chronic kidney disease; N18.9 Chronic kidney disease, unspecified; I50.9 Heart failure, unspecified; I48.91 Unspecified atrial fibrillation; Z87.891 Personal history of nicotine dependence; Z95.0 Presence of cardiac pacemaker
CPT/HCPCS: 51702; 99283

== ENCOUNTER 2023-05-11 13:42 | Emergency (ER) | payer MEDICARE, SELFPAY ==
--- NOTE | ~2023-05-11 | US_ITS ---
EXAMINATION: US SCROTUM CLINICAL INFORMATION: Scrotal swelling/pain. COMPARISON: None available. TECHNIQUE: A sonogram of the scrotum was performed assessing lindsey-scale appearance and color Doppler flow. Spectral Doppler analysis of the arterial and venous flow were performed in the testes bilaterally. FINDINGS: RIGHT: Right testicle measures 3.1 x 2.3 x 2.2 cm, volume 8.4 mL. No focal testicular parenchymal lesions are visualized. Spectral Doppler analysis of the arterial and venous flow is slightly decreased in the right testis. Right epididymal head is normal in size. There are small anechoic cyst measuring 1.0 x 0.6 x 0.7 cm. There is moderate complex right hydrocele. No varicocele is seen. Right epididymal Doppler flow is normal. Incidental finding of right epididymis appendix LEFT: Left testicle measures 2.1 x 2.0 x 2.2 cm cm, volume 7.2 mL. No focal testicular parenchymal lesions are visualized. Spectral Doppler analysis of the arterial and venous flow is slightly decreased in the left testis. There are small echogenic lesion adjacent to this scrotum likely scrotal kenisha or a calcified epididymis appendix. It measures 0.4 x 0.3 x 0.3 cm. Left epididymal head is normal in size. There is a complex left hydrocele with echogenic debris. No varicocele is seen. Left epididymal Doppler flow is abnormal US/US scrotum doppler IMPRESSION: Bilateral complex hydroceles slightly larger on the right. Normal testes with slight decreased bilateral pleural effusions likely secondary to hydrocele. Right epididymis appendix. Left epididymal appendix versus scrotal kenisha.
--- NOTE | ~2023-05-11 | US_ITS ---
EXAMINATION: US SCROTUM CLINICAL INFORMATION: Scrotal swelling/pain. COMPARISON: None available. TECHNIQUE: A sonogram of the scrotum was performed assessing lindsey-scale appearance and color Doppler flow. Spectral Doppler analysis of the arterial and venous flow were performed in the testes bilaterally. FINDINGS: RIGHT: Right testicle measures 3.1 x 2.3 x 2.2 cm, volume 8.4 mL. No focal testicular parenchymal lesions are visualized. Spectral Doppler analysis of the arterial and venous flow is slightly decreased in the right testis. Right epididymal head is normal in size. There are small anechoic cyst measuring 1.0 x 0.6 x 0.7 cm. There is moderate complex right hydrocele. No varicocele is seen. Right epididymal Doppler flow is normal. Incidental finding of right epididymis appendix LEFT: Left testicle measures 2.1 x 2.0 x 2.2 cm cm, volume 7.2 mL. No focal testicular parenchymal lesions are visualized. Spectral Doppler analysis of the arterial and venous flow is slightly decreased in the left testis. There are small echogenic lesion adjacent to this scrotum likely scrotal kenisah or a calcified epididymis appendix. It measures 0.4 x 0.3 x 0.3 cm. Left epididymal head is normal in size. There is a complex left hydrocele with echogenic debris. No varicocele is seen. Left epididymal Doppler flow is abnormal US/US scrotum IMPRESSION: Bilateral complex hydroceles slightly larger on the right. Normal testes with slight decreased bilateral pleural effusions likely secondary to hydrocele. Right epididymis appendix. Left epididymal appendix versus scrotal kenisha.
--- NOTE | ~2023-05-11 | CT_ITS ---
EXAMINATION: CT ABDOMEN AND PELVIS WITHOUT CONTRAST CLINICAL INFORMATION: Gangrene. COMPARISON: Chest x-ray 04/03/2022. TECHNIQUE: Multidetector volumetric imaging was performed from the superior aspect of the liver through the pubic symphysis. Sagittal and coronal reformatted images were obtained on the technologist's workstation. This CT examination was performed using dose optimization techniques as appropriate, variously including the following: *Automated exposure control *Adjustment of mA and/or kV according to patient size (this includes techniques or standardized protocols for targeted exams where dose is matched to indication/reason for exam; i.e. extremities or head) *Use of iterative reconstruction technique DLP: 1056 mGy-cm FINDINGS: LUNG BASES: There is a small right pleural effusion. Mild right posterior descending artery calcification seen. Solitary pacer electrode tip remains in right ventricle. Heart size is borderline enlarged.. LIVER, GALLBLADDER, AND BILIARY TREE: The liver is normal in size, shape, and attenuation. No focal hepatic lesion or biliary ductal dilatation is present. The gallbladder is unremarkable with no evidence of radiopaque gallstones, gallbladder wall thickening, or obvious pericholecystic inflammatory changes. PANCREAS: Unremarkable. SPLEEN: Unremarkable. ADRENAL GLANDS: Unremarkable. KIDNEYS AND URETERS: The kidneys are normal in size, shape, and attenuation. No hydronephrosis, hydroureter, or calculi seen. There is mild bilateral perinephric stranding. Suspect peripelvic right renal cyst. There is a 1.2 cm mid to lower pole exophytic right renal cyst. BLADDER: There is a suprapubic catheter with undistended bladder. GASTROINTESTINAL TRACT: There is moderate gas seen throughout the colon and stool in the right colon without mural thickening or pericolic fat stranding. The small bowel loops are normal caliber. Appendix is normal caliber. No inflammatory process seen in the abdomen. ABDOMINAL WALL: Small umbilical hernia containing fat. There is moderate size right inguinal hernia containing fat. LYMPH NODES: There are prominent left inguinal lymph nodes largest measuring 2.1 cm. Small right inguinal lymph nodes also visualized. Also visualized is a right internal iliac enlarged lymph node measuring 1 cm. Multiple small left retroperitoneal lymph nodes seen largest measuring 1.2 cm. Several additional retroperitoneal lymph nodes are seen in upper and midabdomen. VASCULAR: There is atherosclerotic calcification of abdominal aorta. PELVIC VISCERA: The prostate gland is enlarged with loss of fat border between the urinary bladder and prostate likely suspicious for malignancy. OSSEOUS STRUCTURES: No aggressive lytic or sclerotic process seen. CT/CT abdomen pelvis wo IV con IMPRESSION: 1. Enlarged prostate gland with loss of fat border between the urinary bladder and the prostate gland suspicious for malignancy. In addition there is abnormal retroperitoneal, pelvic and left inguinal lymphadenopathy small right inguinal lymph nodes are visualized as well. Correlate with clinical exam 2. There is a suprapubic catheter with undistended bladder. 3. There is bilateral perinephric stranding but no radiopaque calculi or hydronephrosis seen. 4. Small right pleural effusion. 5. Mild constipation. 6. Small umbilical hernia and moderate size right inguinal hernia containing fat. Fleischner guidelines were followed.
[2023-05-11 14:05] VITALS: BP 128/54; BP 134/72; PULSE 60; PULSE 86; RESP 20; O2SAT 93; O2SAT 94; BMI 39.6
[2023-05-11 16:43] VITALS: BP 129/57; PULSE 60; RESP 14; O2SAT 93
--- NOTE | 2023-05-11 17:15 | ED.MALEGU ---
HPI - Male Genitourinary General Chief complaint: Urogenital-Male Stated complaint: SCROTAL PAIN FROM [facility] FROM [facility] PER EMS Time Seen by Provider: 05/11/23 14:04 History of Present Illness HPI Narrative: Patient is an 87-year-old male from the halfway. long term reported patient has increasing scrotal swelling for the last 3 days. long term doctor requests patient to come to the ED for additional evaluation. He has pain that is worse on the left testis. Swelling in both. long term noted an ulcer on the underside of the scrotum. Patient came in for further evaluation. He denies having any fever chills. No discharge from the penis. He has a suprapubic catheter. No chest pain or shortness of breath no diaphoresis. No focal weakness. Patient not sexually active. History of diabetes. History of chronic renal insufficiency. History of atrial fibrillation not on anticoagulation Related Data Home Medications Medication Instructions Recorded Confirmed carvedilol 3.125 mg tablet 3.125 mg PO BID 03/02/22 04/07/22 escitalopram oxalate 10 mg tablet 10 mg PO DAILY 03/02/22 04/07/22 folic acid 1 mg tablet 1 mg PO DAILY 03/02/22 04/07/22 magnesium oxide 400 mg PO BID 03/02/22 04/07/22 multivitamin 1 tab PO DAILY 03/02/22 04/07/22 polyethylene glycol 3350 17 gram 17 g PO DAILY PRN Constipation 03/02/22 04/07/22 oral powder packet pravastatin 10 mg tablet 10 mg PO BEDTIME 03/02/22 04/07/22 tamsulosin 0.4 mg capsule 0.4 mg PO BEDTIME 03/02/22 04/07/22 thiamine HCl (vitamin B1) 100 mg 100 mg PO DAILY 03/02/22 04/07/22 tablet acetaminophen 325 mg tablet 650 mg PO Q6H PRN Fever Or Pain 04/02/22 04/07/22 Lactobacillus acidophilus 1 cap PO BID 04/07/22 04/07/22 (Acidophilus capsule) prednisone 10 mg tablet 10 mg PO DAILY 04/07/22 04/07/22 Previous Rx's Medication Instructions Recorded cefuroxime axetil 250 mg tablet 250 mg PO Q12H #14 tabs 04/06/22 doxycycline monohydrate 100 mg 100 mg PO Q12H #14 caps 04/06/22 capsule furosemide 40 mg tablet 40 mg PO DAILY #30 tabs 04/06/22 lidocaine HCl 2 % mucosal solution 1 appl topical BID PRN pain #100 mL 04/07/22 (Lidocaine Viscous) levofloxacin 500 mg tablet 500 mg PO DAILY #14 tabs 05/11/23 Allergies Allergy/AdvReac Type Severity Reaction Status Date / Time No Known Allergies Allergy Verified 03/30/22 13:36 Review of Systems Review of Systems: Positive scrotal swelling PMFSH Past Medical History Attestation statement: The following information was validated with the patient. Medical History COPD (chronic obstructive pulmonary disease) Retention of urine Dementia Diabetes Atrial fibrillation BPH (benign prostatic hyperplasia) Hypertension CAD (coronary artery disease) Anxiety Major depression Obstructive uropathy COPD (chronic obstructive pulmonary disease) CHF (congestive heart failure) CKD (chronic kidney disease) Surgical History S/P placement of cardiac pacemaker Family History Family History Father Melanoma Mother Heart disease Social History Social History Household Members: None Housing: Long-Term Do you presently have visiting nurse or other home services: No Unable to assess alcohol history related to: Unknown Alcohol intake: never Patient Tobacco Use Status: Tobacco use Unknown Tobacco use type: Cigarette Smoked in Last 30 Days: No e-Cigarette/Vaping Use: Former Use Use of substances other than those prescribed or required for medical reasons: No Advance Directives: Yes Advance Directives on File: Yes Advance Directives Date on File: 03/08/22 service: No Current occupational status: retired Physical Exam Vital Signs: Vital Signs: Last Vital Signs Temp 98.2 F 05/11/23 20:24 Pulse 58 05/11/23 20:24 Resp 17 05/11/23 20:24 BP 127/67 05/11/23 20:24 Pulse Ox 94 05/11/23 20:24 O2 Del Method Room Air 05/11/23 20:24 BMI result Body Mass Index 39.6 Appearance: Alert. Oriented X3. No acute distress. Eyes: Pupils equal, round and reactive to light. ENT: Pharynx normal. Neck: Normal inspection. Neck supple. No lymph nodes noted. No crepitus CVS: Normal heart rate and rhythm. Pulses normal. Normal S1 and S2 Respiratory: No respiratory distress. Breath sounds normal. No Wheezing. No rales Abdomen: Soft and nontender. No rigidity. No distention. good BS x4. Suprapubic site intact. No discharge Skin: Positive swelling over the genitalia there is no crepitus on palpation. The testis on the left size is enlarged tender to touch. About twice the size of the right 1. On the underside of the scrotum there is a lesion approximately 2 cm x 1 cm in size ulcerated. There is no penile discharge noted. Extremities: No lower extremity edema. Neurovascular intact to all extremities. No Lacerations. No Rash Neuro: Oriented X 3. No motor deficit. No sensory deficit. Moving all extermities. No slurred speech Medical Decision Making Medical Decision Making MDM Narrative: Patient's white count was normal at 9.5. Has scrotal pain and swelling it has been ongoing for about 3 days. The left testis appears larger than the right. The scrotum was warmth to touch. A CT scan of the abdomen pelvis was done given patient's debilitated state to look for Maksim's gangrene. It was grossly negative for any acute evidence of subcutaneous air. Nonspecific finding noted in the prostate. An ultrasound of the scrotum was done. There was no evidence for torsion. This good epididymis flow bilaterally. There is hydroceles bilaterally. There is a wound noted in the inferior aspect of the scrotum. Will need follow-up with wound care. Patient's lactate is 0.6. No evidence for severe sepsis. Urine is infected however patient is likely a chronic colonizer as it is from the suprapubic catheter. Gonorrhea chlamydia is pending. Will start patient on antibiotics. Patient's previous urine culture shows Organism 1 Providencia stuartii Quant > 100,000 cfu/mL Organism 2 Pseudomonas aeruginosa Quant > 100,000 cfu/mL Sensitive to cephalosporins. Will start patient on cefepime for the skin infection and also the possible urine colonization. Will discharge patient back to the nursing 1. Enlarged prostate gland with loss of fat border between the urinary bladder and the prostate gland suspicious for malignancy. In addition there is abnormal retroperitoneal, pelvic and left inguinal lymphadenopathy small right inguinal lymph nodes are visualized as well. Correlate with clinical exam 2. There is a suprapubic catheter with undistended bladder. 3. There is bilateral perinephric stranding but no radiopaque calculi or hydronephrosis seen. 4. Small right pleural effusion. 5. Mild constipation. 6. Small umbilical hernia and moderate size right inguinal hernia containing fat. CT scan results as above. Will need close follow-up. Patient finished Ceftin and doxycycline on an outpatient basis on April 13. Will give patient Levaquin. Close follow-up outpatient basis. Differential Diagnosis Differential Diagnoses: The differential diagnosis associated with the presentation includes Admission/Observation Consideration of admission/observation: Escalation of care including admission/observation considered CT showed no Maksim's. Ultrasound showed no gross abscess. No torsion. Patient well-appearing otherwise has a history of cellulitis. Normal white count. At this time felt patient can be discharged home on antibiotics. Patient failed outpatient treatment was Ceftin and doxycycline. Will start patient on Levaquin. Lab Data MDM Lab Attestation statement: I reviewed the patient's lab results. 05/11/23 17:34 05/11/23 17:34 Labs: Lab Results 05/11/23 05/11/23 Range/Units 17:34 18:14 WBC 9.5 (4.8-10.8) X10*3/uL RBC 3.87 L (4.60-5.80) X10*6/uL Hgb 11.9 L (14.0-18.0) g/dl Hct 37.4 L (42.0-52.0) % MCV 96.6 (80.0-98.0) fL MCH 30.7 (27.0-33.0) pg MCHC 31.8 (31.0-36.0) g/dl RDW 13.5 (11.0-16.0) % Plt Count 114 L D (160-400) X10*3/uL MPV 11.5 (9.4-12.4) fL Immature Gran % (Auto) 0.3 (0.0-0.4) % Neut % (Auto) 64.3 (45-73) % Lymph % (Auto) 21.7 (20-40) % [place] % (Auto) 7.7 (2-11) % Eos % (Auto) 5.5 H (0-4) % Baso % (Auto) 0.5 (0-2) % Lymph # (Auto) 2.1 (1.2-4.9) X10*3/uL [place] # (Auto) 0.7 (0.1-1.2) X10*3/uL Eos # (Auto) 0.5 H (0.0-0.4) X10*3/uL Baso # (Auto) 0.1 (0.0-0.2) X10*3/uL Abs Immat Gran (auto) 0.03 (0.00-0.03) X10*3/uL Absolute Neuts (auto) 6.1 (2.0-8.3) x10*3/uL Absolute Nucleated RBC 0.000 (0.0-0.012) X10*3/uL Nucleated RBC % (auto) 0.0 (0.0-0.2) /100WBC Sodium 140 (135-145) mmol/L Potassium 4.6 (3.3-5.1) mmol/L Chloride 101 (96-108) mmol/L Carbon Dioxide 33 H (22-29) mmol/L Anion Gap 11 L (12-20) BUN 22 H (9-16) mg/dL Creatinine 1.36 (0.5-1.4) mg/dL Estim Creat Clear Calc 54.8 Estimated GFR 50 Random Glucose 95 (60-115) mg/dL Lactic Acid 0.6 (0.5-2.0) mmol/L Calcium 8.9 (8.4-10.2) mg/dL Urine Color Yellow Urine Appearance Clear Urine pH 8.0 (5.0-9.0) Ur Specific [place] 1.015 (1.005-1.025) Urine Protein 30 (1+) H (Neg-Trace) mg/dL Urine Glucose (UA) Negative (Negative) mg/dL Urine Ketones Negative (Negative) mg/dL Urine Blood Trace H (Negative) Urine Nitrite Negative (Negative) Ur Leukocyte Esterase Large (3+) H (Negative) Urine RBC 6-10 H (0-2) /HPF Urine WBC >50 H (0-5) /HPF Ur Squamous Epith Cells 0-2 (0-2) /HPF Urine Bacteria None Seen (None Seen) Hyaline Casts 3-5 (0-2) /LPF Independent Interpretation I performed an independent interpretation of an: CT Scan Radiology Impression Discussion of test interpretation with radiology: I have reviewed the radiologist's reading. (Ultrasound and CT scan) Independent Historian Clinical information obtained from an independent historian. History obtained from or confirmed by: EMS External Record Review External record reviewed: Inpatient record Chronic Conditions Patient?s care impacted by: Diabetes and Hypertension Chronic kidney disease Discharge Plan Discharge Clinical Impression: Scrotal infection Patient Disposition: Home, Self-Care Instructions: Hydrocele (ED), Cellulitis (DC) Prescriptions: New levofloxacin 500 mg tablet 500 mg PO DAILY Qty: 14 0RF No Action acetaminophen 325 mg Tablet 650 mg PO Q6H PRN (Reason: Fever Or Pain) furosemide 40 mg Tablet 40 mg PO DAILY Qty: 30 0RF Protocol: Hold for SBP< HOLD for SBP < : 90 cefuroxime axetil 250 mg Tablet 250 mg PO Q12H Qty: 14 0RF Rx Instructions: X 7 DAYS, FINISH 04/13/22 doxycycline monohydrate 100 mg Capsule 100 mg PO Q12H Qty: 14 0RF Rx Instructions: X 7 DAYS, FINISH 04/13/22 Acidophilus Capsule 1 cap PO BID prednisone 10 mg tablet 10 mg PO DAILY Rx Instructions: X 3 DAYS, FINISHED 04/10/22 lidocaine HCl [Lidocaine Viscous] 2 % solution 1 appl topical BID PRN (Reason: pain) Qty: 100 0RF Rx Instructions: apply to around the tip of the penis as needed for pain multivitamin Tablet 1 tab PO DAILY polyethylene glycol 3350 17 gram Powder In Packet 17 g PO DAILY PRN (Reason: Constipation) thiamine HCl (vitamin B1) 100 mg Tablet 100 mg PO DAILY carvedilol 3.125 mg tablet 3.125 mg PO BID pravastatin 10 mg tablet 10 mg PO BEDTIME tamsulosin 0.4 mg capsule 0.4 mg PO BEDTIME folic acid 1 mg tablet 1 mg PO DAILY escitalopram oxalate 10 mg tablet 10 mg PO DAILY magnesium oxide 400 mg magnesium Tablet 400 mg PO BID Referrals: Woo Zendejas MD [Physician] - 05/15/23 Josef Walker MD [Physician] - 05/15/23
[2023-05-11 17:39] LABS: MANUAL DIFF FLAG NO
[2023-05-11 17:43] LABS: Basophils Absolute Auto 0.1 X10*3/uL (0.0-0.2); Basophils Percent Auto 0.5 % (0-2); Eosinophils Absolute Auto 0.5 X10*3/uL (0.0-0.4); Eosinophils Percent Auto 5.5 % (0-4); Hematocrit 37.4 % (42.0-52.0); Hemoglobin 11.9 g/dl (14.0-18.0); Imm Gran Abs Auto 0.03 X10*3/uL (0.00-0.03); Imm Gran Pct Auto 0.3 % (0.0-0.4); Lymphocytes Absolute Auto 2.1 X10*3/uL (1.2-4.9); Lymphocytes Percent Auto 21.7 % (20-40); Mean Corpuscular HGB Conc 31.8 g/dl (31.0-36.0); Mean Corpuscular Hemoglobin 30.7 pg (27.0-33.0); Mean Corpuscular Volume 96.6 fL (80.0-98.0); Mean Platelet Volume 11.5 fL (9.4-12.4); Monocytes Absolute Auto 0.7 X10*3/uL (0.1-1.2); Monocytes Percent Auto 7.7 % (2-11); Neutrophils Absolute Auto 6.1 x10*3/uL (2.0-8.3); Neutrophils Percent Auto 64.3 % (45-73); Platelet Count 114 X10*3/uL (160-400); Red Blood Count 3.87 X10*6/uL (4.60-5.80); Red Cell Distribution Width 13.5 % (11.0-16.0); White Blood Count 9.5 X10*3/uL (4.8-10.8)
--- NOTE | 2023-05-11 17:44 | PC.NURSE ---
pt alert and oriented, has some boughts of confusion, know name, place and situation. has wound on scrotum that is draining clear liquid. wound appears deep and tunneling. labs drawn and iv inserted. urine sample pending - pt has suprapubic cath, connecting tube and drainage bag changed and sample pending.
[2023-05-11 17:54] LABS: Lactic Acid 0.6 mmol/L (0.5-2.0)
[2023-05-11 18:09] LABS: Anion Gap 11 (12-20); Blood Urea Nitrogen 22 mg/dL (9-16); Calcium 8.9 mg/dL (8.4-10.2); Carbon Dioxide 33 mmol/L (22-29); Chloride 101 mmol/L (96-108); Creatinine Clr Calc Pharmacy 54.8; Estimated Glomerular Filt Rate 50; Glucose Random 95 mg/dL (60-115); Potassium 4.6 mmol/L (3.3-5.1); Sodium 140 mmol/L (135-145)
[2023-05-11 18:23] VITALS: BP 124/62; PULSE 60; RESP 20; TEMP 36.7; O2SAT 93
[2023-05-11 18:39] LABS: Appearance Urine Clear; Color Urine Yellow; Glucose Urine UA Negative (Negative); Leukocyte Esterase Urine Large (3+) (Negative); Nitrite Urine Negative (Negative); Specific Gravity - Urine 1.015 (1.005-1.025); UMIC TRIGGER UACC YES; Urine Blood Trace (Negative); Urine Ketones Negative (Negative); Urine Protein 30 (1+) mg/dL (Neg-Trace)
[2023-05-11 18:44] LABS: Bacteria Urine None Seen (None Seen); Squamous Epithelial Cell Urine 0-2 /HPF (0-2); UACC Culture Trigger YES; WBC Urine >50 /HPF (0-5)
[2023-05-11 20:24] VITALS: BP 127/67; PULSE 58; RESP 17; TEMP 36.8; O2SAT 94
[2023-05-11] MEDS: levoFLOXacin 500 MG TABLET PO (22:58)
[2023-05-11 23:10] VITALS: BP 137/72; PULSE 60; RESP 17; TEMP 36.7; O2SAT 99
--- NOTE | 2023-05-11 23:12 | MHC.EDTECH ---
Call out to [facility] @[phone] to book transport back to [facility] ETA of 25 mins was given.
--- NOTE | 2023-05-11 23:33 | PC.NURSE ---
Nurse to nurse report given to MAYO Jones at [facility].
[2023-05-12] VITALS: BP 130/71; PULSE 61; RESP 18; TEMP 36.8; O2SAT 93
[2023-05-12 02:28] LABS: CT PCR NOT DETECTED (Not Detect.); NG PCR NOT DETECTED (Not Detect.)
== END 2023-05-12 00:37 | disposition home or self-care (01) ==
PROVIDERS: Emergency Provider Emergency Medicine Emergency Medical Services; PCP Emergency Medicine
DX: N49.2 Inflammatory disorders of scrotum (principal); N50.812 Left testicular pain; R33.9 Retention of urine, unspecified; E11.9 Type 2 diabetes mellitus without complications; I10 Essential (primary) hypertension; I48.91 Unspecified atrial fibrillation; Z96.0 Presence of urogenital implants; Z79.02 Long term (current) use of antithrombotics/antiplatelets; Z79.899 Other long term (current) drug therapy
CPT/HCPCS: 0353U; 36415; 51798; 74176; 76870; 80048; 81001; 83605; 85025; 87040; 87086; 93975; 99284; 99285